=== PATIENT | female | born 1950 | race Hispanic/Latino ===

== ENCOUNTER 2016-08-24 12:35 | Emergency (ER) | payer MEDICARE ==
--- NOTE | 2016-08-24 12:57 | Emergency Department Report ---
Chief Complaint: Extremity Injury, Lower Stated Complaint: NOT ABLE TO WALK FOR A WEEK Time Seen by Provider: 08/24/16 12:52 - HPI History of Present Illness: PT c/o R knee pain x 1 week. PT denies recent injury. PT states she fell 1.5 years ago and injured her knee. PT states that she was not seen at that time and her knee was swollen and bruised. PT states after the fall she has not been able to put pressure on her R knee. - ROS Review of Systems: + gait changes due to R knee pain - Exam Physical Exam: PT looks well, non toxic gait not observed in triage. MSE screening note: Focused history and physical exam performed. Due to findings the following was ordered: xr ED Disposition for MSE Condition: Stable
[2016-08-24 12:59] VITALS: BP 95/51
--- NOTE | 2016-08-24 13:38 | XRay Report ---
RIGHT KNEE RADIOGRAPHS INDICATION: Pain. COMPARISON: None similar. FINDINGS: AP, oblique and lateral right knee radiographs demonstrate intact articulation. Slight degenerative tibial spine prominence and medial compartment narrowing. No suprapatellar effusion. Atherosclerotic vascular calcifications. CONCLUSION: No acute right knee radiographic abnormality with few degenerative changes, as described. Thank you for the opportunity to participate in this patient's care.
[2016-08-24] MEDS ORDERED: MOTRIN PO ONE (18:52)
[2016-08-24] MEDS ORDERED: TYLENOL PO ONE (18:54)
--- NOTE | 2016-08-24 22:03 | Emergency Department Report ---
Entered by MARELY GONZALEZ, acting as scribe for JONATHON REA NP. ED Lower Extremity HPI - General Chief Complaint: Extremity Injury, Lower Stated Complaint: NOT ABLE TO WALK FOR A WEEK Time Seen by Provider: 08/24/16 12:52 Source: patient Mode of arrival: Ambulatory Limitations: No Limitations - History of Present Illness Initial Comments: This is a 66 year old female nontoxic, well nourished in appearance, no acute signs of distress presents right knee pain for 3 weeks. Patient reports about 1 1/2 years ago she injured her knee by tripping over carpet which landed on her right knee but recently, symptoms reoccurred (about 3 weeks ago) when she hit her knee on a car door. Patient states aggravation while bearing weight and bending the knee and alleviated when extending. She describes the pain as throbbing with level 10/10. Patient denies any trauma, chest pain, SOB, numbness or tingling to extremity. Patient also denies any calf pain, joint swelling, joint redness, recent surgeries, recent travels, long car rides. Patient denies any hospital stays. Denies any allergies. PMHx CHF, COPD, DM, and HTN but denies DVT. MD Complaint: knee injury Onset/Timin -: week(s) Injury: Knee: Right Type of Injury: unknown Place: home Severity: moderate Severity scale (0 -10): 4 Improves With: nothing Worsens With: weight bearing, movement Context: walking Associated Symptoms: able to partially bear weight, ambulatory. denies: snap/ pop sensation, swelling, numbness, tingling, unable to bear weight - Related Data Home Medications Medication Instructions Recorded Confirmed Last Taken Venlafaxine Xr [Effexor XR] 225 mg PO QDAY 12/12/12 05/31/16 05/30/16 225 traZODone [Desyrel] 200 mg PO QHS 12/12/12 05/31/16 05/30/16 100 Previous Rx's Medication Instructions Recorded Last Taken Type ALBUTEROL Inhaler [ProAir HFA 2 puff IH QID PRN #1 inhalation 06/04/16 Unknown Rx Inhaler] Levofloxacin [Levaquin TAB] 250 mg PO Q24H #5 tablet 06/04/16 Unknown Rx Metoprolol Xl [Metoprolol 25 mg PO QDAY #30 tablet 06/04/16 Unknown Rx SUCCINATE ER TAB] Nicotine [Habitrol] 14 mg TD DAILY #14 patch 06/04/16 Unknown Rx clonazePAM 0.5 mg PO DAILY PRN #14 tablet 06/04/16 Unknown Rx metFORMIN [Glucophage] 500 mg PO BID #60 tablet 06/04/16 Unknown Rx Acetaminophen [Acetaminophen TAB] 650 mg PO Q6HR PRN #20 tablet 08/24/16 Unknown Rx Allergies Allergy/AdvReac Type Severity Reaction Status Date / Time No Known Allergies Allergy Verified 08/24/16 12:52 ED Review of Systems Comment: All other systems reviewed and negative Constitutional: denies: chills, fever Eyes: denies: eye pain, eye discharge, vision change ENT: denies: ear pain, throat pain Respiratory: denies: cough, shortness of breath, wheezing Cardiovascular: denies: chest pain, palpitations Endocrine: no symptoms reported Gastrointestinal: denies: abdominal pain, nausea, diarrhea Genitourinary: denies: urgency, dysuria, discharge Musculoskeletal: denies: back pain, joint swelling, arthralgia Skin: denies: rash, lesions Neurological: denies: headache, weakness, paresthesias Psychiatric: denies: anxiety, depression Hematological/Lymphatic: denies: easy bleeding, easy bruising ED Past Medical Hx - Past Medical History Hx Hypertension: Yes Hx Heart Attack/AMI: No Hx Congestive Heart Failure: Yes Hx Diabetes: Yes Hx Deep Vein Thrombosis: (?) Hx Pulmonary Embolism: No Hx GERD: No Hx Liver Disease: No Hx Psychiatric Treatment: Yes (depression) Hx Asthma: Yes Hx COPD: Yes Hx Tuberculosis: No Hx HIV: No Additional medical history: Apparently the patient had a previous cardiac cath per Dr. Cadena. See his note. Recent admission for sepsis. - Surgical History Hx Coronary Stent: No Hx Pacemaker: (For pacemaker today.) Hx Internal Defibrillator: (?) Additional Surgical History: hysterectomy - Social History Smoking Status: Former Smoker Substance Use Type: None - Medications Home Medications: Home Medications Medication Instructions Recorded Confirmed Last Taken Type Venlafaxine Xr [Effexor XR] 225 mg PO QDAY 12/12/12 05/31/16 05/30/16 History 225 traZODone [Desyrel] 200 mg PO QHS 12/12/12 05/31/16 05/30/16 History 100 ALBUTEROL Inhaler [ProAir HFA 2 puff IH QID PRN #1 inhalation 06/04/16 Unknown Rx Inhaler] Levofloxacin [Levaquin TAB] 250 mg PO Q24H #5 tablet 06/04/16 Unknown Rx Metoprolol Xl [Metoprolol 25 mg PO QDAY #30 tablet 06/04/16 Unknown Rx SUCCINATE ER TAB] Nicotine [Habitrol] 14 mg TD DAILY #14 patch 06/04/16 Unknown Rx clonazePAM 0.5 mg PO DAILY PRN #14 tablet 06/04/16 Unknown Rx metFORMIN [Glucophage] 500 mg PO BID #60 tablet 06/04/16 Unknown Rx Acetaminophen [Acetaminophen TAB] 650 mg PO Q6HR PRN #20 tablet 08/24/16 Unknown Rx ED Physical Exam - General Limitations: No Limitations General appearance: alert, in no apparent distress - Head Head exam: Present: atraumatic, normocephalic, normal inspection - Eye Eye exam: Present: normal appearance, PERRL, EOMI. Absent: scleral icterus, conjunctival injection, nystagmus, periorbital swelling, periorbital tenderness Pupils: Present: normal accommodation. Absent: irregular - ENT ENT exam: Present: normal exam, normal orophraynx, mucous membranes moist, TM's normal bilaterally, normal external ear exam - Neck Neck exam: Present: normal inspection, full ROM. Absent: tenderness, meningismus, lymphadenopathy - Respiratory Respiratory exam: Present: normal lung sounds bilaterally. Absent: respiratory distress, wheezes, rales, rhonchi, stridor, chest wall tenderness, accessory muscle use, decreased breath sounds, prolonged expiratory - Cardiovascular Cardiovascular Exam: Present: regular rate, normal rhythm, normal heart sounds. Absent: bradycardia, tachycardia, irregular rhythm, systolic murmur, diastolic murmur, rubs, gallop - GI/Abdominal GI/Abdominal exam: Present: soft, normal bowel sounds. Absent: distended, tenderness, guarding, rebound, rigid - Rectal Rectal exam: Present: deferred - Extremities Exam Extremities exam: Present: normal inspection, full ROM, normal capillary refill. Absent: tenderness, pedal edema, joint swelling, calf tenderness - Expanded Lower Extremity Exam Right Hip exam: Present: normal inspection, full ROM, pelvic stability. Absent: tenderness, swelling, abrasion, laceration, ecchymosis, deformity, crepidus, dislocation, erythema, external rotation, internal rotation, shortening Upper Leg exam: Present: normal inspection, full ROM. Absent: tenderness, swelling, abrasion, laceration, ecchymosis, deformity, crepidus, dislocation, erythema Knee exam: Present: normal inspection, full ROM (2+ pulses), full knee extension. Absent: tenderness, swelling, abrasion, laceration, ecchymosis, deformity, crepidus, erythema, pain w/ pronation/supination, posterior draw sign , pain/laxity with valgus, pain/laxity with varus Lower Leg exam: Present: normal inspection, full ROM. Absent: tenderness, swelling, abrasion, laceration, ecchymosis, deformity, crepidus, dislocation, erythema, palpable cord, Bret's sign Ankle exam: Present: normal inspection, full ROM. Absent: tenderness, swelling , abrasion, laceration, ecchymosis, deformity, crepidus, dislocation, erythema, anterior draw sign Foot/Toe exam: Present: normal inspection, full ROM. Absent: tenderness, swelling, abrasion, laceration, ecchymosis, deformity, crepidus, dislocation, erythema, amputation, puncture wound, foreign body, calcaneal tenderness, tenderness at base of 5th metatarsal, nail avulsion, subungual hematoma Neuro vascular tendon exam: Present: no vascular compromise. Absent: pulse deficit, abnormal cap refill, motor deficit, sensory deficit, tendon deficit, extremity cold to touch, pallor, abnormal 2-point discrimination, decreased fine /light touch, foot drop, peroneal nerve deficit, significant pain with passive ROM of distal joint Gait: Positive: observed and normal - Back Exam Back exam: Present: normal inspection, full ROM. Absent: tenderness, CVA tenderness (R), CVA tenderness (L), muscle spasm, paraspinal tenderness, vertebral tenderness, rash noted - Neurological Exam Neurological exam: Present: alert, oriented X3, CN II-XII intact, normal gait, reflexes normal - Psychiatric Psychiatric exam: Present: normal affect, normal mood - Skin Skin exam: Present: warm, dry, intact, normal color. Absent: rash ED Course Vital Signs 08/24/16 12:52 Temperature 98.2 F Pulse Rate 70 Respiratory 18 Rate Blood Pressure 95/51 O2 Sat by Pulse 94 Oximetry - Reevaluation(s) Reevaluation #1: 08/24/16 18:51 patient is able to speak in full sentences with no signs of distress noted. ED Lower Extremity MDM - Medical Decision Making ED course; this is a 66-year-old female that presented to the left knee pain 1- patient was examined by myself. Patient received an x-ray to left knee with negative findings of fracture. Patient was notified of the x-ray findings with him for the first noted by the patient. 2- patient received a knee immobilizer with crutches. Crutches has been educated by RN. 3- patient was instructed to follow-up with Dr. Jordan or another orthopedic doctor in 3-5 days or if symptoms such as numbness, tingling, fever, chills, nausea, vomiting chest pain or shortness of breath return to emergency room as was possible. 4- patient was discharged with acetaminophen 650 mg 5- at time time of discharge, the patient does not seem toxic or ill in appearance. No acute signs of distress noted. Patient agrees to discharge treatment plan of care. No further questions noted by the patient. ED Disposition Clinical Impression: Knee pain Qualifiers: Chronicity: acute Laterality: left Qualified Code(s): M25.562 - Pain in left knee Disposition: DC-01 TO HOME OR SELFCARE Is pt being admited?: No Does the pt Need Aspirin: No Condition: Stable Instructions: Knee Pain (ED), Acetaminophen (By mouth), Knee Immobilizer (ED), Crutch Instructions (ED) Additional Instructions: follow-up with Dr. Jordan or another orthopedic doctor in 3-5 days or if symptoms such as numbness, tingling, fever, chills, nausea, vomiting chest pain or shortness of breath return to emergency room as was possible. Prescriptions: Acetaminophen [Acetaminophen TAB] 650 mg PO Q6HR PRN #20 tablet PRN Reason: Pain Referrals: JESSICA DONOHUE MD [Primary Care Provider] - 3-5 Days SOY JORDAN MD [Staff Physician] - 3-[address] [facility] [Outside] - 3-5 Days [facility] [Outside] - 3-5 Days Forms: Work/School Release Form(ED) This documentation as recorded by the LISA posey PEARL,accurately reflects the service I personally performed and the decisions made by me,JONATHON REA NP.
== END 2016-08-24 19:15 | disposition home or self-care (01) ==
LOC: ED 12:35
DX: M25.561 Pain in right knee (principal); I10 Essential (primary) hypertension; I50.9 Heart failure, unspecified; J45.909 Unspecified asthma, uncomplicated; J44.9 Chronic obstructive pulmonary disease, unspecified; Z87.891 Personal history of nicotine dependence
CPT/HCPCS: 99283

== ENCOUNTER 2016-09-29 21:07 | Emergency (ER) | payer MEDICARE ==
[2016-09-29 21:25] VITALS: BP 130/86
[2016-09-29 21:51] LABS: Basophils % (Auto) 0.8 % (0.0-1.8); Eosinophils % (Auto) 1.6 % (0.0-4.3); Hematocrit 42.2 % (30.3-42.9); Hemoglobin 13.6 gm/dl (10.1-14.3); Mean Corpuscular HGB Conc 32 % (30-34); Mean Corpuscular Hemoglobin 31 pg (28-32); Mean Corpuscular Volume 97 fl (79-97); Platelet Count 169 K/mm3 (140-440); Red Blood Count 4.36 M/mm3 (3.65-5.03); Red Cell Distribution Width 14.4 % (13.2-15.2); White Blood Count 8.3 K/mm3 (4.5-11.0)
[2016-09-29 22:14] LABS: Anion Gap 20 mmol/L; BUN/Creatinine Ratio 26.25; Blood Urea Nitrogen 21 mg/dL (7-17); Calcium 9.5 mg/dL (8.4-10.2); Carbon Dioxide 29 mmol/L (22-30); Chloride 93.2 mmol/L (98-107); Glucose 182 mg/dL (65-100); Potassium 4.6 mmol/L (3.6-5.0); Sodium 138 mmol/L (137-145)
--- NOTE | 2016-09-30 08:24 | XRay Report ---
CHEST 2 VIEWS INDICATION: Shortness of breath, chest pain. COMPARISON: 06/03/2016 FINDINGS: Frontal and lateral chest radiographs demonstrate stable cardiomediastinal silhouette/slight cardiomegaly, aortic knob calcifications and left-sided dual-chamber pacemaker. Stable to minimally improved bibasilar haziness, in part related to overlying soft tissues. Mild horizontal right infrahilar atelectasis now slightly more prominent. Right hemidiaphragm slightly elevated. No large pleural effusions or CHF. Demineralized bones with thoracic spondylosis. CONCLUSION: Right basilar atelectasis and few other findings, as above. Thank you for the opportunity to participate in this patient's care.
--- NOTE | 2016-10-08 01:30 | ED Elopement Review ---
ED Pt Elopement review - Results review Lab results: Laboratory Tests 09/29/16 09/29/16 09/29/16 21:30 21:30 21:30 WBC 8.3 RBC 4.36 Hgb 13.6 Hct 42.2 MCV 97 MCH 31 MCHC 32 RDW 14.4 Plt Count 169 Lymph % (Auto) 29.2 [place] % (Auto) 7.2 Eos % (Auto) 1.6 Baso % (Auto) 0.8 Lymph # 2.4 [place] # 0.6 Eos # 0.1 Baso # 0.1 Seg Neutrophils % 61.2 Seg Neutrophils # 5.1 Sodium 138 Potassium 4.6 Chloride 93.2 L Carbon Dioxide 29 Anion Gap 20 BUN 21 H Creatinine 0.8 Estimated GFR > 60 BUN/Creatinine Ratio 26.25 Glucose 182 H Calcium 9.5 Troponin T 0.014 NT-Pro-B Natriuret Pep 4605 H - Call Back decision Pt Call Back Decision: Call pt to return to ED ALEXANDER (CHF exacerbation)
== END 2016-09-29 22:52 | disposition left against medical advice (07) ==
LOC: ED 21:07
DX: R07.9 Chest pain, unspecified (principal); R06.02 Shortness of breath; Z53.21 Procedure and treatment not carried out due to patient leaving prior to being seen by health care provider
CPT/HCPCS: 36415; 71020; 80048; 83880; 84484; 85025; 93005; 93010

== ENCOUNTER 2016-12-29 16:22 | Inpatient (IN) | payer MEDICARE ==
[2016-12-29 17:29] LABS: Basophils % (Auto) 0.3 % (0.0-1.8); Eosinophils % (Auto) 1.2 % (0.0-4.3); Hematocrit 41.5 % (30.3-42.9); Hemoglobin 13.7 gm/dl (10.1-14.3); Mean Corpuscular HGB Conc 33 % (30-34); Mean Corpuscular Hemoglobin 32 pg (28-32); Mean Corpuscular Volume 97 fl (79-97); Platelet Count 157 K/mm3 (140-440); Red Blood Count 4.27 M/mm3 (3.65-5.03); Red Cell Distribution Width 14.6 % (13.2-15.2); White Blood Count 9.1 K/mm3 (4.5-11.0)
[2016-12-29 17:40] LABS: Anion Gap 17 mmol/L; BUN/Creatinine Ratio 27; Blood Urea Nitrogen 24 mg/dL (7-17); Calcium 9.4 mg/dL (8.4-10.2); Carbon Dioxide 31 mmol/L (22-30); Creatine Kinase 41 units/L (30-135); Glucose 194 mg/dL (65-100); Sodium 140 mmol/L (137-145)
--- NOTE | 2016-12-29 17:42 | Emergency Department Report ---
HPI - General Chief Complaint: Dyspnea/Respdistress Time Seen by Provider: 12/29/16 17:25 - HPI HPI: Room 20 The patient is a 66-year-old female presenting with a chief complaint of tachycardia. Patient states this morning she awakened with decreased energy in her chronic shortness of breath. Patient states she went to her primary physician for routine appointment was instructed that her heart rate was elevated. Her primary physician contacted the patient's complaint adjuster (Dr. Bruno) and eventually transferred the patient to the complaint adjuster's office. The complaint adjuster's office the patient was evaluated and instructed to come to the ED for further management. Patient does admit to chest tightness for 1 day. Patient does admit to diaphoresis. Patient denies nausea/vomiting. Location: Chest, see above Duration: 1 Day Quality: Tightness Severity: Moderate Modifying factors: [see above] Context: [see above] Mode of transportation: Unknown ED Past Medical Hx - Past Medical History Previous Medical History?: Yes Hx Hypertension: Yes Hx Congestive Heart Failure: Yes Hx Diabetes: Yes Hx Deep Vein Thrombosis: (?) Hx Psychiatric Treatment: Yes (depression) Hx Asthma: Yes Hx COPD: Yes Additional medical history: Apparently the patient had a previous cardiac cath per Dr. Cadena. See his note. Recent admission for sepsis. - Surgical History Past Surgical History?: Yes Hx Pacemaker: (For pacemaker today.) Hx Internal Defibrillator: (?) Additional Surgical History: hysterectomy///pacermaker 05/31/2016 - Family History Family history: no significant - Social History Smoking Status: Former Smoker (none since May 2016) Substance Use Type: None (denies illicit drug use), Alcohol (occasional), Prescribed - Medications Home Medications: Home Medications Medication Instructions Recorded Confirmed Last Taken Type Venlafaxine Xr [Effexor XR] 225 mg PO QDAY 12/12/12 05/31/16 05/30/16 History 225 traZODone [Desyrel] 200 mg PO QHS 12/12/12 05/31/16 05/30/16 History 100 ALBUTEROL Inhaler [ProAir HFA 2 puff IH QID PRN #1 inhalation 06/04/16 Unknown Rx Inhaler] Levofloxacin [Levaquin TAB] 250 mg PO Q24H #5 tablet 06/04/16 Unknown Rx Metoprolol Xl [Metoprolol 25 mg PO QDAY #30 tablet 06/04/16 Unknown Rx SUCCINATE ER TAB] Nicotine [Habitrol] 14 mg TD DAILY #14 patch 06/04/16 Unknown Rx clonazePAM 0.5 mg PO DAILY PRN #14 tablet 06/04/16 Unknown Rx metFORMIN [Glucophage] 500 mg PO BID #60 tablet 06/04/16 Unknown Rx Acetaminophen [Acetaminophen TAB] 650 mg PO Q6HR PRN #20 tablet 08/24/16 Unknown Rx ED Review of Systems ROS: Stated complaint: SOB Other details as noted in HPI Constitutional: diaphoresis, malaise Respiratory: shortness of breath Cardiovascular: chest pain Endocrine: no symptoms reported Gastrointestinal: denies: nausea, vomiting Physical Exam - Physical Exam Vital Signs: Vital Signs 12/29/16 12/29/16 12/29/16 16:33 16:51 17:06 Temperature 98.4 F Pulse Rate 138 H Respiratory 22 Rate Blood Pressure 131/71 131/71 O2 Sat by Pulse 94 92 Oximetry 12/29/16 12/29/16 17:16 17:25 Temperature Pulse Rate 137 H Respiratory 17 20 Rate Blood Pressure 156/100 O2 Sat by Pulse 99 95 Oximetry Physical Exam: GENERAL: The patient is well-developed well-nourished female lying on stretcher not appearing to be in distress. [] HEENT: Normocephalic. Atraumatic. Extraocular motions are intact. Patient has moist mucous membranes. NECK: Supple. Trachea midline CHEST/LUNGS: There is no respiratory distress noted. HEART/CARDIOVASCULAR: Regular. There is tachycardia. ABDOMEN: Abdomen is soft, nontender. Patient has normal bowel sounds. There is no abdominal distention. SKIN: There is no rash. There is no edema. There is no diaphoresis. NEURO: The patient is awake, alert, and oriented. The patient is cooperative. The patient has normal speech MUSCULOSKELETAL: There is no evidence of acute injury. ED Course Vital Signs 12/29/16 12/29/16 12/29/16 16:33 16:51 17:06 Temperature 98.4 F Pulse Rate 138 H Respiratory 22 Rate Blood Pressure 131/71 131/71 O2 Sat by Pulse 94 92 Oximetry 12/29/16 12/29/16 17:16 17:25 Temperature Pulse Rate 137 H Respiratory 17 20 Rate Blood Pressure 156/100 O2 Sat by Pulse 99 95 Oximetry - Consultations Consultation #1: 12/29/16 17:36 Cardiology paged 12/29/16 18:[address] Scott Lay- recommends trying diltiazem 20 mg IV ED Medical Decision Making - Lab Data Result diagrams: 12/29/16 17:07 12/29/16 17:07 Laboratory Tests 12/29/16 12/29/16 12/29/16 17:07 17:07 17:07 WBC 9.1 RBC 4.27 Hgb 13.7 Hct 41.5 MCV 97 MCH 32 MCHC 33 RDW 14.6 Plt Count 157 Lymph % (Auto) 28.3 [place] % (Auto) 7.6 H Eos % (Auto) 1.2 Baso % (Auto) 0.3 Lymph # 2.6 [place] # 0.7 Eos # 0.1 Baso # 0.0 Seg Neutrophils % 62.6 Seg Neutrophils # 5.7 Sodium 140 Potassium 5.0 Chloride 97.0 L Carbon Dioxide 31 H Anion Gap 17 BUN 24 H Creatinine 0.9 Estimated GFR > 60 BUN/Creatinine Ratio 27 Glucose 194 H Calcium 9.4 Total Creatine Kinase 41 Troponin T 0.021 NT-Pro-B Natriuret Pep 4695 H - EKG Data -: EKG Interpreted by Me EKG shows normal: sinus rhythm Rate: tachycardia - EKG Data When compared to previous EKG there are: changes noted Interpretation: nonspecific ST-T wave qamar (T-wave inversion in lead V4, V5) - Radiology Data Radiology results: image reviewed (chest x-ray) interpreted by me: Chest [id number]. No focal infiltrates - Differential Diagnosis ACS, GERD, pericarditis, PSVT Critical care attestation.: If time is entered above; I have spent that time in minutes in the direct care of this critically ill patient, excluding procedure time. ED Disposition Clinical Impression: Chest pain, Tachycardia Disposition: OP ADMIT IP TO THIS HOSP Is pt being admited?: Yes Does the pt Need Aspirin: Yes Condition: Fair Instructions: Chest Pain (ED) Referrals: PRIMARY CARE,MD [Primary Care Provider] - 3-5 Days Time of Disposition: 18:20 (Hospitalist notified)
[2016-12-29] MEDS ORDERED: CARDIZEM IV ONE (18:01)
[2016-12-29] MEDS ORDERED: ASPIRIN PO ONE (18:29)
--- NOTE | 2016-12-29 18:53 | History and Physical Report ---
History of Present Illness Date of examination: 12/29/16 Date of admission: 12/29/16 Chief complaint: Chest pain, SOB History of present illness: Patient is 66-year-old with COPD, hypertension, diabetes, cardiomyopathy. She , went to see primary care physician complaining of chest pain and shortness of breath. She was found to have rapid heart rate, and was therefore referred to Dr. Bruno, cardiology's office. Over there, EKG showed tachycardia with heart rate in the 140s and was interpreted as likely SVT by Dr. Bruno. He therefore sent patient to Emergency Department. Case was discussed with monotype setter nanofabrication specialist and he recommended Cardizem. Patient was given Cardizem and Aspirin and will be admitted for further management. Past History Past Medical History: COPD, diabetes, heart failure, hypertension, other ( pulmonary hypertension, pacemaker, cardiomyopathy) Past Surgical History: hysterectomy, Other (left arm fracture s/p surgery, pacemaker) Social history: alcohol abuse (occasionally), full code. denies: smoking Family history: CAD, hypertension Medications and Allergies Allergies Allergy/AdvReac Type Severity Reaction Status Date / Time No Known Allergies Allergy Verified 08/24/16 12:52 Home Medications Medication Instructions Recorded Confirmed Last Taken Type Venlafaxine Xr [Effexor XR] 225 mg PO QDAY 12/12/12 12/29/16 05/30/16 History 225 traZODone [Desyrel] 100 mg PO QHS 12/12/12 12/29/16 05/30/16 History 100 Carvedilol [Coreg] 6.25 mg PO BID 12/29/16 12/29/16 Unknown History Furosemide [Lasix] 20 mg PO QAM 12/29/16 12/29/16 Unknown History Insulin Regular, Human [Humulin R] 100 unit SQ AC 12/29/16 12/29/16 Unknown History clonazePAM 1 mg PO BID PRN 12/29/16 12/29/16 Unknown History Review of Systems All systems: negative (No fever, No abdominal pain, no diarrhea. All other systems reviewed and are negative) Exam - Physical Exam Narrative exam: GEN APPEARANCE : Not in acute distress, obese HEENT: Normocephalic Atraumatic NECK : supple, no JVD LUNGS: clear to auscultation bilaterally, no rales, no wheeze HEART: S1 and S2 regular, tachycardia, no murmurs, rubs or gallop ABD: Soft, no tenderness, no distension, normal bowel sounds EXT: No edema, no clubbing, no cyanosis NEURO:Awake,alert,oriented x 3, no facial asymmetry, muscle power 5/5 both upper and lower ext PSYCH: Normal mood - Constitutional Vitals: Temp Pulse Resp BP Pulse Ox 98.4 F 102 H 22 107/85 96 12/29/16 16:51 12/29/16 18:30 12/29/16 18:30 12/29/16 18:30 12/29/16 18:30 Results - Labs CBC & Chem 7: 12/29/16 17:07 12/29/16 17:07 Labs: Abnormal lab results 12/29/16 12/29/16 12/29/16 Range/Units 17:07 17:07 17:07 [place] % (Auto) 7.6 H (0.0-7.3) % Chloride 97.0 L (98-107) mmol/L Carbon Dioxide 31 H (22-30) mmol/L BUN 24 H (7-17) mg/dL Glucose 194 H (65-100) mg/dL NT-Pro-B Natriuret Pep 4695 H (0-900) pg/mL Assessment and Plan Tachycardia, likely supraventricular tachycardia. Admit to Telemetry. Cardizem iv recommended by monotype setter. Given in ED, heart rate improved, HR is now 105 Chest pain. To rule out acute coronry syndrome. May be due to tachy. Aspirin 325 mg daily., serial Troponins Acute on chronic systolic CHF. Lasix iv. supplental Oxygen. Strict I/O, dily weight. Not given Beta evan because giving Cardizem. Acute respiratory failure due to CHF exacerbation. Supplemental Oxygen Diabetes mellitus type2. Fingerstick QAC and HS. COPD. No acute exacerbation. Hypertension. BP borderline. Will monitor. DVT prophylaxis with Heparin. Full code status. Patient remains tachy, heart rate increased to 140s again. Will start Cardizem drip , admit to ICU.
[2016-12-29] MEDS ORDERED: ZOFRAN IV PRN (18:54)
[2016-12-29] MEDS ORDERED: CARDIZEM PO SCH (19:00)
[2016-12-29] MEDS ORDERED: LASIX IV SCH (20:00)
[2016-12-29] MEDS ORDERED: COREG PO SCH (20:00)
[2016-12-29] MEDS ORDERED: CARDIZEM/D5W 100MG/100ML 100 MG/100 ML BAG IV ONE (20:10)
[2016-12-29] MEDS ORDERED: CARDIZEM/D5W 100MG/100ML 100 MG/100 ML BAG IV SCH (21:00)
[2016-12-29] MEDS ORDERED: NORMODYNE 200 MG in D5W 160 ML IV SCH (22:00)
[2016-12-29] MEDS: HEPARIN SUB-Q SCH (22:30)
[2016-12-30 02:17] LABS: Creatine Kinase MB 2.6 ng/mL (0.0-4.0)
[2016-12-30 03:16] LABS: Basophils % (Auto) 0.5 % (0.0-1.8); Eosinophils % (Auto) 1.6 % (0.0-4.3); Hematocrit 37.9 % (30.3-42.9); Hemoglobin 12.8 gm/dl (10.1-14.3); Mean Corpuscular HGB Conc 34 % (30-34); Mean Corpuscular Hemoglobin 32 pg (28-32); Mean Corpuscular Volume 95 fl (79-97); Platelet Count 151 K/mm3 (140-440); Red Blood Count 3.98 M/mm3 (3.65-5.03); Red Cell Distribution Width 14.6 % (13.2-15.2); White Blood Count 7.1 K/mm3 (4.5-11.0)
[2016-12-30 03:32] LABS: Anion Gap 17 mmol/L; BUN/Creatinine Ratio 31; Blood Urea Nitrogen 25 mg/dL (7-17); Carbon Dioxide 28 mmol/L (22-30); Glucose 204 mg/dL (65-100); Potassium 4.2 mmol/L (3.6-5.0); Sodium 136 mmol/L (137-145)
[2016-12-30] MEDS ORDERED: NACL 0.9% 250ML 250 ML IV ONE (04:55)
[2016-12-30] MEDS ORDERED: LASIX IV SCH (06:00)
[2016-12-30] MEDS: HEPARIN SUB-Q SCH ×3 (07:26→21:11)
--- NOTE | 2016-12-30 07:35 | XRay Report ---
AP CHEST: HISTORY: Shortness of breath Compared to 09/29/16. Mild cardiomegaly and central pulmonary venous congestion are identified which are unchanged. No evidence for pneumonia, pleural effusion or pneumothorax. Minor scarring in the right middle lobe is unchanged. Pacemaker device remains in the same position. IMPRESSION: No acute process. Mild cardiomegaly and pulmonary venous congestion but no CHF.
--- NOTE | 2016-12-30 07:58 | Progress Note ---
Assessment and Plan Assessment and plan: --Cardiac arrhythmias/possible SVT/new onset A. fib with rapid ventricular rate Status post Cardizem drip, continue beta blockers, cardiology evaluation pending --Acute on chronic systolic congestive heart failure ejection fraction 45-50% ,continue current medications --Status post permanent pacemaker 05/2016 for complete heart block, --H/O COPD ; stable --Hypotension ; gentle IV hydration and monitor --History of alcohol use; closely monitor for any alcohol withdrawal symptoms, consider [facility] protocol --History of tobacco use; smoking cessation counseling done, nicotine patch as needed --Medical noncompliance; counseling done advised to comply with medications diet and follow-up visits --Obesity; BMI of 38.6, patient advised diet modification, exercise as tolerated , weight reduction when medically stable --Type 2 diabetes mellitus; Accu-Chek sliding scale coverage and ADA diet , A1c 8.2 in 05/2016, not on oral hypoglycemics or long-acting insulin, closely monitor the sugars start long-acting insulin as needed --DVT prophylaxis; heparin Closely monitor the patient and adjust management as needed Cardiology following, Plan of care discussed with the patient and her nurse. Critical care time 31 minutes The high probability of a clinically significant, sudden or life threatening deterioration of the [cardiovascular, pulmonary] system(s) required my full and direct attention, intervention and personal management. The aggregate critical care time was [31 ] minutes. This time is in addition to time spent performing reported procedures but includes the following: [x] Data Review and interpretation [x] Patient assessment and monitoring of vital signs [x] Documentation, counseling [x] Medication orders and management History Interval history: Patient seen and examined in ICU this morning Medical records reviewed Admitted with chest pain shortness of breath and cardiac arrhythmia Received Cardizem drip, now off Cardizem drip .Heart rate in the 110s , Patient complaints of vague chest pain Vital signs reviewed Hospitalist Physical - Constitutional Vitals: Temp Pulse Resp BP Pulse Ox 98.4 F 87 15 106/58 94 12/29/16 16:51 12/30/16 06:30 12/30/16 06:30 12/30/16 06:30 12/30/16 06:30 General appearance: Present: no acute distress, well-nourished - EENT Eyes: Present: PERRL, EOM intact - Neck Neck: Present: supple, normal ROM - Respiratory Respiratory effort: normal Respiratory: bilateral: diminished, negative: rales, rhonchi, wheezing - Cardiovascular Rhythm: regular Heart Sounds: Present: S1 & S2 (tachycardia) - Extremities Extremities: no ischemia, No edema Peripheral Pulses: within normal limits - Abdominal General gastrointestinal: soft, non-tender, non-distended, normal bowel sounds - Integumentary Integumentary: Present: clear, warm - Psychiatric Psychiatric: appropriate mood/affect, cooperative - Neurologic Neurologic: CNII-XII intact, moves all extremities Results - Labs CBC & Chem 7: 12/30/16 03:00 12/30/16 03:00 Labs: Laboratory Last Values WBC 7.1 K/mm3 (4.5-11.0) 12/30/16 03:00 RBC 3.98 M/mm3 (3.65-5.03) 12/30/16 03:00 Hgb 12.8 gm/dl (10.1-14.3) 12/30/16 03:00 Hct 37.9 % (30.3-42.9) 12/30/16 03:00 MCV 95 fl (79-97) 12/30/16 03:00 MCH 32 pg (28-32) 12/30/16 03:00 MCHC 34 % (30-34) 12/30/16 03:00 RDW 14.6 % (13.2-15.2) 12/30/16 03:00 Plt Count 151 K/mm3 (140-440) 12/30/16 03:00 Lymph % (Auto) 37.2 % (13.4-35.0) H 12/30/16 03:00 Mineral % (Auto) 7.6 % (0.0-7.3) H 12/30/16 03:00 Eos % (Auto) 1.6 % (0.0-4.3) 12/30/16 03:00 Baso % (Auto) 0.5 % (0.0-1.8) 12/30/16 03:00 Lymph # 2.7 K/mm3 (1.2-5.4) 12/30/16 03:00 Mineral # 0.5 K/mm3 (0.0-0.8) 12/30/16 03:00 Eos # 0.1 K/mm3 (0.0-0.4) 12/30/16 03:00 Baso # 0.0 K/mm3 (0.0-0.1) 12/30/16 03:00 Seg Neutrophils % 53.1 % (40.0-70.0) 12/30/16 03:00 Seg Neutrophils # 3.8 K/mm3 (1.8-7.7) 12/30/16 03:00 Sodium 136 mmol/L (137-145) L 12/30/16 03:00 Potassium 4.2 mmol/L (3.6-5.0) 12/30/16 03:00 Chloride 95.0 mmol/L (98-107) L 12/30/16 03:00 Carbon Dioxide 28 mmol/L (22-30) 12/30/16 03:00 Anion Gap 17 mmol/L 12/30/16 03:00 BUN 25 mg/dL (7-17) H 12/30/16 03:00 Creatinine 0.8 mg/dL (0.7-1.2) 12/30/16 03:00 Estimated GFR > 60 ml/min 12/30/16 03:00 BUN/Creatinine Ratio 31 % 12/30/16 03:00 Glucose 204 mg/dL (65-100) H 12/30/16 03:00 Calcium 9.0 mg/dL (8.4-10.2) 12/30/16 03:00 Total Creatine Kinase 33 units/L (30-135) 12/30/16 01:40 CK-MB (CK-2) 2.6 ng/mL (0.0-4.0) 12/30/16 01:40 CK-MB (CK-2) Rel Index 7.8 (0-4) H 12/30/16 01:40 Troponin T 0.024 ng/mL (0.00-0.029) 12/30/16 01:40 NT-Pro-B Natriuret Pep 4695 pg/mL (0-900) H 12/29/16 17:07
[2016-12-30 08:27] LABS: Creatine Kinase MB 2.7 ng/mL (0.0-4.0)
[2016-12-30] MEDS ORDERED: ECOTRIN PO SCH (10:00)
[2016-12-30] MEDS ORDERED: CORDARONE 150 MG in D5W 100 ML IV ONE (11:00)
--- NOTE | 2016-12-30 11:18 | Consultation ---
History of Present Illness Consult date: 12/30/16 Requesting physician: WENDIE SEO Consult reason: chest pain History of present illness: Pt is a 66 YO female with a past medical history significant for cardiopulmonary arrest, normal coronaries, respiratory failure, COPD, CHB s/p PPM implantation 06/02/2016, renal insufficiency, morbid obesity, HTN, DM, ETOH abuse, tobacco use, noncompliance. She is followed in our office by Dr. Bruno. She presented to her PCP yesterday for scheduled appt and was found to be tachycardic with abnormal EKG and was thus referred to our office for further eval. She was seen by Dr. Bruno yesterday afternoon in our office and was found to have EKG with wide QRS tachycardia suspicious for SVT and was then referred to ED for further eval/management. She admits to some SOB and chest tightness over the past several days. She denies any palpitations, n/v, diaphoresis, dizziness or syncope. Following arrival in ED, EKG demonstrated SVT , most c/w atrial fibrillation/atrial flutter, with RBBB. She was given IV cardizem and initiated on cardizem gtt, which has since been discontinued d/t hypotension. Echo done 05/2016 showed EF 45-50%, impaired relaxation. LHC done 05/2015 showed patent coronaries left main patent LAD patent circumflex patent RCA patent left cor industrial hire sales assistant come from the right cornea cusp and normal LV function. 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 Past History Past Medical History: COPD, diabetes, heart failure, hypertension Past Surgical History: hysterectomy, Other (left arm fracture s/p surgery, pacemaker) Social history: alcohol abuse (occasionally), full code. denies: smoking Family history: CAD, hypertension Medications and Allergies Allergies Allergy/AdvReac Type Severity Reaction Status Date / Time No Known Allergies Allergy Verified 08/24/16 12:52 Home Medications Medication Instructions Recorded Confirmed Last Taken Type Venlafaxine Xr [Effexor XR] 225 mg PO QDAY 12/12/12 12/29/16 05/30/16 History 225 traZODone [Desyrel] 100 mg PO QHS 12/12/12 12/29/16 05/30/16 History 100 Carvedilol [Coreg] 6.25 mg PO BID 12/29/16 12/29/16 Unknown History Furosemide [Lasix] 20 mg PO QAM 12/29/16 12/29/16 Unknown History Insulin Regular, Human [Humulin R] 100 unit SQ AC 12/29/16 12/29/16 Unknown History clonazePAM 1 mg PO BID PRN 12/29/16 12/29/16 Unknown History Active Meds: Active Medications Acetaminophen (Tylenol) 650 mg PO Q4H PRN PRN Reason: Pain MILD(1-3)/Fever >100.5/TORREZ Aspirin (Baby Aspirin) 81 mg PO QDAY HARLAN Clonazepam (Klonopin) 1 mg PO BID PRN PRN Reason: Anxiety Last Admin: 12/29/16 20:45 Dose: 1 mg Heparin Sodium (Porcine) (Heparin) 5,000 unit SUB-Q Q8HR HARLAN Last Admin: 12/30/16 07:26 Dose: 5,000 unit Amiodarone HCl 900 mg/ (Dextrose) 500 mls @ 33.33 mls/hr IV DIRECT HARLAN; 1 MG /MIN PRN Reason: Protocol Ondansetron HCl (Zofran) 4 mg IV Q6H PRN PRN Reason: nausea or vomiting Review of Systems Constitutional: no weight loss, no weight gain, no fever, no chills, no sweats Ears, nose, mouth and throat: no ear pain, no nose pain, no sinus pressure, no sinus pain Cardiovascular: chest pain, shortness of breath, high blood pressure, no orthopnea, no palpitations, no rapid/irregular heart beat, no edema, no syncope , no lightheadedness, no paroxysmal nocturnal dyspnea, no leg edema Respiratory: shortness of breath, no cough, no congestion, no wheezing, no pain on inspiration Gastrointestinal: no abdominal pain, no nausea, no vomiting, no diarrhea, no constipation, no change in bowel habits Genitourinary Female: no dyspareunia, no pelvic pain, no flank pain, no menorrhagia, no dysuria, no urinary frequency, no urgency Musculoskeletal: no neck stiffness, no neck pain, no shooting arm pain, no arm numbness/tingling, no low back pain, no shooting leg pain, no leg numbness/ tingling, no redness of joints Integumentary: no rash, no pruritis, no redness, no sores, no wounds Neurological: no head injury, no paralysis, no weakness, no parathesias, no numbness, no tingling, no seizures, no syncope Psychiatric: no anxiety Endocrine: no cold intolerance, no heat intolerance Hematologic/Lymphatic: no easy bruising, no easy bleeding, no lymphadenopathy Allergic/Immunologic: no urticaria, no wheezing, no persistent infections Physical Examination Vital Signs BP 131/71 12/29/16 16:33 General appearance: no acute distress HEENT: Positive: PERRL, Normocephaly, Mucus Membranes Moist Neck: Positive: neck supple, trachea midline Cardiac: Positive: irregularly irregular, S1/S2, Tachycardia Lungs: Positive: Decreased Breath Sounds Neuro: Positive: Grossly Intact Abdomen: Positive: Soft. Negative: Tender Skin: Positive: Clear. Negative: Rash, Wound Musculoskeletal: No Fluid Collection, No Pain, Normal Range of Motion Extremities: Absent: edema Results 12/30/16 03:00 12/30/16 03:00 Cardiac Enzymes 12/30/16 12/30/16 Range/Units 01:40 07:52 CK-MB (CK-2) 2.6 2.7 (0.0-4.0) ng/mL CBC 12/29/16 12/30/16 Range/Units 17:07 03:00 WBC 9.1 7.1 (4.5-11.0) K/mm3 RBC 4.27 3.98 (3.65-5.03) M/mm3 Hgb 13.7 12.8 (10.1-14.3) gm/dl Hct 41.5 37.9 (30.3-42.9) % Plt Count 157 151 (140-440) K/mm3 Lymph # 2.6 2.7 (1.2-5.4) K/mm3 Reagan # 0.7 0.5 (0.0-0.8) K/mm3 Eos # 0.1 0.1 (0.0-0.4) K/mm3 Baso # 0.0 0.0 (0.0-0.1) K/mm3 Comprehensive Metabolic Panel 12/29/16 12/30/16 Range/Units 17:07 03:00 Sodium 140 136 L (137-145) mmol/L Potassium 5.0 4.2 (3.6-5.0) mmol/L Chloride 97.0 L 95.0 L (98-107) mmol/L Carbon Dioxide 31 H 28 (22-30) mmol/L BUN 24 H 25 H (7-17) mg/dL Creatinine 0.9 0.8 (0.7-1.2) mg/dL Glucose 194 H 204 H (65-100) mg/dL Calcium 9.4 9.0 (8.4-10.2) mg/dL - Imaging and Cardiology Echo: pending, report reviewed ( 05/2016 showed EF 45-50%, impaired relaxation. ) Cardiac cath: report reviewed (05/2015 showed patent coronaries left main patent LAD patent circumflex patent RCA patent left cor industrial hire sales assistant come from the right cornea cusp and normal LV function.) EKG: report reviewed, image reviewed EKG interpretations - Telemetry EKG Rhythm: SVT AV and intraventricular conduction: right bundle branch block Additional Comments: SVT Assessment and Plan Assessment: SVT - most likely atrial fibrillation / atrial flutter with RVR - ? new onset Hypotension CHB, status post PPM implantation 06/02/2016 Elevated pro-BNP - unclear significance; no current clinical evidence of acute heart failure Morbid obesity COPD H/o EtOH abuse / tobacco use H/o Hypertension DM H/o noncompliance Plan: Initiate amio gtt with initial bolus. D/c diuretics. Recommend IV hydration per primary. Consider addition of digoxin if necessary for HR optimization following amiodarone and IVF. F/u echo. Await thyroid panel. Consider initiation of mail examiner sytemic AC in regards to suspected atrial fibrillation/atrial flutter prior to d/c. Cont to monitor on tele. Assessment and plan reviewed with pt at bedside. The patient has been seen in conjunction with Dr. Xavier who agrees with the assessment and plan of care.
--- NOTE | 2016-12-30 11:24 | Consultation ---
History of Present Illness - Reason for Consult Consult date: 12/30/16 Afib with RVR and Hypotension Requesting physician: WENDIE SEO - History of Present Illness 66 y/o female admitted with Afib with RVR and hypotension. Unable to tolerate Cardizem or labetalol drips. Was given lasix as well being that her BNP was elevated. Transitioned to ICU for further monitoring. Awake and alert. Mild hypoxemia and now on Nasal cannula. Past History Past Medical History: COPD, diabetes, heart failure, hypertension, other ( pulmonary hypertension, pacemaker, cardiomyopathy) Past Surgical History: hysterectomy, Other (left arm fracture s/p surgery, pacemaker) Social history: alcohol abuse (occasionally), full code. denies: smoking Family history: CAD, hypertension Medications and Allergies Allergies Allergy/AdvReac Type Severity Reaction Status Date / Time No Known Allergies Allergy Verified 08/24/16 12:52 Home Medications Medication Instructions Recorded Confirmed Last Taken Type Venlafaxine Xr [Effexor XR] 225 mg PO QDAY 12/12/12 12/29/16 05/30/16 History 225 traZODone [Desyrel] 100 mg PO QHS 12/12/12 12/29/16 05/30/16 History 100 Carvedilol [Coreg] 6.25 mg PO BID 12/29/16 12/29/16 Unknown History Furosemide [Lasix] 20 mg PO QAM 12/29/16 12/29/16 Unknown History Insulin Regular, Human [Humulin R] 100 unit SQ AC 12/29/16 12/29/16 Unknown History clonazePAM 1 mg PO BID PRN 12/29/16 12/29/16 Unknown History Active Meds: Active Medications Acetaminophen (Tylenol) 650 mg PO Q4H PRN PRN Reason: Pain MILD(1-3)/Fever >100.5/TORREZ Aspirin (Baby Aspirin) 81 mg PO QDAY HARLAN Clonazepam (Klonopin) 1 mg PO BID PRN PRN Reason: Anxiety Last Admin: 12/29/16 20:45 Dose: 1 mg Heparin Sodium (Porcine) (Heparin) 5,000 unit SUB-Q Q8HR HARLAN Last Admin: 12/30/16 07:26 Dose: 5,000 unit Amiodarone HCl 900 mg/ (Dextrose) 500 mls @ 33.33 mls/hr IV DIRECT HARLAN; 1 MG /MIN PRN Reason: Protocol Ondansetron HCl (Zofran) 4 mg IV Q6H PRN PRN Reason: nausea or vomiting Review of Systems All systems: negative Exam - Constitutional Vitals: Temp Pulse Resp BP Pulse Ox 98.4 F 121 H 18 103/64 94 12/29/16 16:51 12/30/16 10:15 12/30/16 10:15 12/30/16 10:15 12/30/16 10:15 General appearance: Present: no acute distress - EENT Eyes: Present: PERRL, EOM intact ENT: hearing intact - Neck Neck: Present: supple - Respiratory Respiratory: bilateral: diminished - Cardiovascular Rhythm: irregularly irregular - Extremities Extremities: no ischemia - Abdominal General gastrointestinal: Present: soft, non-tender, non-distended Female genitourinary: Present: deferred - Rectal Rectal Exam: deferred Results - Labs CBC & Chem 7: 12/30/16 03:00 12/30/16 03:00 Labs: Abnormal lab results 12/29/16 12/29/16 12/29/16 Range/Units 17:07 17:07 17:07 Lymph % (Auto) (13.4-35.0) % Isabella % (Auto) 7.6 H (0.0-7.3) % Sodium (137-145) mmol/L Chloride 97.0 L (98-107) mmol/L Carbon Dioxide 31 H (22-30) mmol/L BUN 24 H (7-17) mg/dL Glucose 194 H (65-100) mg/dL CK-MB (CK-2) Rel Index (0-4) NT-Pro-B Natriuret Pep 4695 H (0-900) pg/mL 12/30/16 12/30/16 12/30/16 Range/Units 01:40 03:00 03:00 Lymph % (Auto) 37.2 H (13.4-35.0) % Isabella % (Auto) 7.6 H (0.0-7.3) % Sodium 136 L (137-145) mmol/L Chloride 95.0 L (98-107) mmol/L Carbon Dioxide (22-30) mmol/L BUN 25 H (7-17) mg/dL Glucose 204 H (65-100) mg/dL CK-MB (CK-2) Rel Index 7.8 H (0-4) NT-Pro-B Natriuret Pep (0-900) pg/mL 12/30/16 Range/Units 07:52 Lymph % (Auto) (13.4-35.0) % Isabella % (Auto) (0.0-7.3) % Sodium (137-145) mmol/L Chloride (98-107) mmol/L Carbon Dioxide (22-30) mmol/L BUN (7-17) mg/dL Glucose (65-100) mg/dL CK-MB (CK-2) Rel Index 9.0 H (0-4) NT-Pro-B Natriuret Pep (0-900) pg/mL - Imaging and Cardiology Chest x-ray: image reviewed (mild cardiomegaly but otherwise clear) Assessment and Plan 66 y/o female with Afib with RVR and Hypotension. 1. Will give an additional fluid bolus now 2. Cards has ordered Amio drip 3. Monitor BP 4. Will check mag level and Thyroid Studies
[2016-12-30] MEDS: CORDARONE 900 MG in D5W 482 ML IV SCH (12:15)
[2016-12-30] MEDS ORDERED: NACL 0.9% 1000 ML 1,000 ML IV ONE (13:00)
[2016-12-30] MEDS: BABY ASPIRIN PO SCH (13:52)
[2016-12-30] MEDS: XANAX PO SCH ×2 (13:58→21:11)
[2016-12-30] MEDS: TYLENOL PO PRN ×2 (19:02→21:11)
[2016-12-31] MEDS: HEPARIN SUB-Q SCH ×2 (05:49→14:08)
[2016-12-31 06:31] LABS: Alanine Aminotransferase 13 units/L (7-56); Albumin 3.7 g/dL (3.9-5); Albumin/Globulin Ratio 1.1 %; Alkaline Phosphatase 77 units/L (35-129); Anion Gap 18 mmol/L; BUN/Creatinine Ratio 31; Blood Urea Nitrogen 22 mg/dL (7-17); Calcium 9.4 mg/dL (8.4-10.2); Carbon Dioxide 29 mmol/L (22-30); Chloride 97.4 mmol/L (98-107); Glucose 178 mg/dL (65-100); Potassium 4.8 mmol/L (3.6-5.0); Sodium 140 mmol/L (137-145); Total Protein 7.1 g/dL (6.3-8.2)
[2016-12-31] MEDS: CORDARONE 900 MG in D5W 482 ML IV SCH (07:54)
--- NOTE | 2016-12-31 08:11 | Progress Note ---
Assessment and Plan 66 y/o female with Afib with RVR and Hypotension. 1. BP has stablized 2. Cards has ordered Amio drip but rate still not controlled. Defer to them for further management 3. Mag and Thyroid numbers all normal Subjective Date of service: 12/31/16 Interval history: Rate still not controlled. EF now read as 10-15%. Patient awake and comfortable on 2liters. Objective - Constitutional Vitals: Vital Signs - 12hr 12/30/16 12/30/16 12/30/16 20:30 21:00 21:11 Temperature Pulse Rate 131 H 130 H Respiratory 22 10 L 13 Rate Blood Pressure 116/83 106/79 O2 Sat by Pulse 96 96 Oximetry 12/30/16 12/30/16 12/30/16 21:30 22:00 22:30 Temperature Pulse Rate 134 H 134 H 128 H Respiratory 17 16 22 Rate Blood Pressure 108/69 101/79 154/103 O2 Sat by Pulse 93 95 93 Oximetry 12/30/16 12/30/16 12/31/16 23:00 23:30 00:00 Temperature 97.9 F Pulse Rate 132 H 132 H 130 H Respiratory 23 22 17 Rate Blood Pressure 113/76 118/80 106/64 O2 Sat by Pulse 89 87 96 Oximetry 12/31/16 12/31/16 12/31/16 00:30 01:00 01:30 Temperature Pulse Rate 132 H 132 H 130 H Respiratory 15 18 20 Rate Blood Pressure 116/78 105/71 109/43 O2 Sat by Pulse 96 96 96 Oximetry 12/31/16 12/31/16 12/31/16 01:31 02:00 02:30 Temperature Pulse Rate 128 H 127 H 128 H Respiratory 20 17 Rate Blood Pressure 103/46 111/77 O2 Sat by Pulse 95 93 Oximetry 12/31/16 12/31/16 12/31/16 03:00 03:30 04:00 Temperature 97.8 F Pulse Rate 130 H 124 H 129 H Respiratory 22 17 21 Rate Blood Pressure 111/77 126/86 98/74 O2 Sat by Pulse 94 94 95 Oximetry 12/31/16 12/31/16 12/31/16 04:30 05:00 05:30 Temperature Pulse Rate 130 H 130 H 126 H Respiratory 23 19 20 Rate Blood Pressure 106/70 106/70 96/66 O2 Sat by Pulse 92 93 93 Oximetry 12/31/16 06:00 Temperature Pulse Rate 132 H Respiratory 14 Rate Blood Pressure 116/76 O2 Sat by Pulse 94 Oximetry General appearance: Present: no acute distress, well-nourished, obese - EENT Eyes: PERRL, EOM intact ENT: hearing intact - Neck Neck: supple - Respiratory Respiratory effort: normal Respiratory: bilateral: diminished - Cardiovascular Rhythm: irregularly irregular Extremities: no ischemia, No edema - Labs CBC & Chem 7: 12/30/16 03:00 12/31/16 04:32 Labs: Abnormal lab results 12/30/16 12/30/16 12/30/16 Range/Units 07:52 11:40 16:48 Chloride (98-107) mmol/L BUN (7-17) mg/dL Glucose (65-100) mg/dL POC Glucose 252 H 214 H (70-105) CK-MB (CK-2) Rel Index 9.0 H (0-4) Albumin (3.9-5) g/dL 12/30/16 12/31/16 Range/Units 21:29 04:32 Chloride 97.4 L (98-107) mmol/L BUN 22 H (7-17) mg/dL Glucose 178 H (65-100) mg/dL POC Glucose 149 H (70-105) CK-MB (CK-2) Rel Index (0-4) Albumin 3.7 L (3.9-5) g/dL
--- NOTE | 2016-12-31 09:38 | Progress Note ---
Assessment and Plan bp stable wide complex mosty reg tach with rbbb which is baseline non paced conduction pattern ppm interrogated: rhythm is atrial flutter rec continue iv amio. may need digoxin. may need elective jaime guided elec dc caridioversion if rate remains uncontrolled and otherwise pt otherwise stable. would consider full dose anticoag at this point. would rec stopping sq heparin and begining wt based full dose lovenox Subjective Date of service: 12/31/16 Interval history: pt in no distress denies cp or sob Objective Vital Signs Temp Pulse Resp BP Pulse Ox 12/31/16 09:00 120 H 18 122/76 95 12/31/16 08:30 133 H 17 94 12/31/16 08:21 96 12/31/16 08:00 97.5 F L 128 H 17 120/82 12/31/16 07:30 124 H 12 107/76 97 12/31/16 07:15 18 95 12/31/16 07:00 118 H 17 106/67 94 12/31/16 06:30 127 H 18 113/72 94 12/31/16 06:00 132 H 14 116/76 94 12/31/16 05:30 126 H 20 96/66 93 12/31/16 05:00 130 H 19 106/70 93 12/31/16 04:30 130 H 23 106/70 92 12/31/16 04:00 97.8 F 129 H 21 98/74 95 12/31/16 03:30 124 H 17 126/86 94 12/31/16 03:00 130 H 22 111/77 94 12/31/16 02:30 128 H 17 111/77 93 12/31/16 02:00 127 H 20 103/46 95 12/31/16 01:31 128 H 12/31/16 01:30 130 H 20 109/43 96 12/31/16 01:00 132 H 18 105/71 96 12/31/16 00:30 132 H 15 116/78 96 12/31/16 00:00 97.9 F 130 H 17 106/64 96 12/30/16 23:30 132 H 22 118/80 87 12/30/16 23:00 132 H 23 113/76 89 12/30/16 22:30 128 H 22 154/103 93 12/30/16 22:00 134 H 16 101/79 95 12/30/16 21:30 134 H 17 108/69 93 12/30/16 21:11 13 12/30/16 21:00 130 H 10 L 106/79 96 12/30/16 20:30 131 H 22 116/83 96 12/30/16 20:00 98.0 F 129 H 14 111/72 96 12/30/16 19:32 94 12/30/16 19:30 118 H 12 89/73 95 12/30/16 19:00 119 H 22 91/67 95 12/30/16 18:00 127 H 13 79/37 96 12/30/16 17:46 116 H 17 86/68 96 12/30/16 17:30 114 H 16 86/58 94 12/30/16 17:16 117 H 12 86/58 96 12/30/16 17:00 126 H 20 68/28 95 12/30/16 16:46 127 H 16 68/28 12/30/16 16:30 117 H 14 105/64 93 12/30/16 16:16 125 H 14 105/64 95 12/30/16 16:00 110 H 16 117/81 94 12/30/16 15:46 116 H 17 127/82 94 12/30/16 15:30 105 H 16 88/43 95 12/30/16 15:15 114 H 14 88/43 96 12/30/16 15:00 112 H 25 H 101/62 95 12/30/16 14:45 108 H 15 96/52 95 12/30/16 14:30 113 H 16 94/59 96 12/30/16 14:15 18 97/68 95 12/30/16 14:00 108 H 18 98/47 96 12/30/16 13:45 106 H 17 98/47 95 12/30/16 13:30 110 H 12 109/67 95 12/30/16 13:16 129 H 19 88/56 95 12/30/16 13:00 111 H 15 88/56 95 12/30/16 12:46 105 H 16 88/56 12/30/16 12:30 122 H 23 88/56 96 12/30/16 12:16 100 H 14 88/56 96 12/30/16 12:00 110 H 11 L 88/56 98 12/30/16 11:46 107 H 20 88/56 94 12/30/16 11:30 119 H 19 88/56 94 12/30/16 11:16 128 H 16 88/56 93 12/30/16 11:00 126 H 18 107/73 94 12/30/16 10:46 118 H 16 103/51 93 12/30/16 10:30 118 H 17 107/73 90 12/30/16 10:15 121 H 18 103/64 94 12/30/16 10:00 129 H 19 105/68 94 12/30/16 09:45 116 H 19 100/72 93 12/30/16 09:37 94 - Physical Examination HEENT: Positive: PERRL, Normocephaly, Mucus Membranes Moist Neck: Positive: neck supple, trachea midline Cardiac: Positive: Reg Rate and Rhythm, Tachycardia Lungs: Positive: clear to auscultation Neuro: Positive: Grossly Intact Abdomen: Positive: Soft. Negative: Tender Skin: Positive: Clear. Negative: Rash, Wound Musculoskeletal: No Fluid Collection, No Pain, Normal Range of Motion Extremities: Absent: edema - Labs and Meds Cardiac Enzymes 12/31/16 Range/Units 04:32 AST 16 (5-40) units/L Comprehensive Metabolic Panel 12/31/16 Range/Units 04:32 Sodium 140 (137-145) mmol/L Potassium 4.8 (3.6-5.0) mmol/L Chloride 97.4 L (98-107) mmol/L Carbon Dioxide 29 (22-30) mmol/L BUN 22 H (7-17) mg/dL Creatinine 0.7 (0.7-1.2) mg/dL Glucose 178 H (65-100) mg/dL Calcium 9.4 (8.4-10.2) mg/dL AST 16 (5-40) units/L ALT 13 (7-56) units/L Alkaline Phosphatase 77 (35-129) units/L Total Protein 7.1 (6.3-8.2) g/dL Albumin 3.7 L (3.9-5) g/dL - Imaging and Cardiology EKG: report reviewed, image reviewed Echo: pending, report reviewed ( 05/2016 showed EF 45-50%, impaired relaxation. ) Cardiac cath: report reviewed (05/2015 showed patent coronaries left main patent LAD patent circumflex patent RCA patent left cor salon assistant come from the right cornea cusp and normal LV function.) - Telemetry EKG Rhythm: Atrial Flutter AV and intraventricular conduction: right bundle branch block
[2016-12-31] MEDS: XANAX PO SCH ×2 (09:48→21:15)
[2016-12-31] MEDS: BABY ASPIRIN PO SCH (09:48)
--- NOTE | 2016-12-31 14:07 | Progress Note ---
Assessment and Plan Assessment and plan: --Cardiac arrhythmias/possible SVT/? new onset A. fib /wide-complex regular tachycardia with right bundle branch block with rapid ventricular rate Started on amiodarone drip, full anticoagulation with Lovenox, supportive care, consider digoxin if no improvement --Acute on chronic systolic congestive heart failure ejection fraction 45-50% Echo 12/30/16 ejection fraction 10-15%, continue anti-failure medications --Status post permanent pacemaker 05/2016 for complete heart block, interrogated , rhythm A. fib at --H/O COPD ; stable --Hypotension ; gentle IV hydration and monitor --History of alcohol use; closely monitor for any alcohol withdrawal symptoms, consider CIMD protocol --History of tobacco use; smoking cessation counseling done, nicotine patch as needed --Medical noncompliance; counseling done advised to comply with medications diet and follow-up visits --Obesity; BMI of 38.6, patient advised diet modification, exercise as tolerated , weight reduction when medically stable --Type 2 diabetes mellitus; Accu-Chek sliding scale coverage and ADA diet , A1c 8.2 in 05/2016, not on oral hypoglycemics or long-acting insulin, closely monitor the sugars start long-acting insulin as needed --DVT prophylaxis; heparin Cardiology evaluation and recommendations noted Critical care time 31 minutes The high probability of a clinically significant, sudden or life threatening deterioration of the [pulmonary ,CV, ](s) required my full and direct attention , intervention and personal management. The aggregate critical care time was [ 31 ] minutes. This time is in addition to time spent performing reported procedures but includes the following: [x] Data Review and interpretation [x] Patient assessment and monitoring of vital signs [x] Documentation, counseling [x] Medication orders and management History Interval history: Patient seen and examined, medical records reviewed Patient remains tachycardic, on amiodarone drip Denies chest pain or shortness of breath Alert awake oriented 3 not in acute distress Hospitalist Physical - Constitutional Vitals: Temp Pulse Resp BP Pulse Ox 97.5 F L 127 H 22 109/59 93 12/31/16 12:00 12/31/16 12:00 12/31/16 12:00 12/31/16 12:00 12/31/16 12:00 General appearance: Present: no acute distress, well-nourished, obese - EENT Eyes: Present: PERRL, EOM intact - Neck Neck: Present: supple, normal ROM - Respiratory Respiratory effort: normal Respiratory: bilateral: diminished, negative: rales, rhonchi, wheezing - Cardiovascular Rhythm: regular Heart Sounds: Present: S1 & S2 (tachycardia) - Extremities Extremities: no ischemia, No edema Peripheral Pulses: within normal limits - Abdominal General gastrointestinal: soft, non-tender, non-distended, normal bowel sounds - Integumentary Integumentary: Present: clear, warm - Psychiatric Psychiatric: appropriate mood/affect, cooperative - Neurologic Neurologic: CNII-XII intact, moves all extremities Results - Labs CBC & Chem 7: 12/30/16 03:00 12/31/16 04:32 Labs: Laboratory Last Values WBC 7.1 K/mm3 (4.5-11.0) 12/30/16 03:00 RBC 3.98 M/mm3 (3.65-5.03) 12/30/16 03:00 Hgb 12.8 gm/dl (10.1-14.3) 12/30/16 03:00 Hct 37.9 % (30.3-42.9) 12/30/16 03:00 MCV 95 fl (79-97) 12/30/16 03:00 MCH 32 pg (28-32) 12/30/16 03:00 MCHC 34 % (30-34) 12/30/16 03:00 RDW 14.6 % (13.2-15.2) 12/30/16 03:00 Plt Count 151 K/mm3 (140-440) 12/30/16 03:00 Lymph % (Auto) 37.2 % (13.4-35.0) H 12/30/16 03:00 [place] % (Auto) 7.6 % (0.0-7.3) H 12/30/16 03:00 Eos % (Auto) 1.6 % (0.0-4.3) 12/30/16 03:00 Baso % (Auto) 0.5 % (0.0-1.8) 12/30/16 03:00 Lymph # 2.7 K/mm3 (1.2-5.4) 12/30/16 03:00 [place] # 0.5 K/mm3 (0.0-0.8) 12/30/16 03:00 Eos # 0.1 K/mm3 (0.0-0.4) 12/30/16 03:00 Baso # 0.0 K/mm3 (0.0-0.1) 12/30/16 03:00 Seg Neutrophils % 53.1 % (40.0-70.0) 12/30/16 03:00 Seg Neutrophils # 3.8 K/mm3 (1.8-7.7) 12/30/16 03:00 Sodium 140 mmol/L (137-145) 12/31/16 04:32 Potassium 4.8 mmol/L (3.6-5.0) 12/31/16 04:32 Chloride 97.4 mmol/L (98-107) L 12/31/16 04:32 Carbon Dioxide 29 mmol/L (22-30) 12/31/16 04:32 Anion Gap 18 mmol/L 12/31/16 04:32 BUN 22 mg/dL (7-17) H 12/31/16 04:32 Creatinine 0.7 mg/dL (0.7-1.2) 12/31/16 04:32 Estimated GFR > 60 ml/min 12/31/16 04:32 BUN/Creatinine Ratio 31 % 12/31/16 04:32 Glucose 178 mg/dL (65-100) H 12/31/16 04:32 POC Glucose 223 (70-105) H 12/31/16 11:38 Calcium 9.4 mg/dL (8.4-10.2) 12/31/16 04:32 Magnesium 2.00 mg/dL (1.7-2.3) 12/30/16 10:39 Total Bilirubin 0.40 mg/dL (0.1-1.2) 12/31/16 04:32 AST 16 units/L (5-40) 12/31/16 04:32 ALT 13 units/L (7-56) 12/31/16 04:32 Alkaline Phosphatase 77 units/L (35-129) 12/31/16 04:32 Total Creatine Kinase 30 units/L (30-135) 12/30/16 07:52 CK-MB (CK-2) 2.7 ng/mL (0.0-4.0) 12/30/16 07:52 CK-MB (CK-2) Rel Index 9.0 (0-4) H 12/30/16 07:52 Troponin T 0.018 ng/mL (0.00-0.029) 12/30/16 07:52 NT-Pro-B Natriuret Pep 4695 pg/mL (0-900) H 12/29/16 17:07 Total Protein 7.1 g/dL (6.3-8.2) 12/31/16 04:32 Albumin 3.7 g/dL (3.9-5) L 12/31/16 04:32 Albumin/Globulin Ratio 1.1 % 12/31/16 04:32 TSH 3.110 mlU/mL (0.270-4.200) 12/30/16 10:39 Free T4 1.13 ng/dL (0.76-1.46) 12/30/16 10:39
[2016-12-31] MEDS: TYLENOL PO PRN ×2 (15:36→22:23)
[2016-12-31] MEDS: LOVENOX SUB-Q SCH (21:15)
[2017-01-01 05:17] LABS: Basophils % (Auto) 0.3 % (0.0-1.8); Eosinophils % (Auto) 2.5 % (0.0-4.3); Hematocrit 40.3 % (30.3-42.9); Mean Corpuscular HGB Conc 32 % (30-34); Mean Corpuscular Hemoglobin 32 pg (28-32); Mean Corpuscular Volume 98 fl (79-97); Platelet Count 132 K/mm3 (140-440); Red Blood Count 4.13 M/mm3 (3.65-5.03); Red Cell Distribution Width 14.8 % (13.2-15.2)
[2017-01-01 05:27] LABS: Anion Gap 15 mmol/L; BUN/Creatinine Ratio 23; Blood Urea Nitrogen 21 mg/dL (7-17); Calcium 9.2 mg/dL (8.4-10.2); Carbon Dioxide 32 mmol/L (22-30); Chloride 94.5 mmol/L (98-107); Glucose 182 mg/dL (65-100); Sodium 136 mmol/L (137-145)
[2017-01-01] MEDS ORDERED: LANOXIN IV ONE ×2 (07:52→12:00)
--- NOTE | 2017-01-01 08:30 | Progress Note ---
Assessment and Plan bp stable wide complex mosty reg tach with rbbb which is baseline non paced conduction pattern ppm interrogated: rhythm is atrial flutter rec continue iv amio. add iv digoxin may need elective jaime guided elec dc caridioversion if rate remains uncontrolled and otherwise pt otherwise stable. would consider full dose anticoag at this point. would rec stopping sq heparin and begining wt based full dose lovenox Subjective Date of service: 01/01/17 Interval history: denies cp or sob Objective Vital Signs Temp Pulse Resp BP Pulse Ox 01/01/17 08:19 67 101/72 01/01/17 07:58 97.4 F L 01/01/17 07:45 94 01/01/17 06:00 110 H 21 128/77 94 01/01/17 05:01 118 H 18 126/78 97 01/01/17 04:01 129 H 22 116/75 95 01/01/17 04:00 98.7 F 95 01/01/17 03:00 132 H 22 124/82 94 01/01/17 02:01 122 H 15 121/87 93 01/01/17 01:01 126 H 22 113/69 95 01/01/17 00:00 98.5 F 91 H 21 118/92 94 12/31/16 23:49 112 H 12/31/16 23:43 110 H 17 116/83 96 12/31/16 23:01 112 H 19 116/83 98 12/31/16 22:01 120 H 22 116/83 95 12/31/16 21:01 96 H 14 116/83 96 12/31/16 20:00 98.7 F 112 H 24 100/68 94 12/31/16 19:35 95 12/31/16 19:00 110 H 20 100/68 93 12/31/16 18:30 132 H 20 100/68 94 12/31/16 18:00 134 H 22 100/68 95 12/31/16 17:30 135 H 23 100/68 97 12/31/16 17:00 121 H 17 100/68 95 12/31/16 16:30 130 H 14 100/68 96 12/31/16 16:00 129 H 15 101/69 95 12/31/16 15:58 97.4 F L 12/31/16 15:55 18 94 12/31/16 15:30 129 H 20 101/69 93 12/31/16 15:00 127 H 17 101/69 92 12/31/16 14:30 132 H 22 101/69 95 12/31/16 14:00 132 H 21 97/62 92 12/31/16 13:30 132 H 26 H 103/79 93 12/31/16 13:00 133 H 17 102/67 94 12/31/16 12:30 133 H 22 94/64 94 12/31/16 12:00 97.5 F L 127 H 22 109/59 93 12/31/16 11:35 19 94 12/31/16 11:30 127 H 12 128/89 92 12/31/16 11:00 132 H 17 128/89 86 12/31/16 10:30 115 H 17 126/83 97 12/31/16 10:00 114 H 22 90/70 96 12/31/16 09:30 114/71 95 12/31/16 09:00 120 H 18 122/76 95 12/31/16 08:30 133 H 17 94 - Physical Examination HEENT: Positive: PERRL, Normocephaly, Mucus Membranes Moist Neck: Positive: neck supple, trachea midline Cardiac: Positive: Regular Rhythm, Tachycardia Lungs: Positive: clear to auscultation Neuro: Positive: Grossly Intact Abdomen: Positive: Soft. Negative: Tender Skin: Positive: Clear. Negative: Rash, Wound Musculoskeletal: No Fluid Collection, No Pain, Normal Range of Motion Extremities: Absent: edema - Labs and Meds CBC 01/01/17 Range/Units 04:39 WBC 7.0 (4.5-11.0) K/mm3 RBC 4.13 (3.65-5.03) M/mm3 Hgb 13.0 (10.1-14.3) gm/dl Hct 40.3 (30.3-42.9) % Plt Count 132 L (140-440) K/mm3 Lymph # 2.0 (1.2-5.4) K/mm3 [place] # 0.6 (0.0-0.8) K/mm3 Eos # 0.2 (0.0-0.4) K/mm3 Baso # 0.0 (0.0-0.1) K/mm3 Comprehensive Metabolic Panel 01/01/17 Range/Units 04:39 Sodium 136 L (137-145) mmol/L Potassium 5.0 (3.6-5.0) mmol/L Chloride 94.5 L (98-107) mmol/L Carbon Dioxide 32 H (22-30) mmol/L BUN 21 H (7-17) mg/dL Creatinine 0.9 (0.7-1.2) mg/dL Glucose 182 H (65-100) mg/dL Calcium 9.2 (8.4-10.2) mg/dL - Imaging and Cardiology EKG: report reviewed, image reviewed Echo: pending, report reviewed ( 05/2016 showed EF 45-50%, impaired relaxation. 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
--- NOTE | 2017-01-01 08:57 | Progress Note ---
Assessment and Plan 66 y/o female with Afib with RVR and Hypotension. 1. BP has stablized 2. Currently on Amio and Dig, rate still not controlled. Follow up any new Cards recs 3. Continue ICU monitoring given additional kristy blocking agent, watch for bradycardias and changes in BP Subjective Date of service: 01/01/17 Interval history: No acute event. Rate still not controlled. Dig added by Cards. Objective - Constitutional Vitals: Vital Signs - 12hr 12/31/16 12/31/16 12/31/16 21:01 22:01 23:01 Temperature Pulse Rate 96 H 120 H 112 H Respiratory 14 22 19 Rate Blood Pressure 116/83 116/83 116/83 O2 Sat by Pulse 96 95 98 Oximetry 12/31/16 12/31/16 01/01/17 23:43 23:49 00:00 Temperature 98.5 F Pulse Rate 110 H 112 H 91 H Respiratory 17 21 Rate Blood Pressure 116/83 118/92 O2 Sat by Pulse 96 94 Oximetry 01/01/17 01/01/17 01/01/17 01:01 02:01 03:00 Temperature Pulse Rate 126 H 122 H 132 H Respiratory 22 15 22 Rate Blood Pressure 113/69 121/87 124/82 O2 Sat by Pulse 95 93 94 Oximetry 01/01/17 01/01/17 01/01/17 04:00 04:01 05:01 Temperature 98.7 F Pulse Rate 129 H 118 H Respiratory 22 18 Rate Blood Pressure 116/75 126/78 O2 Sat by Pulse 95 95 97 Oximetry 01/01/17 01/01/17 01/01/17 06:00 07:45 07:58 Temperature 97.4 F L Pulse Rate 110 H Respiratory 21 Rate Blood Pressure 128/77 O2 Sat by Pulse 94 94 Oximetry 01/01/17 08:19 Temperature Pulse Rate 67 Respiratory Rate Blood Pressure 101/72 O2 Sat by Pulse Oximetry General appearance: Present: no acute distress - EENT Eyes: PERRL, EOM intact ENT: hearing intact, clear oral mucosa - Neck Neck: supple, normal ROM - Respiratory Respiratory effort: normal Respiratory: bilateral: diminished - Breasts Breasts: deferred - Cardiovascular Rhythm: irregularly irregular Extremities: no ischemia - Gastrointestinal General gastrointestinal: Present: soft, non-tender Rectal Exam: deferred - Genitourinary Female genitourinary: deferred - Musculoskeletal Musculoskeletal: strength equal bilaterally - Neurologic Neurologic: CNII-XII intact, moves all extremities - Psychiatric Psychiatric: appropriate mood/affect - Labs CBC & Chem 7: 01/01/17 04:39 01/01/17 04:39 Labs: Abnormal lab results 12/31/16 12/31/16 12/31/16 Range/Units 07:49 11:38 15:52 MCV (79-97) fl Plt Count (140-440) K/mm3 [place] % (Auto) (0.0-7.3) % Sodium (137-145) mmol/L Chloride (98-107) mmol/L Carbon Dioxide (22-30) mmol/L BUN (7-17) mg/dL Glucose (65-100) mg/dL POC Glucose 197 H 223 H 187 H (70-105) 12/31/16 01/01/17 01/01/17 Range/Units 21:08 04:39 04:39 MCV 98 H (79-97) fl Plt Count 132 L (140-440) K/mm3 [place] % (Auto) 8.6 H (0.0-7.3) % Sodium 136 L (137-145) mmol/L Chloride 94.5 L (98-107) mmol/L Carbon Dioxide 32 H (22-30) mmol/L BUN 21 H (7-17) mg/dL Glucose 182 H (65-100) mg/dL POC Glucose 202 H (70-105) 01/01/17 Range/Units 07:44 MCV (79-97) fl Plt Count (140-440) K/mm3 [place] % (Auto) (0.0-7.3) % Sodium (137-145) mmol/L Chloride (98-107) mmol/L Carbon Dioxide (22-30) mmol/L BUN (7-17) mg/dL Glucose (65-100) mg/dL POC Glucose 198 H (70-105)
[2017-01-01] MEDS: XANAX PO SCH ×2 (09:52→21:52)
[2017-01-01] MEDS: LOVENOX SUB-Q SCH ×2 (09:52→21:51)
[2017-01-01] MEDS: BABY ASPIRIN PO SCH (09:52)
--- NOTE | 2017-01-01 13:14 | Progress Note ---
Assessment and Plan Assessment and plan: Extensive 6-year-old obese female patient with significant history of severe congestive heart failure ejection fraction 10-15% status post permanent pacemaker, noncompliant with medications, admitted with palpitation, now on amiodarone drip, full dose anticoagulation, cardiology following, planning cardioversion if no improvement, received loading digoxin this morning --Cardiac arrhythmias/wide-complex regular tachycardia with right bundle branch block with rapid ventricular rate on amiodarone drip, full anticoagulation with Lovenox, patient received loading dose of digoxin per cardiology Planning cardioversion on Wednesday if no improvement --Acute on chronic systolic congestive heart failure ejection fraction 10-15% [ 45-50% in 05/2016] --Status post permanent pacemaker 05/2016 for complete heart block, interrogated , rhythm A. fib --H/O COPD ; stable --Intermittent Hypotension ; gentle IV hydration and monitor --History of alcohol use; closely monitor for any alcohol withdrawal symptoms, consider CIWA protocol --History of tobacco use; smoking cessation counseling done, nicotine patch as needed --Medical noncompliance; counseling done advised to comply with medications diet and follow-up visits --Obesity; BMI of 38.6, patient advised diet modification, exercise as tolerated , weight reduction when medically stable --Type 2 diabetes mellitus; moderate control, Accu-Chek sliding scale coverage and ADA diet , A1c 8.2 in 05/2016, Increase Novolin 70/30 to 6 units twice a day. Diabetic education, home health nurse at discharge --DVT prophylaxis; full dose Lovenox Cardiology evaluation and recommendations noted Critical care time 31 minutes The high probability of a clinically significant, sudden or life threatening deterioration of the [pulmonary ,CV, ](s) required my full and direct attention , intervention and personal management. The aggregate critical care time was [ 31 ] minutes. This time is in addition to time spent performing reported procedures but includes the following: [x] Data Review and interpretation [x] Patient assessment and monitoring of vital signs [x] Documentation, counseling [x] Medication orders and management History Interval history: Patient seen and examined in ICU this morning medical records reviewed Patient's heart rate is reasonable levels, on amiodarone drip, full dose anticoagulation ,received digoxin Denies chest pain or shortness of breath Hospitalist Physical - Constitutional Vitals: Temp Pulse Resp BP Pulse Ox 97.5 F L 116 H 22 106/76 90 11/24/17 12:00 01/01/17 10:01 01/01/17 10:01 01/01/17 10:01 01/01/17 10:01 General appearance: Present: no acute distress, well-nourished, obese - EENT Eyes: Present: PERRL, EOM intact ENT: hearing intact, clear oral mucosa - Neck Neck: Present: supple, normal ROM - Respiratory Respiratory effort: normal Respiratory: bilateral: diminished, negative: rales, rhonchi, wheezing - Cardiovascular Rhythm: regular Heart Sounds: Present: S1 & S2 (tachycardia) - Extremities Extremities: no ischemia, No edema - Abdominal General gastrointestinal: soft, non-tender, non-distended, normal bowel sounds - Integumentary Integumentary: Present: clear, warm - Psychiatric Psychiatric: appropriate mood/affect, cooperative - Neurologic Neurologic: CNII-XII intact, moves all extremities Results - Labs CBC & Chem 7: 01/01/17 04:39 01/01/17 04:39 Labs: Laboratory Last Values WBC 7.0 K/mm3 (4.5-11.0) 01/01/17 04:39 RBC 4.13 M/mm3 (3.65-5.03) 01/01/17 04:39 Hgb 13.0 gm/dl (10.1-14.3) 01/01/17 04:39 Hct 40.3 % (30.3-42.9) 01/01/17 04:39 MCV 98 fl (79-97) H 01/01/17 04:39 MCH 32 pg (28-32) 01/01/17 04:39 MCHC 32 % (30-34) 01/01/17 04:39 RDW 14.8 % (13.2-15.2) 01/01/17 04:39 Plt Count 132 K/mm3 (140-440) L 01/01/17 04:39 Lymph % (Auto) 28.7 % (13.4-35.0) 01/01/17 04:39 [place] % (Auto) 8.6 % (0.0-7.3) H 01/01/17 04:39 Eos % (Auto) 2.5 % (0.0-4.3) 01/01/17 04:39 Baso % (Auto) 0.3 % (0.0-1.8) 01/01/17 04:39 Lymph # 2.0 K/mm3 (1.2-5.4) 01/01/17 04:39 [place] # 0.6 K/mm3 (0.0-0.8) 01/01/17 04:39 Eos # 0.2 K/mm3 (0.0-0.4) 01/01/17 04:39 Baso # 0.0 K/mm3 (0.0-0.1) 01/01/17 04:39 Seg Neutrophils % 59.9 % (40.0-70.0) 01/01/17 04:39 Seg Neutrophils # 4.2 K/mm3 (1.8-7.7) 01/01/17 04:39 Sodium 136 mmol/L (137-145) L 01/01/17 04:39 Potassium 5.0 mmol/L (3.6-5.0) 01/01/17 04:39 Chloride 94.5 mmol/L (98-107) L 01/01/17 04:39 Carbon Dioxide 32 mmol/L (22-30) H 01/01/17 04:39 Anion Gap 15 mmol/L 01/01/17 04:39 BUN 21 mg/dL (7-17) H 01/01/17 04:39 Creatinine 0.9 mg/dL (0.7-1.2) 01/01/17 04:39 Estimated GFR > 60 ml/min 01/01/17 04:39 BUN/Creatinine Ratio 23 % 01/01/17 04:39 Glucose 182 mg/dL (65-100) H 01/01/17 04:39 POC Glucose 216 (70-105) H 01/01/17 12:01 Calcium 9.2 mg/dL (8.4-10.2) 01/01/17 04:39 Magnesium 2.00 mg/dL (1.7-2.3) 12/30/16 10:39 Total Bilirubin 0.40 mg/dL (0.1-1.2) 12/31/16 04:32 AST 16 units/L (5-40) 12/31/16 04:32 ALT 13 units/L (7-56) 12/31/16 04:32 Alkaline Phosphatase 77 units/L (35-129) 12/31/16 04:32 Total Creatine Kinase 30 units/L (30-135) 12/30/16 07:52 CK-MB (CK-2) 2.7 ng/mL (0.0-4.0) 12/30/16 07:52 CK-MB (CK-2) Rel Index 9.0 (0-4) H 12/30/16 07:52 Troponin T 0.018 ng/mL (0.00-0.029) 12/30/16 07:52 NT-Pro-B Natriuret Pep 4695 pg/mL (0-900) H 12/29/16 17:07 Total Protein 7.1 g/dL (6.3-8.2) 12/31/16 04:32 Albumin 3.7 g/dL (3.9-5) L 12/31/16 04:32 Albumin/Globulin Ratio 1.1 % 12/31/16 04:32 TSH 3.110 mlU/mL (0.270-4.200) 12/30/16 10:39 Free T4 1.13 ng/dL (0.76-1.46) 12/30/16 10:39
[2017-01-01] MEDS: CORDARONE 900 MG in D5W 482 ML IV SCH (15:16)
[2017-01-01] MEDS: EFFEXOR XR PO SCH (21:52)
[2017-01-01] MEDS: DESYREL PO SCH (21:52)
[2017-01-02 04:02] LABS: Basophils % (Auto) 0.5 % (0.0-1.8); Eosinophils % (Auto) 2.5 % (0.0-4.3); Hematocrit 39.3 % (30.3-42.9); Hemoglobin 13.2 gm/dl (10.1-14.3); Mean Corpuscular HGB Conc 34 % (30-34); Mean Corpuscular Hemoglobin 33 pg (28-32); Mean Corpuscular Volume 98 fl (79-97); Platelet Count 127 K/mm3 (140-440); Red Blood Count 4.01 M/mm3 (3.65-5.03); Red Cell Distribution Width 14.6 % (13.2-15.2); White Blood Count 6.8 K/mm3 (4.5-11.0)
[2017-01-02 04:16] LABS: Magnesium 1.9 mg/dL (1.7-2.3)
--- NOTE | 2017-01-02 08:22 | Progress Note ---
Assessment and Plan 66-year-old female patient with severe congestive heart failure ejection fraction 10-15% as of 12/2016 status post permanent pacemaker,alcohol use disorder noncompliant with medications, admitted with palpitation, now on Amiodarone drip, full dose anticoagulation, cardiology following, planning Cardioversion if no improvement, --Cardiac arrhythmias/wide-complex regular tachycardia with right bundle branch block with rapid ventricular rate on amiodarone drip, full anticoagulation with Lovenox. Will obtian digoxin level. If normal will give another dose of digoxin 2.5 per Cardiology, Dr. Xavier who also Advised Metoprolo 2.5 mg Planning cardioversion on Wednesday if no improvement. --Acute on chronic systolic congestive heart failure ejection fraction 10-15% [ 45-50% in 05/2016] --Status post permanent pacemaker 05/2016 for complete heart block, interrogated , rhythm A. fib --H/O COPD ; stable --Intermittent Hypotension ; gentle IV hydration and monitor --History of alcohol use; closely monitor for any alcohol withdrawal symptoms, CIWA protocol --History of tobacco use; smoking cessation counseling done, nicotine patch as needed --Medical noncompliance; counseling done advised to comply with medications diet and follow-up visits --Obesity; BMI of 38.6, patient advised diet modification, exercise as tolerated , weight reduction when medically stable --Type 2 diabetes mellitus; moderate control, Accu-Chek sliding scale coverage and ADA diet , A1c 8.2 in 05/2016, Increase Novolin 70/30 to 6 units twice a day. Diabetic education, home health nurse at discharge --DVT prophylaxis; full dose Lovenox Cardiology evaluation and recommendations noted Critical care time 31 minutes The high probability of a clinically significant, sudden or life threatening deterioration of the [pulmonary ,CV, ](s) required my full and direct attention , intervention and personal management. The aggregate critical care time was [ 31 ] minutes. This time is in addition to time spent performing reported procedures but includes the following: [ Subjective Date of service: 01/02/17 Principal diagnosis: Afib with RVR, Acute on chronic systolic hear failure Interval history: Denies any chest pain shortness of breath or PND. discused with pt's nurse. No overnight event reported Objective - Constitutional Vitals: Vital Signs - 12hr 01/01/17 01/01/17 01/01/17 21:01 22:01 23:00 Temperature 99.1 F Pulse Rate 105 H 105 H Respiratory 26 H 15 Rate Blood Pressure 105/66 105/66 O2 Sat by Pulse 97 98 Oximetry 01/01/17 01/01/17 01/02/17 23:01 23:05 00:00 Temperature Pulse Rate 107 H 121 H Respiratory 19 26 H Rate Blood Pressure 101/77 90/34 O2 Sat by Pulse 97 98 98 Oximetry 01/02/17 01/02/17 01/02/17 00:01 01:01 02:00 Temperature Pulse Rate 122 H 109 H 127 H Respiratory 24 15 Rate Blood Pressure 90/34 90/34 O2 Sat by Pulse 98 97 Oximetry 01/02/17 01/02/17 01/02/17 02:01 03:01 03:25 Temperature 98.5 F Pulse Rate 114 H 111 H Respiratory 15 21 Rate Blood Pressure 89/30 77/34 O2 Sat by Pulse 98 99 Oximetry 01/02/17 01/02/17 01/02/17 04:00 04:01 05:01 Temperature Pulse Rate 118 H 119 H 127 H Respiratory 22 17 Rate Blood Pressure 119/55 89/33 O2 Sat by Pulse 98 96 Oximetry 01/02/17 01/02/17 01/02/17 06:00 06:01 07:55 Temperature Pulse Rate 121 H Respiratory 31 H Rate Blood Pressure 100/58 O2 Sat by Pulse 98 97 Oximetry General appearance: Present: no acute distress, well-nourished - EENT Eyes: PERRL, EOM intact - Neck Neck: supple, normal ROM - Respiratory Respiratory effort: normal Respiratory: bilateral: CTA - Cardiovascular Rhythm: regular Heart Sounds: Present: S1 & S2. Absent: gallop, rub Extremities: pulses intact, No edema, normal color, Full ROM - Gastrointestinal General gastrointestinal: Present: soft, non-tender, non-distended, normal bowel sounds - Integumentary Integumentary: clear, warm, dry - Musculoskeletal Musculoskeletal: 1, strength equal bilaterally - Neurologic Neurologic: moves all extremities - Psychiatric Psychiatric: memory intact, appropriate mood/affect, intact judgment & insight - Labs CBC & Chem 7: 01/02/17 03:44 01/01/17 04:39 Labs: Abnormal lab results 01/01/17 01/01/17 01/01/17 Range/Units 12:01 15:54 21:27 MCV (79-97) fl MCH (28-32) pg Plt Count (140-440) K/mm3 [place] % (Auto) (0.0-7.3) % POC Glucose 216 H 176 H 229 H (70-105) 01/02/17 01/02/17 Range/Units 03:44 07:19 MCV 98 H (79-97) fl MCH 33 H (28-32) pg Plt Count 127 L (140-440) K/mm3 [place] % (Auto) 10.7 H (0.0-7.3) % POC Glucose 188 H (70-105)
--- NOTE | 2017-01-02 09:32 | Progress Note ---
Assessment and Plan bp stable wide complex mosty reg tach with rbbb which is baseline non paced conduction pattern ppm interrogated: rhythm is atrial flutter rec continue iv amio. add iv digoxin may need elective jaime guided elec dc caridioversion if rate remains uncontrolled and otherwise pt otherwise stable. would consider full dose anticoag at this point. would rec stopping sq heparin and begining wt based full dose lovenox Check digoxin level. Additional digoxin may be helpful. Consider low-dose beta evan. Amiodarone does not seem to be effective. May need JAIME guided cardioversion. Patient may benefit from atrial flutter ablation. Will obtain EP consult. Discussed with primary physician Dr. Graham Subjective Principal diagnosis: Afib with RVR, Acute on chronic systolic hear failure Interval history: denies cp or sob Sitting up at bedside eating breakfast. In no distress. Objective Vital Signs Temp Pulse Resp BP Pulse Ox 01/02/17 08:28 97.9 F 01/02/17 08:09 122 H 21 96 01/02/17 07:55 97 01/02/17 07:00 127 H 14 116/67 98 01/02/17 06:01 31 H 100/58 98 01/02/17 06:00 121 H 01/02/17 05:01 127 H 17 89/33 96 01/02/17 04:01 119 H 22 119/55 98 01/02/17 04:00 118 H 01/02/17 03:25 98.5 F 01/02/17 03:01 111 H 21 77/34 99 01/02/17 02:01 114 H 15 89/30 98 01/02/17 02:00 127 H 01/02/17 01:01 109 H 15 90/34 97 01/02/17 00:01 122 H 24 90/34 98 01/02/17 00:00 121 H 26 H 90/34 98 01/01/17 23:05 98 01/01/17 23:01 107 H 19 101/77 97 01/01/17 23:00 99.1 F 01/01/17 22:01 105 H 15 105/66 98 01/01/17 21:01 105 H 26 H 105/66 97 01/01/17 20:01 121 H 28 H 98/71 97 01/01/17 20:00 22 01/01/17 19:58 97.6 F 01/01/17 19:40 95 01/01/17 19:01 115 H 26 H 98/71 96 01/01/17 18:01 130 H 20 127/84 98 01/01/17 17:01 123 H 30 H 93/69 93 01/01/17 16:20 23 95 01/01/17 16:01 110 H 19 111/42 89 01/01/17 16:00 97.7 F 01/01/17 15:01 127 H 23 111/42 98 01/01/17 14:01 101 H 26 H 94/49 99 01/01/17 13:01 17 103/40 94 01/01/17 12:45 14 95 01/01/17 12:01 129 H 14 103/40 90 01/01/17 12:00 97.5 F L 01/01/17 11:01 103 H 16 106/76 92 01/01/17 10:01 116 H 22 106/76 90 01/01/17 10:00 117 H - Physical Examination HEENT: Positive: PERRL, Normocephaly, Mucus Membranes Moist Neck: Positive: neck supple, trachea midline Cardiac: Positive: Reg Rate and Rhythm, Tachycardia. Negative: S3 Lungs: Positive: clear to auscultation Neuro: Positive: Grossly Intact Abdomen: Positive: Soft. Negative: Tender Skin: Positive: Clear. Negative: Rash, Wound Musculoskeletal: No Fluid Collection, No Pain, Normal Range of Motion Extremities: Absent: edema - Labs and Meds CBC 01/02/17 Range/Units 03:44 WBC 6.8 (4.5-11.0) K/mm3 RBC 4.01 (3.65-5.03) M/mm3 Hgb 13.2 (10.1-14.3) gm/dl Hct 39.3 (30.3-42.9) % Plt Count 127 L (140-440) K/mm3 Lymph # 1.8 (1.2-5.4) K/mm3 [place] # 0.7 (0.0-0.8) K/mm3 Eos # 0.2 (0.0-0.4) K/mm3 Baso # 0.0 (0.0-0.1) K/mm3 - Imaging and Cardiology EKG: report reviewed, image reviewed Echo: pending, report reviewed ( 05/2016 showed EF 45-50%, impaired relaxation. ) Cardiac cath: report reviewed (05/2015 showed patent coronaries left main patent LAD patent circumflex patent RCA patent left cor diver assistant come from the right cornea cusp and normal LV function.) AV and intraventricular conduction: right bundle branch block
--- NOTE | 2017-01-02 09:39 | Event Note ---
Date: 01/02/17 Spoke with nurse. I read attending physicians note. The note states that depending on digoxin level and additional dosage of digoxin 2.5 mg will be given per cardiology. I did not make this recommendation. The dose is incorrect. If the patient is to receive any additional dig ox and after the digoxin level is reported the dose would be 0.125 mg or possibly 0.25 mg. I asked the nurse to relay this information and clarify with the attending.
--- NOTE | 2017-01-02 11:00 | Progress Note ---
Assessment and Plan 66 y/o female with Afib with RVR and Hypotension. 1. BP has stablized 2. Currently on Amio and Dig, rate still not controlled. Follow up any new Cards recs 3. Continue ICU monitoring given additional kristy blocking agent, watch for bradycardias and changes in BP Subjective Date of service: 01/02/17 Principal diagnosis: Afib with RVR, Acute on chronic systolic hear failure Interval history: Rate still not controlled. Reviewed Cardiology notes. Oxygen requirement did increase but only by 1 liter. Breathing appears stable. Negative fluid balance if I/0 are accurate Objective - Constitutional Vitals: Vital Signs - 12hr 01/01/17 01/01/17 01/01/17 23:00 23:01 23:05 Temperature 99.1 F Pulse Rate 107 H Respiratory 19 Rate Blood Pressure 101/77 O2 Sat by Pulse 97 98 Oximetry 01/02/17 01/02/17 01/02/17 00:00 00:01 01:01 Temperature Pulse Rate 121 H 122 H 109 H Respiratory 26 H 24 15 Rate Blood Pressure 90/34 90/34 90/34 O2 Sat by Pulse 98 98 97 Oximetry 01/02/17 01/02/17 01/02/17 02:00 02:01 03:01 Temperature Pulse Rate 127 H 114 H 111 H Respiratory 15 21 Rate Blood Pressure 89/30 77/34 O2 Sat by Pulse 98 99 Oximetry 01/02/17 01/02/17 01/02/17 03:25 04:00 04:01 Temperature 98.5 F Pulse Rate 118 H 119 H Respiratory 22 Rate Blood Pressure 119/55 O2 Sat by Pulse 98 Oximetry 01/02/17 01/02/17 01/02/17 05:01 06:00 06:01 Temperature Pulse Rate 127 H 121 H Respiratory 17 31 H Rate Blood Pressure 89/33 100/58 O2 Sat by Pulse 96 98 Oximetry 01/02/17 01/02/17 01/02/17 07:00 07:55 08:09 Temperature Pulse Rate 127 H 122 H Respiratory 14 21 Rate Blood Pressure 116/67 O2 Sat by Pulse 98 97 96 Oximetry 01/02/17 08:28 Temperature 97.9 F Pulse Rate Respiratory Rate Blood Pressure O2 Sat by Pulse Oximetry - Labs CBC & Chem 7: 01/02/17 03:44 01/01/17 04:39 Labs: Abnormal lab results 01/01/17 01/01/17 01/01/17 Range/Units 12:01 15:54 21:27 MCV (79-97) fl MCH (28-32) pg Plt Count (140-440) K/mm3 [place] % (Auto) (0.0-7.3) % POC Glucose 216 H 176 H 229 H (70-105) 01/02/17 01/02/17 Range/Units 03:44 07:19 MCV 98 H (79-97) fl MCH 33 H (28-32) pg Plt Count 127 L (140-440) K/mm3 [place] % (Auto) 10.7 H (0.0-7.3) % POC Glucose 188 H (70-105)
[2017-01-02] MEDS: LOVENOX SUB-Q SCH ×2 (11:23→21:30)
[2017-01-02] MEDS: PEPCID PO SCH (11:24)
[2017-01-02] MEDS: XANAX PO SCH ×2 (11:24→21:29)
[2017-01-02] MEDS: BABY ASPIRIN PO SCH (11:24)
[2017-01-02] MEDS: LOPRESSOR PO SCH ×2 (11:24→21:28)
[2017-01-02] MEDS: CORDARONE 900 MG in D5W 482 ML IV SCH (20:50)
[2017-01-02] MEDS: EFFEXOR XR PO SCH (21:29)
[2017-01-02] MEDS: DESYREL PO SCH (21:30)
[2017-01-03 04:26] LABS: Alanine Aminotransferase 10 units/L (7-56); Albumin 3.4 g/dL (3.9-5); Albumin/Globulin Ratio 0.9 %; Alkaline Phosphatase 83 units/L (35-129); BUN/Creatinine Ratio 21; Blood Urea Nitrogen 17 mg/dL (7-17); Calcium 9.1 mg/dL (8.4-10.2); Carbon Dioxide 35 mmol/L (22-30); Glucose 146 mg/dL (65-100)
[2017-01-03 04:27] LABS: Anion Gap 13 mmol/L; Basophils % (Auto) 0.4 % (0.0-1.8); Chloride 95.4 mmol/L (98-107); Eosinophils % (Auto) 2.8 % (0.0-4.3); Hematocrit 41.6 % (30.3-42.9); Hemoglobin 13.7 gm/dl (10.1-14.3); Mean Corpuscular HGB Conc 33 % (30-34); Mean Corpuscular Hemoglobin 32 pg (28-32); Mean Corpuscular Volume 96 fl (79-97); Platelet Count 148 K/mm3 (140-440); Potassium 4.5 mmol/L (3.6-5.0); Red Blood Count 4.32 M/mm3 (3.65-5.03); Sodium 139 mmol/L (137-145); White Blood Count 7.1 K/mm3 (4.5-11.0)
[2017-01-03] MEDS ORDERED: NACL 0.9% 500 ML 500 ML IV ONE (06:43)
[2017-01-03] MEDS ORDERED: LANOXIN IV ONE (08:52)
--- NOTE | 2017-01-03 08:52 | Progress Note ---
Assessment and Plan bp stable wide complex mosty reg tach with rbbb which is baseline non paced conduction pattern ppm interrogated: rhythm is atrial flutter rec continue iv amio. add iv digoxin may need elective jaime guided elec dc caridioversion if rate remains uncontrolled and otherwise pt otherwise stable. would consider full dose anticoag at this point. would rec stopping sq heparin and begining wt based full dose lovenox Patient's ventricular rate has improved to the 90-100 range. Rhythm is somewhat irregular I suspect underlying atrial flutter fibrillation. Blood pressure had become low 70s systolic. IV fluids administered and amiodarone stopped. Pressure jimmy to 84 systolic. Digoxin level 0.6 Continue to monitor blood pressure. Would administer additional dose of IV digoxin 0.125 mg today. Check digoxin level in a.m. Given low left ventricular ejection fraction on recent echo if blood pressure fails to improve IV dobutamine may be helpful. Subjective Date of service: 01/03/17 Principal diagnosis: Afib with RVR, Acute on chronic systolic hear failure Interval history: denies cp or sob Patient in no acute distress. Objective Vital Signs Temp Pulse Pulse Pulse Pulse Pulse Resp 01/03/17 07:59 01/03/17 07:30 97.2 F L 01/03/17 07:00 103 H 14 01/03/17 06:00 102 H 19 01/03/17 05:01 104 H 23 01/03/17 04:00 104 H 24 01/03/17 03:28 97.8 F 01/03/17 03:01 107 H 13 01/03/17 02:01 106 H 22 01/03/17 02:00 90 01/03/17 01:01 104 H 22 01/03/17 00:01 121 H 20 01/03/17 00:00 95 H 01/02/17 23:43 98.5 F 01/02/17 23:03 91 H 16 01/02/17 23:00 88 21 01/02/17 22:01 95 H 29 H 01/02/17 22:00 88 01/02/17 21:49 01/02/17 21:28 90 01/02/17 21:01 90 26 H 01/02/17 20:01 88 22 01/02/17 20:00 85 84 84 84 84 24 01/02/17 19:58 98.4 F 01/02/17 19:00 89 17 01/02/17 18:01 88 17 01/02/17 17:01 84 19 01/02/17 16:55 97.3 F L 01/02/17 16:01 88 30 H 01/02/17 16:00 93 H 01/02/17 15:01 92 H 25 H 01/02/17 14:00 87 21 01/02/17 13:01 85 26 H 01/02/17 12:00 135 H 21 01/02/17 11:00 123 H 20 01/02/17 10:01 116 H 18 01/02/17 09:00 129 H 24 BP Pulse Ox 01/03/17 07:59 97 01/03/17 07:30 01/03/17 07:00 84/63 98 01/03/17 06:00 70/31 99 01/03/17 05:01 84/52 94 01/03/17 04:00 85/44 98 01/03/17 03:28 01/03/17 03:01 76/52 01/03/17 02:01 107/68 01/03/17 02:00 01/03/17 01:01 107/68 01/03/17 00:01 107/68 01/03/17 00:00 01/02/17 23:43 01/02/17 23:03 113/54 01/02/17 23:00 113/54 01/02/17 22:01 113/65 01/02/17 22:00 01/02/17 21:49 95 01/02/17 21:28 114/74 01/02/17 21:01 110/64 01/02/17 20:01 131/63 01/02/17 20:00 99 01/02/17 19:58 01/02/17 19:00 118/61 01/02/17 18:01 114/37 01/02/17 17:01 122/79 01/02/17 16:55 01/02/17 16:01 122/79 01/02/17 16:00 01/02/17 15:01 142/75 01/02/17 14:00 98/62 01/02/17 13:01 98/49 01/02/17 12:00 137/74 01/02/17 11:00 99/58 01/02/17 10:01 84/54 01/02/17 09:00 87/55 - Physical Examination HEENT: Positive: PERRL, Normocephaly, Mucus Membranes Moist Neck: Positive: neck supple, trachea midline. Negative: JVD/HJR Cardiac: Positive: irregularly irregular. Negative: S3 Lungs: Positive: clear to auscultation Neuro: Positive: Grossly Intact Abdomen: Positive: Soft. Negative: Tender Skin: Positive: Clear. Negative: Rash, Wound Musculoskeletal: No Fluid Collection, No Pain, Normal Range of Motion Extremities: Absent: edema - Labs and Meds Cardiac Enzymes 01/03/17 Range/Units 03:32 AST 13 (5-40) units/L CBC 01/03/17 Range/Units 03:32 WBC 7.1 (4.5-11.0) K/mm3 RBC 4.32 (3.65-5.03) M/mm3 Hgb 13.7 (10.1-14.3) gm/dl Hct 41.6 (30.3-42.9) % Plt Count 148 (140-440) K/mm3 Lymph # 2.2 (1.2-5.4) K/mm3 [place] # 0.6 (0.0-0.8) K/mm3 Eos # 0.2 (0.0-0.4) K/mm3 Baso # 0.0 (0.0-0.1) K/mm3 Comprehensive Metabolic Panel 01/03/17 Range/Units 03:32 Sodium 139 (137-145) mmol/L Potassium 4.5 (3.6-5.0) mmol/L Chloride 95.4 L (98-107) mmol/L Carbon Dioxide 35 H (22-30) mmol/L BUN 17 (7-17) mg/dL Creatinine 0.8 (0.7-1.2) mg/dL Glucose 146 H (65-100) mg/dL Calcium 9.1 (8.4-10.2) mg/dL AST 13 (5-40) units/L ALT 10 (7-56) units/L Alkaline Phosphatase 83 (35-129) units/L Total Protein 7.0 (6.3-8.2) g/dL Albumin 3.4 L (3.9-5) g/dL - Imaging and Cardiology EKG: report reviewed, image reviewed Echo: pending, report reviewed ( 05/2016 showed EF 45-50%, impaired relaxation. ) Cardiac cath: report reviewed (05/2015 showed patent coronaries left main patent LAD patent circumflex patent RCA patent left cor junior assistant manager come from the right cornea cusp and normal LV function.) AV and intraventricular conduction: right bundle branch block
[2017-01-03] MEDS: BABY ASPIRIN PO SCH (09:07)
[2017-01-03] MEDS: XANAX PO SCH ×2 (09:07→21:41)
[2017-01-03] MEDS: PEPCID PO SCH (09:07)
[2017-01-03] MEDS: LOVENOX SUB-Q SCH ×2 (09:09→21:41)
[2017-01-03] MEDS: LOPRESSOR PO SCH ×2 (12:31→21:42)
--- NOTE | 2017-01-03 12:31 | Progress Note ---
Assessment and Plan 66 y/o female with Afib with RVR and Hypotension. 1. BP has stablized, with volume, must be careful as EF is low 2. Cards considering Inotropic support if BP does not hold. 3. Continue ICU monitoring given additional kristy blocking agent, watch for bradycardias and changes in BP Subjective Date of service: 01/03/17 Principal diagnosis: Afib with RVR, Acute on chronic systolic hear failure Interval history: Amio stopped secondary to relative hypotension and fluids administered. Maps in the high 70's. Breathing remains stable. Objective - Constitutional Vitals: Vital Signs - 12hr 01/03/17 01/03/17 01/03/17 01:01 02:00 02:01 Temperature Pulse Rate 104 H 90 106 H Respiratory 22 22 Rate Blood Pressure 107/68 107/68 O2 Sat by Pulse Oximetry 01/03/17 01/03/17 01/03/17 03:01 03:28 04:00 Temperature 97.8 F Pulse Rate 107 H 104 H Respiratory 13 24 Rate Blood Pressure 76/52 85/44 O2 Sat by Pulse 98 Oximetry 01/03/17 01/03/17 01/03/17 05:01 06:00 07:00 Temperature Pulse Rate 104 H 102 H 103 H Respiratory 23 19 14 Rate Blood Pressure 84/52 70/31 84/63 O2 Sat by Pulse 94 99 98 Oximetry 01/03/17 01/03/17 01/03/17 07:30 07:59 08:00 Temperature 97.2 F L Pulse Rate 112 H Respiratory 22 Rate Blood Pressure 68/42 O2 Sat by Pulse 97 95 Oximetry 01/03/17 01/03/17 01/03/17 09:00 09:26 10:01 Temperature Pulse Rate 92 H 106 H 99 H Respiratory 20 26 H Rate Blood Pressure 98/67 89/66 81/54 O2 Sat by Pulse 95 95 Oximetry 01/03/17 01/03/17 01/03/17 11:01 12:01 12:24 Temperature 98.3 F Pulse Rate 96 H 97 H Respiratory 21 26 H Rate Blood Pressure 81/59 98/65 O2 Sat by Pulse 97 94 Oximetry General appearance: Present: no acute distress - EENT Eyes: PERRL ENT: hearing intact, clear oral mucosa, dentition normal - Neck Neck: supple, normal ROM - Respiratory Respiratory effort: normal Respiratory: bilateral: diminished - Cardiovascular Rhythm: irregularly irregular - Labs CBC & Chem 7: 01/03/17 03:32 01/03/17 03:32 Labs: Abnormal lab results 01/02/17 01/02/17 01/02/17 Range/Units 08:45 16:57 22:19 [place] % (Auto) (0.0-7.3) % Chloride (98-107) mmol/L Carbon Dioxide (22-30) mmol/L Glucose (65-100) mg/dL POC Glucose 244 H 185 H (70-105) Albumin (3.9-5) g/dL Digoxin 0.6 L (0.9-2.0) ng/mL 01/03/17 01/03/17 01/03/17 Range/Units 03:32 03:32 07:35 [place] % (Auto) 9.1 H (0.0-7.3) % Chloride 95.4 L (98-107) mmol/L Carbon Dioxide 35 H (22-30) mmol/L Glucose 146 H (65-100) mg/dL POC Glucose 160 H (70-105) Albumin 3.4 L (3.9-5) g/dL Digoxin (0.9-2.0) ng/mL 01/03/17 Range/Units 11:28 [place] % (Auto) (0.0-7.3) % Chloride (98-107) mmol/L Carbon Dioxide (22-30) mmol/L Glucose (65-100) mg/dL POC Glucose 181 H (70-105) Albumin (3.9-5) g/dL Digoxin (0.9-2.0) ng/mL
--- NOTE | 2017-01-03 13:51 | Progress Note ---
Assessment and Plan Assessment and plan: --wide-complex regular tachycardia with RBBB with RVR off amiodarone drip, beta blockers , full anticoagulation with Lovenox, possible cardioversion tomorrow --Acute on chronic systolic CHF,EF10-15% [45-50% in 05/2016] --Status post permanent pacemaker 05/2016 for complete heart block, interrogated , rhythm A. fib --H/O COPD ; stable --Intermittent Hypotension ; gentle IV hydration and monitor --History of alcohol use; closely monitor for any alcohol withdrawal symptoms, consider CIWA protocol --History of tobacco use; smoking cessation counseling done, advised nicotine patch --Medical noncompliance; counseling done --Obesity; BMI of 38.6, counseling done --Type 2 diabetes mellitus; moderate control, Accu-Chek sliding scale coverage and ADA diet , Novolin 70/30, A1c 8.2 in 05/2016, --DVT prophylaxis; full dose Lovenox Cardiology evaluation and recommendations noted Critical care time 31 minutes The high probability of a clinically significant, sudden or life threatening deterioration of the [pulmonary ,CV, ](s) required my full and direct attention , intervention and personal management. The aggregate critical care time was [ 31 ] minutes. This time is in addition to time spent performing reported procedures but includes the following: [x] Data Review and interpretation [x] Patient assessment and monitoring of vital signs [x] Documentation, counseling [x] Medication orders and management History Interval history: Patient seen and examined medical records reviewed Heart rate between 90 and 100s Denies chest pain or shortness of breath Hospitalist Physical - Constitutional Vitals: Temp Pulse Resp BP Pulse Ox 98.3 F 105 H 13 108/72 96 01/03/17 12:24 01/03/17 13:01 01/03/17 13:01 01/03/17 13:01 01/03/17 13:01 General appearance: Present: no acute distress, well-nourished, obese - EENT Eyes: Present: PERRL, EOM intact - Neck Neck: Present: supple, normal ROM - Respiratory Respiratory effort: normal Respiratory: negative: rales, rhonchi, wheezing - Cardiovascular Rhythm: regular Heart Sounds: Present: S1 & S2 - Extremities Extremities: no ischemia, No edema - Abdominal General gastrointestinal: soft, non-tender, non-distended, normal bowel sounds - Integumentary Integumentary: Present: clear, warm - Psychiatric Psychiatric: appropriate mood/affect, cooperative - Neurologic Neurologic: CNII-XII intact, moves all extremities Results - Labs CBC & Chem 7: 01/03/17 03:32 01/03/17 03:32 Labs: Laboratory Last Values WBC 7.1 K/mm3 (4.5-11.0) 01/03/17 03:32 RBC 4.32 M/mm3 (3.65-5.03) 01/03/17 03:32 Hgb 13.7 gm/dl (10.1-14.3) 01/03/17 03:32 Hct 41.6 % (30.3-42.9) 01/03/17 03:32 MCV 96 fl (79-97) 01/03/17 03:32 MCH 32 pg (28-32) 01/03/17 03:32 MCHC 33 % (30-34) 01/03/17 03:32 RDW 15.0 % (13.2-15.2) 01/03/17 03:32 Plt Count 148 K/mm3 (140-440) 01/03/17 03:32 Lymph % (Auto) 31.2 % (13.4-35.0) 01/03/17 03:32 [place] % (Auto) 9.1 % (0.0-7.3) H 01/03/17 03:32 Eos % (Auto) 2.8 % (0.0-4.3) 01/03/17 03:32 Baso % (Auto) 0.4 % (0.0-1.8) 01/03/17 03:32 Lymph # 2.2 K/mm3 (1.2-5.4) 01/03/17 03:32 [place] # 0.6 K/mm3 (0.0-0.8) 01/03/17 03:32 Eos # 0.2 K/mm3 (0.0-0.4) 01/03/17 03:32 Baso # 0.0 K/mm3 (0.0-0.1) 01/03/17 03:32 Seg Neutrophils % 56.5 % (40.0-70.0) 01/03/17 03:32 Seg Neutrophils # 4.0 K/mm3 (1.8-7.7) 01/03/17 03:32 Sodium 139 mmol/L (137-145) 01/03/17 03:32 Potassium 4.5 mmol/L (3.6-5.0) 01/03/17 03:32 Chloride 95.4 mmol/L (98-107) L 01/03/17 03:32 Carbon Dioxide 35 mmol/L (22-30) H 01/03/17 03:32 Anion Gap 13 mmol/L 01/03/17 03:32 BUN 17 mg/dL (7-17) 01/03/17 03:32 Creatinine 0.8 mg/dL (0.7-1.2) 01/03/17 03:32 Estimated GFR > 60 ml/min 01/03/17 03:32 BUN/Creatinine Ratio 21 % 01/03/17 03:32 Glucose 146 mg/dL (65-100) H 01/03/17 03:32 POC Glucose 181 (70-105) H 01/03/17 11:28 Calcium 9.1 mg/dL (8.4-10.2) 01/03/17 03:32 Phosphorus 4.40 mg/dL (2.5-4.5) 01/03/17 03:32 Magnesium 2.00 mg/dL (1.7-2.3) 01/03/17 03:32 Total Bilirubin 0.50 mg/dL (0.1-1.2) 01/03/17 03:32 AST 13 units/L (5-40) 01/03/17 03:32 ALT 10 units/L (7-56) 01/03/17 03:32 Alkaline Phosphatase 83 units/L (35-129) 01/03/17 03:32 Total Creatine Kinase 30 units/L (30-135) 12/30/16 07:52 CK-MB (CK-2) 2.7 ng/mL (0.0-4.0) 12/30/16 07:52 CK-MB (CK-2) Rel Index 9.0 (0-4) H 12/30/16 07:52 Troponin T 0.018 ng/mL (0.00-0.029) 12/30/16 07:52 NT-Pro-B Natriuret Pep 4695 pg/mL (0-900) H 12/29/16 17:07 Total Protein 7.0 g/dL (6.3-8.2) 01/03/17 03:32 Albumin 3.4 g/dL (3.9-5) L 01/03/17 03:32 Albumin/Globulin Ratio 0.9 % 01/03/17 03:32 TSH 3.110 mlU/mL (0.270-4.200) 12/30/16 10:39 Free T4 1.13 ng/dL (0.76-1.46) 12/30/16 10:39 Digoxin 0.6 ng/mL (0.9-2.0) L 01/02/17 08:45
[2017-01-03] MEDS: EFFEXOR XR PO SCH (21:41)
[2017-01-03] MEDS: DESYREL PO SCH (21:41)
[2017-01-04 04:22] LABS: Basophils % (Auto) 0.7 % (0.0-1.8); Eosinophils % (Auto) 3.3 % (0.0-4.3); Hemoglobin 14.8 gm/dl (10.1-14.3); Mean Corpuscular HGB Conc 34 % (30-34); Mean Corpuscular Hemoglobin 32 pg (28-32); Mean Corpuscular Volume 94 fl (79-97); Platelet Count 165 K/mm3 (140-440); Red Blood Count 4.67 M/mm3 (3.65-5.03); White Blood Count 7.3 K/mm3 (4.5-11.0)
[2017-01-04 05:00] LABS: Albumin 3.3 g/dL (3.9-5); Albumin/Globulin Ratio 0.9 %; Alkaline Phosphatase 80 units/L (35-129); BUN/Creatinine Ratio 26; Blood Urea Nitrogen 18 mg/dL (7-17); Calcium 9.2 mg/dL (8.4-10.2); Carbon Dioxide 30 mmol/L (22-30); Chloride 96.6 mmol/L (98-107); Glucose 148 mg/dL (65-100); Sodium 138 mmol/L (137-145); Total Protein 7.1 g/dL (6.3-8.2)
[2017-01-04 05:02] LABS: Anion Gap 17 mmol/L
[2017-01-04 05:03] LABS: Alanine Aminotransferase 13 units/L (7-56); Potassium 5.7 mmol/L (3.6-5.0)
[2017-01-04] MEDS ORDERED: KIONEX PO ONE (07:54)
--- NOTE | 2017-01-04 10:00 | Progress Note ---
Assessment and Plan Assessment: Aatrial fibrillation / atrial flutter with RBBB with RVR - began ~24 hours prior to admission per PPM interrogation Cardiomyopathy - newly reduced EF of 10-15%; EF 45-50% 05/2016; LHC 05/2016 showed patent coronaries. Hypotension CHB, status post PPM implantation 06/02/2016 - PPM interrogation 12/30/2016 revealed normal device function. Elevated pro-BNP - unclear significance; no current clinical evidence of acute heart failure Morbid obesity COPD H/o EtOH abuse / tobacco use - cessation encouraged H/o Hypertension DM H/o noncompliance Plan: Initiate PO amio, 400mg BID. Cont low dose lopressor as tolerated. No ACEI at this time in setting of hypotension. Repeat serum K+ and consider another dose of IV digoxin pending serum K+ results. Dig level 0.6 this AM. Continue full dose lovenox BID for systemic anticoagulation in regards to atrial fibrillation/atrial flutter. Plan for conversion to usp OAC prior to discharge. Plan for coronary angiography to r/o ischemic CMP, although strongly suspect CMP is secondary to ETOH use and/or tachycardia. Will plan for LHC on Wednesday pending pt is medically stabilized by that point. Indications, potential risks and benefits of LHC reviewed with pt and she is agreeable to proceed with LHC. Assessment and plan reviewed with pt at bedside. The patient has been seen in conjunction with Dr. Eli Lay who agrees with the assessment and plan of care. Subjective Date of service: 01/04/17 Principal diagnosis: Afib with RVR, Acute on chronic systolic hear failure Interval history: Pt sitting comfortably at bedside, no current complaints. Remains in AFlutter with HR 100s - 110s, BPs remain borderline hypotensive. Objective Last Vital Signs Temp 97.4 F L 01/04/17 08:00 Pulse 106 H 01/04/17 08:01 Resp 18 01/04/17 08:01 BP 185/125 01/04/17 08:01 Pulse Ox 97 01/04/17 08:02 - Physical Examination General: Appears Well HEENT: Positive: PERRL, Normocephaly, Mucus Membranes Moist Neck: Positive: neck supple, trachea midline. Negative: JVD/HJR Cardiac: Positive: irregularly irregular, S1/S2, Tachycardia Lungs: Positive: Decreased Breath Sounds Neuro: Positive: Grossly Intact Abdomen: Positive: Soft. Negative: Tender Skin: Positive: Clear. Negative: Rash, Wound Musculoskeletal: No Fluid Collection, No Pain, Normal Range of Motion Extremities: Absent: edema - Labs and Meds Cardiac Enzymes 01/04/17 Range/Units 03:40 AST 30 (5-40) units/L CBC 01/04/17 Range/Units 03:40 WBC 7.3 (4.5-11.0) K/mm3 RBC 4.67 (3.65-5.03) M/mm3 Hgb 14.8 H (10.1-14.3) gm/dl Hct 44.0 H (30.3-42.9) % Plt Count 165 (140-440) K/mm3 Lymph # 2.1 (1.2-5.4) K/mm3 [place] # 0.6 (0.0-0.8) K/mm3 Eos # 0.2 (0.0-0.4) K/mm3 Baso # 0.1 (0.0-0.1) K/mm3 Comprehensive Metabolic Panel 01/04/17 Range/Units 03:40 Sodium 138 (137-145) mmol/L Potassium 5.7 H D (3.6-5.0) mmol/L Chloride 96.6 L (98-107) mmol/L Carbon Dioxide 30 (22-30) mmol/L BUN 18 H (7-17) mg/dL Creatinine 0.7 (0.7-1.2) mg/dL Glucose 148 H (65-100) mg/dL Calcium 9.2 (8.4-10.2) mg/dL AST 30 (5-40) units/L ALT 13 (7-56) units/L Alkaline Phosphatase 80 (35-129) units/L Total Protein 7.1 (6.3-8.2) g/dL Albumin 3.3 L (3.9-5) g/dL - Imaging and Cardiology EKG: report reviewed, image reviewed Echo: report reviewed ( 12/30/2016: EF 10-15%, RV systolic function severely reduced. 05/2016 showed EF 45-50%, impaired relaxation. ) Cardiac cath: report reviewed (05/2015 showed patent coronaries left main patent LAD patent circumflex patent RCA patent left cor butcher assistant come from the right cornea cusp and normal LV function.) - Telemetry EKG Rhythm: Atrial Flutter AV and intraventricular conduction: right bundle branch block
[2017-01-04] MEDS: PEPCID PO SCH (10:24)
[2017-01-04] MEDS: XANAX PO SCH ×2 (10:24→21:16)
[2017-01-04] MEDS: BABY ASPIRIN PO SCH (10:25)
[2017-01-04] MEDS: LOVENOX SUB-Q SCH ×2 (10:25→21:15)
--- NOTE | 2017-01-04 12:09 | Progress Note ---
Assessment and Plan Assessment and plan: --Hyperkalemia: Kayexalate,monitor K levels --wide-complex regular tachycardia with RBBB with RVR Amiodarone 400 mg by mouth twice a day ,beta blockers , full anticoagulation with Lovenox, Left heart catheterization and possible cardioversion per cardiology --Acute on chronic systolic CHF,EF10-15% [45-50% in 05/2016] --Status post permanent pacemaker 05/2016 for complete heart block, interrogated , rhythm A. fib --H/O COPD ; stable --Intermittent Hypotension ; gentle IV hydration as needed --History of alcohol use; closely monitor for any alcohol withdrawal symptoms, consider CIWA protocol --History of tobacco use; smoking cessation counseling done, advised nicotine patch --Medical noncompliance; counseling done --Obesity; BMI of 38.6, counseling done --Type 2 diabetes mellitus; moderate control, Accu-Chek sliding scale coverage and ADA diet , Novolin 70/30, A1c 8.2 in 05/2016, --DVT prophylaxis; full dose Lovenox Cardiology evaluation and recommendations noted Critical care time 31 minutes History Interval history: Patient seen and examined medical record reviewed No new complaints,HR in 100-110s Vital Signs reviewed Hospitalist Physical - Constitutional Vitals: Temp Pulse Resp BP Pulse Ox 97.4 F L 106 H 18 185/125 97 01/04/17 08:00 01/04/17 08:01 01/04/17 08:01 01/04/17 08:01 01/04/17 08:02 General appearance: Present: no acute distress, well-nourished, obese - EENT Eyes: Present: PERRL, EOM intact - Neck Neck: Present: supple, normal ROM - Respiratory Respiratory effort: normal Respiratory: bilateral: diminished, negative: rales, rhonchi, wheezing - Cardiovascular Rhythm: regular Heart Sounds: Present: S1 & S2 - Extremities Extremities: no ischemia, No edema - Abdominal General gastrointestinal: soft, non-tender, non-distended, normal bowel sounds - Integumentary Integumentary: Present: clear, warm - Psychiatric Psychiatric: appropriate mood/affect, cooperative - Neurologic Neurologic: CNII-XII intact, moves all extremities Results - Labs CBC & Chem 7: 01/04/17 03:40 01/04/17 10:09 Labs: Laboratory Last Values WBC 7.3 K/mm3 (4.5-11.0) 01/04/17 03:40 RBC 4.67 M/mm3 (3.65-5.03) 01/04/17 03:40 Hgb 14.8 gm/dl (10.1-14.3) H 01/04/17 03:40 Hct 44.0 % (30.3-42.9) H 01/04/17 03:40 MCV 94 fl (79-97) 01/04/17 03:40 MCH 32 pg (28-32) 01/04/17 03:40 MCHC 34 % (30-34) 01/04/17 03:40 RDW 15.0 % (13.2-15.2) 01/04/17 03:40 Plt Count 165 K/mm3 (140-440) 01/04/17 03:40 Lymph % (Auto) 28.3 % (13.4-35.0) 01/04/17 03:40 [place] % (Auto) 8.6 % (0.0-7.3) H 01/04/17 03:40 Eos % (Auto) 3.3 % (0.0-4.3) 01/04/17 03:40 Baso % (Auto) 0.7 % (0.0-1.8) 01/04/17 03:40 Lymph # 2.1 K/mm3 (1.2-5.4) 01/04/17 03:40 [place] # 0.6 K/mm3 (0.0-0.8) 01/04/17 03:40 Eos # 0.2 K/mm3 (0.0-0.4) 01/04/17 03:40 Baso # 0.1 K/mm3 (0.0-0.1) 01/04/17 03:40 Seg Neutrophils % 59.1 % (40.0-70.0) 01/04/17 03:40 Seg Neutrophils # 4.3 K/mm3 (1.8-7.7) 01/04/17 03:40 Sodium 138 mmol/L (137-145) 01/04/17 03:40 Potassium 5.0 mmol/L (3.6-5.0) 01/04/17 10:09 Chloride 96.6 mmol/L (98-107) L 01/04/17 03:40 Carbon Dioxide 30 mmol/L (22-30) 01/04/17 03:40 Anion Gap 17 mmol/L 01/04/17 03:40 BUN 18 mg/dL (7-17) H 01/04/17 03:40 Creatinine 0.7 mg/dL (0.7-1.2) 01/04/17 03:40 Estimated GFR > 60 ml/min 01/04/17 03:40 BUN/Creatinine Ratio 26 % 01/04/17 03:40 Glucose 148 mg/dL (65-100) H 01/04/17 03:40 POC Glucose 189 (70-105) H 01/04/17 07:57 Calcium 9.2 mg/dL (8.4-10.2) 01/04/17 03:40 Phosphorus 4.40 mg/dL (2.5-4.5) 01/03/17 03:32 Magnesium 2.00 mg/dL (1.7-2.3) 01/03/17 03:32 Total Bilirubin 0.30 mg/dL (0.1-1.2) 01/04/17 03:40 AST 30 units/L (5-40) 01/04/17 03:40 ALT 13 units/L (7-56) 01/04/17 03:40 Alkaline Phosphatase 80 units/L (35-129) 01/04/17 03:40 Total Creatine Kinase 30 units/L (30-135) 12/30/16 07:52 CK-MB (CK-2) 2.7 ng/mL (0.0-4.0) 12/30/16 07:52 CK-MB (CK-2) Rel Index 9.0 (0-4) H 12/30/16 07:52 Troponin T 0.018 ng/mL (0.00-0.029) 12/30/16 07:52 NT-Pro-B Natriuret Pep 4695 pg/mL (0-900) H 12/29/16 17:07 Total Protein 7.1 g/dL (6.3-8.2) 01/04/17 03:40 Albumin 3.3 g/dL (3.9-5) L 01/04/17 03:40 Albumin/Globulin Ratio 0.9 % 01/04/17 03:40 TSH 3.110 mlU/mL (0.270-4.200) 12/30/16 10:39 Free T4 1.13 ng/dL (0.76-1.46) 12/30/16 10:39 Digoxin 0.6 ng/mL (0.9-2.0) L 01/04/17 07:52
[2017-01-04] MEDS ORDERED: LANOXIN IV ONE (12:32)
[2017-01-04] MEDS: CORDARONE PO SCH ×2 (13:00→21:16)
[2017-01-04] MEDS: LOPRESSOR PO SCH (13:32)
--- NOTE | 2017-01-04 14:34 | Progress Note ---
Assessment and Plan Imp: 1. Dilated CMP 2. A/C systolic CHF 3. Aflutter with rapid RVR 4. Obesity, non-morbid 5. Probable TERRELL per history; may have OHS also 6. Hypotension, intermittent 7. Chronic nicotine dependence, cigarettes; r/o COPD Rec: 1. Plan as per cardiology; monitoring in ICU 2. Stop smoking, counseled 3. Needs outpatient PSG, see #5 4. Check ABG to r/o OHS 5. Outpatient PFTs as well 6. Complex patient/decision-making w/ guarded prognosis Plan of care reviewed w/ patient, she understands/agrees Subjective Date of service: 01/04/17 Principal diagnosis: Afib with RVR, Acute on chronic systolic hear failure Interval history: Overall doing better. BP stable currently. Denies chest pain or SOB at the moment. No cough, wheezing, sputum. Active Medications Acetaminophen (Tylenol) 650 mg PO Q4H PRN PRN Reason: Pain MILD(1-3)/Fever >100.5/TORREZ Last Admin: 12/31/16 22:23 Dose: 650 mg Alprazolam (Xanax) 1 mg PO BID [facility] Last Admin: 01/04/17 10:24 Dose: 1 mg Amiodarone HCl (Cordarone) 400 mg PO BID [facility] Last Admin: 01/04/17 13:00 Dose: 400 mg Aspirin (Baby Aspirin) 81 mg PO QDAY [facility] Last Admin: 01/04/17 10:25 Dose: 81 mg Enoxaparin Sodium (Lovenox) 110 mg 1 mg/kg (110 mg) SUB-Q Q12HR [facility] Last Admin: 01/04/17 10:25 Dose: 110 mg Famotidine (Pepcid) 20 mg PO QDAY [facility] Last Admin: 01/04/17 10:24 Dose: 20 mg Insulin Human Isoph/Insulin Regular (Novolin 70/30) 6 unit SUB-Q BIDDIAB [facility] Last Admin: 01/04/17 10:26 Dose: 6 unit Insulin Human Regular (Novolin R) 0 units SUB-Q ACHS [facility] PRN Reason: Protocol Last Admin: 01/04/17 13:23 Dose: Not Given Metoprolol Tartrate (Lopressor) 12.5 mg PO BID [facility] Last Admin: 01/04/17 13:32 Dose: 12.5 mg Ondansetron HCl (Zofran) 4 mg IV Q6H PRN PRN Reason: nausea or vomiting Trazodone HCl (Desyrel) 100 mg PO QHS [facility] Last Admin: 01/03/17 21:41 Dose: 100 mg Venlafaxine HCl (Effexor Xr) 225 mg PO QHS [facility] Last Admin: 01/03/17 21:41 Dose: 225 mg Objective Vital Signs - 12hr 01/04/17 01/04/17 01/04/17 03:00 03:35 04:00 Temperature 97.7 F Pulse Rate 126 H Pulse Rate [ 130 H From Monitor] Pulse Rate [ 130 H Left Dorsalis Pedis] Pulse Rate [ 130 H Left Radial] Pulse Rate [ 130 H Right Dorsalis Pedis] Pulse Rate [ 130 H Right Radial] Respiratory 18 24 Rate Blood Pressure 128/91 O2 Sat by Pulse 96 99 Oximetry 01/04/17 01/04/17 01/04/17 04:01 05:01 06:00 Temperature Pulse Rate 133 H 109 H 100 H Pulse Rate [ From Monitor] Pulse Rate [ Left Dorsalis Pedis] Pulse Rate [ Left Radial] Pulse Rate [ Right Dorsalis Pedis] Pulse Rate [ Right Radial] Respiratory 24 19 Rate Blood Pressure 128/91 91/46 O2 Sat by Pulse 92 Oximetry 01/04/17 01/04/17 01/04/17 06:01 07:01 08:00 Temperature 97.4 F L Pulse Rate 116 H 109 H Pulse Rate [ From Monitor] Pulse Rate [ Left Dorsalis Pedis] Pulse Rate [ Left Radial] Pulse Rate [ Right Dorsalis Pedis] Pulse Rate [ Right Radial] Respiratory 19 19 Rate Blood Pressure 89/30 77/47 O2 Sat by Pulse 97 93 Oximetry 01/04/17 01/04/17 01/04/17 08:01 08:02 12:00 Temperature 97.6 F Pulse Rate 106 H Pulse Rate [ From Monitor] Pulse Rate [ Left Dorsalis Pedis] Pulse Rate [ Left Radial] Pulse Rate [ Right Dorsalis Pedis] Pulse Rate [ Right Radial] Respiratory 18 Rate Blood Pressure 185/125 O2 Sat by Pulse 97 Oximetry Constitutional: no acute distress, alert Eyes: non-icteric ENT: oropharynx moist Neck: supple Effort: normal Ascultation: Bilateral: wheezes (very faint expiratory), rales (few in bases) Cardiovascular: irregular rhythm (no mrg) Gastrointestinal: normoactive bowel sounds, soft, non-tender, non-distended Integumentary: normal Extremities: no cyanosis, pink and warm, edema (1+ bilateral LE edema) Neurologic: normal mental status, non-focal exam, pupils equal and round, CN II- XII normal Psychiatric: mood appropriate, affect normal CBC and BMP: 01/04/17 03:40 01/04/17 10:09 Abnormal lab findings: Abnormal Labs 12/29/16 12/29/16 12/29/16 17:07 17:07 17:07 Hgb Hct MCV MCH Plt Count Lymph % (Auto) Saline % (Auto) 7.6 H Sodium Potassium Chloride 97.0 L Carbon Dioxide 31 H BUN 24 H Glucose 194 H POC Glucose CK-MB (CK-2) Rel Index NT-Pro-B Natriuret Pep 4695 H Albumin Digoxin 12/30/16 12/30/16 12/30/16 01:40 03:00 03:00 Hgb Hct MCV MCH Plt Count Lymph % (Auto) 37.2 H Saline % (Auto) 7.6 H Sodium 136 L Potassium Chloride 95.0 L Carbon Dioxide BUN 25 H Glucose 204 H POC Glucose CK-MB (CK-2) Rel Index 7.8 H NT-Pro-B Natriuret Pep Albumin Digoxin 12/30/16 12/30/16 12/30/16 07:52 11:40 16:48 Hgb Hct MCV MCH Plt Count Lymph % (Auto) Saline % (Auto) Sodium Potassium Chloride Carbon Dioxide BUN Glucose POC Glucose 252 H 214 H CK-MB (CK-2) Rel Index 9.0 H NT-Pro-B Natriuret Pep Albumin Digoxin 12/30/16 12/31/16 12/31/16 21:29 04:32 07:49 Hgb Hct MCV MCH Plt Count Lymph % (Auto) Saline % (Auto) Sodium Potassium Chloride 97.4 L Carbon Dioxide BUN 22 H Glucose 178 H POC Glucose 149 H 197 H CK-MB (CK-2) Rel Index NT-Pro-B Natriuret Pep Albumin 3.7 L Digoxin 12/31/16 12/31/16 12/31/16 11:38 15:52 21:08 Hgb Hct MCV MCH Plt Count Lymph % (Auto) Saline % (Auto) Sodium Potassium Chloride Carbon Dioxide BUN Glucose POC Glucose 223 H 187 H 202 H CK-MB (CK-2) Rel Index NT-Pro-B Natriuret Pep Albumin Digoxin 01/01/17 01/01/17 01/01/17 04:39 04:39 07:44 Hgb Hct MCV 98 H MCH Plt Count 132 L Lymph % (Auto) Saline % (Auto) 8.6 H Sodium 136 L Potassium Chloride 94.5 L Carbon Dioxide 32 H BUN 21 H Glucose 182 H POC Glucose 198 H CK-MB (CK-2) Rel Index NT-Pro-B Natriuret Pep Albumin Digoxin 01/01/17 01/01/17 01/01/17 12:01 15:54 21:27 Hgb Hct MCV MCH Plt Count Lymph % (Auto) Saline % (Auto) Sodium Potassium Chloride Carbon Dioxide BUN Glucose POC Glucose 216 H 176 H 229 H CK-MB (CK-2) Rel Index NT-Pro-B Natriuret Pep Albumin Digoxin 01/02/17 01/02/17 01/02/17 03:44 07:19 08:45 Hgb Hct MCV 98 H MCH 33 H Plt Count 127 L Lymph % (Auto) Saline % (Auto) 10.7 H Sodium Potassium Chloride Carbon Dioxide BUN Glucose POC Glucose 188 H CK-MB (CK-2) Rel Index NT-Pro-B Natriuret Pep Albumin Digoxin 0.6 L 01/02/17 01/02/17 01/02/17 11:29 16:57 22:19 Hgb Hct MCV MCH Plt Count Lymph % (Auto) Saline % (Auto) Sodium Potassium Chloride Carbon Dioxide BUN Glucose POC Glucose 272 H 244 H 185 H CK-MB (CK-2) Rel Index NT-Pro-B Natriuret Pep Albumin Digoxin 01/03/17 01/03/17 01/03/17 03:32 03:32 07:35 Hgb Hct MCV MCH Plt Count Lymph % (Auto) Saline % (Auto) 9.1 H Sodium Potassium Chloride 95.4 L Carbon Dioxide 35 H BUN Glucose 146 H POC Glucose 160 H CK-MB (CK-2) Rel Index NT-Pro-B Natriuret Pep Albumin 3.4 L Digoxin 01/03/17 01/03/17 01/03/17 11:28 16:29 21:48 Hgb Hct MCV MCH Plt Count Lymph % (Auto) Saline % (Auto) Sodium Potassium Chloride Carbon Dioxide BUN Glucose POC Glucose 181 H 127 H 193 H CK-MB (CK-2) Rel Index NT-Pro-B Natriuret Pep Albumin Digoxin 01/04/17 01/04/17 01/04/17 03:40 03:40 07:52 Hgb 14.8 H Hct 44.0 H MCV MCH Plt Count Lymph % (Auto) Saline % (Auto) 8.6 H Sodium Potassium 5.7 H D Chloride 96.6 L Carbon Dioxide BUN 18 H Glucose 148 H POC Glucose CK-MB (CK-2) Rel Index NT-Pro-B Natriuret Pep Albumin 3.3 L Digoxin 0.6 L 01/04/17 01/04/17 07:57 11:54 Hgb Hct MCV MCH Plt Count Lymph % (Auto) Saline % (Auto) Sodium Potassium Chloride Carbon Dioxide BUN Glucose POC Glucose 189 H 248 H CK-MB (CK-2) Rel Index NT-Pro-B Natriuret Pep Albumin Digoxin Chest x-ray: report reviewed, image reviewed
[2017-01-04 20:02] LABS: ISTAT Base Excess 9; ISTAT HCO3 33.5; ISTAT PCO2 52.9 (35-45); ISTAT PH 7.409 (7.35-7.45); ISTAT PO2 84 (80-105); ISTAT SO2 96; ISTAT TCO2 35
[2017-01-04] MEDS: EFFEXOR XR PO SCH (21:15)
[2017-01-04] MEDS: DESYREL PO SCH (21:16)
[2017-01-05] MEDS: LOPRESSOR PO SCH ×3 (03:00→22:40)
[2017-01-05 05:49] LABS: Anion Gap 16 mmol/L; BUN/Creatinine Ratio 30; Blood Urea Nitrogen 21 mg/dL (7-17); Calcium 9.2 mg/dL (8.4-10.2); Carbon Dioxide 30 mmol/L (22-30); Chloride 93.9 mmol/L (98-107); Glucose 168 mg/dL (65-100); Potassium 4.3 mmol/L (3.6-5.0); Sodium 136 mmol/L (137-145)
--- NOTE | 2017-01-05 08:35 | Progress Note ---
Assessment and Plan Assessment and plan: --Hyperkalemia: corrected --wide-complex regular tachycardia with RBBB with RVR Amiodarone 400 mg by mouth twice a day ,beta blockers , full anticoagulation with Lovenox, Left heart catheterization and possible cardioversion per cardiology --Acute on chronic systolic CHF,EF10-15% [45-50% in 05/2016] --Status post permanent pacemaker 05/2016 for complete heart block, interrogated , rhythm A. fib --H/O COPD ; stable --Intermittent Hypotension ; gentle IV hydration as needed --History of alcohol use; closely monitor for any alcohol withdrawal symptoms, consider CIWA protocol --History of tobacco use; smoking cessation counseling done, advised nicotine patch --Medical noncompliance; counseling done --Obesity; BMI of 38.6, counseling done --Type 2 diabetes mellitus; moderate control, Accu-Chek sliding scale coverage and ADA diet , Novolin 70/30, A1c 8.2 in 05/2016, --DVT prophylaxis; full dose Lovenox Cardiology evaluation and recommendations noted Critical care time 31 minutes History Interval history: Patient seen and examined medical records reviewed No new events reported Schedule for ablation tomorrow, heart rate in 90-100s Denies chest pain or shortness of breath Hospitalist Physical - Constitutional Vitals: Temp Pulse Resp BP Pulse Ox 97.7 F 101 H 21 99/62 95 01/05/17 08:00 01/05/17 06:00 01/05/17 06:00 01/05/17 06:00 01/05/17 06:00 General appearance: Present: no acute distress, well-nourished, obese - EENT Eyes: Present: PERRL, EOM intact - Neck Neck: Present: supple, normal ROM - Respiratory Respiratory effort: normal Respiratory: bilateral: diminished, negative: rales, rhonchi, wheezing - Cardiovascular Rhythm: regular Heart Sounds: Present: S1 & S2 - Extremities Extremities: no ischemia, No edema - Abdominal General gastrointestinal: soft, non-tender, non-distended, normal bowel sounds - Integumentary Integumentary: Present: clear, warm - Psychiatric Psychiatric: appropriate mood/affect, cooperative - Neurologic Neurologic: CNII-XII intact, moves all extremities Results - Labs CBC & Chem 7: 01/04/17 03:40 01/05/17 04:48 Labs: Laboratory Last Values WBC 7.3 K/mm3 (4.5-11.0) 01/04/17 03:40 RBC 4.67 M/mm3 (3.65-5.03) 01/04/17 03:40 Hgb 14.8 gm/dl (10.1-14.3) H 01/04/17 03:40 Hct 44.0 % (30.3-42.9) H 01/04/17 03:40 MCV 94 fl (79-97) 01/04/17 03:40 MCH 32 pg (28-32) 01/04/17 03:40 MCHC 34 % (30-34) 01/04/17 03:40 RDW 15.0 % (13.2-15.2) 01/04/17 03:40 Plt Count 165 K/mm3 (140-440) 01/04/17 03:40 Lymph % (Auto) 28.3 % (13.4-35.0) 01/04/17 03:40 [place] % (Auto) 8.6 % (0.0-7.3) H 01/04/17 03:40 Eos % (Auto) 3.3 % (0.0-4.3) 01/04/17 03:40 Baso % (Auto) 0.7 % (0.0-1.8) 01/04/17 03:40 Lymph # 2.1 K/mm3 (1.2-5.4) 01/04/17 03:40 [place] # 0.6 K/mm3 (0.0-0.8) 01/04/17 03:40 Eos # 0.2 K/mm3 (0.0-0.4) 01/04/17 03:40 Baso # 0.1 K/mm3 (0.0-0.1) 01/04/17 03:40 Seg Neutrophils % 59.1 % (40.0-70.0) 01/04/17 03:40 Seg Neutrophils # 4.3 K/mm3 (1.8-7.7) 01/04/17 03:40 POC ABG pH 7.409 (7.35-7.45) 01/04/17 19:11 POC ABG pCO2 52.9 (35-45) H 01/04/17 19:11 POC ABG pO2 84 (80-105) 01/04/17 19:11 POC ABG HCO3 33.5 01/04/17 19:11 POC ABG Total CO2 35 01/04/17 19:11 POC ABG O2 Sat 96 01/04/17 19:11 POC ABG Base Excess 9 01/04/17 19:11 FiO2 30 % 01/04/17 19:11 Sodium 136 mmol/L (137-145) L 01/05/17 04:48 Potassium 4.3 mmol/L (3.6-5.0) 01/05/17 04:48 Chloride 93.9 mmol/L (98-107) L 01/05/17 04:48 Carbon Dioxide 30 mmol/L (22-30) 01/05/17 04:48 Anion Gap 16 mmol/L 01/05/17 04:48 BUN 21 mg/dL (7-17) H 01/05/17 04:48 Creatinine 0.7 mg/dL (0.7-1.2) 01/05/17 04:48 Estimated GFR > 60 ml/min 01/05/17 04:48 BUN/Creatinine Ratio 30 % 01/05/17 04:48 Glucose 168 mg/dL (65-100) H 01/05/17 04:48 POC Glucose 196 (70-105) H 01/05/17 02:24 Calcium 9.2 mg/dL (8.4-10.2) 01/05/17 04:48 Phosphorus 4.40 mg/dL (2.5-4.5) 01/03/17 03:32 Magnesium 2.00 mg/dL (1.7-2.3) 01/03/17 03:32 Total Bilirubin 0.30 mg/dL (0.1-1.2) 01/04/17 03:40 AST 30 units/L (5-40) 01/04/17 03:40 ALT 13 units/L (7-56) 01/04/17 03:40 Alkaline Phosphatase 80 units/L (35-129) 01/04/17 03:40 Total Creatine Kinase 30 units/L (30-135) 12/30/16 07:52 CK-MB (CK-2) 2.7 ng/mL (0.0-4.0) 12/30/16 07:52 CK-MB (CK-2) Rel Index 9.0 (0-4) H 12/30/16 07:52 Troponin T 0.018 ng/mL (0.00-0.029) 12/30/16 07:52 NT-Pro-B Natriuret Pep 4695 pg/mL (0-900) H 12/29/16 17:07 Total Protein 7.1 g/dL (6.3-8.2) 01/04/17 03:40 Albumin 3.3 g/dL (3.9-5) L 01/04/17 03:40 Albumin/Globulin Ratio 0.9 % 01/04/17 03:40 TSH 3.110 mlU/mL (0.270-4.200) 12/30/16 10:39 Free T4 1.13 ng/dL (0.76-1.46) 12/30/16 10:39 Digoxin 0.5 ng/mL (0.9-2.0) L 01/05/17 04:48
[2017-01-05] MEDS: PEPCID PO SCH (09:17)
[2017-01-05] MEDS: XANAX PO SCH ×2 (09:17→22:38)
[2017-01-05] MEDS: BABY ASPIRIN PO SCH (09:17)
[2017-01-05] MEDS: CORDARONE PO SCH ×2 (09:17→22:38)
--- NOTE | 2017-01-05 10:02 | Progress Note ---
Assessment and Plan Assessment: Aatrial fibrillation / atrial flutter with RBBB with RVR - began ~24 hours prior to admission per PPM interrogation Cardiomyopathy - newly reduced EF of 10-15%; EF 45-50% 05/2016; LHC 05/2016 showed patent coronaries. Hypotension CHB, status post PPM implantation 06/02/2016 - PPM interrogation 12/30/2016 revealed normal device function. Elevated pro-BNP - unclear significance; no current clinical evidence of acute heart failure Morbid obesity COPD H/o EtOH abuse / tobacco use - cessation encouraged H/o Hypertension DM H/o noncompliance Plan: Give another dose of IV digoxin now and initiate scheduled daily PO digoxin. Cont PO amio, 400mg BID. Cont low dose lopressor as tolerated. No ACEI at this time in setting of hypotension. Continue full dose lovenox BID for systemic anticoagulation in regards to atrial fibrillation/atrial flutter. Plan for conversion to intermediate designer OAC prior to discharge. Plan for coronary angiography tin AM to r/o ischemic CMP, although strongly suspect CMP is secondary to ETOH use and/or tachycardia. Indications, potential risks and benefits of LHC reviewed with pt and she is agreeable to proceed with C. Pt to tx from ICU to telemetry per primary. Assessment and plan reviewed with pt at bedside. The patient has been seen in conjunction with Dr. Eli Lay who agrees with the assessment and plan of care. Subjective Date of service: 01/05/17 Principal diagnosis: Afib with RVR, Acute on chronic systolic hear failure Interval history: Pt sitting comfortably at bedside, no current complaints. Tele reviewed - AFlutter with CVR overnight, currently with HR 110s - 120s as pt recently got up to go to the bathroom and is eating breakfast. BPs remain borderline hypotensive. Objective Last Vital Signs Temp 97.7 F 01/05/17 08:00 Pulse 107 H 01/05/17 08:00 Resp 20 01/05/17 08:00 BP 88/57 01/05/17 08:00 Pulse Ox 96 01/05/17 08:40 - Physical Examination General: Appears Well HEENT: Positive: PERRL, Normocephaly, Mucus Membranes Moist Neck: Positive: neck supple, trachea midline. Negative: JVD/HJR Cardiac: Positive: irregularly irregular, S1/S2, Tachycardia Lungs: Positive: clear to auscultation Neuro: Positive: Grossly Intact Abdomen: Positive: Soft. Negative: Tender Skin: Positive: Clear. Negative: Rash, Wound Musculoskeletal: No Fluid Collection, No Pain, Normal Range of Motion Extremities: Absent: edema - Labs and Meds Comprehensive Metabolic Panel 01/04/17 01/05/17 Range/Units 10:09 04:48 Sodium 136 L (137-145) mmol/L Potassium 5.0 4.3 (3.6-5.0) mmol/L Chloride 93.9 L (98-107) mmol/L Carbon Dioxide 30 (22-30) mmol/L BUN 21 H (7-17) mg/dL Creatinine 0.7 (0.7-1.2) mg/dL Glucose 168 H (65-100) mg/dL Calcium 9.2 (8.4-10.2) mg/dL - Imaging and Cardiology EKG: report reviewed, image reviewed Echo: report reviewed ( 12/30/2016: EF 10-15%, RV systolic function severely reduced. 05/2016 showed EF 45-50%, impaired relaxation. 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
[2017-01-05] MEDS ORDERED: LANOXIN IV ONE (11:00)
[2017-01-05] MEDS ORDERED: NACL 0.9% 500 ML 500 ML IV SCH (11:00)
[2017-01-05] MEDS: LOVENOX SUB-Q SCH (11:08)
--- NOTE | 2017-01-05 13:15 | Progress Note ---
Assessment and Plan Imp: 1. Dilated CMP 2. A/C systolic CHF 3. Aflutter with rapid RVR 4. Obesity, non-morbid 5. Probable TERRELL per history; ABG suggests OHS 6. Hypotension, intermittent 7. Chronic nicotine dependence, cigarettes; r/o COPD Rec: 1. Plan as per cardiology 2. Stop smoking, counseled 3. Needs outpatient PSG, see #5 4. ABG suggestive of OHS; may need home O2 and needs sleep study per above 5. Outpatient PFTs as well 6. Pulm-mustafa appears stable for [facility] Plan of care reviewed w/ patient, she understands/agrees Subjective Date of service: 01/05/17 Principal diagnosis: Afib with RVR, Acute on chronic systolic hear failure Interval history: Overall doing better. BP and HR stable. Denies chest pain or SOB at the moment. No cough, wheezing, sputum. Currently on RA. Active Medications Acetaminophen (Tylenol) 650 mg PO Q4H PRN PRN Reason: Pain MILD(1-3)/Fever >100.5/TORREZ Last Admin: 12/31/16 22:23 Dose: 650 mg Alprazolam (Xanax) 1 mg PO BID [facility] Last Admin: 01/05/17 09:17 Dose: 1 mg Amiodarone HCl (Cordarone) 400 mg PO BID [facility] Last Admin: 01/05/17 09:17 Dose: 400 mg Aspirin (Baby Aspirin) 81 mg PO QDAY [facility] Last Admin: 01/05/17 09:17 Dose: 81 mg Digoxin (Lanoxin) 0.125 mg PO DAILY@1700 HARLAN Famotidine (Pepcid) 20 mg PO QDAY [facility] Last Admin: 01/05/17 09:17 Dose: 20 mg Sodium Chloride (Nacl 0.9% 500 Ml) 500 mls @ 50 mls/hr IV DIRECT [facility] Stop: 01/05/17 20:59 Last Admin: 01/05/17 12:04 Dose: 50 mls/hr Insulin Human Isoph/Insulin Regular (Novolin 70/30) 6 unit SUB-Q BIDDIAB [facility] Last Admin: 01/05/17 09:18 Dose: 6 unit Insulin Human Regular (Novolin R) 0 units SUB-Q ACHS [facility] PRN Reason: Protocol Last Admin: 01/05/17 12:40 Dose: 3 units Metoprolol Tartrate (Lopressor) 12.5 mg PO BID [facility] Last Admin: 01/05/17 09:17 Dose: 12.5 mg Ondansetron HCl (Zofran) 4 mg IV Q6H PRN PRN Reason: nausea or vomiting Trazodone HCl (Desyrel) 100 mg PO QHS [facility] Last Admin: 01/04/17 21:16 Dose: 100 mg Venlafaxine HCl (Effexor Xr) 225 mg PO QHS [facility] Last Admin: 01/04/17 21:15 Dose: 225 mg Objective Vital Signs - 12hr 01/05/17 01/05/17 01/05/17 02:00 02:01 03:01 Temperature Pulse Rate 72 89 99 H Pulse Rate [ From Monitor] Pulse Rate [ Left Radial] Respiratory 13 22 Rate Blood Pressure 78/39 110/59 O2 Sat by Pulse 94 86 Oximetry 01/05/17 01/05/17 01/05/17 03:53 04:00 05:01 Temperature 98.1 F Pulse Rate 109 H 103 H Pulse Rate [ 106 H From Monitor] Pulse Rate [ Left Radial] Respiratory 18 16 Rate Blood Pressure 108/57 99/62 O2 Sat by Pulse 93 91 Oximetry 01/05/17 01/05/17 01/05/17 06:00 07:01 08:00 Temperature 97.7 F Pulse Rate 95 H 97 H 107 H Pulse Rate [ From Monitor] Pulse Rate [ Left Radial] Respiratory 21 15 20 Rate Blood Pressure 99/62 98/54 88/57 O2 Sat by Pulse 95 94 94 Oximetry 01/05/17 01/05/17 01/05/17 08:40 08:51 09:01 Temperature Pulse Rate 126 H 125 H Pulse Rate [ From Monitor] Pulse Rate [ Left Radial] Respiratory 16 21 Rate Blood Pressure 88/57 118/61 O2 Sat by Pulse 96 91 95 Oximetry 01/05/17 01/05/17 01/05/17 09:11 09:21 09:31 Temperature Pulse Rate 112 H 130 H Pulse Rate [ From Monitor] Pulse Rate [ Left Radial] Respiratory 20 22 Rate Blood Pressure 118/61 118/61 118/61 O2 Sat by Pulse 97 96 94 Oximetry 01/05/17 01/05/17 11:57 12:45 Temperature 98.6 F Pulse Rate 93 H Pulse Rate [ From Monitor] Pulse Rate [ 56 L Left Radial] Respiratory 18 Rate Blood Pressure 106/67 106/67 O2 Sat by Pulse 93 Oximetry Constitutional: no acute distress, alert Eyes: non-icteric ENT: oropharynx moist Neck: supple Effort: normal Ascultation: Bilateral: clear (anteriorly) Cardiovascular: irregular rhythm (no mrg) Gastrointestinal: normoactive bowel sounds, soft, non-tender, non-distended Integumentary: normal Extremities: no cyanosis, pink and warm, edema (1+ bilateral LE edema) Neurologic: normal mental status, non-focal exam, pupils equal and round, CN II- XII normal Psychiatric: mood appropriate, affect normal CBC and BMP: 01/04/17 03:40 01/05/17 04:48 ABG, PT/INR, D-dimer: ABG POC ABG pH 7.409 (7.35-7.45) 01/04/17 19:11 POC ABG pCO2 52.9 (35-45) H 01/04/17 19:11 POC ABG pO2 84 (80-105) 01/04/17 19:11 POC ABG HCO3 33.5 01/04/17 19:11 POC ABG Total CO2 35 01/04/17 19:11 POC ABG O2 Sat 96 01/04/17 19:11 Abnormal lab findings: Abnormal Labs 12/29/16 12/29/16 12/29/16 17:07 17:07 17:07 Hgb Hct MCV MCH Plt Count Lymph % (Auto) [place] % (Auto) 7.6 H POC ABG pCO2 Sodium Potassium Chloride 97.0 L Carbon Dioxide 31 H BUN 24 H Glucose 194 H POC Glucose CK-MB (CK-2) Rel Index NT-Pro-B Natriuret Pep 4695 H Albumin Digoxin 12/30/16 12/30/16 12/30/16 01:40 03:00 03:00 Hgb Hct MCV MCH Plt Count Lymph % (Auto) 37.2 H [place] % (Auto) 7.6 H POC ABG pCO2 Sodium 136 L Potassium Chloride 95.0 L Carbon Dioxide BUN 25 H Glucose 204 H POC Glucose CK-MB (CK-2) Rel Index 7.8 H NT-Pro-B Natriuret Pep Albumin Digoxin 12/30/16 12/30/16 12/30/16 07:52 11:40 16:48 Hgb Hct MCV MCH Plt Count Lymph % (Auto) [place] % (Auto) POC ABG pCO2 Sodium Potassium Chloride Carbon Dioxide BUN Glucose POC Glucose 252 H 214 H CK-MB (CK-2) Rel Index 9.0 H NT-Pro-B Natriuret Pep Albumin Digoxin 12/30/16 12/31/16 12/31/16 21:29 04:32 07:49 Hgb Hct MCV MCH Plt Count Lymph % (Auto) [place] % (Auto) POC ABG pCO2 Sodium Potassium Chloride 97.4 L Carbon Dioxide BUN 22 H Glucose 178 H POC Glucose 149 H 197 H CK-MB (CK-2) Rel Index NT-Pro-B Natriuret Pep Albumin 3.7 L Digoxin 12/31/16 12/31/16 12/31/16 11:38 15:52 21:08 Hgb Hct MCV MCH Plt Count Lymph % (Auto) [place] % (Auto) POC ABG pCO2 Sodium Potassium Chloride Carbon Dioxide BUN Glucose POC Glucose 223 H 187 H 202 H CK-MB (CK-2) Rel Index NT-Pro-B Natriuret Pep Albumin Digoxin 01/01/17 01/01/17 01/01/17 04:39 04:39 07:44 Hgb Hct MCV 98 H MCH Plt Count 132 L Lymph % (Auto) [place] % (Auto) 8.6 H POC ABG pCO2 Sodium 136 L Potassium Chloride 94.5 L Carbon Dioxide 32 H BUN 21 H Glucose 182 H POC Glucose 198 H CK-MB (CK-2) Rel Index NT-Pro-B Natriuret Pep Albumin Digoxin 01/01/17 01/01/17 01/01/17 12:01 15:54 21:27 Hgb Hct MCV MCH Plt Count Lymph % (Auto) [place] % (Auto) POC ABG pCO2 Sodium Potassium Chloride Carbon Dioxide BUN Glucose POC Glucose 216 H 176 H 229 H CK-MB (CK-2) Rel Index NT-Pro-B Natriuret Pep Albumin Digoxin 01/02/17 01/02/17 01/02/17 03:44 07:19 08:45 Hgb Hct MCV 98 H MCH 33 H Plt Count 127 L Lymph % (Auto) [place] % (Auto) 10.7 H POC ABG pCO2 Sodium Potassium Chloride Carbon Dioxide BUN Glucose POC Glucose 188 H CK-MB (CK-2) Rel Index NT-Pro-B Natriuret Pep Albumin Digoxin 0.6 L 01/02/17 01/02/17 01/02/17 11:29 16:57 22:19 Hgb Hct MCV MCH Plt Count Lymph % (Auto) [place] % (Auto) POC ABG pCO2 Sodium Potassium Chloride Carbon Dioxide BUN Glucose POC Glucose 272 H 244 H 185 H CK-MB (CK-2) Rel Index NT-Pro-B Natriuret Pep Albumin Digoxin 01/03/17 01/03/17 01/03/17 03:32 03:32 07:35 Hgb Hct MCV MCH Plt Count Lymph % (Auto) [place] % (Auto) 9.1 H POC ABG pCO2 Sodium Potassium Chloride 95.4 L Carbon Dioxide 35 H BUN Glucose 146 H POC Glucose 160 H CK-MB (CK-2) Rel Index NT-Pro-B Natriuret Pep Albumin 3.4 L Digoxin 01/03/17 01/03/17 01/03/17 11:28 16:29 21:48 Hgb Hct MCV MCH Plt Count Lymph % (Auto) [place] % (Auto) POC ABG pCO2 Sodium Potassium Chloride Carbon Dioxide BUN Glucose POC Glucose 181 H 127 H 193 H CK-MB (CK-2) Rel Index NT-Pro-B Natriuret Pep Albumin Digoxin 01/04/17 01/04/17 01/04/17 03:40 03:40 07:52 Hgb 14.8 H Hct 44.0 H MCV MCH Plt Count Lymph % (Auto) [place] % (Auto) 8.6 H POC ABG pCO2 Sodium Potassium 5.7 H D Chloride 96.6 L Carbon Dioxide BUN 18 H Glucose 148 H POC Glucose CK-MB (CK-2) Rel Index NT-Pro-B Natriuret Pep Albumin 3.3 L Digoxin 0.6 L 01/04/17 01/04/17 01/04/17 07:57 11:54 16:06 Hgb Hct MCV MCH Plt Count Lymph % (Auto) [place] % (Auto) POC ABG pCO2 Sodium Potassium Chloride Carbon Dioxide BUN Glucose POC Glucose 189 H 248 H 173 H CK-MB (CK-2) Rel Index NT-Pro-B Natriuret Pep Albumin Digoxin 01/04/17 01/04/17 01/05/17 19:11 21:36 02:24 Hgb Hct MCV MCH Plt Count Lymph % (Auto) [place] % (Auto) POC ABG pCO2 52.9 H Sodium Potassium Chloride Carbon Dioxide BUN Glucose POC Glucose 179 H 196 H CK-MB (CK-2) Rel Index NT-Pro-B Natriuret Pep Albumin Digoxin 01/05/17 01/05/17 01/05/17 04:48 04:48 07:41 Hgb Hct MCV MCH Plt Count Lymph % (Auto) [place] % (Auto) POC ABG pCO2 Sodium 136 L Potassium Chloride 93.9 L Carbon Dioxide BUN 21 H Glucose 168 H POC Glucose 155 H CK-MB (CK-2) Rel Index NT-Pro-B Natriuret Pep Albumin Digoxin 0.5 L 01/05/17 12:34 Hgb Hct MCV MCH Plt Count Lymph % (Auto) [place] % (Auto) POC ABG pCO2 Sodium Potassium Chloride Carbon Dioxide BUN Glucose POC Glucose 225 H CK-MB (CK-2) Rel Index NT-Pro-B Natriuret Pep Albumin Digoxin Chest x-ray: report reviewed, image reviewed
[2017-01-05] MEDS: LANOXIN PO SCH (16:29)
[2017-01-05] MEDS: EFFEXOR XR PO SCH (22:37)
[2017-01-05] MEDS: DESYREL PO SCH (22:38)
[2017-01-06 06:14] LABS: Basophils % (Auto) 0.4 % (0.0-1.8); Eosinophils % (Auto) 3.9 % (0.0-4.3); Hemoglobin 13.1 gm/dl (10.1-14.3); Mean Corpuscular HGB Conc 34 % (30-34); Mean Corpuscular Hemoglobin 33 pg (28-32); Mean Corpuscular Volume 97 fl (79-97); Platelet Count 159 K/mm3 (140-440); Red Blood Count 4.04 M/mm3 (3.65-5.03); Red Cell Distribution Width 14.5 % (13.2-15.2); White Blood Count 5.9 K/mm3 (4.5-11.0)
[2017-01-06 06:24] LABS: INR 0.96 (0.87-1.13)
[2017-01-06 06:32] LABS: Anion Gap 16 mmol/L; BUN/Creatinine Ratio 29; Blood Urea Nitrogen 20 mg/dL (7-17); Carbon Dioxide 31 mmol/L (22-30); Chloride 95.7 mmol/L (98-107); Glucose 163 mg/dL (65-100); Potassium 4.3 mmol/L (3.6-5.0); Sodium 138 mmol/L (137-145)
[2017-01-06] MEDS ORDERED: BABY ASPIRIN ONE ×2 (08:12→08:22)
[2017-01-06] MEDS ORDERED: HEPARIN/NS 5000 UNIT/500ML(CATH LAB) 1,000 ML IR ONE (08:36)
[2017-01-06] MEDS ORDERED: NACL 0.9% 500 ML 500 ML ONE ×2 (08:37→09:39)
[2017-01-06] MEDS: SUBLIMAZE ONE ×2 (08:53→09:00)
[2017-01-06] MEDS: XYLOCAINE 2% INFILTRATI ONE ×2 (08:54→09:06)
[2017-01-06] MEDS: VERSED ONE ×2 (08:54→09:00)
[2017-01-06] MEDS: HEPARIN 10,000 UNITS/10 ML ONE ×2 (08:55→09:08)
[2017-01-06] MEDS: NITROGLYCERIN SYRINGE 3 ML ONE ×2 (08:56→09:06)
[2017-01-06] MEDS: CALAN ONE ×2 (08:56→09:08)
[2017-01-06] MEDS ORDERED: NACL 0.9% 0 ML ONE (09:29)
[2017-01-06] MEDS ORDERED: ANGIOMAX IV ONE (09:29)
--- NOTE | 2017-01-06 10:22 | Cardiac Catherization Report ---
CARDIAC CATHETERIZATION REFERRING PHYSICIAN: Dr. Emery. INDICATION FOR PROCEDURE: The patient is a pleasant 66-year-old female, who has a significant declination of her ejection fraction, AFib with RVR, referred for left heart catheterization. Risks, benefits and alternatives explained at length prior to obtaining informed consent. PROCEDURE IN DETAIL: The patient was brought to the cath brought in a postabsorptive state. Prepped and draped in sterile fashion. Mumtaz's test in right hand was normal. A 2 mL of 2% lidocaine used to anesthetize the right wrist. A standard 6-Marshallese used to cannulate the right radial artery via modified Seldinger technique. All exchanges performed to exchange a J-tip guidewire. We had lot of difficulty engaging the left main, left coronary cusp without an artery arising from it. After multiple catheters the left main and left system arises superiorly from the right coronary cusp. Angiography performed with an JR4 catheter. JR4 catheter also used to engage the right coronary, which also arises more inferiorly from the right coronary cusp. Angiography performed in all projections. JR4 catheter used to cross the aortic valve under fluoroscopic guidance. Left ventriculography performed in 30 REVELES and 30 [place] projections via hand injections, catheter flushed. Manual pullback performed with continuous pressure monitoring. Catheter removed from the body of wire, sheath removed. Manual pressure used to achieve hemostasis. There were no complications. DATA: Aortic pressure is 110/50, LV pressure is 110, LVP of 18 mmHg. INTERPRETATION: The patient remained in atrial fibrillation with variable ventricular response throughout the procedure. Heart rate in the 70s mostly. The patient already has a dual chamber pacemaker in place. Left ventriculography reveals severe global left ventricular hypokinesis with estimated ejection fraction of 15% to 20%. Right coronary is a moderate sized vessel, courses AV groove, distally bifurcates posterior descending and posterolateral branch, 25% mid right coronary stenosis, but no obstructive disease identified. Again, the left system arises from the right coronary cusp, left main without significant disease, bifurcates in left anterior descending and left circumflex. LAD with mild stenosis in the mid segment approximately 25%. No obstructive disease in LAD or diagonal system. Left circumflex, which is a small diminutive system. No significant disease. CONCLUSIONS: 1. Mild to moderate nonobstructive coronary disease with a maximal narrowing of approximately 25% to 30% in the mid LAD as well as 25% in the mid right coronary. This is a right dominant system. 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 3. Severe global left ventricular hypokinesis, estimated ejection fraction of 15% to 20%. 4. No evidence of aortic stenosis. 5. Normal LVP. RECOMMENDATIONS: Recommend medical management, reinitiate systemic anticoagulation. The patient will need a cardiac CT to delineate the course of the left coronary off the right coronary cusp. New onset cardiomyopathy may be due to uncontrolled atrial fibrillation, although alcohol may also play a role here. Aggressive primary and secondary prevention measures discussed, alcohol cessation discussed. Results of procedure explained to the patient and family. All questions and concerns were addressed. [facility]# [id number] ROSEANNE/MIRI
--- NOTE | 2017-01-06 11:36 | Progress Note ---
Assessment and Plan Assessment: Persistent atrial fibrillation / atrial flutter with RBBB with RVR --> CVR began ~24 hours prior to admission per PPM interrogation NICMP - newly reduced EF of 10-15%; EF 45-50% 05/2016 Nonobstructive CAD Hypotension CHB, status post PPM implantation 06/02/2016 - PPM interrogation 12/30/2016 revealed normal device function. Morbid obesity COPD H/o EtOH abuse / tobacco use - cessation encouraged H/o Hypertension DM H/o noncompliance Plan: S/p LHC which revealed nonobstructive CAD, anomalous left system. Cont ASA 81 and initiate lipitor. OP CCTA for further evaluation recommended. Decrease amio to 200mg BID. Cont digoxin and low dose lopressor as tolerated. No ACEI at this time in setting of hypotension. Initiate Eliquis 5mg PO BID. Cont observation with likely d/c home in AM. Assessment and plan reviewed with pt at bedside. The patient has been seen in conjunction with Dr. Eli Lay who agrees with the assessment and plan of care. Subjective Date of service: 01/06/17 Principal diagnosis: Afib with RVR, Acute on chronic systolic hear failure Interval history: Pt for [facility] today. No current complaints. Objective Last Vital Signs Temp 98.1 F 01/06/17 05:29 Pulse 64 01/06/17 10:50 Resp 20 01/06/17 05:29 BP 97/63 01/06/17 10:50 Pulse Ox 91 01/06/17 05:29 - Physical Examination General: Appears Well HEENT: Positive: PERRL, Normocephaly, Mucus Membranes Moist Neck: Positive: neck supple, trachea midline. Negative: JVD/HJR Cardiac: Positive: irregularly irregular, S1/S2 Lungs: Positive: clear to auscultation Neuro: Positive: Grossly Intact Abdomen: Positive: Soft. Negative: Tender Skin: Positive: Clear. Negative: Rash, Wound Musculoskeletal: No Fluid Collection, No Pain, Normal Range of Motion Extremities: Absent: edema - Labs and Meds Coagulation 01/06/17 Range/Units 05:21 PT 13.3 (12.2-14.9) Sec. INR 0.96 (0.87-1.13) CBC 01/06/17 Range/Units 05:21 WBC 5.9 (4.5-11.0) K/mm3 RBC 4.04 (3.65-5.03) M/mm3 Hgb 13.1 (10.1-14.3) gm/dl Hct 39.0 (30.3-42.9) % Plt Count 159 (140-440) K/mm3 Lymph # 1.7 (1.2-5.4) K/mm3 [place] # 0.5 (0.0-0.8) K/mm3 Eos # 0.2 (0.0-0.4) K/mm3 Baso # 0.0 (0.0-0.1) K/mm3 Comprehensive Metabolic Panel 01/06/17 Range/Units 05:21 Sodium 138 (137-145) mmol/L Potassium 4.3 (3.6-5.0) mmol/L Chloride 95.7 L (98-107) mmol/L Carbon Dioxide 31 H (22-30) mmol/L BUN 20 H (7-17) mg/dL Creatinine 0.7 (0.7-1.2) mg/dL Glucose 163 H (65-100) mg/dL Calcium 9.0 (8.4-10.2) mg/dL - Imaging and Cardiology EKG: report reviewed, image reviewed Echo: report reviewed ( 12/30/2016: EF 10-15%, RV systolic function severely reduced. 05/2016 showed EF 45-50%, impaired relaxation. ) Cardiac cath: report reviewed (05/2015 showed patent coronaries left main patent LAD patent circumflex patent RCA patent left cor orthopedic assistant come from the right cornea cusp and normal LV function.) - Telemetry EKG Rhythm: Atrial Flutter AV and intraventricular conduction: right bundle branch block
[2017-01-06] MEDS: XANAX PO SCH ×2 (12:16→22:02)
[2017-01-06] MEDS: LOPRESSOR PO SCH ×2 (12:16→22:03)
[2017-01-06] MEDS: CORDARONE PO SCH ×3 (12:16→22:01)
[2017-01-06] MEDS: PEPCID PO SCH (12:17)
--- NOTE | 2017-01-06 12:17 | Progress Note ---
Assessment and Plan Assessment and plan: --s/p cardiac catheterization; normal coronaries, cardiology following --Acute on chronic systolic CHF,EF10-15% [45-50% in 05/2016] Continue anti-failure medications, low sodium diet, fluid restriction --wide-complex regular tachycardia with RBBB with RVR , rate controlled Amiodarone 400 mg by mouth twice a day ,beta blockers , full anticoagulation with Lovenox, --Status post permanent pacemaker 05/2016 for complete heart block, interrogated , rhythm A. fib --Upper extremity swelling and redness, check venous Doppler to rule out DVT --H/O COPD ; stable --Intermittent Hypotension ; gentle IV hydration as needed --History of alcohol use; closely monitor for any alcohol withdrawal symptoms, consider CIWA protocol --History of tobacco use; smoking cessation counseling done, advised nicotine patch --Medical noncompliance; counseling done --Obesity; BMI of 38.6, counseling done --Type 2 diabetes mellitus; moderate control, Accu-Chek sliding scale coverage and ADA diet , Novolin 70/30, A1c 8.2 in 05/2016, --DVT prophylaxis; full dose Lovenox Possible discharge in 1-2 days if stable History Interval history: Recent seen and examined medical records reviewed Underwent heart cath today No new complaints Hospitalist Physical - Constitutional Vitals: Temp Pulse Resp BP Pulse Ox 97.5 F L 66 20 106/46 95 01/06/17 11:20 01/06/17 11:20 01/06/17 11:20 01/06/17 11:20 01/06/17 11:20 General appearance: Present: no acute distress, well-nourished, obese - EENT Eyes: Present: PERRL, EOM intact - Neck Neck: Present: supple, normal ROM - Respiratory Respiratory effort: normal Respiratory: bilateral: diminished, negative: rales, rhonchi, wheezing - Cardiovascular Rhythm: regular Heart Sounds: Present: S1 & S2 - Extremities Extremities: no ischemia, abnormal (left upper extremity swelling, redness) - Abdominal General gastrointestinal: soft, non-tender, non-distended, normal bowel sounds - Integumentary Integumentary: Present: clear, warm - Psychiatric Psychiatric: appropriate mood/affect, cooperative - Neurologic Neurologic: CNII-XII intact, moves all extremities Results - Labs CBC & Chem 7: 01/06/17 05:21 01/06/17 05:21 Labs: Laboratory Last Values WBC 5.9 K/mm3 (4.5-11.0) 01/06/17 05:21 RBC 4.04 M/mm3 (3.65-5.03) 01/06/17 05:21 Hgb 13.1 gm/dl (10.1-14.3) 01/06/17 05:21 Hct 39.0 % (30.3-42.9) 01/06/17 05:21 MCV 97 fl (79-97) 01/06/17 05:21 MCH 33 pg (28-32) H 01/06/17 05:21 MCHC 34 % (30-34) 01/06/17 05:21 RDW 14.5 % (13.2-15.2) 01/06/17 05:21 Plt Count 159 K/mm3 (140-440) 01/06/17 05:21 Lymph % (Auto) 28.8 % (13.4-35.0) 01/06/17 05:21 [place] % (Auto) 7.9 % (0.0-7.3) H 01/06/17 05:21 Eos % (Auto) 3.9 % (0.0-4.3) 01/06/17 05:21 Baso % (Auto) 0.4 % (0.0-1.8) 01/06/17 05:21 Lymph # 1.7 K/mm3 (1.2-5.4) 01/06/17 05:21 [place] # 0.5 K/mm3 (0.0-0.8) 01/06/17 05:21 Eos # 0.2 K/mm3 (0.0-0.4) 01/06/17 05:21 Baso # 0.0 K/mm3 (0.0-0.1) 01/06/17 05:21 Seg Neutrophils % 59.0 % (40.0-70.0) 01/06/17 05:21 Seg Neutrophils # 3.5 K/mm3 (1.8-7.7) 01/06/17 05:21 PT 13.3 Sec. (12.2-14.9) 01/06/17 05:21 INR 0.96 (0.87-1.13) 01/06/17 05:21 POC ABG pH 7.409 (7.35-7.45) 01/04/17 19:11 POC ABG pCO2 52.9 (35-45) H 01/04/17 19:11 POC ABG pO2 84 (80-105) 01/04/17 19:11 POC ABG HCO3 33.5 01/04/17 19:11 POC ABG Total CO2 35 01/04/17 19:11 POC ABG O2 Sat 96 01/04/17 19:11 POC ABG Base Excess 9 01/04/17 19:11 FiO2 30 % 01/04/17 19:11 Sodium 138 mmol/L (137-145) 01/06/17 05:21 Potassium 4.3 mmol/L (3.6-5.0) 01/06/17 05:21 Chloride 95.7 mmol/L (98-107) L 01/06/17 05:21 Carbon Dioxide 31 mmol/L (22-30) H 01/06/17 05:21 Anion Gap 16 mmol/L 01/06/17 05:21 BUN 20 mg/dL (7-17) H 01/06/17 05:21 Creatinine 0.7 mg/dL (0.7-1.2) 01/06/17 05:21 Estimated GFR > 60 ml/min 01/06/17 05:21 BUN/Creatinine Ratio 29 % 01/06/17 05:21 Glucose 163 mg/dL (65-100) H 01/06/17 05:21 POC Glucose 143 (70-105) H 01/06/17 11:22 Calcium 9.0 mg/dL (8.4-10.2) 01/06/17 05:21 Phosphorus 4.40 mg/dL (2.5-4.5) 01/03/17 03:32 Magnesium 2.00 mg/dL (1.7-2.3) 01/03/17 03:32 Total Bilirubin 0.30 mg/dL (0.1-1.2) 01/04/17 03:40 AST 30 units/L (5-40) 01/04/17 03:40 ALT 13 units/L (7-56) 01/04/17 03:40 Alkaline Phosphatase 80 units/L (35-129) 01/04/17 03:40 Total Creatine Kinase 30 units/L (30-135) 12/30/16 07:52 CK-MB (CK-2) 2.7 ng/mL (0.0-4.0) 12/30/16 07:52 CK-MB (CK-2) Rel Index 9.0 (0-4) H 12/30/16 07:52 Troponin T 0.018 ng/mL (0.00-0.029) 12/30/16 07:52 NT-Pro-B Natriuret Pep 4695 pg/mL (0-900) H 12/29/16 17:07 Total Protein 7.1 g/dL (6.3-8.2) 01/04/17 03:40 Albumin 3.3 g/dL (3.9-5) L 01/04/17 03:40 Albumin/Globulin Ratio 0.9 % 01/04/17 03:40 TSH 3.110 mlU/mL (0.270-4.200) 12/30/16 10:39 Free T4 1.13 ng/dL (0.76-1.46) 12/30/16 10:39 Digoxin 0.8 ng/mL (0.9-2.0) L 01/06/17 05:21
[2017-01-06] MEDS: BABY ASPIRIN PO SCH (12:18)
--- NOTE | 2017-01-06 14:20 | Progress Note ---
Assessment and Plan Imp: 1. Dilated CMP 2. A/C systolic CHF 3. Aflutter with rapid RVR 4. Obesity, non-morbid 5. Probable TERRELL per history; ABG suggests OHS 6. Hypotension, intermittent 7. Chronic nicotine dependence, cigarettes; r/o COPD Rec: 1. Plan as per cardiology; [facility] neg for significant CAD 2. Stop smoking + stop all EtOH, counseled 3. Needs outpatient PSG, see #5 above 4. ABG suggestive of OHS; would check need for home O2 prior to d/c, and needs sleep study per above 5. Outpatient PFTs as well 6. Pulm-mustafa appears stable for discharge; f/u with me 1-2 weeks Plan of care reviewed w/ patient, she understands/agrees Subjective Date of service: 01/06/17 Principal diagnosis: Afib with RVR, Acute on chronic systolic hear failure Interval history: Overall doing better. BP and HR stable. Denies chest pain or SOB at the moment. No cough, wheezing, sputum. Currently on RA. Active Medications Acetaminophen (Tylenol) 650 mg PO Q4H PRN PRN Reason: Pain MILD(1-3)/Fever >100.5/TORREZ Last Admin: 12/31/16 22:23 Dose: 650 mg Alprazolam (Xanax) 1 mg PO BID [facility] Last Admin: 01/06/17 12:16 Dose: 1 mg Amiodarone HCl (Cordarone) 200 mg PO BID [facility] Last Admin: 01/06/17 12:16 Dose: 200 mg Apixaban (Eliquis) 5 mg PO Q12HR [facility] PRN Reason: Protocol Aspirin (Baby Aspirin) 81 mg PO QDAY [facility] Last Admin: 01/06/17 12:18 Dose: Not Given Atorvastatin Calcium (Lipitor) 40 mg PO QHS [facility] Digoxin (Lanoxin) 0.125 mg PO DAILY@1700 [facility] Last Admin: 01/05/17 16:29 Dose: 0.125 mg Famotidine (Pepcid) 20 mg PO QDAY [facility] Last Admin: 01/06/17 12:17 Dose: 20 mg Insulin Human Isoph/Insulin Regular (Novolin 70/30) 6 unit SUB-Q BIDDIAB [facility] Last Admin: 01/06/17 12:14 Dose: Not Given Insulin Human Regular (Novolin R) 0 units SUB-Q ACHS [facility] PRN Reason: Protocol Last Admin: 01/06/17 12:19 Dose: Not Given Metoprolol Tartrate (Lopressor) 12.5 mg PO BID [facility] Last Admin: 01/06/17 12:16 Dose: 12.5 mg Ondansetron HCl (Zofran) 4 mg IV Q6H PRN PRN Reason: nausea or vomiting Trazodone HCl (Desyrel) 100 mg PO QHS [facility] Last Admin: 01/05/17 22:38 Dose: 100 mg Venlafaxine HCl (Effexor Xr) 225 mg PO QHS [facility] Last Admin: 01/05/17 22:37 Dose: 225 mg Objective Vital Signs - 12hr 01/06/17 01/06/17 01/06/17 05:00 05:29 10:21 Temperature 98.1 F 97.3 F L Pulse Rate 88 97 H 74 Pulse Rate [ Right Femoral] Respiratory 20 20 Rate Blood Pressure 123/78 84/45 O2 Sat by Pulse 91 87 Oximetry 01/06/17 01/06/17 01/06/17 10:22 10:50 11:20 Temperature 97.5 F L Pulse Rate 81 66 Pulse Rate [ 64 Right Femoral] Respiratory 20 Rate Blood Pressure 97/63 106/46 O2 Sat by Pulse 87 95 Oximetry 01/06/17 01/06/17 12:27 12:29 Temperature 97.5 F L Pulse Rate 61 61 Pulse Rate [ Right Femoral] Respiratory 20 20 Rate Blood Pressure O2 Sat by Pulse 94 94 Oximetry Constitutional: no acute distress, alert Eyes: non-icteric ENT: oropharynx moist Neck: supple Effort: normal Ascultation: Bilateral: clear (anteriorly) Cardiovascular: irregular rhythm (no mrg) Gastrointestinal: normoactive bowel sounds, soft, non-tender, non-distended Integumentary: normal Extremities: no cyanosis, pink and warm, edema (1+ bilateral LE edema) Neurologic: normal mental status, non-focal exam, pupils equal and round, CN II- XII normal Psychiatric: mood appropriate, affect normal CBC and BMP: 01/06/17 05:21 01/06/17 05:21 ABG, PT/INR, D-dimer: ABG POC ABG pH 7.409 (7.35-7.45) 01/04/17 19:11 POC ABG pCO2 52.9 (35-45) H 01/04/17 19:11 POC ABG pO2 84 (80-105) 01/04/17 19:11 POC ABG HCO3 33.5 01/04/17 19:11 POC ABG Total CO2 35 01/04/17 19:11 POC ABG O2 Sat 96 01/04/17 19:11 PT/INR, D-dimer PT 13.3 Sec. (12.2-14.9) 01/06/17 05:21 INR 0.96 (0.87-1.13) 01/06/17 05:21 Abnormal lab findings: Abnormal Labs 12/29/16 12/29/16 12/29/16 17:07 17:07 17:07 Hgb Hct MCV MCH Plt Count Lymph % (Auto) Wheeler % (Auto) 7.6 H POC ABG pCO2 Sodium Potassium Chloride 97.0 L Carbon Dioxide 31 H BUN 24 H Glucose 194 H POC Glucose CK-MB (CK-2) Rel Index NT-Pro-B Natriuret Pep 4695 H Albumin Digoxin 12/30/16 12/30/16 12/30/16 01:40 03:00 03:00 Hgb Hct MCV MCH Plt Count Lymph % (Auto) 37.2 H Wheeler % (Auto) 7.6 H POC ABG pCO2 Sodium 136 L Potassium Chloride 95.0 L Carbon Dioxide BUN 25 H Glucose 204 H POC Glucose CK-MB (CK-2) Rel Index 7.8 H NT-Pro-B Natriuret Pep Albumin Digoxin 12/30/16 12/30/16 12/30/16 07:52 11:40 16:48 Hgb Hct MCV MCH Plt Count Lymph % (Auto) Wheeler % (Auto) POC ABG pCO2 Sodium Potassium Chloride Carbon Dioxide BUN Glucose POC Glucose 252 H 214 H CK-MB (CK-2) Rel Index 9.0 H NT-Pro-B Natriuret Pep Albumin Digoxin 12/30/16 12/31/16 12/31/16 21:29 04:32 07:49 Hgb Hct MCV MCH Plt Count Lymph % (Auto) Wheeler % (Auto) POC ABG pCO2 Sodium Potassium Chloride 97.4 L Carbon Dioxide BUN 22 H Glucose 178 H POC Glucose 149 H 197 H CK-MB (CK-2) Rel Index NT-Pro-B Natriuret Pep Albumin 3.7 L Digoxin 12/31/16 12/31/16 12/31/16 11:38 15:52 21:08 Hgb Hct MCV MCH Plt Count Lymph % (Auto) Wheeler % (Auto) POC ABG pCO2 Sodium Potassium Chloride Carbon Dioxide BUN Glucose POC Glucose 223 H 187 H 202 H CK-MB (CK-2) Rel Index NT-Pro-B Natriuret Pep Albumin Digoxin 01/01/17 01/01/17 01/01/17 04:39 04:39 07:44 Hgb Hct MCV 98 H MCH Plt Count 132 L Lymph % (Auto) Wheeler % (Auto) 8.6 H POC ABG pCO2 Sodium 136 L Potassium Chloride 94.5 L Carbon Dioxide 32 H BUN 21 H Glucose 182 H POC Glucose 198 H CK-MB (CK-2) Rel Index NT-Pro-B Natriuret Pep Albumin Digoxin 01/01/17 01/01/17 01/01/17 12:01 15:54 21:27 Hgb Hct MCV MCH Plt Count Lymph % (Auto) Wheeler % (Auto) POC ABG pCO2 Sodium Potassium Chloride Carbon Dioxide BUN Glucose POC Glucose 216 H 176 H 229 H CK-MB (CK-2) Rel Index NT-Pro-B Natriuret Pep Albumin Digoxin 01/02/17 01/02/17 01/02/17 03:44 07:19 08:45 Hgb Hct MCV 98 H MCH 33 H Plt Count 127 L Lymph % (Auto) Wheeler % (Auto) 10.7 H POC ABG pCO2 Sodium Potassium Chloride Carbon Dioxide BUN Glucose POC Glucose 188 H CK-MB (CK-2) Rel Index NT-Pro-B Natriuret Pep Albumin Digoxin 0.6 L 01/02/17 01/02/17 01/02/17 11:29 16:57 22:19 Hgb Hct MCV MCH Plt Count Lymph % (Auto) Wheeler % (Auto) POC ABG pCO2 Sodium Potassium Chloride Carbon Dioxide BUN Glucose POC Glucose 272 H 244 H 185 H CK-MB (CK-2) Rel Index NT-Pro-B Natriuret Pep Albumin Digoxin 01/03/17 01/03/17 01/03/17 03:32 03:32 07:35 Hgb Hct MCV MCH Plt Count Lymph % (Auto) Wheeler % (Auto) 9.1 H POC ABG pCO2 Sodium Potassium Chloride 95.4 L Carbon Dioxide 35 H BUN Glucose 146 H POC Glucose 160 H CK-MB (CK-2) Rel Index NT-Pro-B Natriuret Pep Albumin 3.4 L Digoxin 01/03/17 01/03/17 01/03/17 11:28 16:29 21:48 Hgb Hct MCV MCH Plt Count Lymph % (Auto) Wheeler % (Auto) POC ABG pCO2 Sodium Potassium Chloride Carbon Dioxide BUN Glucose POC Glucose 181 H 127 H 193 H CK-MB (CK-2) Rel Index NT-Pro-B Natriuret Pep Albumin Digoxin 01/04/17 01/04/17 01/04/17 03:40 03:40 07:52 Hgb 14.8 H Hct 44.0 H MCV MCH Plt Count Lymph % (Auto) Wheeler % (Auto) 8.6 H POC ABG pCO2 Sodium Potassium 5.7 H D Chloride 96.6 L Carbon Dioxide BUN 18 H Glucose 148 H POC Glucose CK-MB (CK-2) Rel Index NT-Pro-B Natriuret Pep Albumin 3.3 L Digoxin 0.6 L 01/04/17 01/04/17 01/04/17 07:57 11:54 16:06 Hgb Hct MCV MCH Plt Count Lymph % (Auto) Wheeler % (Auto) POC ABG pCO2 Sodium Potassium Chloride Carbon Dioxide BUN Glucose POC Glucose 189 H 248 H 173 H CK-MB (CK-2) Rel Index NT-Pro-B Natriuret Pep Albumin Digoxin 01/04/17 01/04/17 01/05/17 19:11 21:36 02:24 Hgb Hct MCV MCH Plt Count Lymph % (Auto) Wheeler % (Auto) POC ABG pCO2 52.9 H Sodium Potassium Chloride Carbon Dioxide BUN Glucose POC Glucose 179 H 196 H CK-MB (CK-2) Rel Index NT-Pro-B Natriuret Pep Albumin Digoxin 01/05/17 01/05/17 01/05/17 04:48 04:48 07:41 Hgb Hct MCV MCH Plt Count Lymph % (Auto) Wheeler % (Auto) POC ABG pCO2 Sodium 136 L Potassium Chloride 93.9 L Carbon Dioxide BUN 21 H Glucose 168 H POC Glucose 155 H CK-MB (CK-2) Rel Index NT-Pro-B Natriuret Pep Albumin Digoxin 0.5 L 01/05/17 01/05/17 01/05/17 12:34 16:22 22:07 Hgb Hct MCV MCH Plt Count Lymph % (Auto) Wheeler % (Auto) POC ABG pCO2 Sodium Potassium Chloride Carbon Dioxide BUN Glucose POC Glucose 225 H 153 H 237 H CK-MB (CK-2) Rel Index NT-Pro-B Natriuret Pep Albumin Digoxin 01/06/17 01/06/17 01/06/17 05:21 05:21 05:21 Hgb Hct MCV MCH 33 H Plt Count Lymph % (Auto) Wheeler % (Auto) 7.9 H POC ABG pCO2 Sodium Potassium Chloride 95.7 L Carbon Dioxide 31 H BUN 20 H Glucose 163 H POC Glucose CK-MB (CK-2) Rel Index NT-Pro-B Natriuret Pep Albumin Digoxin 0.8 L 01/06/17 11:22 Hgb Hct MCV MCH Plt Count Lymph % (Auto) Wheeler % (Auto) POC ABG pCO2 Sodium Potassium Chloride Carbon Dioxide BUN Glucose POC Glucose 143 H CK-MB (CK-2) Rel Index NT-Pro-B Natriuret Pep Albumin Digoxin Chest x-ray: report reviewed, image reviewed
[2017-01-06] MEDS: LANOXIN PO SCH (18:02)
[2017-01-06] MEDS: EFFEXOR XR PO SCH (22:01)
[2017-01-06] MEDS: ELIQUIS PO SCH (22:02)
[2017-01-06] MEDS: DESYREL PO SCH (22:13)
[2017-01-07 06:03] LABS: Anion Gap 18 mmol/L; BUN/Creatinine Ratio 24; Blood Urea Nitrogen 19 mg/dL (7-17); Carbon Dioxide 30 mmol/L (22-30); Chloride 98.1 mmol/L (98-107); Glucose 182 mg/dL (65-100); Potassium 4.6 mmol/L (3.6-5.0); Sodium 141 mmol/L (137-145)
[2017-01-07] MEDS: ELIQUIS PO SCH ×2 (09:57→22:54)
[2017-01-07] MEDS: LOPRESSOR PO SCH ×2 (09:57→22:54)
[2017-01-07] MEDS: PEPCID PO SCH (09:57)
[2017-01-07] MEDS: BABY ASPIRIN PO SCH (09:58)
[2017-01-07] MEDS: CORDARONE PO SCH ×2 (09:58→22:53)
[2017-01-07] MEDS: XANAX PO SCH ×2 (09:58→22:53)
--- NOTE | 2017-01-07 11:35 | Progress Note ---
Assessment and Plan Assessment: Persistent atrial fibrillation / atrial flutter with RBBB with RVR --> CVR; on Eliquis NICMP - newly reduced EF of 10-15%; EF 45-50% 05/2016 Nonobstructive CAD Hypotension - stable CHB, status post PPM implantation 06/02/2016 - PPM interrogation 12/30/2016 revealed normal device function. Morbid obesity COPD H/o EtOH abuse / tobacco use - cessation encouraged H/o Hypertension DM H/o noncompliance Plan: Currently stable cardiac status. Cont current cardiac regimen. No ACEI at this time in setting of hypotension. Pt may discharge home from cardiology standpoint. Follow up in our [place] office with Dr. Bruno on 01/13/2017 @ 2:15PM. Assessment and plan reviewed with pt at bedside. The patient has been seen in conjunction with Dr. Eli Lay who agrees with the assessment and plan of care. Subjective Date of service: 01/07/17 Principal diagnosis: Afib with RVR, Acute on chronic systolic hear failure Interval history: No current complaints. States she is ready for discharge home today. Objective Last Vital Signs Temp 97.5 F L 01/07/17 06:00 Pulse 61 01/07/17 09:57 Resp 20 01/07/17 06:00 BP 103/63 01/07/17 09:57 Pulse Ox 90 01/07/17 08:46 - Physical Examination General: Appears Well HEENT: Positive: PERRL, Normocephaly, Mucus Membranes Moist Neck: Positive: neck supple, trachea midline. Negative: JVD/HJR Cardiac: Positive: irregularly irregular, S1/S2 Lungs: Positive: clear to auscultation Neuro: Positive: Grossly Intact Abdomen: Positive: Soft. Negative: Tender Skin: Positive: Clear. Negative: Rash, Wound Musculoskeletal: No Fluid Collection, No Pain, Normal Range of Motion Extremities: Absent: edema - Labs and Meds Comprehensive Metabolic Panel 01/07/17 Range/Units 05:12 Sodium 141 (137-145) mmol/L Potassium 4.6 (3.6-5.0) mmol/L Chloride 98.1 (98-107) mmol/L Carbon Dioxide 30 (22-30) mmol/L BUN 19 H (7-17) mg/dL Creatinine 0.8 (0.7-1.2) mg/dL Glucose 182 H (65-100) mg/dL Calcium 9.0 (8.4-10.2) mg/dL - Imaging and Cardiology EKG: report reviewed, image reviewed Echo: report reviewed ( 12/30/2016: EF 10-15%, RV systolic function severely reduced. 05/2016 showed EF 45-50%, impaired relaxation. ) Cardiac cath: report reviewed (05/2015 showed patent coronaries left main patent LAD patent circumflex patent RCA patent left cor engineer assistant come from the right cornea cusp and normal LV function.) AV and intraventricular conduction: right bundle branch block
[2017-01-07] MEDS ORDERED: CLEOCIN 600 MG/50 mL 600 MG/50 ML BAG IV ONE (12:10)
--- NOTE | 2017-01-07 12:13 | Discharge Summary ---
Providers - Providers Date of Admission: 12/29/16 18:54 Date of discharge: 01/07/17 Attending physician: LIMA YAÑEZ 12/29/16 18:54 Consult to Physician [CONS] Routine Consulting Provider: FRANCHESKA GREY Reason For Exam: chest pain, SOB Place consult to:: Dr. Grey..Dr. Scott Lay Notified:: Answering Service Phone number called:: [phone] 12/29/16 20:31 Consult to Physician [CONS] Routine Consulting Provider: VERENICE MORRIS Reason For Exam: Upgrade to ICU Place consult to:: Dr. Morris Notified:: Answering Service Phone number called:: [phone] Was contact made?: No 01/05/17 12:17 Consult to Dietitian/Nutrition [CONS] Routine Physician Instructions: Reason For Exam: diabetic teaching Reason for Consult: Diet education 01/06/17 11:40 Consult to Cardiac Rehabilitation [CONS] Routine Reason For Exam: Cardiac Rehab Evaluation Primary care physician: JESSICA DONOHUE Hospitalization Reason for admission: chest pain and resting shortness of breath Condition: Fair Pertinent studies: Chest x-ray Echocardiogram Cardiac catheterization Upper extremity venous Doppler Upper extremity CT; cellulitis no fluid collection or abscess Hospital course: 66-year-old female patient with multiple medical problems was admitted to the emergency room with chest pain and shortness of breath initially noted to have SVT requiring Cardizem drip, cardiology recommended antiarrhythmics and patient' s heart rate was well-controlled, also placed on anticoagulation Patient was admitted to ICU , evaluated by cardiology and pulmonary critical medications were optimized, symptoms significantly improved Patient also had swelling of the upper extremity ultrasound consistent with superficial phlebitis and stated CT upper extremity no evidence of fluid collection or abscess, receive antibiotics for cellulitis, swelling and symptoms significantly improved Patient is here physical therapy On the day of discharge patient is comfortable in no new complaints Vital signs stable Face to face evaluation and physical examination done by me prior to discharge is unremarkable, patient is hemodynamically and clinically stable at discharge, Discharged diagnosis and management; --Superficial thrombophlebitis/ cellulitis left Upper extremity --s/p cardiac catheterization; normal coronaries, --Acute on chronic systolic CHF,EF10-15% [45-50% in 05/2016] --wide-complex regular tachycardia with RBBB with RVR , rate controlled --Status post permanent pacemaker 05/2016 for complete heart block, interrogated , rhythm A. fib --H/O COPD ; stable --Intermittent Hypotension ; resolved --History of alcohol use; counseling done --History of tobacco use; smoking cessation counseling done, --Medical noncompliance; counseling done --Obesity; BMI of 38.6, counseling done --Type 2 diabetes mellitus; moderate control, Disposition: [id number] HOME UNDER [facility] Time spent for discharge: 32 min Core Measure Documentation - Palliative Care Palliative Care/ Comfort Measures: Not Applicable - Core Measures Any of the following diagnoses?: heart failure - Heart Failure Discharge Requirements NELLY/ARB for LVSD if EF <40%: Yes Beta evan at discharge: Yes Exam - Constitutional Vitals: Temp Pulse Resp BP Pulse Ox 97.5 F L 96 H 20 103/63 90 01/07/17 06:00 01/07/17 11:54 01/07/17 06:00 01/07/17 09:57 01/07/17 08:46 General appearance: Present: no acute distress, well-nourished - EENT Eyes: Present: PERRL, EOM intact - Neck Neck: Present: supple, normal ROM - Respiratory Respiratory effort: normal Respiratory: bilateral: diminished, negative: rales, rhonchi, wheezing - Cardiovascular Rhythm: regular Heart Sounds: Present: S1 & S2 - Extremities Extremities: no ischemia, No edema - Abdominal General gastrointestinal: Present: soft, non-tender, non-distended, normal bowel sounds - Integumentary Integumentary: Present: clear, warm - Musculoskeletal Musculoskeletal: strength equal bilaterally - Psychiatric Psychiatric: appropriate mood/affect, cooperative - Neurologic Neurologic: CNII-XII intact, moves all extremities Plan Activity: no restrictions Diet: low salt, other (cardiac diet ) Additional Instructions: Elevate the limb. Warm compressors as needed. If you notice any bleeding, stop Eliquis and contact MD, or go to emergency room. If you have Chest pain, shortness of breath, palpitations, contact M.D. or go to ER Follow up with: [facility] [Provider Group] - 7 Days GARLAND TOWNSEND MD [Staff Physician] - 7 Days PRIMARY CARE, [Referring] - 3-5 Days Prescriptions: Amiodarone [Cordarone 200 MG TAB] 200 mg PO BID #60 tablet Apixaban [Eliquis] 5 mg PO Q12HR #60 tablet Atorvastatin [Lipitor] 40 mg PO QHS #30 tab Clindamycin [Clindamycin CAP] 300 mg PO Q6H #40 capsule Digoxin [Lanoxin] 0.125 mg PO DAILY@1700 #30 tablet Insulin NPH/Regular [NovoLIN 70/30] 6 unit SUB-Q BIDDIAB 30 Days units Lisinopril [Prinivil] 5 mg PO DAILY #30 tablet Metoprolol [Lopressor TAB] 12.5 mg PO BID #60 tablet
--- NOTE | 2017-01-07 15:03 | Progress Note ---
Assessment and Plan Imp: 1. Dilated CMP 2. A/C systolic CHF 3. Aflutter with rapid RVR 4. Obesity, non-morbid 5. Probable TERRELL per history; ABG suggests OHS 6. Hypotension, intermittent 7. Chronic nicotine dependence, cigarettes; r/o COPD 8. ? LUE cellulitis versus thrombophlebitis Rec: 1. [facility] neg for significant CAD 2. Stop smoking + stop all EtOH, counseled 3. Needs outpatient PSG, see #5 above 4. ABG suggestive of OHS; would check need for home O2 prior to d/c, and needs sleep study per above 5. Outpatient PFTs as well 6. F/u LUE doppler; ABX per primary 7. Pulm-mustafa appears stable for discharge; f/u with me 1-2 weeks Plan of care reviewed w/ patient, she understands/agrees Subjective Date of service: 01/07/17 Principal diagnosis: Afib with RVR, Acute on chronic systolic hear failure Interval history: Overall doing better. BP and HR stable. Denies chest pain or SOB at the moment. No cough, wheezing, sputum. Currently on RA. Has LUE pain, swelling, and erythema. Active Medications Acetaminophen (Tylenol) 650 mg PO Q4H PRN PRN Reason: Pain MILD(1-3)/Fever >100.5/TORREZ Last Admin: 12/31/16 22:23 Dose: 650 mg Alprazolam (Xanax) [address] [facility] Last Admin: 01/07/17 09:58 Dose: 1 mg Amiodarone HCl (Cordarone) [address] [facility] Last Admin: 01/07/17 09:58 Dose: 200 mg Apixaban (Eliquis) [address] [facility] PRN Reason: Protocol Last Admin: 01/07/17 09:57 Dose: 5 mg Aspirin (Baby Aspirin) [address] [facility] Last Admin: 01/07/17 09:58 Dose: 81 mg Atorvastatin Calcium (Lipitor) [address] [facility] Last Admin: 01/06/17 22:02 Dose: 40 mg Digoxin (Lanoxin) 0.125 mg PO DAILY@1700 [facility] Last Admin: 01/06/17 18:02 Dose: 0.125 mg Famotidine (Pepcid) [address] [facility] Last Admin: 11/30/17 09:57 Dose: 20 mg Clindamycin HCl (Cleocin 600 Mg/50 Ml) 600 mg in 50 mls @ 100 mls/hr IV Q8HR [facility] PRN Reason: Protocol Insulin Human Isoph/Insulin Regular (Novolin 70/30) 6 unit SUB-Q BIDDIAB [facility] Last Admin: 01/07/17 08:46 Dose: 6 unit Insulin Human Regular (Novolin R) 0 units SUB-Q ACHS [facility] PRN Reason: Protocol Last Admin: 01/07/17 12:41 Dose: 3 units Metoprolol Tartrate (Lopressor) 12.[address] [facility] Last Admin: 01/07/17 09:57 Dose: 12.5 mg Ondansetron HCl (Zofran) 4 mg IV Q6H PRN PRN Reason: nausea or vomiting Trazodone HCl (Desyrel) [address] [facility] Last Admin: 01/06/17 22:13 Dose: 100 mg Venlafaxine HCl (Effexor Xr) [address] [facility] Last Admin: 01/06/17 22:01 Dose: 225 mg Objective Vital Signs - 12hr 01/07/17 01/07/17 01/07/17 06:00 07:47 08:46 Temperature 97.5 F L Pulse Rate 79 61 Respiratory 20 Rate Blood Pressure 103/63 Blood Pressure 112/68 [Right] O2 Sat by Pulse 88 90 90 Oximetry 01/07/17 01/07/17 01/07/17 09:57 11:54 12:37 Temperature 98.4 F Pulse Rate 61 96 H 63 Respiratory 18 Rate Blood Pressure 103/63 126/75 Blood Pressure [Right] O2 Sat by Pulse 94 Oximetry Constitutional: no acute distress, alert Eyes: non-icteric ENT: oropharynx moist Neck: supple Effort: normal Ascultation: Bilateral: clear Cardiovascular: irregular rhythm (no mrg) Gastrointestinal: normoactive bowel sounds, soft, non-tender, non-distended Integumentary: normal Extremities: no cyanosis, pink and warm, edema (1+ bilateral LE edema, + edema LUE w/ erythema as well) Neurologic: normal mental status, non-focal exam, pupils equal and round, CN II- XII normal Psychiatric: mood appropriate, affect normal CBC and BMP: 01/06/17 05:21 01/07/17 05:12 ABG, PT/INR, D-dimer: ABG POC ABG pH 7.409 (7.35-7.45) 01/04/17 19:11 POC ABG pCO2 52.9 (35-45) H 01/04/17 19:11 POC ABG pO2 84 (80-105) 01/04/17 19:11 POC ABG HCO3 33.5 01/04/17 19:11 POC ABG Total CO2 35 01/04/17 19:11 POC ABG O2 Sat 96 01/04/17 19:11 PT/INR, D-dimer PT 13.3 Sec. (12.2-14.9) 01/06/17 05:21 INR 0.96 (0.87-1.13) 01/06/17 05:21 Abnormal lab findings: Abnormal Labs 12/29/16 12/29/16 12/29/16 17:07 17:07 17:07 Hgb Hct MCV MCH Plt Count Lymph % (Auto) Tift % (Auto) 7.6 H POC ABG pCO2 Sodium Potassium Chloride 97.0 L Carbon Dioxide 31 H BUN 24 H Glucose 194 H POC Glucose CK-MB (CK-2) Rel Index NT-Pro-B Natriuret Pep 4695 H Albumin Digoxin 12/30/16 12/30/16 12/30/16 01:40 03:00 03:00 Hgb Hct MCV MCH Plt Count Lymph % (Auto) 37.2 H Tift % (Auto) 7.6 H POC ABG pCO2 Sodium 136 L Potassium Chloride 95.0 L Carbon Dioxide BUN 25 H Glucose 204 H POC Glucose CK-MB (CK-2) Rel Index 7.8 H NT-Pro-B Natriuret Pep Albumin Digoxin 12/30/16 12/30/16 12/30/16 07:52 11:40 16:48 Hgb Hct MCV MCH Plt Count Lymph % (Auto) Tift % (Auto) POC ABG pCO2 Sodium Potassium Chloride Carbon Dioxide BUN Glucose POC Glucose 252 H 214 H CK-MB (CK-2) Rel Index 9.0 H NT-Pro-B Natriuret Pep Albumin Digoxin 12/30/16 12/31/16 12/31/16 21:29 04:32 07:49 Hgb Hct MCV MCH Plt Count Lymph % (Auto) Tift % (Auto) POC ABG pCO2 Sodium Potassium Chloride 97.4 L Carbon Dioxide BUN 22 H Glucose 178 H POC Glucose 149 H 197 H CK-MB (CK-2) Rel Index NT-Pro-B Natriuret Pep Albumin 3.7 L Digoxin 12/31/16 12/31/16 12/31/16 11:38 15:52 21:08 Hgb Hct MCV MCH Plt Count Lymph % (Auto) Tift % (Auto) POC ABG pCO2 Sodium Potassium Chloride Carbon Dioxide BUN Glucose POC Glucose 223 H 187 H 202 H CK-MB (CK-2) Rel Index NT-Pro-B Natriuret Pep Albumin Digoxin 01/01/17 01/01/17 01/01/17 04:39 04:39 07:44 Hgb Hct MCV 98 H MCH Plt Count 132 L Lymph % (Auto) Tift % (Auto) 8.6 H POC ABG pCO2 Sodium 136 L Potassium Chloride 94.5 L Carbon Dioxide 32 H BUN 21 H Glucose 182 H POC Glucose 198 H CK-MB (CK-2) Rel Index NT-Pro-B Natriuret Pep Albumin Digoxin 01/01/17 01/01/17 01/01/17 12:01 15:54 21:27 Hgb Hct MCV MCH Plt Count Lymph % (Auto) Tift % (Auto) POC ABG pCO2 Sodium Potassium Chloride Carbon Dioxide BUN Glucose POC Glucose 216 H 176 H 229 H CK-MB (CK-2) Rel Index NT-Pro-B Natriuret Pep Albumin Digoxin 01/02/17 01/02/17 01/02/17 03:44 07:19 08:45 Hgb Hct MCV 98 H MCH 33 H Plt Count 127 L Lymph % (Auto) Tift % (Auto) 10.7 H POC ABG pCO2 Sodium Potassium Chloride Carbon Dioxide BUN Glucose POC Glucose 188 H CK-MB (CK-2) Rel Index NT-Pro-B Natriuret Pep Albumin Digoxin 0.6 L 01/02/17 01/02/17 01/02/17 11:29 16:57 22:19 Hgb Hct MCV MCH Plt Count Lymph % (Auto) Tift % (Auto) POC ABG pCO2 Sodium Potassium Chloride Carbon Dioxide BUN Glucose POC Glucose 272 H 244 H 185 H CK-MB (CK-2) Rel Index NT-Pro-B Natriuret Pep Albumin Digoxin 01/03/17 01/03/17 01/03/17 03:32 03:32 07:35 Hgb Hct MCV MCH Plt Count Lymph % (Auto) Tift % (Auto) 9.1 H POC ABG pCO2 Sodium Potassium Chloride 95.4 L Carbon Dioxide 35 H BUN Glucose 146 H POC Glucose 160 H CK-MB (CK-2) Rel Index NT-Pro-B Natriuret Pep Albumin 3.4 L Digoxin 01/03/17 01/03/17 01/03/17 11:28 16:29 21:48 Hgb Hct MCV MCH Plt Count Lymph % (Auto) Tift % (Auto) POC ABG pCO2 Sodium Potassium Chloride Carbon Dioxide BUN Glucose POC Glucose 181 H 127 H 193 H CK-MB (CK-2) Rel Index NT-Pro-B Natriuret Pep Albumin Digoxin 01/04/17 01/04/17 01/04/17 03:40 03:40 07:52 Hgb 14.8 H Hct 44.0 H MCV MCH Plt Count Lymph % (Auto) Tift % (Auto) 8.6 H POC ABG pCO2 Sodium Potassium 5.7 H D Chloride 96.6 L Carbon Dioxide BUN 18 H Glucose 148 H POC Glucose CK-MB (CK-2) Rel Index NT-Pro-B Natriuret Pep Albumin 3.3 L Digoxin 0.6 L 01/04/17 01/04/17 01/04/17 07:57 11:54 16:06 Hgb Hct MCV MCH Plt Count Lymph % (Auto) Tift % (Auto) POC ABG pCO2 Sodium Potassium Chloride Carbon Dioxide BUN Glucose POC Glucose 189 H 248 H 173 H CK-MB (CK-2) Rel Index NT-Pro-B Natriuret Pep Albumin Digoxin 01/04/17 01/04/17 01/05/17 19:11 21:36 02:24 Hgb Hct MCV MCH Plt Count Lymph % (Auto) Tift % (Auto) POC ABG pCO2 52.9 H Sodium Potassium Chloride Carbon Dioxide BUN Glucose POC Glucose 179 H 196 H CK-MB (CK-2) Rel Index NT-Pro-B Natriuret Pep Albumin Digoxin 01/05/17 01/05/17 01/05/17 04:48 04:48 07:41 Hgb Hct MCV MCH Plt Count Lymph % (Auto) Tift % (Auto) POC ABG pCO2 Sodium 136 L Potassium Chloride 93.9 L Carbon Dioxide BUN 21 H Glucose 168 H POC Glucose 155 H CK-MB (CK-2) Rel Index NT-Pro-B Natriuret Pep Albumin Digoxin 0.5 L 01/05/17 01/05/17 01/05/17 12:34 16:22 22:07 Hgb Hct MCV MCH Plt Count Lymph % (Auto) Tift % (Auto) POC ABG pCO2 Sodium Potassium Chloride Carbon Dioxide BUN Glucose POC Glucose 225 H 153 H 237 H CK-MB (CK-2) Rel Index NT-Pro-B Natriuret Pep Albumin Digoxin 01/06/17 01/06/17 01/06/17 05:21 05:21 05:21 Hgb Hct MCV MCH 33 H Plt Count Lymph % (Auto) Tift % (Auto) 7.9 H POC ABG pCO2 Sodium Potassium Chloride 95.7 L Carbon Dioxide 31 H BUN 20 H Glucose 163 H POC Glucose CK-MB (CK-2) Rel Index NT-Pro-B Natriuret Pep Albumin Digoxin 0.8 L 01/06/17 01/06/17 01/06/17 11:22 15:56 21:44 Hgb Hct MCV MCH Plt Count Lymph % (Auto) Tift % (Auto) POC ABG pCO2 Sodium Potassium Chloride Carbon Dioxide BUN Glucose POC Glucose 143 H 237 H 181 H CK-MB (CK-2) Rel Index NT-Pro-B Natriuret Pep Albumin Digoxin 01/07/17 01/07/17 05:12 07:56 Hgb Hct MCV MCH Plt Count Lymph % (Auto) Tift % (Auto) POC ABG pCO2 Sodium Potassium Chloride Carbon Dioxide BUN 19 H Glucose 182 H POC Glucose 158 H CK-MB (CK-2) Rel Index NT-Pro-B Natriuret Pep Albumin Digoxin Chest x-ray: report reviewed, image reviewed
--- NOTE | 2017-01-07 17:35 | Progress Note ---
Assessment and Plan Assessment and plan: --Superficial thrombophlebitis versus cellulitis left Upper extremity Elevated limb , empiric antibiotics , check CT left upper extremity to rule out abscess /fluid collection --s/p cardiac catheterization; normal coronaries, cardiology following --Acute on chronic systolic CHF,EF10-15% [45-50% in 05/2016] Continue anti-failure medications, low sodium diet, fluid restriction --wide-complex regular tachycardia with RBBB with RVR , rate controlled Amiodarone 400 mg by mouth twice a day ,beta blockers , full anticoagulation with Lovenox, --Status post permanent pacemaker 05/2016 for complete heart block, interrogated , rhythm A. fib --H/O COPD ; stable --Intermittent Hypotension ; gentle IV hydration as needed --History of alcohol use; closely monitor for any alcohol withdrawal symptoms, consider [facility] protocol --History of tobacco use; smoking cessation counseling done, advised nicotine patch --Medical noncompliance; counseling done --Obesity; BMI of 38.6, counseling done --Type 2 diabetes mellitus; moderate control, Accu-Chek sliding scale coverage and ADA diet , Novolin 70/30, A1c 8.2 in 05/2016, --DVT prophylaxis; full dose Lovenox Follow CT upper extremity, if negative and patient is stable, can be discharged tomorrow History Interval history: Patient seen and examined medical records reviewed Has Left upper extremity swelling, superficial thrombophlebitis on Doppler Complains of some pain, denies chest pain or shortness of breath Vital signs stable Hospitalist Physical - Constitutional Vitals: Temp Pulse Resp BP Pulse Ox 98.4 F 63 18 126/75 94 01/07/17 12:37 01/07/17 12:37 01/07/17 12:37 01/07/17 12:37 01/07/17 12:37 General appearance: Present: no acute distress, well-nourished, obese - EENT Eyes: Present: PERRL, EOM intact - Neck Neck: Present: supple, normal ROM - Respiratory Respiratory effort: normal Respiratory: bilateral: diminished, negative: rales, rhonchi, wheezing - Cardiovascular Rhythm: regular Heart Sounds: Present: S1 & S2 - Extremities Extremities: no ischemia, pulses intact, pulses symmetrical - Abdominal General gastrointestinal: soft, non-tender, non-distended, normal bowel sounds - Integumentary Integumentary: Present: clear, warm - Psychiatric Psychiatric: appropriate mood/affect, cooperative - Neurologic Neurologic: CNII-XII intact, moves all extremities Results - Labs CBC & Chem 7: 01/06/17 05:21 01/07/17 05:12 Labs: Laboratory Last Values WBC 5.9 K/mm3 (4.5-11.0) 01/06/17 05:21 RBC 4.04 M/mm3 (3.65-5.03) 01/06/17 05:21 Hgb 13.1 gm/dl (10.1-14.3) 01/06/17 05:21 Hct 39.0 % (30.3-42.9) 01/06/17 05:21 MCV 97 fl (79-97) 01/06/17 05:21 MCH 33 pg (28-32) H 01/06/17 05:21 MCHC 34 % (30-34) 01/06/17 05:21 RDW 14.5 % (13.2-15.2) 01/06/17 05:21 Plt Count 159 K/mm3 (140-440) 01/06/17 05:21 Lymph % (Auto) 28.8 % (13.4-35.0) 01/06/17 05:21 Glenn % (Auto) 7.9 % (0.0-7.3) H 01/06/17 05:21 Eos % (Auto) 3.9 % (0.0-4.3) 01/06/17 05:21 Baso % (Auto) 0.4 % (0.0-1.8) 01/06/17 05:21 Lymph # 1.7 K/mm3 (1.2-5.4) 01/06/17 05:21 Glenn # 0.5 K/mm3 (0.0-0.8) 01/06/17 05:21 Eos # 0.2 K/mm3 (0.0-0.4) 01/06/17 05:21 Baso # 0.0 K/mm3 (0.0-0.1) 01/06/17 05:21 Seg Neutrophils % 59.0 % (40.0-70.0) 01/06/17 05:21 Seg Neutrophils # 3.5 K/mm3 (1.8-7.7) 01/06/17 05:21 PT 13.3 Sec. (12.2-14.9) 01/06/17 05:21 INR 0.96 (0.87-1.13) 01/06/17 05:21 POC ABG pH 7.409 (7.35-7.45) 01/04/17 19:11 POC ABG pCO2 52.9 (35-45) H 01/04/17 19:11 POC ABG pO2 84 (80-105) 01/04/17 19:11 POC ABG HCO3 33.5 01/04/17 19:11 POC ABG Total CO2 35 01/04/17 19:11 POC ABG O2 Sat 96 01/04/17 19:11 POC ABG Base Excess 9 01/04/17 19:11 FiO2 30 % 01/04/17 19:11 Sodium 141 mmol/L (137-145) 01/07/17 05:12 Potassium 4.6 mmol/L (3.6-5.0) 01/07/17 05:12 Chloride 98.1 mmol/L (98-107) 01/07/17 05:12 Carbon Dioxide 30 mmol/L (22-30) 01/07/17 05:12 Anion Gap 18 mmol/L 01/07/17 05:12 BUN 19 mg/dL (7-17) H 01/07/17 05:12 Creatinine 0.8 mg/dL (0.7-1.2) 01/07/17 05:12 Estimated GFR > 60 ml/min 01/07/17 05:12 BUN/Creatinine Ratio 24 % 01/07/17 05:12 Glucose 182 mg/dL (65-100) H 01/07/17 05:12 POC Glucose 158 (70-105) H 01/07/17 07:56 Calcium 9.0 mg/dL (8.4-10.2) 01/07/17 05:12 Phosphorus 4.40 mg/dL (2.5-4.5) 01/03/17 03:32 Magnesium 2.00 mg/dL (1.7-2.3) 01/03/17 03:32 Total Bilirubin 0.30 mg/dL (0.1-1.2) 01/04/17 03:40 AST 30 units/L (5-40) 01/04/17 03:40 ALT 13 units/L (7-56) 01/04/17 03:40 Alkaline Phosphatase 80 units/L (35-129) 01/04/17 03:40 Total Creatine Kinase 30 units/L (30-135) 12/30/16 07:52 CK-MB (CK-2) 2.7 ng/mL (0.0-4.0) 12/30/16 07:52 CK-MB (CK-2) Rel Index 9.0 (0-4) H 12/30/16 07:52 Troponin T 0.018 ng/mL (0.00-0.029) 12/30/16 07:52 NT-Pro-B Natriuret Pep 4695 pg/mL (0-900) H 12/29/16 17:07 Total Protein 7.1 g/dL (6.3-8.2) 01/04/17 03:40 Albumin 3.3 g/dL (3.9-5) L 01/04/17 03:40 Albumin/Globulin Ratio 0.9 % 01/04/17 03:40 TSH 3.110 mlU/mL (0.270-4.200) 12/30/16 10:39 Free T4 1.13 ng/dL (0.76-1.46) 12/30/16 10:39 Digoxin 0.8 ng/mL (0.9-2.0) L 01/06/17 05:21
--- NOTE | 2017-01-07 18:17 | Cat Scan Report ---
FINAL REPORT PROCEDURE: CT UPPER EXTREM LT W CON TECHNIQUE: Computerized axial tomography of the LEFT elbow was performed after the IV injection of iodinated nonionic contrast. HISTORY: swelling/r/o abscess/fluid collection COMPARISON: No prior studies are available for comparison. FINDINGS: Bone density appears normal. There is no fracture or dislocation identified. No erosions or focal bone loss are identified. There is no abnormal periosteal reaction. No radiopaque foreign bodies are identified. There is diffuse skin thickening and extensive subcutaneous edema visualized throughout the form extending to the elbow suggesting cellulitis. I do not see a loculated fluid collection that would suggest an abscess. Edematous changes are greatest along the posterior aspect of the forearm and also along the musculature of the anterior aspect of the forearm seen on axial images. I cannot exclude some of the fluid along the anterior musculature of the forearm representing more consolidated fluid however this does not appear to be loculated at the present time. Fat-density nodule partially visualized in the biceps muscle suggesting a lipoma. This is visualized on axial image 363 series 3. IMPRESSION: Extensive cellulitis suspected. No loculated fluid collections are seen at the present time that would suggest an abscess. Please see above comments. If symptoms persist or worsen consider follow-up exam to evaluate for loculated fluid collections which would be more suggestive of an abscess. No radiopaque foreign bodies, fractures or abnormal bone loss is visualized.
[2017-01-07] MEDS: LANOXIN PO SCH (18:52)
[2017-01-07] MEDS: TYLENOL PO PRN (18:56)
[2017-01-07] MEDS: CLEOCIN 600 MG/50 mL 600 MG/50 ML BAG IV SCH ×2 (19:00→23:03)
[2017-01-07] MEDS: EFFEXOR XR PO SCH (22:53)
[2017-01-07] MEDS: DESYREL PO SCH (22:54)
[2017-01-08] MEDS: CLEOCIN 600 MG/50 mL 600 MG/50 ML BAG IV SCH ×2 (06:03→14:20)
[2017-01-08 06:40] LABS: Hematocrit 38.1 % (30.3-42.9); Hemoglobin 12.8 gm/dl (10.1-14.3); Mean Corpuscular HGB Conc 34 % (30-34); Mean Corpuscular Hemoglobin 33 pg (28-32); Mean Corpuscular Volume 98 fl (79-97); Platelet Count 162 K/mm3 (140-440); Red Blood Count 3.91 M/mm3 (3.65-5.03); Red Cell Distribution Width 14.5 % (13.2-15.2); White Blood Count 7.1 K/mm3 (4.5-11.0)
[2017-01-08 06:52] LABS: Anion Gap 16 mmol/L; BUN/Creatinine Ratio 24; Blood Urea Nitrogen 22 mg/dL (7-17); Calcium 9.2 mg/dL (8.4-10.2); Carbon Dioxide 29 mmol/L (22-30); Chloride 98.6 mmol/L (98-107); Glucose 153 mg/dL (65-100); Potassium 4.7 mmol/L (3.6-5.0); Sodium 139 mmol/L (137-145)
--- NOTE | 2017-01-08 07:53 | Vascular Lab Report ---
LEFT UPPER EXTREMITY VENOUS DUPLEX: REASON FOR EXAM: Pain and swelling of the left upper extremity COMMENTS ON THE LEFT: All arm veins visualized are freely compressible without evidence of internal echogenicity. The subclavian and internal jugular veins are free of thrombus. Flow is spontaneous and phasic throughout. Superficial thrombosis noted in the forearm basilic vein COMMENTS ON THE RIGHT: The subclavian and internal jugular veins are free of thrombus. IMPRESSION: No evidence of acute or chronic deep venous thrombosis in the left upper extremity. Superficial thrombophlebitis in the left upper extremity
[2017-01-08 08:09] LABS: Basophils % (Manual) 0 % (0.0-1.8); Blastocytes % (Manual) 0 %
[2017-01-08 08:10] LABS: Diff Status Complete; Platelet Estimate Consistent w Auto; RBC Morphology Normal
[2017-01-08 11:07] VITALS: BP 117/70
[2017-01-08] MEDS: BABY ASPIRIN PO SCH (11:08)
[2017-01-08] MEDS: PEPCID PO SCH (11:08)
[2017-01-08] MEDS: ELIQUIS PO SCH (11:08)
[2017-01-08] MEDS: XANAX PO SCH (11:09)
[2017-01-08] MEDS: CORDARONE PO SCH (11:09)
[2017-01-08] MEDS: LOPRESSOR PO SCH (11:09)
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
== END 2017-01-08 14:57 | disposition home health service (06) | DRG 286 ==
LOC: ED 16:22 → 4A 18:54 → CC1 20:08 → 4A 01-05 10:39
PROVIDERS: ADMIT Internal Medicine; ATTEND Internal Medicine
PROC: 4B02XSZ Measurement of Cardiac Pacemaker, External Approach (ICD-10-PCS; 2016-12-30)
PROC: 4A033R1 Measurement of Arterial Saturation, Peripheral, Percutaneous Approach (ICD-10-PCS; 2017-01-04)
PROC: 4A023N7 Measurement of Cardiac Sampling and Pressure, Left Heart, Percutaneous Approach (ICD-10-PCS; principal; 2017-01-06)
PROC: B2111ZZ Fluoroscopy of Multiple Coronary Arteries using Low Osmolar Contrast (ICD-10-PCS; 2017-01-06)
PROC: B2151ZZ Fluoroscopy of Left Heart using Low Osmolar Contrast (ICD-10-PCS; 2017-01-06)
DX: I11.0 Hypertensive heart disease with heart failure (principal); J96.00 Acute respiratory failure, unspecified whether with hypoxia or hypercapnia; I47.1 Supraventricular tachycardia; I48.92 Unspecified atrial flutter; I24.9 Acute ischemic heart disease, unspecified; I48.1 Persistent atrial fibrillation; L03.116 Cellulitis of left lower limb; I50.23 Acute on chronic systolic (congestive) heart failure; I42.0 Dilated cardiomyopathy; E11.9 Type 2 diabetes mellitus without complications; E66.01 Morbid (severe) obesity due to excess calories; Z68.38 Body mass index [BMI] 38.0-38.9, adult; I95.9 Hypotension, unspecified; E87.5 Hyperkalemia; F32.9 Major depressive disorder, single episode, unspecified; I27.20 Pulmonary hypertension, unspecified; J44.9 Chronic obstructive pulmonary disease, unspecified; I45.10 Unspecified right bundle-branch block; I25.10 Atherosclerotic heart disease of native coronary artery without angina pectoris; I80.9 Phlebitis and thrombophlebitis of unspecified site; F10.10 Alcohol abuse, uncomplicated; Z95.0 Presence of cardiac pacemaker; Z90.710 Acquired absence of both cervix and uterus; Z87.891 Personal history of nicotine dependence; Z71.6 Tobacco abuse counseling; Z91.19 Patient's noncompliance with other medical treatment and regimen; Z79.4 Long term (current) use of insulin; Z82.49 Family history of ischemic heart disease and other diseases of the circulatory system
CPT/HCPCS: 36415; 71010; 80048; 80053; 80162; 82550; 82553; 82803; 82962; 83735; 83880; 84100; 84132; 84439; 84443; 84484; 85007; 85025; 85610; 93005; 93010; 93306; 93458; 94760; 96365; 96366; 96372; 96375; 96376; A9270-GY; C1887; C1894; J0282; J0583; J1160; J1644; J1650; J1815; J1940; J2250; J3010; J7030; J7040; J7050; J7060; Q9967

== ENCOUNTER 2017-06-11 13:43 | Emergency (ER) | payer MEDICARE, OTHER ==
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
[2017-06-11 16:44] LABS: Basophils % (Auto) 0.4 % (0.0-1.8); Eosinophils # (Auto) 0.1 K/mm3 (0.0-0.4); Eosinophils % (Auto) 1.5 % (0.0-4.3); Hematocrit 38.8 % (30.3-42.9); Hemoglobin 12.4 gm/dl (10.1-14.3); Lymphocytes # (Auto) 1.7 K/mm3 (1.2-5.4); Lymphocytes % (Auto) 23.7 % (13.4-35.0); Mean Corpuscular HGB Conc 32 % (30-34); Mean Corpuscular Hemoglobin 29 pg (28-32); Mean Corpuscular Volume 91 fl (79-97); Monocytes # (Auto) 0.6 K/mm3 (0.0-0.8); Monocytes % (Auto) 8.9 % (0.0-7.3); Platelet Count 149 K/mm3 (140-440); Red Blood Count 4.29 M/mm3 (3.65-5.03)
[2017-06-11 16:53] LABS: INR 1.01 (0.87-1.13)
[2017-06-11 16:54] LABS: Partial Thromboplastin Time 28.3 Sec. (24.2-36.6)
[2017-06-11 16:59] LABS: Calcium 9.6 mg/dL (8.4-10.2)
[2017-06-11] MEDS ORDERED: TYLENOL PO ONE (17:31)
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
[2017-06-11 18:29] VITALS: BP 128/64
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
[2017-06-11] MEDS ORDERED: LOVENOX SUB-Q ONE (18:47)
== END 2017-06-11 18:59 | disposition home or self-care (01) ==
LOC: ED 13:43
DX: M54.2 Cervicalgia (principal); E11.9 Type 2 diabetes mellitus without complications; J44.9 Chronic obstructive pulmonary disease, unspecified; I11.0 Hypertensive heart disease with heart failure; F32.9 Major depressive disorder, single episode, unspecified; Z95.0 Presence of cardiac pacemaker; Z79.82 Long term (current) use of aspirin; Z79.4 Long term (current) use of insulin; V49.49XA Driver injured in collision with other motor vehicles in traffic accident, initial encounter; Y93.89 Activity, other specified; Y92.89 Other specified places as the place of occurrence of the external cause; Y99.8 Other external cause status
CPT/HCPCS: 36415; 70450; 71046; 80048; 84484; 85025; 85610; 85730; 93005; 93010; 96372; 99284; J1650

== ENCOUNTER 2018-06-17 13:21 | Inpatient (IN) | payer MEDICARE ==
--- NOTE | 2018-06-17 13:32 | Emergency Department Report ---
Blank Doc - Documentation Documentation: 68 y/o female with a hx/o copd,chf,htn comes in for sob and cp for 2 days.
[2018-06-17 13:53] LABS: Basophils % (Auto) 0.4 % (0.0-1.8); Eosinophils # (Auto) 0.1 K/mm3 (0.0-0.4); Eosinophils % (Auto) 0.9 % (0.0-4.3); Hematocrit 34.8 % (30.3-42.9); Hemoglobin 11.1 gm/dl (10.1-14.3); Lymphocytes # (Auto) 1.1 K/mm3 (1.2-5.4); Lymphocytes % (Auto) 18.7 % (13.4-35.0); Mean Corpuscular HGB Conc 32 % (30-34); Mean Corpuscular Volume 89 fl (79-97); Monocytes # (Auto) 0.5 K/mm3 (0.0-0.8); Monocytes % (Auto) 8.7 % (0.0-7.3); Platelet Count 216 K/mm3 (140-440); Red Blood Count 3.94 M/mm3 (3.65-5.03)
[2018-06-17 14:18] LABS: Alanine Aminotransferase 15 units/L (7-56); Albumin 3.7 g/dL (3.9-5); BUN/Creatinine Ratio 21; Blood Urea Nitrogen 19 mg/dL (7-17); Calcium 9.6 mg/dL (8.4-10.2); Hemolysis Index 15
--- NOTE | 2018-06-17 14:27 | XRay Report ---
Chest 2 views: History: Shortness of breath. Findings: Cardiomegaly. Trachea is midline. Tip of pacemaker. Large consolidated area right upper lobe extending from right hilum. Not seen in the previous study dated 12/21/17. Impression: Large area of consolidation right upper lobe suggestive of pneumonitis. Underlying neoplasm cannot be excluded.
[2018-06-17] MEDS ORDERED: ATROVENT IH ONE (15:39)
[2018-06-17] MEDS ORDERED: XOPENEX IH ONE (15:39)
--- NOTE | 2018-06-17 15:55 | Emergency Department Report ---
HPI - General Chief Complaint: Dyspnea/Respdistress Time Seen by Provider: 06/17/18 14:49 - HPI HPI: Room 5--> 1 The patient is a 68-year-old female presenting with a chief complaint of shortness of breath. The patient states she's had gradually worsening shortness of breath since December 2017. The patient states over the past week shortness of breath and dyspneic exertion this worsened dramatically. The patient states she can only walk a few feet before she gets out of breath. Patient states the past 2-3 weeks she developed substernal chest pain whenever she gets short of breath from exertion patient admits to night sweats for one week. Patient denies any unexplained weight loss. Patient states she's had an occasional cough that has been nonproductive. Patient denies history of fever Location: Lungs, chest Duration: [See above] Quality: Shortness of breath Severity: Moderate Modifying factors: [see above] Context: [see above] Mode of transportation: [not driving] ED Past Medical Hx - Past Medical History Hx Hypertension: Yes Hx Congestive Heart Failure: Yes Hx Diabetes: Yes Hx Deep Vein Thrombosis: (?) Hx Psychiatric Treatment: Yes (depression) Hx Asthma: Yes Hx COPD: Yes Additional medical history: Apparently the patient had a previous cardiac cath p er Dr. Cadena. See his note. Recent admission for sepsis. - Surgical History Hx Pacemaker: Yes Hx Internal Defibrillator: (?) Additional Surgical History: hysterectomy///pacermaker 05/31/2016 - Family History Family history: no significant - Social History Smoking Status: Former Smoker (none 2 years) Substance Use Type: None (denies illicit drug use) - Medications Home Medications: Home Medications Medication Instructions Recorded Confirmed Last Taken Type traZODone [Desyrel] 100 mg PO QHS 12/12/12 12/21/17 12/20/17 22:00 History Atorvastatin [Lipitor] 40 mg PO QHS #30 tab 01/07/17 12/21/17 12/20/17 Rx ALPRAZolam [Xanax TAB] 1 mg PO BID 06/17/18 06/17/18 Unknown History Albuterol Sulfate 1 neb IH BID 06/17/18 06/17/18 Unknown History Ergocalciferol (Vitamin D2) 50,000 unit PO QWEEK 06/17/18 06/17/18 Unknown History [Drisdol] Furosemide [Lasix] 20 mg PO QDAY 06/17/18 06/17/18 Unknown History Metoprolol [Lopressor TAB] 25 mg PO DAILY 06/17/18 06/17/18 Unknown History Rivaroxaban [Xarelto] 20 mg PO QDAY 06/17/18 06/17/18 Unknown History Spironolactone [Aldactone] 25 mg PO QDAY 06/17/18 06/17/18 Unknown History Venlafaxine [Effexor] 75 mg PO TID 06/17/18 06/17/18 Unknown History ED Review of Systems ROS: Stated complaint: SOB Other details as noted in HPI Constitutional: diaphoresis, other (night sweats) Eyes: denies: eye pain ENT: denies: throat pain Respiratory: cough, shortness of breath, SOB with exertion Cardiovascular: chest pain Endocrine: denies: unexplained weight loss Gastrointestinal: denies: abdominal pain Genitourinary: denies: dysuria Musculoskeletal: denies: back pain Neurological: denies: headache Physical Exam - Physical Exam Vital Signs: Vital Signs 06/17/18 13:30 Temperature 98 F Pulse Rate 121 H Respiratory 24 Rate Blood Pressure 119/69 O2 Sat by Pulse 94 Oximetry Physical Exam: GENERAL: The patient is well-developed well-nourished female lying on stretcher not appearing to be in acute distress. [] HEENT: Normocephalic. Atraumatic. Extraocular motions are intact. Patient has moist mucous membranes. NECK: Supple. Trachea midline CHEST/LUNGS: Faint expiratory wheezes bilaterally. There is no respiratory distress noted. HEART/CARDIOVASCULAR: Regular. There is no tachycardia. There is no gallop rub or murmur. ABDOMEN: Abdomen is soft, nontender. Patient has normal bowel sounds. There is no abdominal distention. SKIN: There is no rash. There is no edema. There is no diaphoresis. NEURO: The patient is awake, alert, and oriented. The patient is cooperative. The patient has normal speech MUSCULOSKELETAL: There is no evidence of acute injury. ED Course Vital Signs 06/17/18 13:30 Temperature 98 F Pulse Rate 121 H Respiratory 24 Rate Blood Pressure 119/69 O2 Sat by Pulse 94 Oximetry ED Medical Decision Making - Lab Data Result diagrams: 06/17/18 13:41 06/17/18 13:41 Laboratory Tests 06/17/18 06/17/18 06/17/18 13:41 13:41 14:33 WBC 6.0 RBC 3.94 Hgb 11.1 Hct 34.8 MCV 89 MCH 28 MCHC 32 RDW 16.0 H Plt Count 216 Lymph % (Auto) 18.7 Clare % (Auto) 8.7 H Eos % (Auto) 0.9 Baso % (Auto) 0.4 Lymph # 1.1 L Clare # 0.5 Eos # 0.1 Baso # 0.0 Seg Neutrophils % 71.3 H Seg Neutrophils # 4.3 Sodium 132 L Potassium 4.3 Chloride 90.6 L Carbon Dioxide 27 Anion Gap 19 BUN 19 H Creatinine 0.9 Estimated GFR > 60 BUN/Creatinine Ratio 21 Glucose 217 H Calcium 9.6 Total Bilirubin 0.50 AST 24 ALT 15 Alkaline Phosphatase 98 Troponin T < 0.010 NT-Pro-B Natriuret Pep 2038 H Total Protein 7.6 Albumin 3.7 L Albumin/Globulin Ratio 0.9 - EKG Data -: EKG Interpreted by Me EKG shows normal: sinus rhythm Rate: tachycardia (114 beats per minute) - EKG Data When compared to previous EKG there are: previous EKG unavailable Interpretation: other (left bundle branch block) - Radiology Data Radiology results: report reviewed (chest x-ray, CT chest), image reviewed (chest x-ray, CT chest) interpreted by me: Chest x-ray-right upper lobe consolidation [facility] [address] [place] [address] XRay Report Signed Patient: HAROLDO ALMONTE MR#: [id number] 570 : 1950 Acct:[id number] Age/Sex: 68 / F ADM Date: 06/17/18 Loc: ED Attending Dr: Ordering Physician: MANAV ONEILL Date of Service: 06/17/18 Procedure(s): XR chest routine 2V Accession Number(s): [id number] cc: MANAV ONEILL Fluoro Time In Minutes: Chest 2 views: History: Shortness of breath. Findings: Cardiomegaly. Trachea is midline. Tip of pacemaker. Large consolidated area right upper lobe extending from right hilum. Not seen in the previous study dated 12/21/17. Impression: Large area of consolidation right upper lobe suggestive of pneumonitis. Underlying neoplasm cannot be excluded. Transcribed By: PTP Dictated By: CHRIS GALLEGOS MD Electronically Authenticated By: CHRIS GALLEGOS MD Signed Date/Time: 06/17/181419 DD/ 17 TD/TT: 06/17/18 1420 [facility] [address] [place] [address] Cat Scan Report Signed Patient: HAROLDO ALMONTE MR#: [id number] 570 : 1950 Acct:[id number] Age/Sex: 68 / F ADM Date: 06/17/18 Loc: ED Attending Dr: Ordering Physician: PRANAV LONDONO MD Date of Service: 06/17/18 Procedure(s): CT angio chest Accession Number(s): [id number] cc: PRANAV LONDONO MD PROCEDURE: CT ANGIO CHEST TECHNIQUE: Computerized tomographic angiography of the chest was performed after the IV injection of iodinated nonionic contrast including image processing. The image data was postprocessed using 2-dimensional multiplanar reformatted (MPR) and 3-dimensional (MIP and/or volume rendered) techniques. Automated exposure control, adjustment of mA and/or kV according to patient size, or iterative reconstruction dose optimization techniques were utilized. Coronal and sagittal reconstructed imaging provided. HISTORY: dyspnea on exertion, right upper lobe consolidation COMPARISONS: CT chest December 21, 2017. FINDINGS: Large lobulated right upper lobe lesion with irregular margins and areas of adjacent subsegmental atelectasis and groundglass opacities. Lesion extends into the mediastinum and right hilar region. No distinct air bronchograms identified. Lesion encases and narrows the right main distal pulmonary artery and its upper lobe branches and constricts the right upper lobe bronchi. Lesion measures 10 x 8 x 7.5 cm. Extension from the pleura to the right hilar region noted. Adjacent areas of interseptal thickening groundglass opacities concerning for lymphangitic spread. There is a soft tissue component in the mediastinum which may represent a conglomeration of lymph nodes or tumor extension which measures 4 x 6 cm in the right peritracheal region. Prominent pericardial lymph nodes identified. One of the larger lymph nodes measures 1.1 x 2.1 cm. Prominent right hilar lymph nodes noted. One of the larger right hilar lymph nodes measures 2.4 x 2.9 cm. Prominent right subcarinal lymph node also identified which measures 2.2 x 2.5 cm. Discoid subsegmental atelectasis in the right middle lobe and right lower lobe. Small to moderate right pleural effusion identified. Interseptal thickening in the right middle and right lower lobe is concerning for lymphocytic spread. While the bronchi is narrowed on the right there is no distinct endobronchial lesion. Left lung appears relatively unremarkable without pneumothorax, consolidation, or effusion. Main pulmonary artery is unremarkable. Narrowing of the distal right main pulmonary artery and the right upper lobe arterial branches is probably related to the tumor. No pulmonary embolus identified. No aneurysm. No dissection. Major branch arteries are within normal limits. Mild atherosclerotic disease. Moderate cardiomegaly. No pericardial effusion. Coronary artery disease. Axillary regions are unremarkable. Images of the esophagus are grossly unremarkable. Heterogeneous area of low density in the upper left renal cortex is partially imaged and measures approximately 1.7 cm. Adrenal glands are unremarkable. Bones: No suspicious osseous lesions on this limited examination of the skeleton. Metastatic disease better evaluated with bone scan. Degenerative changes are present in the spine. IMPRESSION: * Comparison with prior will be made as an addendum once requested prior images and report are provided. * Right upper lobe mass extending from the pleural surface to the right hilum and mediastinal. Mass surrounds and narrows the distal right main pulmonary artery and the upper lobe branches. Mass also constricts the right upper lobe bronchi. Tumor extends into the mediastinum and is confluent with the mediastinal and right hilar adenopathy. * Surrounding reticular markings and groundglass opacities are concerning for lymphangitic spread of tumor. * Small to moderate right pleural effusion. * No pulmonary embolus. No aortic aneurysm. No dissection. * Cardiomegaly. * Heterogeneous area of low attenuation in the left upper renal cortex is nonspecific. This document is electronically signed by Tj Hughes MD., Jun 17 2018 05:27:03 PM ET Transcribed By: TYM Dictated By: TJ HUGHES MD Electronically Authenticated By: TJ HUGHES MD Signed Date/Time: 06/17/18 1729 DD/ 1640 TD/TT: 06/17/18 1640 - Differential Diagnosis pneumonia, TB, lung mass, CHF, COPD exacerbation Critical care attestation.: If time is entered above; I have spent that time in minutes in the direct care of this critically ill patient, excluding procedure time. ED Disposition Clinical Impression: Shortness of breath, Mass of upper lobe of right lung Disposition: OP ADMIT IP TO THIS HOSP Is pt being admited?: Yes Does the pt Need Aspirin: No Condition: Fair Referrals: JESSICA DONOHUE MD [Primary Care Provider] - 3-5 Days Time of Disposition: 17:39 (hospitalist notified (Dr Swain))
--- NOTE | 2018-06-17 17:29 | Cat Scan Report ---
PROCEDURE: CT ANGIO CHEST TECHNIQUE: Computerized tomographic angiography of the chest was performed after the IV injection of iodinated nonionic contrast including image processing. The image data was postprocessed using 2-dim ensional multiplanar reformatted (MPR) and 3-dimensional (MIP and/or volume rendered) techniques. Aut omated exposure control, adjustment of mA and/or kV according to patient size, or iterative reconstru ction dose optimization techniques were utilized. Coronal and sagittal reconstructed imaging provided . HISTORY: dyspnea on exertion, right upper lobe consolidation COMPARISONS: CT chest December 21, 2017. FINDINGS: Large lobulated right upper lobe lesion with irregular margins and areas of adjacent subsegmental ate lectasis and groundglass opacities. Lesion extends into the mediastinum and right hilar region. No di stinct air bronchograms identified. Lesion encases and narrows the right main distal pulmonary artery and its upper lobe branches and constricts the right upper lobe bronchi. Lesion measures 10 x 8 x 7. 5 cm. Extension from the pleura to the right hilar region noted. Adjacent areas of interseptal thicke estella groundglass opacities concerning for lymphangitic spread. There is a soft tissue component in th e mediastinum which may represent a conglomeration of lymph nodes or tumor extension which measures 4 x 6 cm in the right peritracheal region. Prominent pericardial lymph nodes identified. One of the la rger lymph nodes measures 1.1 x 2.1 cm. Prominent right hilar lymph nodes noted. One of the larger ri ght hilar lymph nodes measures 2.4 x 2.9 cm. Prominent right subcarinal lymph node also identified wh ich measures 2.2 x 2.5 cm. Discoid subsegmental atelectasis in the right middle lobe and right lower lobe. Small to moderate right pleural effusion identified. Interseptal thickening in the right middle and right lower lobe is concerning for lymphocytic spread. While the bronchi is narrowed on the righ t there is no distinct endobronchial lesion. Left lung appears relatively unremarkable without pneumo thorax, consolidation, or effusion. Main pulmonary artery is unremarkable. Narrowing of the distal right main pulmonary artery and the ri ght upper lobe arterial branches is probably related to the tumor. No pulmonary embolus identified. No aneurysm. No dissection. Major branch arteries are within normal limits. Mild atherosclerotic dise ase. Moderate cardiomegaly. No pericardial effusion. Coronary artery disease. Axillary regions are unremarkable. Images of the esophagus are grossly unremarkable. Heterogeneous area of low density in the upper left renal cortex is partially imaged and measures carl roximately 1.7 cm. Adrenal glands are unremarkable. Bones: No suspicious osseous lesions on this limited examination of the skeleton. Metastatic disease better evaluated with bone scan. Degenerative changes are present in the spine. IMPRESSION: * Comparison with prior will be made as an addendum once requested prior images and report are provi ded. * Right upper lobe mass extending from the pleural surface to the right hilum and mediastinal. Mass surrounds and narrows the distal right main pulmonary artery and the upper lobe branches. Mass also c onstricts the right upper lobe bronchi. Tumor extends into the mediastinum and is confluent with the mediastinal and right hilar adenopathy. * Surrounding reticular markings and groundglass opacities are concerning for lymphangitic spread of tumor. * Small to moderate right pleural effusion. * No pulmonary embolus. No aortic aneurysm. No dissection. * Cardiomegaly. * Heterogeneous area of low attenuation in the left upper renal cortex is nonspecific. This document is electronically signed by Tj Cabrera MD., Jun 17 2018 05:27:03 PM ET
[2018-06-17] MEDS ORDERED: FIORICET PO PRN (20:23)
[2018-06-17] MEDS ORDERED: ATIVAN IV PRN (20:23)
[2018-06-17] MEDS ORDERED: FIORICET ONE (20:34)
--- NOTE | 2018-06-17 21:26 | Event Note ---
Date: 06/17/18 See H/p in reports Acute Resp failure Rt Lung mass COPD exacerbation Hypertension Anticoagulation Vitamin D deficiency Hyperlipidemia Depression
[2018-06-17] MEDS ORDERED: SODIUM CHLORIDE FLUSH SYRINGE 10 ML IV PRN (21:30)
[2018-06-17] MEDS ORDERED: MORPHINE IV PRN (21:30)
[2018-06-17] MEDS ORDERED: ZOFRAN IV PRN (21:30)
[2018-06-17] MEDS ORDERED: TYLENOL PO PRN (21:30)
[2018-06-17] MEDS ORDERED: PROVENTIL IH PRN (21:31)
--- NOTE | 2018-06-17 22:28 | History and Physical Report ---
CHIEF COMPLAINT: Increasing respiratory distress for 1 week. HISTORY OF PRESENT ILLNESS: A 68-year-old female comes in for worsening shortness of breath for the last 1 week. Cough is productive of mucoid sputum. Shortness of breath has been increasing in intensity, can only walk a few feet. The patient had substernal chest pain 3 weeks ago and also night sweats for the past one week. No unexplained weight loss. The patient notes that she had a lung mass, about 1-1/2 years ago, but there was no followup. No fever or chills. No exacerbating or precipitating factors. PAST MEDICAL HISTORY: Past medical history is significant for hypertension, congestive heart failure, diabetes, deep vein thrombosis, depression, asthma, chronic obstructive pulmonary disease, cardiac catheterization in the past. PAST SURGICAL HISTORY: Hysterectomy, pacemaker on 05/31/2016. FAMILY HISTORY: Hypertension. SOCIAL HISTORY: Smoker until 3 years ago. Stopped smoking 3 years ago after 50 years of smoking. CURRENT MEDICATIONS: On the chart including Xarelto and Lasix and metoprolol. REVIEW OF SYSTEMS: Review of systems is significant for shortness of breath, wheezing and shortness of breath on minimal exertion. Cough is productive of mucoid sputum. No weight loss. No chest pain in the past. PHYSICAL EXAMINATION: GENERAL: Elderly female, in slight respiratory distress. VITAL SIGNS: Temperature is 98.6, pulse is 60, sats are 97%, respiratory rate is 20, blood pressure 123/54. HEENT: Unremarkable. Pupils are equal and reactive. NECK: Supple, no lymphadenopathy, no thyromegaly. LUNGS: Bilateral rhonchi present. Diminished air entry. Scattered rales. CARDIOVASCULAR: S1, S2 heard. No gallop, no murmur, no rub. Apical impulse in left fifth intercostal space and midclavicular line. ABDOMEN: Soft and benign. No hepatosplenomegaly. No guarding, no rigidity. Hernial orifices are normal. EXTREMITIES: Good pedal pulses. Some pedal edema present. CENTRAL NERVOUS SYSTEM: Alert and oriented x 4, nonfocal examination. SKIN: Normal. LABORATORY DATA: Labs are significant for white count of 6000, H and H of 11.1 and 34.8, platelet count is 216,000. Sodium is 132, slightly low; potassium is 4.3, chloride is 90.6, bicarbonate is 27. BUN and creatinine is 19 and 0.9. BNP is 2038. Albumin is 3.7. AST, ALT, alkaline phosphatase are normal. Glucose is 217. IMAGING STUDIES: Chest CTA shows right upper lobe mass extending from the pleural surface of the right hilum and mediastinal region, mass around the narrows the distal right pulmonary artery and upper lobe branches. Mass also consists the right upper lobe bronchi. Tumor extends into the mediastinum and is confluent with the mediastinum and right hilar adenopathy. Surrounding reticular markings and ground-glass opacities are concerning for lymphangitic spread of tumor, [id number] right pleural effusion. No pulmonary embolism. No aortic aneurysm. No dissection. Cardiomegaly is present. Heterogeneous areas of low attenuation in the left upper renal cortex are nonspecific. Chest x-ray shows large area of consolidation in the right upper lobe suggestive of pneumonitis. Underlying neoplasm cannot be excluded. ASSESSMENT AND PLAN: 1. Acute respiratory failure. The patient's blood gas is pending. The patient in respiratory distress, tachypneic and severe wheezing is present. The patient needs to be on high oxygen. The patient was treated with DuoNeb, albuterol and IV Solu-Medrol and IV Levaquin. 2. Chronic obstructive pulmonary disease exacerbation. IV Solu-Medrol, IV Levaquin and DuoNeb. BiPAP if necessary. Intubation if necessary. 3. Right lung mass, probably lung carcinoma. Perihilar adenopathy and mediastinal adenopathy is present. CT-guided biopsy requested. Also, Oncology consult requested. Pulmonary consult requested. 4. Hypertension. Continue metoprolol and antihypertensives. 5. Deep venous thrombosis history. Continue Xarelto. 6. Congestive heart failure. Continue Lasix. We will get echocardiogram. 7. Hyperlipidemia. Continue atorvastatin 40 mg daily. 8. Vitamin D deficiency. Continue 50,000 units q. weekly. 9. Depression. Continue Effexor and trazodone. 10. Deep venous thrombosis prophylaxis. Lovenox 40 mg subcutaneous daily. In summary, the patient has acute respiratory failure, chronic obstructive pulmonary disease exacerbation, right lung mass, probably stage 4 lung cancer in addition to hypertension, congestive heart failure and depression and vitamin D deficiency. JOB# [id number] VSM/NTS
[2018-06-18] MEDS: XARELTO PO SCH ×2 (00:05→17:23)
[2018-06-18] MEDS: XANAX PO SCH ×4 (00:56→22:23)
[2018-06-18] MEDS: DESYREL PO SCH ×2 (00:57→22:23)
[2018-06-18] MEDS: PEPCID PO SCH ×4 (00:57→22:23)
[2018-06-18] MEDS: LASIX PO SCH ×3 (00:58→10:00)
[2018-06-18] MEDS: LEVAQUIN 750MG/150ML 750 MG/150 ML BAG IV SCH ×2 (01:08→22:22)
[2018-06-18] MEDS: SOLU-Medrol IV SCH ×4 (01:11→17:24)
[2018-06-18] MEDS: LOPRESSOR PO SCH ×3 (06:25→10:00)
[2018-06-18] MEDS: SODIUM CHLORIDE FLUSH SYRINGE 10 ML IV SCH ×4 (06:26→22:24)
[2018-06-18 06:38] LABS: Basophils % (Auto) 0.3 % (0.0-1.8); Eosinophils % (Auto) 0.3 % (0.0-4.3); Hematocrit 35.8 % (30.3-42.9); Hemoglobin 11.4 gm/dl (10.1-14.3); Lymphocytes # (Auto) 0.7 K/mm3 (1.2-5.4); Lymphocytes % (Auto) 12.4 % (13.4-35.0); Mean Corpuscular HGB Conc 32 % (30-34); Mean Corpuscular Volume 88 fl (79-97); Monocytes # (Auto) 0.2 K/mm3 (0.0-0.8); Monocytes % (Auto) 3.1 % (0.0-7.3); Platelet Count 186 K/mm3 (140-440); Red Blood Count 4.06 M/mm3 (3.65-5.03); Red Cell Distribution Width 16.6 % (13.2-15.2)
[2018-06-18] MEDS: PERCOCET 5/325 PO PRN (06:43)
[2018-06-18 07:10] LABS: Alanine Aminotransferase 16 units/L (7-56); BUN/Creatinine Ratio 23; Blood Urea Nitrogen 21 mg/dL (7-17); Calcium 9.5 mg/dL (8.4-10.2); Hemolysis Index 19
[2018-06-18] MEDS: HumaLOG SUB-Q SCH ×4 (08:29→22:23)
[2018-06-18] MEDS: ALDACTONE PO SCH ×2 (08:30→10:00)
[2018-06-18] MEDS: EFFEXOR PO SCH ×3 (08:30→20:58)
--- NOTE | 2018-06-18 09:04 | Progress Note ---
Assessment and Plan Assessment and plan: --Acute on chronic hypoxic respiratory failure; Secondary to COPD exacerbation Discharge meds tapering dose of IV steroids and antibiotics Inhalation steroids, pulmonary evaluation if needed --Acute exacerbation of COPD; oxygen titrated O2 sats to more than 90% Nebulizers, steroids, antibiotics, BiPAP as needed --Right upper lobe mass; pulmonary and oncology consulted Follow their evaluation and recommendations --Hypertension; moderate control, continue current antihypertensives When necessary hydralazine --Acute on chronic systolic congestive heart failure; Ejection fraction 35-40% in December/2017 Continue anti-failure medications, fluid restriction, low sodium diet Cardiology evaluation if needed --Type 2 diabetes mellitus; uncontrolled Probably secondary to noncompliance, hemoglobin A1c 11.2 Accu-Chek sliding scale coverage and ADA diet long-acting insulin Novolin 70/30, 15 units twice a day, increase as needed Diabetic education and nutrition consult --History of DVT; continue Xeralto --Dyslipidemia; on statin --History of depression; denies suicidal thoughts or ideation Continue antidepression medications --Morbid obesity; BMI 38.7; advised weight reduction and medically stable --DVT prophylaxis; patient is already on Xeralto Monitor closely and adjust the management as needed Plan of care is reviewed with the patient and her nurse History Interval history: Patient Seen and Examined Medical Records Reviewed No new events reported by the nursing Patient feels slightly better no new complaints Vital signs noted Hospitalist Physical - Constitutional Vitals: Temp Pulse Resp BP Pulse Ox 98.0 F 121 H 20 121/74 94 06/18/18 07:38 06/18/18 08:30 06/18/18 07:38 06/18/18 08:30 06/18/18 07:38 General appearance: Present: no acute distress, well-nourished, obese - EENT Eyes: Present: PERRL, EOM intact - Neck Neck: Present: supple, normal ROM - Respiratory Respiratory effort: normal Respiratory: bilateral: diminished, rhonchi, negative: rales, wheezing - Cardiovascular Rhythm: regular Heart Sounds: Present: S1 & S2 - Extremities Extremities: no ischemia, No edema - Abdominal General gastrointestinal: soft, non-tender, non-distended, normal bowel sounds - Integumentary Integumentary: Present: clear, warm - Psychiatric Psychiatric: appropriate mood/affect, cooperative - Neurologic Neurologic: CNII-XII intact, moves all extremities Results - Labs CBC & Chem 7: 06/18/18 06:06 06/18/18 06:06 Labs: Laboratory Last Values WBC 5.5 K/mm3 (4.5-11.0) 06/18/18 06:06 RBC 4.06 M/mm3 (3.65-5.03) 06/18/18 06:06 Hgb 11.4 gm/dl (10.1-14.3) 06/18/18 06:06 Hct 35.8 % (30.3-42.9) 06/18/18 06:06 MCV 88 fl (79-97) 06/18/18 06:06 MCH 28 pg (28-32) 06/18/18 06:06 MCHC 32 % (30-34) 06/18/18 06:06 RDW 16.6 % (13.2-15.2) H 06/18/18 06:06 Plt Count 186 K/mm3 (140-440) 06/18/18 06:06 Lymph % (Auto) 12.4 % (13.4-35.0) L 06/18/18 06:06 [place] % (Auto) 3.1 % (0.0-7.3) 06/18/18 06:06 Eos % (Auto) 0.3 % (0.0-4.3) 06/18/18 06:06 Baso % (Auto) 0.3 % (0.0-1.8) 06/18/18 06:06 Lymph # 0.7 K/mm3 (1.2-5.4) L 06/18/18 06:06 [place] # 0.2 K/mm3 (0.0-0.8) 06/18/18 06:06 Eos # 0.0 K/mm3 (0.0-0.4) 06/18/18 06:06 Baso # 0.0 K/mm3 (0.0-0.1) 06/18/18 06:06 Seg Neutrophils % 83.9 % (40.0-70.0) H 06/18/18 06:06 Seg Neutrophils # 4.6 K/mm3 (1.8-7.7) 06/18/18 06:06 Sodium 135 mmol/L (137-145) L 06/18/18 06:06 Potassium 4.8 mmol/L (3.6-5.0) 06/18/18 06:06 Chloride 94.1 mmol/L (98-107) L 06/18/18 06:06 Carbon Dioxide 27 mmol/L (22-30) 06/18/18 06:06 19 mmol/L 06/18/18 06:06 BUN 21 mg/dL (7-17) H 06/18/18 06:06 0.9 mg/dL (0.7-1.2) 06/18/18 06:06 Estimated GFR > 60 ml/min 06/18/18 06:06 23 % 06/18/18 06:06 Glucose 332 mg/dL (65-100) H 06/18/18 06:06 POC Glucose 282 (70-105) H 06/18/18 07:24 11.2 % (4-6) H 06/17/18 13:51 Calcium 9.5 mg/dL (8.4-10.2) 06/18/18 06:06 0.40 mg/dL (0.1-1.2) 06/18/18 06:06 AST 27 units/L (5-40) 06/18/18 06:06 ALT 16 units/L (7-56) 06/18/18 06:06 111 units/L (35-129) 06/18/18 06:06 < 0.010 ng/mL (0.00-0.029) 06/17/18 14:33 NT-Pro-B Natriuret Pep 2038 pg/mL (0-900) H 06/17/18 13:41 7.4 g/dL (6.3-8.2) 06/18/18 06:06 4.0 g/dL (3.9-5) 06/18/18 06:06 1.2 % 06/18/18 06:06 Active Medications - Current Medications Current Medications: Generic Name Dose Route Start Last Admin Trade Name Freq PRN Reason Stop Dose Admin Acetaminophen 650 mg 06/17/18 21:30 Tylenol PO Q4H PRN Pain MILD(1-3)/Fever >100.5/TORREZ Acetaminophen/Butalbital/Caffeine 1 tab 06/17/18 20:23 06/17/18 20:52 Fioricet PO 1 tab Q4H PRN Administration Headache Albuterol 2.5 mg 06/17/18 21:31 Proventil IH Q4HRT PRN Shortness Of Breath Albuterol/Ipratropium 1 ampul 06/18/18 08:00 Duoneb *Not For Prn Use* IH QIDRT [facility]LAN Alprazolam 1 mg 06/17/18 22:00 06/18/18 08:30 Xanax PO 1 mg BID HARLAN Administration Atorvastatin Calcium 40 mg 06/17/18 22:00 06/18/18 00:56 Lipitor PO 40 mg QHS [facility]AN Administration Ergocalciferol 50,000 unit 06/23/18 10:00 Vitamin D2 PO Th [facility] Famotidine 20 mg 06/17/18 22:00 06/18/18 08:31 Pepcid PO 20 mg BID HARLAN Administration Furosemide 20 mg 06/17/18 22:00 06/18/18 08:30 Lasix PO 20 mg QDAY [facility] Administration Levofloxacin/Dextrose 750 mg in 150 mls @ 100 mls/hr 06/17/18 22:00 06/18/18 01:08 Levaquin 750mg/150ml IV 100 mls/hr Q24HR@2200 [facility] Administration Protocol Insulin Human Lispro 0 unit 06/17/18 22:00 06/18/18 08:29 Humalog SUB-Q 4 unit ACHS [facility] Administration Protocol Lorazepam 0.5 mg 06/17/18 20:23 Ativan IV Q4H PRN Agitation Methylprednisolone Sodium Succinate 60 mg 06/17/18 22:00 06/18/18 06:31 Solu-Medrol IV 60 mg Q8HR [facility] Administration Metoprolol Tartrate 25 mg 06/17/18 22:00 06/18/18 08:31 Lopressor PO 25 mg DAILY [facility] Administration Morphine Sulfate 2 mg 06/17/18 21:30 Morphine IV Q4H PRN Pain, Moderate (4-6) Ondansetron HCl 4 mg 06/17/18 21:30 Zofran IV Q8H PRN Nausea And Vomiting Oxycodone/Acetaminophen 1 tab 06/17/18 21:30 06/18/18 06:43 Percocet 5/325 PO 1 tab Q6H PRN Administration Pain, Moderate (4-6) Rivaroxaban 20 mg 06/17/18 22:00 06/18/18 00:05 Xarelto PO 20 mg QDAY@1700 [facility] Administration Protocol Sodium Chloride 10 ml 06/17/18 22:00 06/18/18 08:32 Sodium Chloride Flush Syringe 10 Ml IV 10 ml BID [facility] Administration Sodium Chloride 10 ml 06/17/18 21:30 Sodium Chloride Flush Syringe 10 Ml IV PRN PRN LINE FLUSH Spironolactone 25 mg 06/18/18 10:00 06/18/18 08:30 Aldactone PO 25 mg QDAY [facility] Administration Trazodone HCl 200 mg 06/17/18 22:00 06/18/18 00:57 Desyrel PO 200 mg QHS [facility] Administration Venlafaxine HCl 75 mg 06/18/18 08:00 06/18/18 08:30 Effexor PO 75 mg TID [facility] Administration
[2018-06-18] MEDS: DUONEB *Not for PRN Use IH SCH ×4 (09:14→19:43)
--- NOTE | 2018-06-18 09:28 | Consultation ---
History of Present Illness Consult date: 06/18/18 Requesting physician: ENID MARTINEZ Reason for consult: pneumonia, lung mass History of present illness: PCCM CONSULT NOTE (Full dictation # [id number]) Please see dictated notes for full details Medications and Allergies Allergies Allergy/AdvReac Type Severity Reaction Status Date / Time No Known Allergies Allergy Verified 06/17/18 13:24 Home Medications Medication Instructions Recorded Confirmed Last Taken Type traZODone [Desyrel] 200 mg PO QHS 12/12/12 06/17/18 12/20/17 22:00 History Atorvastatin [Lipitor] 40 mg PO QHS #30 tab 01/07/17 06/17/18 12/20/17 Rx ALPRAZolam [Xanax TAB] 1 mg PO BID 06/17/18 06/17/18 Unknown History Albuterol Sulfate 1 neb IH BID 06/17/18 06/17/18 Unknown History Ergocalciferol (Vitamin D2) 50,000 unit PO QWEEK 06/17/18 06/17/18 Unknown History [Drisdol] Furosemide [Lasix] 20 mg PO QDAY 06/17/18 06/17/18 Unknown History Metoprolol [Lopressor TAB] 25 mg PO DAILY 06/17/18 06/17/18 Unknown History Rivaroxaban [Xarelto] 20 mg PO QDAY 06/17/18 06/17/18 Unknown History Spironolactone [Aldactone] 25 mg PO QDAY 06/17/18 06/17/18 Unknown History Venlafaxine [Effexor] 75 mg PO TID 06/17/18 06/17/18 Unknown History Active Meds: Active Medications Acetaminophen (Tylenol) 650 mg PO Q4H PRN PRN Reason: Pain MILD(1-3)/Fever >100.5/TORREZ Acetaminophen/Butalbital/Caffeine (Fioricet) 1 tab PO Q4H PRN PRN Reason: Headache Last Admin: 06/17/18 20:52 Dose: 1 tab Documented by: Albuterol (Proventil) 2.5 mg IH Q4HRT PRN PRN Reason: Shortness Of Breath Albuterol/Ipratropium (Duoneb *Not For Prn Use*) 1 ampul IH QIDRT [facility] Last Admin: 05/11/19 09:14 Dose: 1 ampul Documented by: Alprazolam (Xanax) 1 mg PO BID [facility] Last Admin: 06/18/18 08:30 Dose: 1 mg Documented by: Atorvastatin Calcium (Lipitor) 40 mg PO QHS [facility] Last Admin: 06/18/18 00:56 Dose: 40 mg Documented by: Ergocalciferol (Vitamin D2) 50,000 unit PO Th [facility] Famotidine (Pepcid) 20 mg PO BID [facility] Last Admin: 06/18/18 08:31 Dose: 20 mg Documented by: Furosemide (Lasix) 20 mg PO QDAY [facility] Last Admin: 06/18/18 08:30 Dose: 20 mg Documented by: Levofloxacin/Dextrose (Levaquin 750mg/150ml) 750 mg in 150 mls @ 100 mls/hr IV Q24HR@2200 [facility]; Protocol Last Admin: 06/18/18 01:08 Dose: 100 mls/hr Documented by: Insulin Human Isoph/Insulin Regular (Humulin 70/30) 15 unit SUB-Q BIDDIAB [facility] Insulin Human Lispro (Humalog) 0 unit SUB-Q ACHS [facility]; Protocol Last Admin: 06/18/18 08:29 Dose: 4 unit Documented by: Lorazepam (Ativan) 0.5 mg IV Q4H PRN PRN Reason: Agitation Methylprednisolone Sodium Succinate (Solu-Medrol) 60 mg IV Q8HR [facility] Last Admin: 06/18/18 06:31 Dose: 60 mg Documented by: Metoprolol Tartrate (Lopressor) 25 mg PO DAILY [facility] Last Admin: 06/18/18 08:31 Dose: 25 mg Documented by: Morphine Sulfate (Morphine) 2 mg IV Q4H PRN PRN Reason: Pain, Moderate (4-6) Ondansetron HCl (Zofran) 4 mg IV Q8H PRN PRN Reason: Nausea And Vomiting Oxycodone/Acetaminophen (Percocet 5/325) 1 tab PO Q6H PRN PRN Reason: Pain, Moderate (4-6) Last Admin: 06/18/18 06:43 Dose: 1 tab Documented by: Rivaroxaban (Xarelto) 20 mg PO QDAY@1700 [facility]; Protocol Last Admin: 06/18/18 00:05 Dose: 20 mg Documented by: Sodium Chloride (Sodium Chloride Flush Syringe 10 Ml) 10 ml IV BID [facility] Last Admin: 06/18/18 08:32 Dose: 10 ml Documented by: Sodium Chloride (Sodium Chloride Flush Syringe 10 Ml) 10 ml IV PRN PRN PRN Reason: LINE FLUSH Spironolactone (Aldactone) 25 mg PO QDAY [facility] Last Admin: 06/18/18 08:30 Dose: 25 mg Documented by: Trazodone HCl (Desyrel) 200 mg PO QHS [facility] Last Admin: 06/18/18 00:57 Dose: 200 mg Documented by: Venlafaxine HCl (Effexor) 75 mg PO TID [facility] Last Admin: 06/18/18 08:30 Dose: 75 mg Documented by: Physical Examination Vital signs: Vital Signs Temp Pulse Resp BP Pulse Ox 98 F 121 H 24 119/69 94 06/17/18 13:30 06/17/18 13:30 06/17/18 13:30 06/17/18 13:30 06/17/18 13:30 Results - Laboratory Findings CBC and BMP: 06/18/18 06:06 06/18/18 06:06 Abnormal lab findings: Abnormal Labs 06/17/18 06/17/18 06/17/18 13:41 13:41 13:51 RDW 16.0 H Lymph % (Auto) [place] % (Auto) 8.7 H Lymph # 1.1 L Seg Neutrophils % 71.3 H Sodium 132 L Chloride 90.6 L BUN 19 H Glucose 217 H POC Glucose Hemoglobin A1c 11.2 H NT-Pro-B Natriuret Pep 2038 H Albumin 3.7 L 06/17/18 06/18/18 06/18/18 22:03 06:06 06:06 RDW 16.6 H Lymph % (Auto) 12.4 L [place] % (Auto) Lymph # 0.7 L Seg Neutrophils % 83.9 H Sodium 135 L Chloride 94.1 L BUN 21 H Glucose 332 H POC Glucose 225 H Hemoglobin A1c NT-Pro-B Natriuret Pep Albumin 06/18/18 07:24 RDW Lymph % (Auto) [place] % (Auto) Lymph # Seg Neutrophils % Sodium Chloride BUN Glucose POC Glucose 282 H Hemoglobin A1c NT-Pro-B Natriuret Pep Albumin
--- NOTE | 2018-06-18 15:31 | Event Note ---
Date: 06/18/18 [id number]
[2018-06-18 16:57] LABS: INR 1.17 (0.87-1.13)
--- NOTE | 2018-06-18 20:04 | Vascular Lab Report ---
PROCEDURE: VL VENOUS DUPLEX LE BILAT TECHNIQUE: Duplex Doppler sonography of the BILATERAL lower extremities. Chatman scale imaging with and without compression, spectral waveform analysis with and without augmentation, and color flow Dopple r were employed. HISTORY: swelling and SOB` COMPARISONS: None FINDINGS: RIGHT UPPER EXTREMITY: Deep Venous Thrombus: None Soft tissue abnormality: None LEFT UPPER EXTREMITY: Deep Venous Thrombus: None Soft tissue abnormality: None IMPRESSION: No evidence of deep venous thrombosis This document is electronically signed by Josr Gee MD., Jun 18 2018 08:02:19 PM ET
--- NOTE | 2018-06-18 21:50 | Consultation ---
PULMONARY CONSTULT NOTE CONSULTING PHYSICIAN: Natalie Swain MD REASON FOR CONSULTATION: Acute respiratory failure. CHIEF COMPLAINT AND HISTORY OF PRESENT ILLNESS: The patient is a 68-year-old female presenting with, according to her, about a week of shortness of breath and dyspnea on exertion in particular. She also complained of orthopnea. She admitted to fevers and night sweats in the past week also. She was admitted to the hospital on or about December of last year. She admits that at discharge she was informed that there was a lung mass that needed to be followed up with her primary care physician. She tells me that she did follow up with her primary care physician, it is unclear if they discussed the lung mass. When her symptoms began in the past 3 weeks, she presented to the hospital. She also noted that she developed some substernal pain along with her dyspnea on exertion. She denied any significant weight loss or gain. She just describes a loss of appetite. She denied any nausea, vomiting, or overt aspirations. She has certainly a 10+ pack year tobacco smoking history, but states that she quit smoking a few months back. She denies gross or streak hemoptysis. She denies new onset pain or swelling in her lower extremities either unilaterally or bilaterally or any suggestion of venous thromboembolic phenomenon. This really is as much of the history of presentation as I have. When asked if she had noticed any new lumps, bumps, or swellings on her body, she admits to feeling something like a lump in the left axillary region. PAST MEDICAL HISTORY: Again, significant for history of congestive heart failure, history of diabetes, history of hypertension. She is obese. She has a history of depression. She has a history of COPD for which she is on nebulizer treatments at home. PAST SURGICAL HISTORY: There is a report of a history of a pacemaker placed in 2017. MEDICATIONS: She was on at the time I stopped by to see her were reviewed, pertinent medications included the following: She was on Tylenol 650 mg p.o. q. 4 hours p.r.n. mild pain or fevers, Fioricet one tablet p.o. q. 4 hours p.r.n. headache, albuterol nebulizer treatment 2.5 mg nebulized q. 4 hours p.r.n. shortness of breath, DuoNeb nebulizer treatments scheduled q.i.d., Xanax 1 mg p.o. b.i.d., Lipitor 40 mg p.o. at bedtime, vitamin D2 50,000 units p.o. scheduled, Pepcid 20 mg p.o. b.i.d., Lasix 20 mg p.o. daily, 70/30 insulin 15 units subcutaneous b.i.d., insulin via sliding scale, Levaquin 750 mg IV q. 24 hours, lorazepam 0.5 mg IV q. 4 hours p.r.n. agitation, Solu-Medrol 60 mg IV q. 8 hours, Lopressor 25 mg p.o. daily, morphine sulfate 2 mg IV q. 4 hours p.r.n. moderate pain, Zofran 4 mg IV q. 8 hours p.r.n. nausea and vomiting, Percocet 5/325 one tablet p.o. q. 6 hours p.r.n. moderate pain, Xarelto 20 mg p.o. daily, Aldactone 25 mg p.o. daily, trazodone 200 mg p.o. at bedtime. ALLERGIES: No known drug allergies. DIET: Obese lady. Denies acute weight loss or gain preceding few weeks to months. FAMILY AND SOCIAL HISTORY: Lives in the community. She has a 10+ pack year tobacco smoking history, quit smoking about a couple of years ago according to her. She denies illicit drug use or abuse. Denies alcohol use or abuse. FAMILY HISTORY: Otherwise nonsignificant. She did say that her mother I believe had breast cancer. REVIEW OF SYSTEMS: No loss of consciousness. No new onset seizures. No new onset focal weakness. Denies gross hematochezia or melena. Denies gross hematuria or dysuria. No hematemesis. No hemoptysis, no palpitations. She denies heat or cold intolerance. She has had night sweats. She denies polydipsia, polyuria. Complete 13-system review of systems obtained. Pertinent positives and/or negatives as in body of history above, otherwise noncontributory. PHYSICAL EXAMINATION: VITAL SIGNS: At presentation, she was afebrile, temperature 98.0 degrees Fahrenheit, pulse of 121, respiratory rate of 24, blood pressure 119/69, O2 sats were 94%. Inspired oxygen concentration at that time was not recorded. When I stopped by to see her, she was on I believe 2 liters nasal cannula with 96% O2 sats. GENERAL: She is elderly-looking obese female, normocephalic, atraumatic, sitting up in bed with mildly increased respiratory effort at rest. HEAD, EYES, EARS, NOSE, AND THROAT: She is anicteric. No conjunctival erythema. Oropharynx is moist with a Mallampati #3 oropharynx. NECK: No gross jugular venous distention, no thyromegaly. She does have a large neck circumference. LYMPHATICS: Grossly, there were no palpable lymph nodes in the supraclavicular, submandibular, or axillary lymph node chains that I could feel. LUNGS: Auscultation of both lung rodarte, some scattered rhonchi and rales in the right mid lung zones and bases, prolonged expiratory phase with faint expiratory wheezes in particular on the right. No accessory muscle use. HEART: Heart sounds 1 and 2 are heard, intermittently irregular at the time of my evaluation. No rubs or murmurs. EXTREMITIES: Without overt digital clubbing, no cyanosis, no pedal edema. Pedal pulses are palpable and strong bilaterally. NEUROLOGIC: She is awake. She is alert. She is oriented x 3. She moves all 4 extremities spontaneously. Pupils are equal, round, about 3-4 mm and reactive to light. Extraocular muscle movements are intact. She may have a cataract in the left eye. No fasciculations. No focal weakness. SKIN: Normal turgor without overt cellulitis or rash. LABORATORY DATA: From my review is as follows: Admission white cell count 6000, hemoglobin 11.1, hematocrit 34.8, platelet count 216. No band forms reported. Serum sodium was 132, potassium 4.3, chloride 91, bicarbonate 27, BUN 19, creatinine 0.9, and a glucose of 217. Liver function tests within normal limits. BNP was up at 2038. No microbiology studies. I did review personally the chest x-ray as well as the CT angio of her chest. The chest x-ray clearly shows a right mid lung lesion with most likely some post-obstructive collapse/atelectasis. There appears to be some blunting of the right costophrenic angle. She has a pacemaker in the left upper anterior chest wall. She has an implanted cardiac device. She has gross cardiomegaly. I believe she has small bilateral pleural effusions on the lateral exam. No gross pneumothorax, no gross bony fractures. A CT angio of the chest was also done. I have reviewed the images as well as the radiologist's interpretation. She does have a right upper lobe mass appears to involve the pleural surface all the way to the right hilum. I cannot rule out some postobstructive collapsed lung as part of this. There is some involvement of the right main pulmonary artery and also constriction of the right upper lobe bronchus, small right pleural effusion, no PE. She also has some subcarinal as well as I believe right hilar lymphadenopathy. ASSESSMENT: 1. Acute hypoxemic respiratory failure. 2. Lung mass that appears to have been present in December of last year. 3. Postobstructive pneumonia component. 4. History of congestive heart failure. 5. Diabetes type 2. 6. Hypertension. 7. History of depression. 8. Acute chronic obstructive pulmonary disease exacerbation. 9. History of tobacco abuse. 10. Possible obstructive sleep apnea. PLAN: I have gone over the overall picture with her and a real possibility is that we are dealing with advanced malignancy. If this is a primary lung cancer, this could well be a small cell lung cancer. I do note the mild hyponatremia that she does have. I have explained that considering her overall respiratory status, the orthopnea, possibility of obstructive sleep apnea, and the size of the mass, I would rather go for a CT needle biopsy of the mass and send for pathology and to plan further from there. If they are unable to reach this, then a bronchoscopy will be done, but I do feel it is more invasive procedure with more risk to the patient. For now, I will complete this venous thromboembolic disorder workup with bilateral lower extremity Dopplers. I will also get a D-dimer level. I do feel it is going to be elevated. We will continue bronchodilators as ordered. Oxygen will be weaned to keep sats greater than or equal to above 90%. Aspiration precautions will be maintained. I will deploy empiric BiPAP therapy to use at bedtime to avoid overt decompensation overnight and treat possible undiagnosed sleep apnea. I agree with empiric antibiotic therapy, Levaquin monotherapy should be appropriate. Hematology/Oncology consultation has been placed. She is appropriately on GI prophylaxis, especially with her being on full anticoagulation with Xarelto. I will begin a systemic steroid taper drop it to 40 mg IV q. 12 on Solu-Medrol. Flu and pneumonia vaccination will be addressed per protocol. Thank you very much for the consult Dr. Swain. We will follow along and make further recommendations as picture progresses/becomes clearer. I have encouraged continued tobacco abstinence. I have answered all her questions including family members in her room after she gave me permission to discuss her health care in their presence. JOB# [id number] JUAN LUIS/MIRI TEE
--- NOTE | 2018-06-19 01:09 | Consultation ---
REFERRING PHYSICIAN: Natalie Sawin MD REASON FOR CONSULTATION: Right lung mass, 10 cm. HISTORY OF PRESENT ILLNESS: I saw the patient, a 68-year-old female in the medical floor. The patient came because of shortness of breath for a few days. She thought it was secondary to COPD and CHF, but as it did not improve, she came to the hospital. She also had chest pain with night sweats. No history of weight loss. The patient says that few years ago, about 1-1/2 years ago, she was told that she had a lung mass, it was small. The patient right now is on oxygen. Radiology tests during this admission showed a 10-cm right lung mass. I have been asked to evaluate the patient. PAST MEDICAL HISTORY: Hypertension, CHF, diabetes, DVT, depression, asthma, COPD, cardiac catheterization. PAST SURGICAL HISTORY: Hysterectomy, pacemaker placement. FAMILY HISTORY: Hypertension. SOCIAL HISTORY: Quit smoking a few years ago. Smoked for more than 30 years before that. HOME MEDICATIONS: In the chart included Xarelto, Lasix, and metoprolol. REVIEW OF SYSTEMS: Cough present. No weight loss. Chest pain present. Shortness of breath present. No abdominal pain, no vomiting, no diarrhea, no dysuria. ALLERGIES: None. MEDICATIONS: Included nebulizers, alprazolam, vitamin D, Pepcid, Lasix, Levaquin. PHYSICAL EXAMINATION: VITAL SIGNS: Temperature 97, pulse 94, respirations 20, BP 109/62. HEENT: No pallor, no icterus. NECK: No neck lymph nodes. HEART: S1, S2. LUNGS: Decreased air entry. ABDOMEN: Soft. EXTREMITIES: No calf tenderness. NEUROLOGIC: Alert, awake, oriented. LABORATORY DATA: White cells 5.5, hemoglobin 11.4, MCV 88, platelets 186. Creatinine 0.9, calcium 9.5, bilirubin 0.4. RADIOLOGY DATA: CT chest shows 10-cm mass in the right upper lobe, soft tissue component in the mediastinum which is 4 x 6 cm. Radiologist's findings suggestive of lymphocytic spread. ASSESSMENT: 1. Large lung mass with lymphadenopathy and pleural effusion. 2. History of shortness of breath. 3. History of chest pain. 4. History of hypertension. 5. History of congestive heart failure. 6. In the past, the patient had deep venous thrombosis and was on Xarelto. 7. History of diabetes. 8. History of hyperlipidemia. 9. History of vitamin D deficiency. I discussed with the patient regarding high suspicion for neoplasm. I discussed about small cell versus non-small cell. The patient's mother had small cell cancer. The patient quit smoking a few years ago. IR consultation done and pulmonary team had seen the patient. We will wait for tissue diagnosis. We will look into CT abdomen and pelvis. JOB# [id number] NM/NTS
[2018-06-19] MEDS: SOLU-Medrol IV SCH ×2 (05:03→17:27)
[2018-06-19 06:20] LABS: Basophils % (Auto) 0.4 % (0.0-1.8); Eosinophils # (Auto) 0.2 K/mm3 (0.0-0.4); Eosinophils % (Auto) 1.7 % (0.0-4.3); Hematocrit 33.7 % (30.3-42.9); Hemoglobin 10.7 gm/dl (10.1-14.3); Lymphocytes # (Auto) 0.5 K/mm3 (1.2-5.4); Lymphocytes % (Auto) 4.8 % (13.4-35.0); Mean Corpuscular HGB Conc 32 % (30-34); Mean Corpuscular Volume 89 fl (79-97); Monocytes # (Auto) 0.5 K/mm3 (0.0-0.8); Monocytes % (Auto) 5.4 % (0.0-7.3); Platelet Count 217 K/mm3 (140-440); Red Blood Count 3.79 M/mm3 (3.65-5.03); Red Cell Distribution Width 16.1 % (13.2-15.2)
[2018-06-19 06:43] LABS: BUN/Creatinine Ratio 28; Blood Urea Nitrogen 25 mg/dL (7-17); Calcium 9.6 mg/dL (8.4-10.2); Hemolysis Index 1
--- NOTE | 2018-06-19 07:38 | Progress Note ---
Assessment and Plan Assessment and plan: --Acute on chronic hypoxic respiratory failure; --Acute exacerbation of COPD, oxygen titrated O2 sats to more than 90% Nebulizers ,tapering dose of IV steroids and antibiotics pulmonary following --Right upper lobe mass; pulmonary and oncology,ir following Possible US/CT-guided lung biopsy tomorrow CT head ; no findings suggestive of metastasis CT abdomen and pelvis; nodular surface of liver possible cirrhosis Small right pleural effusion associated with atelectasis --Elevated D Dimers: Negative PE Negative DVT --Hypertension; well controlled,on antihypertensives --Acute on chronic systolic congestive heart failure; Ejection fraction 35-40% in December/2017 , anti-failure medications --History of atrial flutter; continue beta blockers,Xeralto --Type 2 diabetes mellitus; uncontrolled/noncompliance A1c 11.2,Accu-Chek SSC and ADA diet , diabetic education Increase Novolin 70/30 to 22units twice a day, Home health nurse for monitoring at discharge --History of DVT; [venous Doppler this admission negative for DVT] on Xeralto, hematology following --Dyslipidemia; on statin --History of depression; stable,Cont antidepression medications --Morbid obesity; BMI 38.7; advised weight reduction and medically stable --DVT prophylaxis; patient is already on Xeralto Monitor closely and adjust the management as needed Disposition; CT-guided lung biopsy tomorrow Plan of care is reviewed with the patient and her nurse History Interval history: Patient seen and examined medical records reviewed Patient feels better no new complaints Alert awake oriented 3 Vital signs reviewed Hospitalist Physical - Constitutional Vitals: Temp Pulse Resp BP Pulse Ox 97.6 F 114 H 16 108/47 91 06/19/18 02:22 06/19/18 02:14 06/19/18 02:22 06/19/18 02:14 06/19/18 02:14 General appearance: Present: no acute distress, well-nourished, obese - EENT Eyes: Present: PERRL, EOM intact - Neck Neck: Present: supple, normal ROM - Respiratory Respiratory effort: normal Respiratory: bilateral: diminished, rhonchi, negative: rales, wheezing - Cardiovascular Rhythm: regular Heart Sounds: Present: S1 & S2 - Extremities Extremities: no ischemia, No edema - Abdominal General gastrointestinal: soft, non-tender, non-distended, normal bowel sounds - Integumentary Integumentary: Present: clear, warm - Psychiatric Psychiatric: appropriate mood/affect, cooperative - Neurologic Neurologic: CNII-XII intact, moves all extremities Results - Labs CBC & Chem 7: 06/19/18 05:46 06/19/18 05:46 Labs: Laboratory Last Values WBC 10.1 K/mm3 (4.5-11.0) 06/19/18 05:46 RBC 3.79 M/mm3 (3.65-5.03) 06/19/18 05:46 Hgb 10.7 gm/dl (10.1-14.3) 06/19/18 05:46 Hct 33.7 % (30.3-42.9) 06/19/18 05:46 MCV 89 fl (79-97) 06/19/18 05:46 MCH 28 pg (28-32) 06/19/18 05:46 MCHC 32 % (30-34) 06/19/18 05:46 RDW 16.1 % (13.2-15.2) H 06/19/18 05:46 Plt Count 217 K/mm3 (140-440) 06/19/18 05:46 Lymph % (Auto) 4.8 % (13.4-35.0) L 06/19/18 05:46 Vermilion % (Auto) 5.4 % (0.0-7.3) 06/19/18 05:46 Eos % (Auto) 1.7 % (0.0-4.3) 06/19/18 05:46 Baso % (Auto) 0.4 % (0.0-1.8) 06/19/18 05:46 Lymph # 0.5 K/mm3 (1.2-5.4) L 06/19/18 05:46 Vermilion # 0.5 K/mm3 (0.0-0.8) 06/19/18 05:46 Eos # 0.2 K/mm3 (0.0-0.4) 06/19/18 05:46 Baso # 0.0 K/mm3 (0.0-0.1) 06/19/18 05:46 Seg Neutrophils % 87.7 % (40.0-70.0) H 06/19/18 05:46 Seg Neutrophils # 8.8 K/mm3 (1.8-7.7) H 06/19/18 05:46 PT 15.6 Sec. (12.2-14.9) H 06/18/18 16:32 INR 1.17 (0.87-1.13) H 06/18/18 16:32 508.49 ng/mlDDU (0-234) H 06/18/18 16:32 Sodium 135 mmol/L (137-145) L 06/19/18 05:46 Potassium 5.0 mmol/L (3.6-5.0) 06/19/18 05:46 Chloride 94.4 mmol/L (98-107) L 06/19/18 05:46 Carbon Dioxide 29 mmol/L (22-30) 06/19/18 05:46 17 mmol/L 06/19/18 05:46 BUN 25 mg/dL (7-17) H 06/19/18 05:46 0.9 mg/dL (0.7-1.2) 06/19/18 05:46 Estimated GFR > 60 ml/min 06/19/18 05:46 28 % 06/19/18 05:46 Glucose 375 mg/dL (65-100) H 06/19/18 05:46 POC Glucose 308 (70-105) H 06/18/18 22:08 11.2 % (4-6) H 06/17/18 13:51 Calcium 9.6 mg/dL (8.4-10.2) 06/19/18 05:46 Magnesium 2.00 mg/dL (1.7-2.3) 06/19/18 05:46 0.40 mg/dL (0.1-1.2) 06/18/18 06:06 AST 27 units/L (5-40) 06/18/18 06:06 ALT 16 units/L (7-56) 06/18/18 06:06 111 units/L (35-129) 06/18/18 06:06 < 0.010 ng/mL (0.00-0.029) 06/17/18 14:33 NT-Pro-B Natriuret Pep 2038 pg/mL (0-900) H 06/17/18 13:41 7.4 g/dL (6.3-8.2) 06/18/18 06:06 4.0 g/dL (3.9-5) 06/18/18 06:06 1.2 % 06/18/18 06:06 Active Medications - Current Medications Current Medications: Generic Name Dose Route Start Last Admin Trade Name Freq PRN Reason Stop Dose Admin Acetaminophen 650 mg 06/17/18 21:30 Tylenol PO Q4H PRN Pain MILD(1-3)/Fever >100.5/TORREZ Acetaminophen/Butalbital/Caffeine 1 tab 06/17/18 20:23 06/17/18 20:52 Fioricet PO 1 tab Q4H PRN Administration Headache Albuterol 2.5 mg 06/17/18 21:31 Proventil IH Q4HRT PRN Shortness Of Breath Albuterol/Ipratropium 1 ampul 06/18/18 08:00 06/18/18 19:43 Duoneb *Not For Prn Use* IH 1 ampul QIDRT [facility]LAN Administration Alprazolam 1 mg 06/17/18 22:00 06/18/18 22:23 Xanax PO 1 mg BID HARLAN Administration Atorvastatin Calcium 40 mg 06/17/18 22:00 06/18/18 22:23 Lipitor PO 40 mg QHS HARLAN Administration Ergocalciferol 50,000 unit 06/23/18 10:00 Vitamin D2 PO Th [facility] Famotidine 20 mg 06/17/18 22:00 06/18/18 22:23 Pepcid PO 20 mg BID HARLAN Administration Furosemide 20 mg 06/17/18 22:00 06/18/18 10:00 Lasix PO Not Given QDAY HARLAN Levofloxacin/Dextrose 750 mg in 150 mls @ 100 mls/hr 06/17/18 22:00 06/18/18 22:22 Levaquin 750mg/150ml IV 100 mls/hr Q24HR@2200 HARLAN Administration Protocol Insulin Human Isoph/Insulin Regular 15 unit 06/18/18 17:00 06/18/18 17:24 Humulin 70/30 SUB-Q 15 unit BIDDIAB HARLAN Administration Insulin Human Lispro 0 unit 06/17/18 22:00 06/18/18 22:23 Humalog SUB-Q 6 unit ACHS HARLAN Administration Protocol Lorazepam 0.5 mg 06/17/18 20:23 06/18/18 17:32 Ativan IV 0.5 mg Q4H PRN Administration Agitation Methylprednisolone Sodium Succinate 40 mg 06/18/18 17:00 06/19/18 05:03 Solu-Medrol IV 40 mg Q12H HARLAN Administration Metoprolol Tartrate 25 mg 06/17/18 22:00 06/18/18 10:00 Lopressor PO Not Given DAILY HARLAN Morphine Sulfate 2 mg 06/17/18 21:30 Morphine IV Q4H PRN Pain, Moderate (4-6) Ondansetron HCl 4 mg 06/17/18 21:30 Zofran IV Q8H PRN Nausea And Vomiting Oxycodone/Acetaminophen 1 tab 06/17/18 21:30 06/18/18 06:43 Percocet 5/325 PO 1 tab Q6H PRN Administration Pain, Moderate (4-6) Rivaroxaban 20 mg 06/17/18 22:00 06/18/18 17:23 Xarelto PO 20 mg QDAY@1700 HARLAN Administration Protocol Sodium Chloride 10 ml 06/17/18 22:00 06/18/18 22:24 Sodium Chloride Flush Syringe 10 Ml IV 10 ml BID HARLAN Administration Sodium Chloride 10 ml 06/17/18 21:30 Sodium Chloride Flush Syringe 10 Ml IV PRN PRN LINE FLUSH Spironolactone 25 mg 06/18/18 10:00 06/18/18 10:00 Aldactone PO Not Given QDAY HARLAN Trazodone HCl 200 mg 06/17/18 22:00 06/18/18 22:23 Desyrel PO 200 mg QHS HARLAN Administration Venlafaxine HCl 75 mg 06/18/18 08:00 06/18/18 20:58 Effexor PO 75 mg TID HARLAN Administration
[2018-06-19] MEDS: DUONEB *Not for PRN Use IH SCH ×4 (08:05→19:35)
[2018-06-19] MEDS: LOPRESSOR PO SCH (09:56)
[2018-06-19] MEDS: HumaLOG SUB-Q SCH ×4 (09:56→22:42)
[2018-06-19] MEDS: PEPCID PO SCH ×2 (09:57→22:41)
[2018-06-19] MEDS: PERCOCET 5/325 PO PRN (09:57)
[2018-06-19] MEDS: XANAX PO SCH ×2 (09:57→22:40)
[2018-06-19] MEDS: ALDACTONE PO SCH (09:57)
[2018-06-19] MEDS: LASIX PO SCH (09:57)
[2018-06-19] MEDS: SODIUM CHLORIDE FLUSH SYRINGE 10 ML IV SCH ×2 (10:03→22:43)
[2018-06-19] MEDS: EFFEXOR PO SCH ×3 (10:03→22:41)
--- NOTE | 2018-06-19 10:08 | Cat Scan Report ---
PROCEDURE: CT HEAD/BRAIN WO/W CON TECHNIQUE: Multiple continuous axial images were obtained from the skull base to the vertex before a nd after administration of IV contrast. HISTORY: lung mass COMPARISONS: None. FINDINGS: There is no parenchymal hemorrhage or extra-axial fluid collection. There is no mass or mass effect. There is no acute territorial infarct. The ventricles are midline. The subarachnoid spaces and basila r cisterns are clear. There is no skull fracture. The paranasal sinuses and mastoid air cells are elba ar. There is no abnormal enhancement on postcontrast imaging. The cerebral vasculature is intact. IMPRESSION: No acute intracranial abnormality. No abnormal enhancement to suggest mass or metastatic disease. This document is electronically signed by Megan Winter MD., Jun 19 2018 10:06:23 AM ET
--- NOTE | 2018-06-19 10:20 | Consultation ---
History of Present Illness - Reason for Consult Consult date: 06/19/18 lung biopsy, lung mass - History of Present Illness Patient with a history of a right upper lobe lung mass. A previously and a CTA in December 2017, the patient was noted to have a small centimeter sized mass in her right upper lobe. There is been interval change with enlargement and extension into the mediastinum. The patient currently does not have a diagnosis. Resting comfortably at time of examination. No shortness of breath noted. Past History Past Medical History: COPD Medications and Allergies Allergies Allergy/AdvReac Type Severity Reaction Status Date / Time No Known Allergies Allergy Verified 06/17/18 13:24 Home Medications Medication Instructions Recorded Confirmed Last Taken Type traZODone [Desyrel] 200 mg PO QHS 12/12/12 06/17/18 12/20/17 22:00 History Atorvastatin [Lipitor] 40 mg PO QHS #30 tab 01/07/17 06/17/18 12/20/17 Rx ALPRAZolam [Xanax TAB] 1 mg PO BID 06/17/18 06/17/18 Unknown History Albuterol Sulfate 1 neb IH BID 06/17/18 06/17/18 Unknown History Ergocalciferol (Vitamin D2) 50,000 unit PO QWEEK 06/17/18 06/17/18 Unknown History [Drisdol] Furosemide [Lasix] 20 mg PO QDAY 06/17/18 06/17/18 Unknown History Metoprolol [Lopressor TAB] 25 mg PO DAILY 06/17/18 06/17/18 Unknown History Rivaroxaban [Xarelto] 20 mg PO QDAY 06/17/18 06/17/18 Unknown History Spironolactone [Aldactone] 25 mg PO QDAY 06/17/18 06/17/18 Unknown History Venlafaxine [Effexor] 75 mg PO TID 06/17/18 06/17/18 Unknown History Active Meds: Active Medications Acetaminophen (Tylenol) 650 mg PO Q4H PRN PRN Reason: Pain MILD(1-3)/Fever >100.5/TORREZ Acetaminophen/Butalbital/Caffeine (Fioricet) 1 tab PO Q4H PRN PRN Reason: Headache Last Admin: 06/17/18 20:52 Dose: 1 tab Documented by: Albuterol (Proventil) 2.5 mg IH Q4HRT PRN PRN Reason: Shortness Of Breath Albuterol/Ipratropium (Duoneb *Not For Prn Use*) 1 ampul IH QIDRT [facility] Last Admin: 06/19/18 08:05 Dose: 1 ampul Documented by: Alprazolam (Xanax) 1 mg PO BID [facility] Last Admin: 06/19/18 09:57 Dose: 1 mg Documented by: Atorvastatin Calcium (Lipitor) 40 mg PO QHS [facility] Last Admin: 06/18/18 22:23 Dose: 40 mg Documented by: Ergocalciferol (Vitamin D2) 50,000 unit PO Th [facility] Famotidine (Pepcid) 20 mg PO BID [facility] Last Admin: 06/19/18 09:57 Dose: 20 mg Documented by: Furosemide (Lasix) 20 mg PO QDAY [facility] Last Admin: 06/19/18 09:57 Dose: 20 mg Documented by: Levofloxacin/Dextrose (Levaquin 750mg/150ml) 750 mg in 150 mls @ 100 mls/hr IV Q24HR@2200 [facility]; Protocol Last Admin: 06/18/18 22:22 Dose: 100 mls/hr Documented by: Insulin Human Isoph/Insulin Regular (Humulin 70/30) 22 unit SUB-Q BIDDIAB [facility] Last Admin: 06/19/18 09:56 Dose: 22 unit Documented by: Insulin Human Lispro (Humalog) 0 unit SUB-Q ACHS [facility]; Protocol Last Admin: 06/19/18 09:56 Dose: 6 unit Documented by: Lorazepam (Ativan) 0.5 mg IV Q4H PRN PRN Reason: Agitation Last Admin: 06/18/18 17:32 Dose: 0.5 mg Documented by: Methylprednisolone Sodium Succinate (Solu-Medrol) 40 mg IV Q12H [facility] Last Admin: 06/19/18 05:03 Dose: 40 mg Documented by: Metoprolol Tartrate (Lopressor) 25 mg PO DAILY [facility] Last Admin: 06/19/18 09:56 Dose: 25 mg Documented by: Morphine Sulfate (Morphine) 2 mg IV Q4H PRN PRN Reason: Pain, Moderate (4-6) Ondansetron HCl (Zofran) 4 mg IV Q8H PRN PRN Reason: Nausea And Vomiting Oxycodone/Acetaminophen (Percocet 5/325) 1 tab PO Q6H PRN PRN Reason: Pain, Moderate (4-6) Last Admin: 06/19/18 09:57 Dose: 1 tab Documented by: Rivaroxaban (Xarelto) 20 mg PO QDAY@1700 [facility]; Protocol Last Admin: 06/18/18 17:23 Dose: 20 mg Documented by: Sodium Chloride (Sodium Chloride Flush Syringe 10 Ml) 10 ml IV BID [facility] Last Admin: 06/19/18 10:03 Dose: 10 ml Documented by: Sodium Chloride (Sodium Chloride Flush Syringe 10 Ml) 10 ml IV PRN PRN PRN Reason: LINE FLUSH Spironolactone (Aldactone) 25 mg PO QDAY [facility] Last Admin: 06/19/18 09:57 Dose: 25 mg Documented by: Trazodone HCl (Desyrel) 200 mg PO QHS [facility] Last Admin: 06/18/18 22:23 Dose: 200 mg Documented by: Venlafaxine HCl (Effexor) 75 mg PO TID [facility] Last Admin: 06/19/18 10:03 Dose: 75 mg Documented by: Review of Systems All systems: negative Exam - Constitutional Vitals: Temp Pulse Resp BP Pulse Ox 96.7 F L 119 H 18 120/80 92 06/19/18 08:18 06/19/18 09:56 06/19/18 09:57 06/19/18 09:56 06/19/18 08:06 General appearance: Present: no acute distress - EENT Eyes: Present: EOM intact ENT: hearing intact - Neck Neck: Present: supple, normal ROM - Respiratory Respiratory effort: normal - Abdominal General gastrointestinal: Present: deferred Female genitourinary: Present: deferred - Rectal Rectal Exam: deferred - Psychiatric Psychiatric: appropriate mood/affect, cooperative Results - Labs CBC & Chem 7: 06/19/18 05:46 06/19/18 05:46 Labs: Abnormal lab results 06/18/18 06/18/18 06/18/18 Range/Units 12:06 16:32 16:46 RDW (13.2-15.2) % Lymph % (Auto) (13.4-35.0) % Lymph # (1.2-5.4) K/mm3 Seg Neutrophils % (40.0-70.0) % Seg Neutrophils # (1.8-7.7) K/mm3 PT 15.6 H (12.2-14.9) Sec. INR 1.17 H (0.87-1.13) D-Dimer 508.49 H (0-234) ng/mlDDU Sodium (137-145) mmol/L Chloride (98-107) mmol/L BUN (7-17) mg/dL Glucose (65-100) mg/dL POC Glucose 350 H 268 H (70-105) 06/18/18 06/19/18 06/19/18 Range/Units 22:08 05:46 05:46 RDW 16.1 H (13.2-15.2) % Lymph % (Auto) 4.8 L (13.4-35.0) % Lymph # 0.5 L (1.2-5.4) K/mm3 Seg Neutrophils % 87.7 H (40.0-70.0) % Seg Neutrophils # 8.8 H (1.8-7.7) K/mm3 PT (12.2-14.9) Sec. INR (0.87-1.13) D-Dimer (0-234) ng/mlDDU Sodium 135 L (137-145) mmol/L Chloride 94.4 L (98-107) mmol/L BUN 25 H (7-17) mg/dL Glucose 375 H (65-100) mg/dL POC Glucose 308 H (70-105) 06/19/18 Range/Units 07:55 RDW (13.2-15.2) % Lymph % (Auto) (13.4-35.0) % Lymph # (1.2-5.4) K/mm3 Seg Neutrophils % (40.0-70.0) % Seg Neutrophils # (1.8-7.7) K/mm3 PT (12.2-14.9) Sec. INR (0.87-1.13) D-Dimer (0-234) ng/mlDDU Sodium (137-145) mmol/L Chloride (98-107) mmol/L BUN (7-17) mg/dL Glucose (65-100) mg/dL POC Glucose 335 H (70-105) - Imaging and Cardiology CT scan - chest: report reviewed, image reviewed Assessment and Plan Patient with interval enlargement of her right upper lobe pulmonary mass. She will need to be scheduled for biopsy tomorrow. This can be done with either us or diagnostic radiology scheduling permitting.
--- NOTE | 2018-06-19 10:21 | Cat Scan Report ---
PROCEDURE: CT ABDOMEN PELVIS W CON TECHNIQUE: Computerized axial tomography of the abdomen and pelvis was performed after the IV inject ion of iodinated nonionic contrast. CT DOSE LENGTH PRODUCT: 3365.6 mGycm HISTORY: lung mass COMPARISONS: None . FINDINGS: Visualized lower thorax: Small to moderate right pleural effusion with associated atelectasis at the right lung base. Liver: Mildly nodular surface of the liver. No obvious focal intrarenal lesion. Spleen: Normal size and attenuation. Gallbladder and biliary system: Normal. Pancreas: Normal. Adrenals: 1.3 cm nodule of the medial limb of the left adrenal gland. Kidneys: 2 cm low-density lesion of the upper pole of the left kidney, that may represent a cyst. No hydronephrosis. GI tract: No focal wall thickening. No evidence of obstruction. Normal appendix without surrounding inflammatory change. Diverticulosis of the sigmoid colon without evidence of diverticulitis . Lymph nodes and mesentery: Normal. Vasculature: Normal caliber of the abdominal aorta. Scattered atherosclerotic calcifications. Normal appearance of the portal venous system in the inferior vena cava. Bladder: Normal. Reproductive organs: The uterus has been surgically removed.. Peritoneum: No free fluid. Musculoskeletal structures: No acute fracture or dislocation. No suspicious osseous lesions. Degenera tive changes of the lumbar spine. Soft tissues are normal. Other: None . IMPRESSION: Mildly nodular surface of the liver, which may represent cirrhosis. Small right pleural effusion with associated atelectasis. 1.3 cm nodule in the medial limb of the left adrenal gland. Statistically this most likely represents an adrenal adenoma, however metastatic disease is not excluded. 2 cm low-density lesion in the upper pole of the left kidney, that may represent a cyst. Consider fur ther evaluation with renal ultrasound . This document is electronically signed by Megan Winter MD., Jun 19 2018 10:19:15 AM ET
--- NOTE | 2018-06-19 11:31 | Progress Note ---
Assessment and Plan Acute hypoxemic respiratory failure. Lung mass that appears to have been present in December of last year. Postobstructive pneumonia component. History of congestive heart failure. Diabetes type 2. Hypertension. History of depression. Acute chronic obstructive pulmonary disease exacerbation. History of tobacco abuse. Possible obstructive sleep apnea. - continue supplemental oxygen and wean for sat's > 90% - continue bronchodilators with pulmonary hygiene per RT - continue systemic steroids with quick taper as tolerated - continue xarelto for A-fib (hold for procedure) - continue BIPAP scheduled qhs with prn daytime use - continue GI & VTE prophylaxis - dopplers negative for VTE - continue accuchecks with glycemic control per SSI for target BG < 180 mg/dl - continue other care per attending / other consultants ... re-evaluate in am & prn Subjective Date of service: 06/19/18 Principal diagnosis: Ac hypoxemic resp failure; Lung mass; pneumonia; CHF; DM II; HTN Interval history: Patient is seen today for: Acute hypoxemic respiratory failure; Lung mass; Postobstructive pneumonia; History of congestive heart failure; Diabetes type 2; Hypertension. Seen and examined at bedside; 24-hour events reviewed; nursing and respiratory care staff consulted; no adverse overnight events reported to me; resting peacefully in bed; seen by IR; tentatively for needle biopsy in am; no N/V/F/C Objective Vital Signs - 12hr 06/19/18 06/19/18 06/19/18 02:14 02:22 07:54 Temperature 97.6 F Pulse Rate 114 H 119 H Pulse Rate [ Anterior Bilateral Throughout] Respiratory 16 22 Rate Respiratory Rate [Anterior Bilateral Throughout] Blood Pressure 108/47 120/80 O2 Sat by Pulse 91 93 Oximetry 06/19/18 06/19/18 06/19/18 08:06 08:18 08:22 Temperature 96.7 F L Pulse Rate Pulse Rate [ 118 H 118 H Anterior Bilateral Throughout] Respiratory Rate Respiratory 20 Rate [Anterior Bilateral Throughout] Blood Pressure O2 Sat by Pulse 92 Oximetry 06/19/18 06/19/18 06/19/18 09:56 09:57 10:00 Temperature Pulse Rate 119 H 115 H Pulse Rate [ Anterior Bilateral Throughout] Respiratory 18 Rate Respiratory Rate [Anterior Bilateral Throughout] Blood Pressure 120/80 O2 Sat by Pulse 94 Oximetry Constitutional: no acute distress, alert, other (elderly looking obese CF, normocephalic and atraumatic with increased respiratory effort at rest) Eyes: non-icteric ENT: oropharynx moist, other (mallampati 3) Neck: supple, no lymphadenopathy, no JVD, other (large neck circumference) Effort: mildly labored Ascultation: Right: diminished breath sounds, Bilateral: rhonchi Percussion: Bilateral: not dull Cardiovascular: regular rate and rhythm Gastrointestinal: normoactive bowel sounds, soft, non-tender, non-distended Integumentary: normal Extremities: no cyanosis, no edema, pink and warm, pulses normal, no ischemia or petechiae Neurologic: normal mental status, non-focal exam, pupils equal and round, motor strength normal and Psychiatric: anxious CBC and BMP: 06/22/18 05:36 06/23/18 04:41 ABG, PT/INR, D-dimer: PT/INR, D-dimer PT 15.6 Sec. (12.2-14.9) H 06/18/18 16:32 INR 1.17 (0.87-1.13) H 06/18/18 16:32 508.49 ng/mlDDU (0-234) H 06/18/18 16:32 Abnormal lab findings: Abnormal Labs 06/17/18 06/17/18 06/17/18 13:41 13:41 13:51 RDW 16.0 H Lymph % (Auto) Cloud % (Auto) 8.7 H Lymph # 1.1 L Seg Neutrophils % 71.3 H Seg Neutrophils # PT INR D-Dimer Sodium 132 L Chloride 90.6 L BUN 19 H Glucose 217 H POC Glucose Hemoglobin A1c 11.2 H NT-Pro-B Natriuret Pep 2038 H Albumin 3.7 L 06/17/18 06/18/18 06/18/18 22:03 06:06 06:06 RDW 16.6 H Lymph % (Auto) 12.4 L Cloud % (Auto) Lymph # 0.7 L Seg Neutrophils % 83.9 H Seg Neutrophils # PT INR D-Dimer Sodium 135 L Chloride 94.1 L BUN 21 H Glucose 332 H POC Glucose 225 H Hemoglobin A1c NT-Pro-B Natriuret Pep Albumin 06/18/18 06/18/18 06/18/18 07:24 12:06 16:32 RDW Lymph % (Auto) Cloud % (Auto) Lymph # Seg Neutrophils % Seg Neutrophils # PT 15.6 H INR 1.17 H D-Dimer 508.49 H Sodium Chloride BUN Glucose POC Glucose 282 H 350 H Hemoglobin A1c NT-Pro-B Natriuret Pep Albumin 06/18/18 06/18/18 06/19/18 16:46 22:08 05:46 RDW 16.1 H Lymph % (Auto) 4.8 L Cloud % (Auto) Lymph # 0.5 L Seg Neutrophils % 87.7 H Seg Neutrophils # 8.8 H PT INR D-Dimer Sodium Chloride BUN Glucose POC Glucose 268 H 308 H Hemoglobin A1c NT-Pro-B Natriuret Pep Albumin 06/19/18 06/19/18 05:46 07:55 RDW Lymph % (Auto) Cloud % (Auto) Lymph # Seg Neutrophils % Seg Neutrophils # PT INR D-Dimer Sodium 135 L Chloride 94.4 L BUN 25 H Glucose 375 H POC Glucose 335 H Hemoglobin A1c NT-Pro-B Natriuret Pep Albumin Chest x-ray: image reviewed Allied health notes reviewed: nursing
[2018-06-19] MEDS: XARELTO PO SCH (17:28)
[2018-06-19] MEDS: DESYREL PO SCH (22:40)
[2018-06-19] MEDS: LEVAQUIN 750MG/150ML 750 MG/150 ML BAG IV SCH (22:40)
[2018-06-20] MEDS: SOLU-Medrol IV SCH ×2 (05:41→18:38)
--- NOTE | 2018-06-20 07:09 | Hem/Onc Progress Note ---
Assessment and Plan 1. Large lung mass with lymphadenopathy and pleural effusion. 2. History of shortness of breath. 3. History of chest pain. 4. History of hypertension. 5. History of congestive heart failure. 6. In the past, the patient had deep venous thrombosis and was on Xarelto. 7. History of diabetes. 8. History of hyperlipidemia. 9. History of vitamin D deficiency. I discussed with the patient regarding high suspicion for neoplasm. I discussed about small cell versus non-small cell. The patient's mother had small cell cancer. The patient quit smoking a few years ago. IR consultation done and pulmonary team had seen the patient. 06/20 CT head - neg CT A/p - nodular liver - adrenal lesion will await bx and path Subjective Date of service: 06/20/18 Objective - Constitutional Vitals: Last Vital Signs Temp 97.4 F L 06/20/18 02:54 Pulse 98 H 06/19/18 22:00 Resp 20 06/20/18 02:54 BP 111/79 06/20/18 02:54 Pulse Ox 98 06/19/18 22:00 Pain Intensity (0-10): denies any pain General appearance: no acute distress Performance status: 3-limited selfcare - EENT Eyes: EOM intact ENT: hearing intact Lymph node exam: negative cervical - Neck Neck: normal ROM - Respiratory Respiratory effort: Positive: other (on o2) Respiratory: bilateral: diminished - Cardiovascular Heart Sounds: Present: S1 & S2 Extremities: normal temperature - Gastrointestinal General gastrointestinal: Present: soft, non-tender Rectal Exam: deferred - Genitourinary Female genitourinary: Present: deferred - Integumentary Integumentary: warm - Musculoskeletal Musculoskeletal: strength equal bilaterally - Neurologic Neurologic: moves all extremities - Labs Lab Results: Laboratory Results - last 24 hr 06/19/18 06/19/18 06/19/18 07:55 11:32 16:48 POC Glucose 335 H 403 H 233 H 06/19/18 22:37 POC Glucose 247 H Medications & Allergies - Medications Allergies/Adverse Reactions: Allergies No Known Allergies Allergy (Verified 06/17/18 13:24) Home Medications: Home Medications Medication Instructions Recorded Confirmed Last Taken Type RX: traZODone [Desyrel] 200 mg PO QHS 12/12/12 06/17/18 12/20/17 22:00 History RX: Atorvastatin [Lipitor] 40 mg PO QHS #30 tab 01/07/17 06/17/18 12/20/17 Rx ALPRAZolam [Xanax TAB] 1 mg PO BID 06/17/18 06/17/18 Unknown History Ergocalciferol (Vitamin D2) 50,000 unit PO QWEEK 06/17/18 06/17/18 Unknown History [Drisdol] Furosemide [Lasix] 20 mg PO QDAY 06/17/18 06/17/18 Unknown History RX: Albuterol Sulfate 1 neb IH BID 06/17/18 06/17/18 Unknown History RX: Metoprolol [Lopressor TAB] 25 mg PO DAILY 06/17/18 06/17/18 Unknown History Rivaroxaban [Xarelto] 20 mg PO QDAY 06/17/18 06/17/18 Unknown History Spironolactone [Aldactone] 25 mg PO QDAY 06/17/18 06/17/18 Unknown History Venlafaxine [Effexor] 75 mg PO TID 06/17/18 06/17/18 Unknown History Active Medications: Generic Name Dose Route Start Last Admin Trade Name Freq PRN Reason Stop Dose Admin Acetaminophen 650 mg 06/17/18 21:30 Tylenol PO Q4H PRN Pain MILD(1-3)/Fever >100.5/TORREZ Acetaminophen/Butalbital/Caffeine 1 tab 06/17/18 20:23 06/17/18 20:52 Fioricet PO 1 tab Q4H PRN Administration Headache Albuterol 2.5 mg 06/17/18 21:31 Proventil IH Q4HRT PRN Shortness Of Breath Albuterol/Ipratropium 1 ampul 06/18/18 08:00 06/19/18 19:35 Duoneb *Not For Prn Use* IH 1 ampul QIDRT HARLAN Administration Alprazolam 1 mg 06/17/18 22:00 06/19/18 22:40 Xanax PO 1 mg BID HARLAN Administration Atorvastatin Calcium 40 mg 06/17/18 22:00 06/19/18 22:40 Lipitor PO 40 mg QHS HARLAN Administration Ergocalciferol 50,000 unit 06/23/18 10:00 Vitamin D2 PO Th HARLAN Famotidine 20 mg 06/17/18 22:00 06/19/18 22:41 Pepcid PO 20 mg BID HARLAN Administration Furosemide 20 mg 06/17/18 22:00 06/19/18 09:57 Lasix PO 20 mg QDAY HARLAN Administration Levofloxacin/Dextrose 750 mg in 150 mls @ 100 mls/hr 06/17/18 22:00 06/19/18 22:40 Levaquin 750mg/150ml IV 100 mls/hr Q24HR@2200 HARLAN Administration Protocol Insulin Human Isoph/Insulin Regular 25 unit 06/19/18 13:55 06/19/18 17:28 Humulin 70/30 SUB-Q 25 unit BIDDIAB HARLAN Administration Insulin Human Lispro 0 unit 06/17/18 22:00 06/19/18 22:42 Humalog SUB-Q 3 unit ACHS [facility] Administration Protocol Lorazepam 0.5 mg 06/17/18 20:23 06/18/18 17:32 Ativan IV 0.5 mg Q4H PRN Administration Agitation Methylprednisolone Sodium Succinate 40 mg 06/18/18 17:00 06/20/18 05:41 Solu-Medrol IV 40 mg Q12H HARLAN Administration Metoprolol Tartrate 25 mg 06/17/18 22:00 06/19/18 09:56 Lopressor PO 25 mg DAILY HARLAN Administration Morphine Sulfate 2 mg 06/17/18 21:30 Morphine IV Q4H PRN Pain, Moderate (4-6) Ondansetron HCl 4 mg 06/17/18 21:30 Zofran IV Q8H PRN Nausea And Vomiting Oxycodone/Acetaminophen 1 tab 06/17/18 21:30 06/19/18 09:57 Percocet 5/325 PO 1 tab Q6H PRN Administration Pain, Moderate (4-6) Rivaroxaban 20 mg 06/17/18 22:00 06/19/18 17:28 Xarelto PO 20 mg QDAY@1700 [facility] Administration Protocol Sodium Chloride 10 ml 06/17/18 22:00 06/19/18 22:43 Sodium Chloride Flush Syringe 10 Ml IV 10 ml BID HARLAN Administration Sodium Chloride 10 ml 06/17/18 21:30 Sodium Chloride Flush Syringe 10 Ml IV PRN PRN LINE FLUSH Spironolactone 25 mg 06/18/18 10:00 06/19/18 09:57 Aldactone PO 25 mg QDAY HARLAN Administration Trazodone HCl 200 mg 06/17/18 22:00 06/19/18 22:40 Desyrel PO 200 mg QHS HARLAN Administration Venlafaxine HCl 75 mg 06/18/18 08:00 06/19/18 22:41 Effexor PO 75 mg TID HARLAN Administration
[2018-06-20] MEDS: HumaLOG SUB-Q SCH ×5 (07:30→22:37)
[2018-06-20] MEDS: EFFEXOR PO SCH ×3 (08:00→22:35)
[2018-06-20] MEDS: DUONEB *Not for PRN Use IH SCH ×4 (08:00→20:39)
[2018-06-20] MEDS ORDERED: VERSED IV NR (09:10)
[2018-06-20] MEDS ORDERED: SUBLIMAZE IV NR (09:10)
[2018-06-20] MEDS ORDERED: SUBLIMAZE ONE (09:21)
[2018-06-20] MEDS ORDERED: NACL 0.9% 500 ML 0 ML ONE (09:23)
[2018-06-20] MEDS: SODIUM CHLORIDE FLUSH SYRINGE 10 ML IV SCH ×2 (10:40→22:37)
[2018-06-20] MEDS: LASIX PO SCH (10:41)
[2018-06-20] MEDS: XANAX PO SCH ×2 (10:42→22:34)
[2018-06-20] MEDS: LOPRESSOR PO SCH (10:43)
[2018-06-20] MEDS: ALDACTONE PO SCH (10:43)
[2018-06-20] MEDS: PEPCID PO SCH ×2 (10:43→22:34)
--- NOTE | 2018-06-20 11:53 | Progress Note ---
Assessment and Plan Assessment and plan: 68 years old female patient admitted through emergency room with worsening shortness of breath, noted to be in acute exacerbation of COPD, workup revealed large lung mass with postobstructive pneumonia, evaluated by pulmonary, hematology oncology, interventional radiologist, scheduled for CT-guided lung biopsy. Patient has history of DVT /atrial flutter on Xeralto. Uncontrolled diabetes secondary to noncompliance and steroids Assessment and plan: --Right upper lobe mass; pulmonary and oncology,IR following Scheduled for US/CT-guided lung biopsy CT head ; no findings suggestive of metastasis CT abdomen and pelvis; nodular surface of liver possible cirrhosis Small right pleural effusion associated with atelectasis --Acute on chronic hypoxic respiratory failure; Acute exacerbation of COPD, oxygen titrated O2 sats to more than 90% Nebulizers ,tapering dose of IV steroids and antibiotics, pulmonary following --Elevated D Dimers: Negative PE Negative DVT --Hypertension; well controlled,on antihypertensives --Acute on chronic systolic congestive heart failure; Ejection fraction 35-40% in December/2017 , anti-failure medications --History of atrial flutter; continue beta blockers,Xeralto --History of DVT; [venous Doppler this admission negative for DVT] on Xeralto, hematology following --Type 2 diabetes mellitus; uncontrolled/noncompliance A1c 11.2,Accu-Chek SSC and ADA diet , diabetic education Increase Novolin 70/30 to 28 units twice a day, Home health nurse for monitoring at discharge --Medical noncompliance: advised to comply with medications and diet and follow-up visits; --Dyslipidemia; on statin --History of depression; stable, on antidepression medications --Morbid obesity; BMI 38.7; advised weight reduction and medically stable --DVT prophylaxis; patient is already on Xeralto Monitor closely and adjust the management as needed Disposition; CT-guided lung biopsy tomorrow Plan of care is reviewed with the patient and her nurse History Interval history: Patient seen and examined medical records reviewed Patient scheduled for CT-guided biopsy today however Xeralto was not held, rescheduled for tomorrow Patient comfortable in no new complaints Uncontrolled blood sugars Hospitalist Physical - Constitutional Vitals: Temp Pulse Resp BP Pulse Ox 97.3 F L 119 H 22 128/71 96 06/20/18 07:36 06/20/18 10:43 06/20/18 10:40 06/20/18 10:43 06/20/18 07:36 General appearance: Present: no acute distress, well-nourished, obese - EENT Eyes: Present: PERRL, EOM intact - Neck Neck: Present: supple, normal ROM - Respiratory Respiratory effort: normal Respiratory: bilateral: diminished, rhonchi, negative: rales, wheezing - Cardiovascular Rhythm: regular Heart Sounds: Present: S1 & S2 - Extremities Extremities: no ischemia, No edema - Abdominal General gastrointestinal: soft, non-tender, non-distended, normal bowel sounds - Integumentary Integumentary: Present: clear, warm - Psychiatric Psychiatric: appropriate mood/affect, cooperative - Neurologic Neurologic: CNII-XII intact, moves all extremities Results - Labs CBC & Chem 7: 06/19/18 05:46 06/19/18 05:46 Labs: Laboratory Last Values WBC 10.1 K/mm3 (4.5-11.0) 06/19/18 05:46 RBC 3.79 M/mm3 (3.65-5.03) 06/19/18 05:46 Hgb 10.7 gm/dl (10.1-14.3) 06/19/18 05:46 Hct 33.7 % (30.3-42.9) 06/19/18 05:46 MCV 89 fl (79-97) 06/19/18 05:46 MCH 28 pg (28-32) 06/19/18 05:46 MCHC 32 % (30-34) 06/19/18 05:46 RDW 16.1 % (13.2-15.2) H 06/19/18 05:46 Plt Count 217 K/mm3 (140-440) 06/19/18 05:46 Lymph % (Auto) 4.8 % (13.4-35.0) L 06/19/18 05:46 [place] % (Auto) 5.4 % (0.0-7.3) 06/19/18 05:46 Eos % (Auto) 1.7 % (0.0-4.3) 06/19/18 05:46 Baso % (Auto) 0.4 % (0.0-1.8) 06/19/18 05:46 Lymph # 0.5 K/mm3 (1.2-5.4) L 06/19/18 05:46 [place] # 0.5 K/mm3 (0.0-0.8) 06/19/18 05:46 Eos # 0.2 K/mm3 (0.0-0.4) 06/19/18 05:46 Baso # 0.0 K/mm3 (0.0-0.1) 06/19/18 05:46 Seg Neutrophils % 87.7 % (40.0-70.0) H 06/19/18 05:46 Seg Neutrophils # 8.8 K/mm3 (1.8-7.7) H 06/19/18 05:46 PT 15.6 Sec. (12.2-14.9) H 06/18/18 16:32 INR 1.17 (0.87-1.13) H 06/18/18 16:32 508.49 ng/mlDDU (0-234) H 06/18/18 16:32 Sodium 135 mmol/L (137-145) L 06/19/18 05:46 Potassium 5.0 mmol/L (3.6-5.0) 06/19/18 05:46 Chloride 94.4 mmol/L (98-107) L 06/19/18 05:46 Carbon Dioxide 29 mmol/L (22-30) 06/19/18 05:46 17 mmol/L 06/19/18 05:46 BUN 25 mg/dL (7-17) H 06/19/18 05:46 0.9 mg/dL (0.7-1.2) 06/19/18 05:46 Estimated GFR > 60 ml/min 06/19/18 05:46 28 % 06/19/18 05:46 Glucose 375 mg/dL (65-100) H 06/19/18 05:46 POC Glucose 288 (70-105) H 06/20/18 11:31 11.2 % (4-6) H 06/17/18 13:51 Calcium 9.6 mg/dL (8.4-10.2) 06/19/18 05:46 Magnesium 2.00 mg/dL (1.7-2.3) 06/19/18 05:46 0.40 mg/dL (0.1-1.2) 06/18/18 06:06 AST 27 units/L (5-40) 06/18/18 06:06 ALT 16 units/L (7-56) 06/18/18 06:06 111 units/L (35-129) 06/18/18 06:06 < 0.010 ng/mL (0.00-0.029) 06/17/18 14:33 NT-Pro-B Natriuret Pep 2038 pg/mL (0-900) H 06/17/18 13:41 7.4 g/dL (6.3-8.2) 06/18/18 06:06 4.0 g/dL (3.9-5) 06/18/18 06:06 1.2 % 06/18/18 06:06 Active Medications - Current Medications Current Medications: Generic Name Dose Route Start Last Admin Trade Name Freq PRN Reason Stop Dose Admin Acetaminophen 650 mg 06/17/18 21:30 Tylenol PO Q4H PRN Pain MILD(1-3)/Fever >100.5/TORREZ Acetaminophen/Butalbital/Caffeine 1 tab 06/17/18 20:23 06/17/18 20:52 Fioricet PO 1 tab Q4H PRN Administration Headache Albuterol 2.5 mg 06/17/18 21:31 Proventil IH Q4HRT PRN Shortness Of Breath Albuterol/Ipratropium 1 ampul 06/18/18 08:00 06/19/18 19:35 Duoneb *Not For Prn Use* IH 1 ampul QIDRT HARLAN Administration Alprazolam 1 mg 06/17/18 22:00 06/20/18 10:42 Xanax PO 1 mg BID HARLAN Administration Atorvastatin Calcium 40 mg 06/17/18 22:00 06/19/18 22:40 Lipitor PO 40 mg QHS HARLAN Administration Ergocalciferol 50,000 unit 06/23/18 10:00 Vitamin D2 PO Th HARLAN Famotidine 20 mg 06/17/18 22:00 06/20/18 10:43 Pepcid PO 20 mg BID HARLAN Administration Fentanyl 100 mcg 06/20/18 09:10 Sublimaze IV 06/20/18 16:00 ONCE NR Furosemide 20 mg 06/17/18 22:00 06/20/18 10:41 Lasix PO 20 mg QDAY HARLAN Administration Levofloxacin/Dextrose 750 mg in 150 mls @ 100 mls/hr 06/17/18 22:00 06/19/18 22:40 Levaquin 750mg/150ml IV 100 mls/hr Q24HR@2200 [facility] Administration Protocol Insulin Human Isoph/Insulin Regular 25 unit 06/19/18 13:55 06/19/18 17:28 Humulin 70/30 SUB-Q 25 unit BIDDIAB HARLAN Administration Insulin Human Lispro 0 unit 06/17/18 22:00 06/19/18 22:42 Humalog SUB-Q 3 unit ACHS [facility] Administration Protocol Lorazepam 0.5 mg 06/17/18 20:23 06/18/18 17:32 Ativan IV 0.5 mg Q4H PRN Administration Agitation Methylprednisolone Sodium Succinate 40 mg 06/18/18 17:00 06/20/18 05:41 Solu-Medrol IV 40 mg Q12H HARLAN Administration Metoprolol Tartrate 25 mg 06/17/18 22:00 06/20/18 10:43 Lopressor PO 25 mg DAILY [facility] Administration Midazolam HCl 5 mg 06/20/18 09:10 Versed IV 06/20/18 16:00 ONCE NR Morphine Sulfate 2 mg 06/17/18 21:30 06/20/18 10:40 Morphine IV 2 mg Q4H PRN Administration Pain, Moderate (4-6) Ondansetron HCl 4 mg 06/17/18 21:30 Zofran IV Q8H PRN Nausea And Vomiting Oxycodone/Acetaminophen 1 tab 06/17/18 21:30 06/19/18 09:57 Percocet 5/325 PO 1 tab Q6H PRN Administration Pain, Moderate (4-6) Rivaroxaban 20 mg 06/17/18 22:00 06/19/18 17:28 Xarelto PO 20 mg QDAY@1700 [facility] Administration Protocol Sodium Chloride 10 ml 06/17/18 22:00 06/19/18 22:43 Sodium Chloride Flush Syringe 10 Ml IV 10 ml BID HARLNA Administration Sodium Chloride 10 ml 06/17/18 21:30 Sodium Chloride Flush Syringe 10 Ml IV PRN PRN LINE FLUSH Spironolactone 25 mg 06/18/18 10:00 06/20/18 10:43 Aldactone PO 25 mg QDAY HARLAN Administration Trazodone HCl 200 mg 06/17/18 22:00 06/19/18 22:40 Desyrel PO 200 mg QHS HARLAN Administration Venlafaxine HCl 75 mg 06/18/18 08:00 06/19/18 22:41 Effexor PO 75 mg TID HARLAN Administration
--- NOTE | 2018-06-20 14:48 | Progress Note ---
Assessment and Plan Patient awake. Resting on 3 litres O2. Weak. No acute respiratory distress.O2 saturation 96%.CT of the chest reported right upper lobe mass.Patient scheduled for per cutaneous needle biopsy of chest lesion. - Patient Problems (1) Mass of upper lobe of right lung Current Visit: Yes Status: Acute Plan to address problem: Patient scheduled for percutaneous needle biopsy of chest lesion. (2) Acute hypoxemic respiratory failure Current Visit: No Status: Acute Plan to address problem: O2 3 litres via nasal Canula. Albuterol/atrovent aerosol treatments q 6 hours. Contine I/V solumedrol. Patient is on Xarelto Held at this time for lung biopsy. Continue famotidine. Continue Levaquin. (3) COPD exacerbation Current Visit: No Status: Acute Plan to address problem: O2 3 litres via nasal Canula. Albuterol/atrovent aerosol treatments q 6 hours. Contine I/V solumedrol. Patient is on Xarelto Held at this time for lung biopsy. Continue famotidine. Continue Levaquin (4) ACS (acute coronary syndrome) Current Visit: No Status: Acute (5) Acute heart failure Current Visit: No Status: Acute Plan to address problem: Management as per cardiology. (6) Tobacco abuse Current Visit: No Status: Chronic Plan to address problem: Counselled to stop smoking. Subjective Date of service: 06/20/18 Principal diagnosis: Ac hypoxemic resp failure; Lung mass; pneumonia; CHF; DM II; HTN Interval history: Patient awake. Resting on 3 litres O2. Weak. No acute respiratory distress.O2 saturation 96%.CT of the chest reported right upper lobe mass.Patient scheduled for per cutaneous needle biopsy of chest lesion. Objective Vital Signs - 12hr 06/20/18 06/20/18 06/20/18 02:54 07:36 10:40 Temperature 97.4 F L 97.3 F L Pulse Rate 119 H Respiratory 20 22 22 Rate Blood Pressure 111/79 128/71 O2 Sat by Pulse 96 Oximetry 06/20/18 10:43 Temperature Pulse Rate 119 H Respiratory Rate Blood Pressure 128/71 O2 Sat by Pulse Oximetry Constitutional: no acute distress, alert, other (elderly looking obese CF, normocephalic and atraumatic with increased respiratory effort at rest) Eyes: non-icteric ENT: oropharynx moist, other (mallampati 3) Neck: supple, no lymphadenopathy, no JVD, other (large neck circumference) Effort: mildly labored Ascultation: Right: diminished breath sounds, Bilateral: rhonchi Percussion: Bilateral: not dull Cardiovascular: regular rate and rhythm Gastrointestinal: normoactive bowel sounds, soft, non-tender, non-distended Integumentary: normal Extremities: no cyanosis, no edema, pink and warm, pulses normal, no ischemia or petechiae Neurologic: normal mental status, non-focal exam, pupils equal and round, motor strength normal and Psychiatric: anxious CBC and BMP: 06/19/18 05:46 06/19/18 05:46 ABG, PT/INR, D-dimer: PT/INR, D-dimer PT 15.6 Sec. (12.2-14.9) H 06/18/18 16:32 INR 1.17 (0.87-1.13) H 06/18/18 16:32 508.49 ng/mlDDU (0-234) H 06/18/18 16:32 Abnormal lab findings: Abnormal Labs 06/17/18 06/17/18 06/17/18 13:41 13:41 13:51 RDW 16.0 H Lymph % (Auto) [place] % (Auto) 8.7 H Lymph # 1.1 L Seg Neutrophils % 71.3 H Seg Neutrophils # PT INR D-Dimer Sodium 132 L Chloride 90.6 L BUN 19 H Glucose 217 H POC Glucose Hemoglobin A1c 11.2 H NT-Pro-B Natriuret Pep 2038 H Albumin 3.7 L 06/17/18 06/18/18 06/18/18 22:03 06:06 06:06 RDW 16.6 H Lymph % (Auto) 12.4 L [place] % (Auto) Lymph # 0.7 L Seg Neutrophils % 83.9 H Seg Neutrophils # PT INR D-Dimer Sodium 135 L Chloride 94.1 L BUN 21 H Glucose 332 H POC Glucose 225 H Hemoglobin A1c NT-Pro-B Natriuret Pep Albumin 06/18/18 06/18/18 06/18/18 07:24 12:06 16:32 RDW Lymph % (Auto) [place] % (Auto) Lymph # Seg Neutrophils % Seg Neutrophils # PT 15.6 H INR 1.17 H D-Dimer 508.49 H Sodium Chloride BUN Glucose POC Glucose 282 H 350 H Hemoglobin A1c NT-Pro-B Natriuret Pep Albumin 06/18/18 06/18/18 06/19/18 16:46 22:08 05:46 RDW 16.1 H Lymph % (Auto) 4.8 L [place] % (Auto) Lymph # 0.5 L Seg Neutrophils % 87.7 H Seg Neutrophils # 8.8 H PT INR D-Dimer Sodium Chloride BUN Glucose POC Glucose 268 H 308 H Hemoglobin A1c NT-Pro-B Natriuret Pep Albumin 06/19/18 06/19/18 06/19/18 05:46 07:55 11:32 RDW Lymph % (Auto) [place] % (Auto) Lymph # Seg Neutrophils % Seg Neutrophils # PT INR D-Dimer Sodium 135 L Chloride 94.4 L BUN 25 H Glucose 375 H POC Glucose 335 H 403 H Hemoglobin A1c NT-Pro-B Natriuret Pep Albumin 06/19/18 06/19/18 06/20/18 16:48 22:37 07:40 RDW Lymph % (Auto) [place] % (Auto) Lymph # Seg Neutrophils % Seg Neutrophils # PT INR D-Dimer Sodium Chloride BUN Glucose POC Glucose 233 H 247 H 224 H Hemoglobin A1c NT-Pro-B Natriuret Pep Albumin 06/20/18 11:31 RDW Lymph % (Auto) [place] % (Auto) Lymph # Seg Neutrophils % Seg Neutrophils # PT INR D-Dimer Sodium Chloride BUN Glucose POC Glucose 288 H Hemoglobin A1c NT-Pro-B Natriuret Pep Albumin Chest x-ray: report reviewed (Large area of consolidation right upper lobe.), image reviewed CT scan - chest: report reviewed, image reviewed Additional Studies: CTA of chest done on 06/17/18 IMPRESSION: * Comparison with prior will be made as an addendum once requested prior images and report are provided. * Right upper lobe mass extending from the pleural surface to the right hilum and mediastinal. Mass surrounds and narrows the distal right main pulmonary artery and the upper lobe branches. Mass also constricts the right upper lobe bronchi. Tumor extends into the mediastinum and is confluent with the mediastinal and right hilar adenopathy. * Surrounding reticular markings and groundglass opacities are concerning for lymphangitic spread of tumor. * Small to moderate right pleural effusion. * No pulmonary embolus. No aortic aneurysm. No dissection. * Cardiomegaly. * Heterogeneous area of low attenuation in the left upper renal cortex is nonspecific. Allied health notes reviewed: nursing
[2018-06-20] MEDS: XARELTO PO SCH (17:03)
[2018-06-20] MEDS: PERCOCET 5/325 PO PRN (18:25)
[2018-06-20] MEDS: DESYREL PO SCH (22:34)
[2018-06-20] MEDS: LEVAQUIN 750MG/150ML 750 MG/150 ML BAG IV SCH (22:36)
[2018-06-21] MEDS: SOLU-Medrol IV SCH ×2 (05:12→18:07)
[2018-06-21 06:01] LABS: Basophils % (Auto) 0.1 % (0.0-1.8); Hematocrit 34.4 % (30.3-42.9); Lymphocytes # (Auto) 0.3 K/mm3 (1.2-5.4); Lymphocytes % (Auto) 3.4 % (13.4-35.0); Mean Corpuscular HGB Conc 32 % (30-34); Mean Corpuscular Volume 88 fl (79-97); Monocytes # (Auto) 0.8 K/mm3 (0.0-0.8); Monocytes % (Auto) 8.2 % (0.0-7.3); Platelet Count 183 K/mm3 (140-440); Red Blood Count 3.89 M/mm3 (3.65-5.03)
[2018-06-21 06:29] LABS: Calcium 9.4 mg/dL (8.4-10.2)
[2018-06-21] MEDS: HumaLOG SUB-Q SCH ×4 (07:10→22:22)
[2018-06-21] MEDS: XANAX PO SCH ×3 (07:10→22:24)
[2018-06-21] MEDS: EFFEXOR PO SCH ×3 (07:10→22:24)
--- NOTE | 2018-06-21 07:41 | Hem/Onc Progress Note ---
Assessment and Plan 1. Large lung mass with lymphadenopathy and pleural effusion. 2. History of shortness of breath. 3. History of chest pain. 4. History of hypertension. 5. History of congestive heart failure. 6. In the past, the patient had deep venous thrombosis and was on Xarelto. 7. History of diabetes. 8. History of hyperlipidemia. 9. History of vitamin D deficiency. I had discussed with the patient regarding high suspicion for neoplasm. I had discussed about small cell versus non-small cell. The patient's mother had sm all cell cancer. The patient quit smoking a few years ago. IR consultation done and pulmonary team had seen the patient. CT head - neg CT A/p - nodular liver - adrenal lesion 06/21 - bx delayed due to xarelto - Patient Problems (1) Mass of upper lobe of right lung Current Visit: Yes Status: Acute Subjective Date of service: 06/21/18 Principal diagnosis: lung mass Interval history: pt says - as was on xarelto - bx not done Objective - Constitutional Vitals: Last Vital Signs Temp 98.2 F 06/21/18 02:15 Pulse 120 H 06/21/18 06:02 Resp 22 06/21/18 02:15 BP 116/47 06/21/18 02:15 Pulse Ox 91 06/21/18 02:17 Pain Intensity (0-10): denies any pain General appearance: obese Performance status: 3-limited selfcare - EENT Eyes: EOM intact ENT: hearing intact Lymph node exam: negative cervical - Neck Neck: supple, normal ROM - Respiratory Respiratory effort: Positive: other (on o2) Respiratory: bilateral: diminished - Cardiovascular Heart Sounds: Present: S1 & S2 Extremities: normal temperature - Gastrointestinal General gastrointestinal: Present: soft, non-tender Rectal Exam: deferred - Genitourinary Female genitourinary: Present: deferred - Integumentary Integumentary: warm - Musculoskeletal Musculoskeletal: strength equal bilaterally, generalized weakness - Neurologic Neurologic: moves all extremities - Labs Lab Results: Laboratory Results - last 24 hr 06/20/18 06/20/18 06/20/18 07:40 11:31 16:40 WBC RBC Hgb Hct MCV MCH MCHC RDW Plt Count Lymph % (Auto) Arthur % (Auto) Eos % (Auto) Baso % (Auto) Lymph # Arthur # Eos # Baso # Seg Neutrophils % Seg Neutrophils # Sodium Potassium Chloride Carbon Dioxide Anion Gap BUN Creatinine Estimated GFR BUN/Creatinine Ratio Glucose POC Glucose 224 H 288 H 328 H Calcium 06/20/18 06/21/18 06/21/18 21:59 05:23 05:23 WBC 9.3 RBC 3.89 Hgb 11.0 Hct 34.4 MCV 88 MCH 28 MCHC 32 RDW 16.0 H Plt Count 183 Lymph % (Auto) 3.4 L Arthur % (Auto) 8.2 H Eos % (Auto) 0.0 Baso % (Auto) 0.1 Lymph # 0.3 L Arthur # 0.8 Eos # 0.0 Baso # 0.0 Seg Neutrophils % 88.3 H Seg Neutrophils # 8.2 H Sodium 137 Potassium 5.4 H Chloride 93.8 L Carbon Dioxide 33 H Anion Gap 16 BUN 33 H Creatinine 1.0 Estimated GFR 55 BUN/Creatinine Ratio 33 Glucose 267 H POC Glucose 321 H Calcium 9.4 06/21/18 07:01 WBC RBC Hgb Hct MCV MCH MCHC RDW Plt Count Lymph % (Auto) Arthur % (Auto) Eos % (Auto) Baso % (Auto) Lymph # Arthur # Eos # Baso # Seg Neutrophils % Seg Neutrophils # Sodium Potassium Chloride Carbon Dioxide Anion Gap BUN Creatinine Estimated GFR BUN/Creatinine Ratio Glucose POC Glucose 229 H Calcium Medications & Allergies - Medications Allergies/Adverse Reactions: Allergies No Known Allergies Allergy (Verified 06/17/18 13:24) Home Medications: Home Medications Medication Instructions Recorded Confirmed Last Taken Type traZODone [Desyrel] 200 mg PO QHS 12/12/12 06/17/18 12/20/17 22:00 History Atorvastatin [Lipitor] 40 mg PO QHS #30 tab 01/07/17 06/17/18 12/20/17 Rx ALPRAZolam [Xanax TAB] 1 mg PO BID 06/17/18 06/17/18 Unknown History Albuterol Sulfate 1 neb IH BID 06/17/18 06/17/18 Unknown History Ergocalciferol (Vitamin D2) 50,000 unit PO QWEEK 06/17/18 06/17/18 Unknown History [Drisdol] Furosemide [Lasix] 20 mg PO QDAY 06/17/18 06/17/18 Unknown History Metoprolol [Lopressor TAB] 25 mg PO DAILY 06/17/18 06/17/18 Unknown History Rivaroxaban [Xarelto] 20 mg PO QDAY 06/17/18 06/17/18 Unknown History Spironolactone [Aldactone] 25 mg PO QDAY 06/17/18 06/17/18 Unknown History Venlafaxine [Effexor] 75 mg PO TID 06/17/18 06/17/18 Unknown History Active Medications: Generic Name Dose Route Start Last Admin Trade Name Freq PRN Reason Stop Dose Admin Acetaminophen 650 mg 06/17/18 21:30 Tylenol PO Q4H PRN Pain MILD(1-3)/Fever >100.5/TORREZ Acetaminophen/Butalbital/Caffeine 1 tab 06/17/18 20:23 06/17/18 20:52 Fioricet PO 1 tab Q4H PRN Administration Headache Albuterol 2.5 mg 06/17/18 21:31 Proventil IH Q4HRT PRN Shortness Of Breath Albuterol/Ipratropium 1 ampul 06/18/18 08:00 06/20/18 20:39 Duoneb *Not For Prn Use* IH 1 ampul QIDRT HARLAN Administration Alprazolam 1 mg 06/20/18 20:00 06/21/18 07:10 Xanax PO 1 mg TID HARLAN Administration Atorvastatin Calcium 40 mg 06/17/18 22:00 06/20/18 22:35 Lipitor PO 40 mg QHS HARLAN Administration Ergocalciferol 50,000 unit 06/23/18 10:00 Vitamin D2 PO Th HARLAN Famotidine 20 mg 06/17/18 22:00 06/20/18 22:34 Pepcid PO 20 mg BID HARLAN Administration Furosemide 20 mg 06/17/18 22:00 06/20/18 10:41 Lasix PO 20 mg QDAY HARLAN Administration Levofloxacin/Dextrose 750 mg in 150 mls @ 100 mls/hr 06/17/18 22:00 06/20/18 22:36 Levaquin 750mg/150ml IV 100 mls/hr Q24HR@2200 HARLAN Administration Protocol Insulin Human Isoph/Insulin Regular 28 unit 06/20/18 17:00 06/21/18 07:11 Humulin 70/30 SUB-Q Not Given BIDDIAB [facility] Insulin Human Lispro 0 unit 06/17/18 22:00 06/21/18 07:10 Humalog SUB-Q 3 unit ACHS HARLAN Administration Protocol Lorazepam 0.5 mg 06/17/18 20:23 06/18/18 17:32 Ativan IV 0.5 mg Q4H PRN Administration Agitation Methylprednisolone Sodium Succinate 40 mg 06/18/18 17:00 06/21/18 05:12 Solu-Medrol IV 40 mg Q12H HARLAN Administration Metoprolol Tartrate 25 mg 06/17/18 22:00 06/20/18 10:43 Lopressor PO 25 mg DAILY HARLAN Administration Morphine Sulfate 2 mg 06/17/18 21:30 06/20/18 10:40 Morphine IV 2 mg Q4H PRN Administration Pain, Moderate (4-6) Ondansetron HCl 4 mg 06/17/18 21:30 Zofran IV Q8H PRN Nausea And Vomiting Oxycodone/Acetaminophen 1 tab 06/17/18 21:30 06/20/18 18:25 Percocet 5/325 PO 1 tab Q6H PRN Administration Pain, Moderate (4-6) Rivaroxaban 20 mg 06/17/18 22:00 06/20/18 17:03 Xarelto PO Not Given QDAY@1700 [facility] Protocol Sodium Chloride 10 ml 06/17/18 22:00 06/20/18 22:37 Sodium Chloride Flush Syringe 10 Ml IV 10 ml BID HARLAN Administration Sodium Chloride 10 ml 06/17/18 21:30 Sodium Chloride Flush Syringe 10 Ml IV PRN PRN LINE FLUSH Spironolactone 25 mg 06/18/18 10:00 06/20/18 10:43 Aldactone PO 25 mg QDAY HARLAN Administration Trazodone HCl 200 mg 06/17/18 22:00 06/20/18 22:34 Desyrel PO 200 mg QHS HARLAN Administration Venlafaxine HCl 75 mg 06/18/18 08:00 06/21/18 07:10 Effexor PO 75 mg TID HARLAN Administration
[2018-06-21] MEDS: DUONEB *Not for PRN Use IH SCH ×4 (07:48→20:23)
[2018-06-21] MEDS ORDERED: KIONEX PO ONE (08:45)
--- NOTE | 2018-06-21 09:22 | Progress Note ---
Assessment and Plan Assessment and plan: 68 years old female patient admitted through emergency room with worsening shortness of breath, noted to be in acute exacerbation of COPD, workup revealed large lung mass with postobstructive pneumonia, evaluated by pulmonary, hematology oncology, interventional radiologist, Patient has history of DVT /atrial flutter on Xeralto. Uncontrolled diabetes secondary to noncompliance and steroid, s/p CT-guided lung biopsy Assessment and plan: --Hyperkalemia; potassium 5.4, Kayexalate 15 g 1 dose --Right upper lobe mass; US/CT-guided lung biopsy today pulmonary and oncology,IR following CT head ; no findings suggestive of metastasis CT abdomen and pelvis; nodular surface of liver possible cirrhosis Small right pleural effusion associated with atelectasis --Acute on chronic hypoxic respiratory failure; Acute exacerbation of COPD, oxygen titrated O2 sats to more than 90% Nebulizers ,tapering dose of IV steroids and antibiotics, pulmonary following --Elevated D Dimers: Negative PE Negative DVT --Hypertension; well controlled,on antihypertensives --Acute on chronic systolic congestive heart failure; Ejection fraction 35-40% in December/2017 , anti-failure medications --History of atrial flutter; continue beta blockers,Xeralto --History of DVT; [venous Doppler this admission negative for DVT] on Xeralto, hematology following --Type 2 diabetes mellitus; uncontrolled/noncompliance A1c 11.2,Accu-Chek SSC and ADA diet , diabetic education Increase Novolin 70/30 to 28 units twice a day, Home health nurse for monitoring at discharge --Medical noncompliance: advised to comply with medications and diet and follow-up visits; --Dyslipidemia; on statin --History of depression; stable, on antidepression medications --Morbid obesity; BMI 38.7; advised weight reduction and medically stable --DVT prophylaxis; patient is already on Xeralto Monitor closely and adjust the management as needed Disposition; f/u lung biopsy report and oncology recommendations Plan of care is reviewed with the patient and her nurse History Interval history: Patient seen and examined this morning medical records reviewed Patient feels slightly better no new complaints Scheduled for biopsy today Alert awake oriented 3 Vital signs noted Hospitalist Physical - Constitutional Vitals: Temp Pulse Resp BP Pulse Ox 97.5 F L 122 H 22 97/52 93 06/21/18 07:50 06/21/18 07:50 06/21/18 07:50 06/21/18 07:50 06/21/18 07:50 General appearance: Present: no acute distress, well-nourished, obese - EENT Eyes: Present: PERRL, EOM intact - Neck Neck: Present: supple, normal ROM - Respiratory Respiratory effort: normal Respiratory: bilateral: diminished, rhonchi, negative: rales, wheezing - Cardiovascular Rhythm: regular Heart Sounds: Present: S1 & S2 - Extremities Extremities: no ischemia, No edema - Abdominal General gastrointestinal: soft, non-tender, non-distended, normal bowel sounds - Integumentary Integumentary: Present: clear, warm - Psychiatric Psychiatric: appropriate mood/affect, cooperative - Neurologic Neurologic: CNII-XII intact, moves all extremities Results - Labs CBC & Chem 7: 06/21/18 05:23 06/21/18 05:23 Labs: Laboratory Last Values WBC 9.3 K/mm3 (4.5-11.0) 06/21/18 05:23 RBC 3.89 M/mm3 (3.65-5.03) 06/21/18 05:23 Hgb 11.0 gm/dl (10.1-14.3) 06/21/18 05:23 Hct 34.4 % (30.3-42.9) 06/21/18 05:23 MCV 88 fl (79-97) 06/21/18 05:23 MCH 28 pg (28-32) 06/21/18 05:23 MCHC 32 % (30-34) 06/21/18 05:23 RDW 16.0 % (13.2-15.2) H 06/21/18 05:23 Plt Count 183 K/mm3 (140-440) 06/21/18 05:23 Lymph % (Auto) 3.4 % (13.4-35.0) L 06/21/18 05:23 Casey % (Auto) 8.2 % (0.0-7.3) H 06/21/18 05:23 Eos % (Auto) 0.0 % (0.0-4.3) 06/21/18 05:23 Baso % (Auto) 0.1 % (0.0-1.8) 06/21/18 05:23 Lymph # 0.3 K/mm3 (1.2-5.4) L 06/21/18 05:23 Casey # 0.8 K/mm3 (0.0-0.8) 06/21/18 05:23 Eos # 0.0 K/mm3 (0.0-0.4) 06/21/18 05:23 Baso # 0.0 K/mm3 (0.0-0.1) 06/21/18 05:23 Seg Neutrophils % 88.3 % (40.0-70.0) H 06/21/18 05:23 Seg Neutrophils # 8.2 K/mm3 (1.8-7.7) H 06/21/18 05:23 PT 15.6 Sec. (12.2-14.9) H 06/18/18 16:32 INR 1.17 (0.87-1.13) H 06/18/18 16:32 508.49 ng/mlDDU (0-234) H 06/18/18 16:32 Sodium 137 mmol/L (137-145) 06/21/18 05:23 Potassium 5.4 mmol/L (3.6-5.0) H 06/21/18 05:23 Chloride 93.8 mmol/L (98-107) L 06/21/18 05:23 Carbon Dioxide 33 mmol/L (22-30) H 06/21/18 05:23 16 mmol/L 06/21/18 05:23 BUN 33 mg/dL (7-17) H 06/21/18 05:23 1.0 mg/dL (0.7-1.2) 06/21/18 05:23 Estimated GFR 55 ml/min 06/21/18 05:23 33 % 06/21/18 05:23 Glucose 267 mg/dL (65-100) H 06/21/18 05:23 POC Glucose 229 (70-105) H 06/21/18 07:01 11.2 % (4-6) H 06/17/18 13:51 Calcium 9.4 mg/dL (8.4-10.2) 06/21/18 05:23 Magnesium 2.00 mg/dL (1.7-2.3) 06/19/18 05:46 0.40 mg/dL (0.1-1.2) 06/18/18 06:06 AST 27 units/L (5-40) 06/18/18 06:06 ALT 16 units/L (7-56) 06/18/18 06:06 111 units/L (35-129) 06/18/18 06:06 < 0.010 ng/mL (0.00-0.029) 06/17/18 14:33 NT-Pro-B Natriuret Pep 2038 pg/mL (0-900) H 06/17/18 13:41 7.4 g/dL (6.3-8.2) 06/18/18 06:06 4.0 g/dL (3.9-5) 06/18/18 06:06 1.2 % 06/18/18 06:06 Active Medications - Current Medications Current Medications: Generic Name Dose Route Start Last Admin Trade Name Freq PRN Reason Stop Dose Admin Acetaminophen 650 mg 06/17/18 21:30 Tylenol PO Q4H PRN Pain MILD(1-3)/Fever >100.5/TORREZ Acetaminophen/Butalbital/Caffeine 1 tab 06/17/18 20:23 06/17/18 20:52 Fioricet PO 1 tab Q4H PRN Administration Headache Albuterol 2.5 mg 06/17/18 21:31 Proventil IH Q4HRT PRN Shortness Of Breath Albuterol/Ipratropium 1 ampul 06/18/18 08:00 06/21/18 07:48 Duoneb *Not For Prn Use* IH 1 ampul QIDRT HARLAN Administration Alprazolam 1 mg 06/20/18 20:00 06/21/18 07:10 Xanax PO 1 mg TID HARLAN Administration Atorvastatin Calcium 40 mg 06/17/18 22:00 06/20/18 22:35 Lipitor PO 40 mg QHS HARLAN Administration Ergocalciferol 50,000 unit 06/23/18 10:00 Vitamin D2 PO Th HARLAN Famotidine 20 mg 06/17/18 22:00 06/20/18 22:34 Pepcid PO 20 mg BID HARLAN Administration Furosemide 20 mg 06/17/18 22:00 06/20/18 10:41 Lasix PO 20 mg QDAY HARLAN Administration Levofloxacin/Dextrose 750 mg in 150 mls @ 100 mls/hr 06/17/18 22:00 06/20/18 22:36 Levaquin 750mg/150ml IV 100 mls/hr Q24HR@2200 [facility] Administration Protocol Insulin Human Isoph/Insulin Regular 28 unit 06/20/18 17:00 06/21/18 07:11 Humulin 70/30 SUB-Q Not Given BIDDIAB [facility] Insulin Human Lispro 0 unit 06/17/18 22:00 06/21/18 07:10 Humalog SUB-Q 3 unit ACHS [facility] Administration Protocol Lorazepam 0.5 mg 06/17/18 20:23 06/18/18 17:32 Ativan IV 0.5 mg Q4H PRN Administration Agitation Methylprednisolone Sodium Succinate 40 mg 06/18/18 17:00 06/21/18 05:12 Solu-Medrol IV 40 mg Q12H [facility] Administration Metoprolol Tartrate 25 mg 06/17/18 22:00 06/20/18 10:43 Lopressor PO 25 mg DAILY [facility] Administration Morphine Sulfate 2 mg 06/17/18 21:30 06/20/18 10:40 Morphine IV 2 mg Q4H PRN Administration Pain, Moderate (4-6) Ondansetron HCl 4 mg 06/17/18 21:30 Zofran IV Q8H PRN Nausea And Vomiting Oxycodone/Acetaminophen 1 tab 06/17/18 21:30 06/20/18 18:25 Percocet 5/325 PO 1 tab Q6H PRN Administration Pain, Moderate (4-6) Rivaroxaban 20 mg 06/17/18 22:00 06/20/18 17:03 Xarelto PO Not Given QDAY@1700 [facility] Protocol Sodium Chloride 10 ml 06/17/18 22:00 06/20/18 22:37 Sodium Chloride Flush Syringe 10 Ml IV 10 ml BID HARLAN Administration Sodium Chloride 10 ml 06/17/18 21:30 Sodium Chloride Flush Syringe 10 Ml IV PRN PRN LINE FLUSH Spironolactone 25 mg 06/18/18 10:00 06/20/18 10:43 Aldactone PO 25 mg QDAY [facility] Administration Trazodone HCl 200 mg 06/17/18 22:00 06/20/18 22:34 Desyrel PO 200 mg QHS [facility] Administration Venlafaxine HCl 75 mg 06/18/18 08:00 06/21/18 07:10 Effexor PO 75 mg TID HARLAN Administration
[2018-06-21] MEDS ORDERED: NACL 0.9% 500 ML 0 ML ONE (09:39)
[2018-06-21] MEDS ORDERED: SUBLIMAZE IV NR (10:30)
[2018-06-21] MEDS ORDERED: VERSED IV NR (10:30)
[2018-06-21] MEDS: PEPCID PO SCH ×2 (10:59→22:24)
[2018-06-21] MEDS: LASIX PO SCH (11:00)
[2018-06-21] MEDS: LOPRESSOR PO SCH (11:00)
[2018-06-21] MEDS: SODIUM CHLORIDE FLUSH SYRINGE 10 ML IV SCH ×2 (11:01→22:25)
[2018-06-21] MEDS ORDERED: PROVENTIL IH PRN (11:41)
--- NOTE | 2018-06-21 13:16 | Progress Note ---
Assessment and Plan Patient awake. Resting on 3 litres O2. Weak. No acute respiratory distress.O2 saturation 94%.CT of the chest reported right upper lobe mass.Patient undergone per cutaneous needle biopsy of chest lesion under CT guidance to day. - Patient Problems (1) Mass of upper lobe of right lung Current Visit: Yes Status: Acute Plan to address problem: Patient undergone percutaneous needle biopsy of chest lesion to day. Results pending. (2) Acute hypoxemic respiratory failure Current Visit: No Status: Acute Plan to address problem: O2 3 litres via nasal Canula. Albuterol/atrovent aerosol treatments q 6 hours. Contine I/V solumedrol. Patient is on Xarelto Held at this time for lung biopsy. Continue famotidine. Continue Levaquin. (3) COPD exacerbation Current Visit: No Status: Acute Plan to address problem: O2 3 litres via nasal Canula. Albuterol/atrovent aerosol treatments q 6 hours. Contine I/V solumedrol. Patient is on Xarelto Held at this time for lung biopsy. Continue famotidine. Continue Levaquin (4) ACS (acute coronary syndrome) Current Visit: No Status: Acute Plan to address problem: Management as per cardiology. (5) Acute heart failure Current Visit: No Status: Acute Plan to address problem: Management as per cardiology. (6) Tobacco abuse Current Visit: No Status: Chronic Plan to address problem: Counselled to stop smoking. Subjective Date of service: 06/21/18 Principal diagnosis: lung mass Interval history: Patient awake. Resting on 3 litres O2. Weak. No acute respiratory distress.O2 saturation 94%.CT of the chest reported right upper lobe mass.Patient undergone per cutaneous needle biopsy of chest lesion under CT guidance to day. Objective Vital Signs - 12hr 06/21/18 06/21/18 06/21/18 02:09 02:15 02:17 Temperature 97.8 F 98.2 F Pulse Rate 121 H 44 L 121 H Pulse Rate [ Anterior Bilateral Throughout] Pulse Rate [ Right Brachial] Respiratory 18 22 Rate Respiratory Rate [Anterior Bilateral Throughout] Blood Pressure 116/47 Blood Pressure 106/70 [Left] O2 Sat by Pulse 93 86 91 Oximetry 06/21/18 06/21/18 06/21/18 03:19 06:02 07:49 Temperature Pulse Rate 120 H 120 H Pulse Rate [ 120 H Anterior Bilateral Throughout] Pulse Rate [ Right Brachial] Respiratory Rate Respiratory 19 Rate [Anterior Bilateral Throughout] Blood Pressure Blood Pressure [Left] O2 Sat by Pulse Oximetry 06/21/18 06/21/18 06/21/18 07:50 10:00 10:02 Temperature 97.5 F L Pulse Rate 122 H Pulse Rate [ Anterior Bilateral Throughout] Pulse Rate [ 116 H Right Brachial] Respiratory 22 18 16 Rate Respiratory Rate [Anterior Bilateral Throughout] Blood Pressure 97/52 Blood Pressure [Left] O2 Sat by Pulse 93 93 Oximetry 06/21/18 06/21/18 06/21/18 11:00 11:34 11:38 Temperature Pulse Rate 121 H Pulse Rate [ 122 H Anterior Bilateral Throughout] Pulse Rate [ Right Brachial] Respiratory Rate Respiratory 20 Rate [Anterior Bilateral Throughout] Blood Pressure 117/71 Blood Pressure [Left] O2 Sat by Pulse 94 Oximetry 06/21/18 11:42 Temperature Pulse Rate Pulse Rate [ 122 H Anterior Bilateral Throughout] Pulse Rate [ Right Brachial] Respiratory Rate Respiratory 20 Rate [Anterior Bilateral Throughout] Blood Pressure Blood Pressure [Left] O2 Sat by Pulse Oximetry Constitutional: no acute distress, alert, other (elderly looking obese CF, normocephalic and atraumatic with increased respiratory effort at rest) Eyes: non-icteric ENT: oropharynx moist, other (mallampati 3) Neck: supple, no lymphadenopathy, no JVD, other (large neck circumference) Effort: mildly labored Ascultation: Right: diminished breath sounds, Bilateral: rhonchi Percussion: Bilateral: not dull Cardiovascular: regular rate and rhythm Gastrointestinal: normoactive bowel sounds, soft, non-tender, non-distended Integumentary: normal Extremities: no cyanosis, no edema, pink and warm, pulses normal, no ischemia or petechiae Neurologic: normal mental status, non-focal exam, pupils equal and round, motor strength normal and Psychiatric: anxious CBC and BMP: 06/21/18 05:23 06/21/18 05:23 ABG, PT/INR, D-dimer: PT/INR, D-dimer PT 15.6 Sec. (12.2-14.9) H 06/18/18 16:32 INR 1.17 (0.87-1.13) H 06/18/18 16:32 508.49 ng/mlDDU (0-234) H 06/18/18 16:32 Abnormal lab findings: Abnormal Labs 06/17/18 06/17/18 06/17/18 13:41 13:41 13:51 RDW 16.0 H Lymph % (Auto) Stephens % (Auto) 8.7 H Lymph # 1.1 L Seg Neutrophils % 71.3 H Seg Neutrophils # PT INR D-Dimer Sodium 132 L Potassium Chloride 90.6 L Carbon Dioxide BUN 19 H Glucose 217 H POC Glucose Hemoglobin A1c 11.2 H NT-Pro-B Natriuret Pep 2038 H Albumin 3.7 L 06/17/18 06/18/18 06/18/18 22:03 06:06 06:06 RDW 16.6 H Lymph % (Auto) 12.4 L Stephens % (Auto) Lymph # 0.7 L Seg Neutrophils % 83.9 H Seg Neutrophils # PT INR D-Dimer Sodium 135 L Potassium Chloride 94.1 L Carbon Dioxide BUN 21 H Glucose 332 H POC Glucose 225 H Hemoglobin A1c NT-Pro-B Natriuret Pep Albumin 06/18/18 06/18/18 06/18/18 07:24 12:06 16:32 RDW Lymph % (Auto) Stephens % (Auto) Lymph # Seg Neutrophils % Seg Neutrophils # PT 15.6 H INR 1.17 H D-Dimer 508.49 H Sodium Potassium Chloride Carbon Dioxide BUN Glucose POC Glucose 282 H 350 H Hemoglobin A1c NT-Pro-B Natriuret Pep Albumin 06/18/18 06/18/18 06/19/18 16:46 22:08 05:46 RDW 16.1 H Lymph % (Auto) 4.8 L Stephens % (Auto) Lymph # 0.5 L Seg Neutrophils % 87.7 H Seg Neutrophils # 8.8 H PT INR D-Dimer Sodium Potassium Chloride Carbon Dioxide BUN Glucose POC Glucose 268 H 308 H Hemoglobin A1c NT-Pro-B Natriuret Pep Albumin 06/19/18 06/19/18 06/19/18 05:46 07:55 11:32 RDW Lymph % (Auto) Stephens % (Auto) Lymph # Seg Neutrophils % Seg Neutrophils # PT INR D-Dimer Sodium 135 L Potassium Chloride 94.4 L Carbon Dioxide BUN 25 H Glucose 375 H POC Glucose 335 H 403 H Hemoglobin A1c NT-Pro-B Natriuret Pep Albumin 06/19/18 06/19/18 06/20/18 16:48 22:37 07:40 RDW Lymph % (Auto) Stephens % (Auto) Lymph # Seg Neutrophils % Seg Neutrophils # PT INR D-Dimer Sodium Potassium Chloride Carbon Dioxide BUN Glucose POC Glucose 233 H 247 H 224 H Hemoglobin A1c NT-Pro-B Natriuret Pep Albumin 06/20/18 06/20/18 06/20/18 11:31 16:40 21:59 RDW Lymph % (Auto) Stephens % (Auto) Lymph # Seg Neutrophils % Seg Neutrophils # PT INR D-Dimer Sodium Potassium Chloride Carbon Dioxide BUN Glucose POC Glucose 288 H 328 H 321 H Hemoglobin A1c NT-Pro-B Natriuret Pep Albumin 06/21/18 06/21/18 06/21/18 05:23 05:23 07:01 RDW 16.0 H Lymph % (Auto) 3.4 L Stephens % (Auto) 8.2 H Lymph # 0.3 L Seg Neutrophils % 88.3 H Seg Neutrophils # 8.2 H PT INR D-Dimer Sodium Potassium 5.4 H Chloride 93.8 L Carbon Dioxide 33 H BUN 33 H Glucose 267 H POC Glucose 229 H Hemoglobin A1c NT-Pro-B Natriuret Pep Albumin 06/21/18 11:48 RDW Lymph % (Auto) Stephens % (Auto) Lymph # Seg Neutrophils % Seg Neutrophils # PT INR D-Dimer Sodium Potassium Chloride Carbon Dioxide BUN Glucose POC Glucose 272 H Hemoglobin A1c NT-Pro-B Natriuret Pep Albumin Chest x-ray: report reviewed (Chest xray post percutaneous biopsy of chest lesion, reported no pneumothorax.), image reviewed Allied health notes reviewed: nursing
--- NOTE | 2018-06-21 13:58 | Cat Scan Report ---
CT BIOPSY LUNG RIGHT HISTORY: Right lung mass. DESCRIPTION OF PROCEDURE: Informed consent was obtained. Sterile technique was utilized. Moderate sedation was accomplished with Versed and fentanyl. The patient was sedated for 15 minutes. Intra-observer time of 30 minutes. Independent cardiorespiratory monitoring was performed by the R.N. Using CT guidance, a 19-gauge introducer needle was advanced to the leading edge of a 7.3 x 8.1 cm right upper lobe mass. 3 separate 2.2 cm core biopsies were obtained. The pathologist was present and deemed the samples adequate. No complications. Impression: Successful CT-guided biopsy of the right upper lobe mass.
--- NOTE | 2018-06-21 14:57 | XRay Report ---
AP CHEST: HISTORY: Right lung mass, recent CT biopsy Recent CT-guided biopsy of a right upper lobe mass was performed. Followup chest x-ray demonstrates no evidence for pneumothorax. Large right upper lobe mass and trace right pleural effusion are stable. The left lung is clear. Mild cardiomegaly and 2-lead pacemaker device are unchanged. IMPRESSION: No evidence for pneumothorax.
[2018-06-21] MEDS: XARELTO PO SCH (16:59)
[2018-06-21] MEDS: PULMICORT IH SCH (20:22)
[2018-06-21] MEDS: BROVANA NEBU IH SCH (20:22)
[2018-06-21] MEDS: DESYREL PO SCH (22:24)
[2018-06-21] MEDS: LEVAQUIN 750MG/150ML 750 MG/150 ML BAG IV SCH (22:24)
[2018-06-22] MEDS: DUONEB *Not for PRN Use IH SCH ×5 (01:56→20:44)
[2018-06-22] MEDS: SOLU-Medrol IV SCH ×2 (05:32→16:37)
[2018-06-22 05:54] LABS: Basophils % (Auto) 0.1 % (0.0-1.8); Hematocrit 34.5 % (30.3-42.9); Hemoglobin 10.9 gm/dl (10.1-14.3); Lymphocytes # (Auto) 0.4 K/mm3 (1.2-5.4); Lymphocytes % (Auto) 5.2 % (13.4-35.0); Mean Corpuscular HGB Conc 32 % (30-34); Mean Corpuscular Volume 89 fl (79-97); Monocytes # (Auto) 0.8 K/mm3 (0.0-0.8); Monocytes % (Auto) 10.3 % (0.0-7.3); Platelet Count 156 K/mm3 (140-440); Red Blood Count 3.88 M/mm3 (3.65-5.03); Red Cell Distribution Width 16.1 % (13.2-15.2)
[2018-06-22 06:10] LABS: BUN/Creatinine Ratio 37; Blood Urea Nitrogen 33 mg/dL (7-17); Calcium 9.4 mg/dL (8.4-10.2); Hemolysis Index 1
[2018-06-22] MEDS: KIONEX PO SCH ×2 (07:01→13:04)
[2018-06-22] MEDS: HumaLOG SUB-Q SCH ×5 (07:23→16:37)
[2018-06-22] MEDS: EFFEXOR PO SCH ×2 (07:24→13:12)
[2018-06-22] MEDS: XANAX PO SCH ×2 (07:24→13:12)
--- NOTE | 2018-06-22 07:37 | Hem/Onc Progress Note ---
Assessment and Plan 1. Large lung mass with lymphadenopathy and pleural effusion. 2. History of shortness of breath. 3. History of chest pain. 4. History of hypertension. 5. History of congestive heart failure. 6. In the past, the patient had deep venous thrombosis and was on Xarelto. 7. History of diabetes. 8. History of hyperlipidemia. 9. History of vitamin D deficiency. I had discussed with the patient regarding high suspicion for neoplasm. I had discussed about small cell versus non-small cell. The patient's mother had sm all cell cancer. The patient quit smoking a few years ago. IR consultation done and pulmonary team had seen the patient. CT head - neg CT A/p - nodular liver - adrenal lesion bx delayed due to xarelto 06/22 - prelim path - small cell or lymphoma OP follow up an option - Patient Problems (1) Mass of upper lobe of right lung Current Visit: Yes Status: Acute Subjective Date of service: 06/22/18 Principal diagnosis: lung mass Interval history: pt had bx rt side Objective - Constitutional Vitals: Last Vital Signs Temp 98.5 F 06/22/18 02:36 Pulse 118 H 06/22/18 02:36 Resp 22 06/22/18 02:36 BP 146/82 06/22/18 02:36 Pulse Ox 99 06/22/18 02:36 Pain Intensity (0-10): denies any pain General appearance: no acute distress Performance status: 3-limited selfcare - EENT Eyes: EOM intact ENT: hearing intact, clear oral mucosa Lymph node exam: negative cervical - Neck Neck: normal ROM - Respiratory Respiratory effort: Positive: normal Respiratory: bilateral: diminished - Cardiovascular Heart Sounds: Present: S1 & S2 Extremities: normal temperature - Gastrointestinal General gastrointestinal: Present: soft, non-tender Rectal Exam: deferred - Genitourinary Female genitourinary: Present: deferred - Integumentary Integumentary: warm - Musculoskeletal Musculoskeletal: strength equal bilaterally - Neurologic Neurologic: moves all extremities - Labs Lab Results: Laboratory Results - last 24 hr 06/21/18 06/21/18 06/21/18 11:48 14:44 16:32 WBC RBC Hgb Hct MCV MCH MCHC RDW Plt Count Lymph % (Auto) [place] % (Auto) Eos % (Auto) Baso % (Auto) Lymph # [place] # Eos # Baso # Seg Neutrophils % Seg Neutrophils # POC ABG pH 7.346 L POC ABG pCO2 56.3 H POC ABG HCO3 30.8 POC ABG Total CO2 33 POC ABG O2 Sat 79 POC ABG Base Excess 5 FiO2 21 Sodium Potassium Chloride Carbon Dioxide Anion Gap BUN Creatinine Estimated GFR BUN/Creatinine Ratio Glucose POC Glucose 272 H 441 H Calcium 06/21/18 06/21/18 06/22/18 22:02 23:51 01:58 WBC RBC Hgb Hct MCV MCH MCHC RDW Plt Count Lymph % (Auto) [place] % (Auto) Eos % (Auto) Baso % (Auto) Lymph # [place] # Eos # Baso # Seg Neutrophils % Seg Neutrophils # POC ABG pH POC ABG pCO2 POC ABG HCO3 POC ABG Total CO2 POC ABG O2 Sat POC ABG Base Excess FiO2 Sodium Potassium Chloride Carbon Dioxide Anion Gap BUN Creatinine Estimated GFR BUN/Creatinine Ratio Glucose POC Glucose 344 H 365 H 334 H Calcium 06/22/18 06/22/18 06/22/18 05:36 05:36 07:07 WBC 7.3 RBC 3.88 Hgb 10.9 Hct 34.5 MCV 89 MCH 28 MCHC 32 RDW 16.1 H Plt Count 156 Lymph % (Auto) 5.2 L [place] % (Auto) 10.3 H Eos % (Auto) 0.0 Baso % (Auto) 0.1 Lymph # 0.4 L [place] # 0.8 Eos # 0.0 Baso # 0.0 Seg Neutrophils % 84.4 H Seg Neutrophils # 6.2 POC ABG pH POC ABG pCO2 POC ABG HCO3 POC ABG Total CO2 POC ABG O2 Sat POC ABG Base Excess FiO2 Sodium 138 Potassium 6.3 H* Chloride 92.8 L Carbon Dioxide 39 H Anion Gap 13 BUN 33 H Creatinine 0.9 Estimated GFR > 60 BUN/Creatinine Ratio 37 Glucose 349 H POC Glucose 281 H Calcium 9.4 Medications & Allergies - Medications Allergies/Adverse Reactions: Allergies No Known Allergies Allergy (Verified 06/17/18 13:24) Home Medications: Home Medications Medication Instructions Recorded Confirmed Last Taken Type traZODone [Desyrel] 200 mg PO QHS 12/12/12 06/17/18 12/20/17 22:00 History Atorvastatin [Lipitor] 40 mg PO QHS #30 tab 11/30/17 05/10/19 11/12/18 Rx ALPRAZolam [Xanax TAB] 1 mg PO BID 06/17/18 06/17/18 Unknown History Albuterol Sulfate 1 neb IH BID 06/17/18 06/17/18 Unknown History Ergocalciferol (Vitamin D2) 50,000 unit PO QWEEK 06/17/18 06/17/18 Unknown History [Drisdol] Furosemide [Lasix] 20 mg PO QDAY 06/17/18 06/17/18 Unknown History Metoprolol [Lopressor TAB] 25 mg PO DAILY 06/17/18 06/17/18 Unknown History Rivaroxaban [Xarelto] 20 mg PO QDAY 06/17/18 06/17/18 Unknown History Spironolactone [Aldactone] 25 mg PO QDAY 06/17/18 06/17/18 Unknown History Venlafaxine [Effexor] 75 mg PO TID 06/17/18 06/17/18 Unknown History Active Medications: Generic Name Dose Route Start Last Admin Trade Name Freq PRN Reason Stop Dose Admin Acetaminophen 650 mg 06/17/18 21:30 06/21/18 17:00 Tylenol PO 650 mg Q4H PRN Administration Pain MILD(1-3)/Fever >100.5/TORREZ Acetaminophen/Butalbital/Caffeine 1 tab 06/17/18 20:23 06/17/18 20:52 Fioricet PO 1 tab Q4H PRN Administration Headache Albuterol 2.5 mg 06/21/18 11:41 Proventil IH Q4HRT PRN Shortness Of Breath Albuterol/Ipratropium 1 ampul 06/21/18 14:00 06/22/18 01:56 Duoneb *Not For Prn Use* IH 1 ampul Q6HRT [facility]AN Administration Alprazolam 1 mg 06/20/18 20:00 06/22/18 07:24 Xanax PO 1 mg TID HARLAN Administration Arformoterol Tartrate 15 mcg 06/21/18 20:00 06/21/18 20:22 Brovana Nebu IH 15 mcg Q12HRT [facility] Administration Atorvastatin Calcium 40 mg 06/17/18 22:00 06/21/18 22:24 Lipitor PO 40 mg QHS [facility]AN Administration Budesonide 0.5 mg 06/21/18 20:00 06/21/18 20:22 Pulmicort IH 0.5 mg Q12HRT [facility] Administration Ergocalciferol 50,000 unit 06/23/18 10:00 Vitamin D2 PO Th [facility] Famotidine 20 mg 06/17/18 22:00 06/21/18 22:24 Pepcid PO 20 mg BID HARLAN Administration Furosemide 20 mg 06/17/18 22:00 06/21/18 11:00 Lasix PO 20 mg QDAY [facility] Administration Levofloxacin/Dextrose 750 mg in 150 mls @ 100 mls/hr 06/17/18 22:00 06/21/18 22:24 Levaquin 750mg/150ml IV 100 mls/hr Q24HR@2200 [facility] Administration Protocol Insulin Human Isoph/Insulin Regular 28 unit 06/20/18 17:00 06/22/18 07:24 Humulin 70/30 SUB-Q 28 unit BIDDIAB [facility] Administration Insulin Human Lispro 0 unit 06/17/18 22:00 06/22/18 07:23 Humalog SUB-Q 4 unit ACHS [facility] Administration Protocol Lorazepam 0.5 mg 06/17/18 20:23 06/18/18 17:32 Ativan IV 0.5 mg Q4H PRN Administration Agitation Methylprednisolone Sodium Succinate 40 mg 06/18/18 17:00 06/22/18 05:32 Solu-Medrol IV 40 mg Q12H [facility] Administration Metoprolol Tartrate 25 mg 06/17/18 22:00 06/21/18 11:00 Lopressor PO 25 mg DAILY [facility] Administration Morphine Sulfate 2 mg 06/17/18 21:30 06/20/18 10:40 Morphine IV 2 mg Q4H PRN Administration Pain, Moderate (4-6) Ondansetron HCl 4 mg 06/17/18 21:30 Zofran IV Q8H PRN Nausea And Vomiting Oxycodone/Acetaminophen 1 tab 06/17/18 21:30 06/20/18 18:25 Percocet 5/325 PO 1 tab Q6H PRN Administration Pain, Moderate (4-6) Rivaroxaban 20 mg 06/17/18 22:00 06/21/18 16:59 Xarelto PO 20 mg QDAY@1700 [facility] Administration Protocol Sodium Chloride 10 ml 06/17/18 22:00 06/21/18 22:25 Sodium Chloride Flush Syringe 10 Ml IV 10 ml BID [facility]RAN Administration Sodium Chloride 10 ml 06/17/18 21:30 Sodium Chloride Flush Syringe 10 Ml IV PRN PRN LINE FLUSH Sodium Polystyrene Sulfonate 30 gm 06/22/18 07:00 06/22/18 07:01 Kionex PO 06/22/18 13:01 30 gm Q6H [facility] Administration Spironolactone 25 mg 06/18/18 10:00 06/20/18 10:43 Aldactone PO 25 mg QDAY [facility] Administration Trazodone HCl 200 mg 06/17/18 22:00 06/21/18 22:24 Desyrel PO 200 mg QHS [facility] Administration Venlafaxine HCl 75 mg 06/18/18 08:00 06/22/18 07:24 Effexor PO 75 mg TID HARLAN Administration
[2018-06-22] MEDS: LASIX PO SCH (09:01)
[2018-06-22] MEDS: PEPCID PO SCH ×2 (09:01→23:47)
[2018-06-22] MEDS: SODIUM CHLORIDE FLUSH SYRINGE 10 ML IV SCH (09:02)
[2018-06-22] MEDS: LOPRESSOR PO SCH (09:02)
[2018-06-22] MEDS: BROVANA NEBU IH SCH ×3 (09:25→20:44)
[2018-06-22] MEDS: PULMICORT IH SCH ×3 (09:25→20:44)
--- NOTE | 2018-06-22 10:16 | Progress Note ---
Assessment and Plan Assessment and plan: 68 years old female patient admitted through emergency room with worsening shortness of breath, noted to be in acute exacerbation of COPD, -workup revealed large lung mass with post-obstructive pneumonia, evaluated by pulmonary, hematology oncology, interventional radiologist, -Patient has history of DVT /atrial flutter on Xarelto. Uncontrolled diabetes secondary to noncompliance and steroid, s/p CT-guided lung biopsy CTH; neg CT A/P- nodular liver, adrenal lesion 06/22; prelim path; small cell vs lymphoma CTA chest neg for PE, positve for RUL mass LE doppler neg for DVT Assessment and plan: --Hyperkalemia; potassium 5.4, sp Kayexalate 45 g , improved --Right upper lobe mass; w LAD and pleural effusion sp Lung biopsy 06/21, prelim lymphoma vs small cell ca --Acute on chronic hypoxic respiratory failure; due to copd and systolic CHF EF 35% cont steroids, nebs, lasix --Hypertension; well controlled,on antihypertensives --Acute on chronic systolic congestive heart failure; Ejection fraction 35-40% in December/2017 , anti-failure medications, cont lasix --History of atrial flutter; continue beta blockers,Xeralto --History of DVT; [venous Doppler this admission negative for DVT] on Xarelto, hematology following --Type 2 diabetes mellitus; uncontrolled/noncompliance A1c 11.2,Accu-Chek SSC and ADA diet , diabetic education optimize insulins --Medical noncompliance: advised to comply with medications and diet and follow-up visits; Tobacco abuse --Dyslipidemia; on statin --History of depression; stable, on antidepression medications --Morbid obesity; BMI 38.7; advised weight reduction and medically stable --DVT prophylaxis; patient is already on Xeralto History Interval history: c/o sob, and orthopnea - no le edema -no cough -no fever, -has been tachycardic -no vomiting Hospitalist Physical - Physical exam Narrative exam: - Constitutional Vitals: General appearance: Present: no acute distress, well-nourished, obese - EENT Eyes: Present: PERRL, EOM intact - Neck Neck: Present: supple, normal ROM - Respiratory Respiratory effort: normal Respiratory: bilateral: diminished, rhonchi, negative: rales, wheezing - Cardiovascular Rhythm: regular Heart Sounds: Present: S1 & S2 - Extremities Extremities: no ischemia, No edema - Abdominal General gastrointestinal: soft, non-tender, non-distended, normal bowel sounds - Integumentary Integumentary: Present: clear, warm - Psychiatric Psychiatric: appropriate mood/affect, cooperative - Neurologic Neurologic: CNII-XII intact, moves all extremities - Constitutional Vitals: Temp Pulse Resp BP Pulse Ox 95.8 F L 120 H 20 135/95 94 06/22/18 08:02 06/22/18 09:57 06/22/18 09:57 06/22/18 09:02 06/22/18 09:57 General appearance: Present: no acute distress, well-nourished, obese Results - Labs CBC & Chem 7: 06/22/18 05:36 06/22/18 10:37 Labs: Laboratory Last Values WBC 7.3 K/mm3 (4.5-11.0) 06/22/18 05:36 RBC 3.88 M/mm3 (3.65-5.03) 06/22/18 05:36 Hgb 10.9 gm/dl (10.1-14.3) 06/22/18 05:36 Hct 34.5 % (30.3-42.9) 06/22/18 05:36 MCV 89 fl (79-97) 06/22/18 05:36 MCH 28 pg (28-32) 06/22/18 05:36 MCHC 32 % (30-34) 06/22/18 05:36 RDW 16.1 % (13.2-15.2) H 06/22/18 05:36 Plt Count 156 K/mm3 (140-440) 06/22/18 05:36 Lymph % (Auto) 5.2 % (13.4-35.0) L 06/22/18 05:36 [place] % (Auto) 10.3 % (0.0-7.3) H 06/22/18 05:36 Eos % (Auto) 0.0 % (0.0-4.3) 06/22/18 05:36 Baso % (Auto) 0.1 % (0.0-1.8) 06/22/18 05:36 Lymph # 0.4 K/mm3 (1.2-5.4) L 06/22/18 05:36 [place] # 0.8 K/mm3 (0.0-0.8) 06/22/18 05:36 Eos # 0.0 K/mm3 (0.0-0.4) 06/22/18 05:36 Baso # 0.0 K/mm3 (0.0-0.1) 06/22/18 05:36 Seg Neutrophils % 84.4 % (40.0-70.0) H 06/22/18 05:36 Seg Neutrophils # 6.2 K/mm3 (1.8-7.7) 06/22/18 05:36 PT 15.6 Sec. (12.2-14.9) H 06/18/18 16:32 INR 1.17 (0.87-1.13) H 06/18/18 16:32 508.49 ng/mlDDU (0-234) H 06/18/18 16:32 POC ABG pH 7.346 (7.35-7.45) L 06/21/18 14:44 POC ABG pCO2 56.3 (35-45) H 06/21/18 14:44 POC ABG HCO3 30.8 (22-26 mml/L) 06/21/18 14:44 POC ABG Total CO2 33 (23-27mmol/L) 06/21/18 14:44 POC ABG O2 Sat 79 06/21/18 14:44 POC ABG Base Excess 5 ((-2) - (+3)mmol/L) 06/21/18 14:44 21 % 06/21/18 14:44 Sodium 138 mmol/L (137-145) 06/22/18 05:36 Potassium 6.3 mmol/L (3.6-5.0) H* 06/22/18 05:36 Chloride 92.8 mmol/L (98-107) L 06/22/18 05:36 Carbon Dioxide 39 mmol/L (22-30) H 06/22/18 05:36 13 mmol/L 06/22/18 05:36 BUN 33 mg/dL (7-17) H 06/22/18 05:36 0.9 mg/dL (0.7-1.2) 06/22/18 05:36 Estimated GFR > 60 ml/min 06/22/18 05:36 37 % 06/22/18 05:36 Glucose 349 mg/dL (65-100) H 06/22/18 05:36 POC Glucose 281 (70-105) H 06/22/18 07:07 11.2 % (4-6) H 06/17/18 13:51 Calcium 9.4 mg/dL (8.4-10.2) 06/22/18 05:36 Magnesium 2.00 mg/dL (1.7-2.3) 06/19/18 05:46 0.40 mg/dL (0.1-1.2) 06/18/18 06:06 AST 27 units/L (5-40) 06/18/18 06:06 ALT 16 units/L (7-56) 06/18/18 06:06 111 units/L (35-129) 06/18/18 06:06 < 0.010 ng/mL (0.00-0.029) 06/17/18 14:33 NT-Pro-B Natriuret Pep 2038 pg/mL (0-900) H 06/17/18 13:41 7.4 g/dL (6.3-8.2) 06/18/18 06:06 4.0 g/dL (3.9-5) 06/18/18 06:06 1.2 % 06/18/18 06:06 Active Medications - Current Medications Current Medications: Generic Name Dose Route Start Last Admin Trade Name Freq PRN Reason Stop Dose Admin Acetaminophen 650 mg 06/17/18 21:30 06/21/18 17:00 Tylenol PO 650 mg Q4H PRN Administration Pain MILD(1-3)/Fever >100.5/TORREZ Acetaminophen/Butalbital/Caffeine 1 tab 06/17/18 20:23 06/17/18 20:52 Fioricet PO 1 tab Q4H PRN Administration Headache Albuterol 2.5 mg 06/21/18 11:41 Proventil IH Q4HRT PRN Shortness Of Breath Albuterol/Ipratropium 1 ampul 06/21/18 14:00 06/22/18 09:44 Duoneb *Not For Prn Use* IH 1 ampul Q6HRT [facility]AN Administration Alprazolam 1 mg 06/20/18 20:00 06/22/18 07:24 Xanax PO 1 mg TID [facility] Administration Arformoterol Tartrate 15 mcg 06/21/18 20:00 06/22/18 09:43 Brovana Nebu IH 15 mcg Q12HRT [facility] Administration Atorvastatin Calcium 40 mg 06/17/18 22:00 06/21/18 22:24 Lipitor PO 40 mg QHS [facility] Administration Budesonide 0.5 mg 06/21/18 20:00 06/22/18 09:44 Pulmicort IH 0.5 mg Q12HRT [facility] Administration Ergocalciferol 50,000 unit 06/23/18 10:00 Vitamin D2 PO Th HARLAN Famotidine 20 mg 06/17/18 22:00 06/22/18 09:01 Pepcid PO 20 mg BID [facility] Administration Furosemide 20 mg 06/17/18 22:00 06/22/18 09:01 Lasix PO 20 mg QDAY [facility] Administration Insulin Human Isoph/Insulin Regular 28 unit 06/20/18 17:00 06/22/18 07:24 Humulin 70/30 SUB-Q 28 unit BIDDIAB [facility] Administration Insulin Human Lispro 0 unit 06/17/18 22:00 06/22/18 07:23 Humalog SUB-Q 4 unit ACHS [facility] Administration Protocol Levofloxacin 750 mg 06/22/18 22:00 Levaquin PO QHS [facility] Lorazepam 0.5 mg 06/17/18 20:23 06/18/18 17:32 Ativan IV 0.5 mg Q4H PRN Administration Agitation Methylprednisolone Sodium Succinate 40 mg 06/18/18 17:00 06/22/18 05:32 Solu-Medrol IV 40 mg Q12H [facility]AN Administration Metoprolol Tartrate 25 mg 06/17/18 22:00 06/22/18 09:02 Lopressor PO 25 mg DAILY [facility] Administration Morphine Sulfate 2 mg 06/17/18 21:30 06/20/18 10:40 Morphine IV 2 mg Q4H PRN Administration Pain, Moderate (4-6) Ondansetron HCl 4 mg 06/17/18 21:30 Zofran IV Q8H PRN Nausea And Vomiting Oxycodone/Acetaminophen 1 tab 06/17/18 21:30 06/20/18 18:25 Percocet 5/325 PO 1 tab Q6H PRN Administration Pain, Moderate (4-6) Rivaroxaban 20 mg 06/17/18 22:00 06/21/18 16:59 Xarelto PO 20 mg QDAY@1700 [facility] Administration Protocol Sodium Chloride 10 ml 06/17/18 22:00 06/22/18 09:02 Sodium Chloride Flush Syringe 10 Ml IV 10 ml BID HARLAN Administration Sodium Chloride 10 ml 06/17/18 21:30 Sodium Chloride Flush Syringe 10 Ml IV PRN PRN LINE FLUSH Sodium Polystyrene Sulfonate 30 gm 06/22/18 07:00 06/22/18 07:01 Kionex PO 06/22/18 13:01 30 gm Q6H [facility] Administration Spironolactone 25 mg 06/18/18 10:00 06/20/18 10:43 Aldactone PO 25 mg QDAY [facility] Administration Trazodone HCl 200 mg 06/17/18 22:00 06/21/18 22:24 Desyrel PO 200 mg QHS [facility] Administration Venlafaxine HCl 75 mg 06/18/18 08:00 06/22/18 07:24 Effexor PO 75 mg TID HARLAN Administration
--- NOTE | 2018-06-22 11:06 | XRay Report ---
Comparison of the current study with the prior examination of 06/21/18 at 1443 hrs. shows no appreciable interval change.
[2018-06-22] MEDS ORDERED: KIONEX PO SCH (12:00)
[2018-06-22] MEDS ORDERED: LANTUS SUB-Q ONE (13:39)
[2018-06-22] MEDS: LASIX IV SCH (14:27)
[2018-06-22] MEDS: XARELTO PO SCH (16:38)
--- NOTE | 2018-06-22 19:39 | Progress Note ---
Assessment and Plan Patient sleepy. Resting on 3 litres O2. Weak. No acute respiratory distress.O2 saturation 95%.CT of the chest reported right upper lobe mass.Patient undergone per cutaneous needle biopsy of chest lesion under CT guidance .Final result pending. Blood gases reported not complete. Recommend to repeat blood gases. - Patient Problems (1) Mass of upper lobe of right lung Current Visit: Yes Status: Acute Plan to address problem: Patient undergone percutaneous needle biopsy of chest lesion . Final Results pending. (2) Acute hypoxemic respiratory failure Current Visit: No Status: Acute Plan to address problem: O2 3 litres via nasal Can[place]. Albuterol/atrovent aerosol treatments q 6 hours. Contine I/V solumedrol. Patient started back on Xarelto Continue famotidine. Continue Levaquin. (3) COPD exacerbation Current Visit: No Status: Acute Plan to address problem: O2 3 litres via nasal Canula. Albuterol/atrovent aerosol treatments q 6 hours. Contine I/V solumedrol. Patient is on Xarelto Continue famotidine. Continue Levaquin (4) ACS (acute coronary syndrome) Current Visit: No Status: Acute Plan to address problem: Management as per cardiology. (5) Acute heart failure Current Visit: No Status: Acute Plan to address problem: Management as per cardiology. (6) Tobacco abuse Current Visit: No Status: Chronic Plan to address problem: Counselled to stop smoking. Subjective Date of service: 06/22/18 Principal diagnosis: lung mass Interval history: Patient sleepy. Resting on 3 litres O2. Weak. No acute respiratory distress.O2 saturation 95%.CT of the chest reported right upper lobe mass.Patient undergone per cutaneous needle biopsy of chest lesion under CT guidance . Final results pending. Blood gases reported not complete. Recommend to repeat blood gases. Objective Vital Signs - 12hr 06/22/18 06/22/18 06/22/18 08:02 09:02 09:44 Temperature 95.8 F L Pulse Rate 122 H 120 H Pulse Rate [ 120 H Anterior Bilateral Throughout] Pulse Rate [ Right Brachial] Respiratory 20 Rate Respiratory 20 Rate [Anterior Bilateral Throughout] Blood Pressure 126/70 135/95 O2 Sat by Pulse 94 Oximetry 06/22/18 06/22/18 06/22/18 09:47 09:57 10:14 Temperature Pulse Rate Pulse Rate [ 104 H Anterior Bilateral Throughout] Pulse Rate [ 120 H Right Brachial] Respiratory 20 Rate Respiratory 22 Rate [Anterior Bilateral Throughout] Blood Pressure O2 Sat by Pulse 94 94 Oximetry 06/22/18 14:26 Temperature 97.3 F L Pulse Rate 121 H Pulse Rate [ Anterior Bilateral Throughout] Pulse Rate [ Right Brachial] Respiratory 20 Rate Respiratory Rate [Anterior Bilateral Throughout] Blood Pressure 136/91 O2 Sat by Pulse 93 Oximetry Constitutional: no acute distress, other (Patient sleepy.) Eyes: non-icteric ENT: oropharynx moist, other (mallampati 3) Neck: supple, no lymphadenopathy, no JVD, other (large neck circumference) Effort: mildly labored Ascultation: Right: diminished breath sounds, Bilateral: rhonchi Percussion: Bilateral: not dull Cardiovascular: regular rate and rhythm Gastrointestinal: normoactive bowel sounds, soft, non-tender, non-distended Integumentary: normal Extremities: no cyanosis, no edema, pink and warm, pulses normal, no ischemia or petechiae Neurologic: normal mental status, non-focal exam, pupils equal and round Psychiatric: other (Patient sleepy.) CBC and BMP: 06/22/18 05:36 06/22/18 10:37 ABG, PT/INR, D-dimer: ABG POC ABG pH 7.346 (7.35-7.45) L 06/21/18 14:44 POC ABG pCO2 56.3 (35-45) H 06/21/18 14:44 POC ABG HCO3 30.8 (22-26 mml/L) 06/21/18 14:44 POC ABG Total CO2 33 (23-27mmol/L) 06/21/18 14:44 POC ABG O2 Sat 79 06/21/18 14:44 PT/INR, D-dimer PT 15.6 Sec. (12.2-14.9) H 06/18/18 16:32 INR 1.17 (0.87-1.13) H 06/18/18 16:32 508.49 ng/mlDDU (0-234) H 06/18/18 16:32 Abnormal lab findings: Abnormal Labs 06/17/18 06/17/18 06/17/18 13:41 13:41 13:51 RDW 16.0 H Lymph % (Auto) [place] % (Auto) 8.7 H Lymph # 1.1 L Seg Neutrophils % 71.3 H Seg Neutrophils # PT INR D-Dimer POC ABG pH POC ABG pCO2 Sodium 132 L Potassium Chloride 90.6 L Carbon Dioxide BUN 19 H Glucose 217 H POC Glucose Hemoglobin A1c 11.2 H NT-Pro-B Natriuret Pep 2038 H Albumin 3.7 L 06/17/18 06/18/18 06/18/18 22:03 06:06 06:06 RDW 16.6 H Lymph % (Auto) 12.4 L [place] % (Auto) Lymph # 0.7 L Seg Neutrophils % 83.9 H Seg Neutrophils # PT INR D-Dimer POC ABG pH POC ABG pCO2 Sodium 135 L Potassium Chloride 94.1 L Carbon Dioxide BUN 21 H Glucose 332 H POC Glucose 225 H Hemoglobin A1c NT-Pro-B Natriuret Pep Albumin 06/18/18 06/18/18 06/18/18 07:24 12:06 16:32 RDW Lymph % (Auto) [place] % (Auto) Lymph # Seg Neutrophils % Seg Neutrophils # PT 15.6 H INR 1.17 H D-Dimer 508.49 H POC ABG pH POC ABG pCO2 Sodium Potassium Chloride Carbon Dioxide BUN Glucose POC Glucose 282 H 350 H Hemoglobin A1c NT-Pro-B Natriuret Pep Albumin 06/18/18 06/18/18 06/19/18 16:46 22:08 05:46 RDW 16.1 H Lymph % (Auto) 4.8 L [place] % (Auto) Lymph # 0.5 L Seg Neutrophils % 87.7 H Seg Neutrophils # 8.8 H PT INR D-Dimer POC ABG pH POC ABG pCO2 Sodium Potassium Chloride Carbon Dioxide BUN Glucose POC Glucose 268 H 308 H Hemoglobin A1c NT-Pro-B Natriuret Pep Albumin 06/19/18 06/19/18 06/19/18 05:46 07:55 11:32 RDW Lymph % (Auto) [place] % (Auto) Lymph # Seg Neutrophils % Seg Neutrophils # PT INR D-Dimer POC ABG pH POC ABG pCO2 Sodium 135 L Potassium Chloride 94.4 L Carbon Dioxide BUN 25 H Glucose 375 H POC Glucose 335 H 403 H Hemoglobin A1c NT-Pro-B Natriuret Pep Albumin 06/19/18 06/19/18 06/20/18 16:48 22:37 07:40 RDW Lymph % (Auto) [place] % (Auto) Lymph # Seg Neutrophils % Seg Neutrophils # PT INR D-Dimer POC ABG pH POC ABG pCO2 Sodium Potassium Chloride Carbon Dioxide BUN Glucose POC Glucose 233 H 247 H 224 H Hemoglobin A1c NT-Pro-B Natriuret Pep Albumin 06/20/18 06/20/18 06/20/18 11:31 16:40 21:59 RDW Lymph % (Auto) [place] % (Auto) Lymph # Seg Neutrophils % Seg Neutrophils # PT INR D-Dimer POC ABG pH POC ABG pCO2 Sodium Potassium Chloride Carbon Dioxide BUN Glucose POC Glucose 288 H 328 H 321 H Hemoglobin A1c NT-Pro-B Natriuret Pep Albumin 06/21/18 06/21/18 06/21/18 05:23 05:23 07:01 RDW 16.0 H Lymph % (Auto) 3.4 L [place] % (Auto) 8.2 H Lymph # 0.3 L Seg Neutrophils % 88.3 H Seg Neutrophils # 8.2 H PT INR D-Dimer POC ABG pH POC ABG pCO2 Sodium Potassium 5.4 H Chloride 93.8 L Carbon Dioxide 33 H BUN 33 H Glucose 267 H POC Glucose 229 H Hemoglobin A1c NT-Pro-B Natriuret Pep Albumin 06/21/18 06/21/18 06/21/18 11:48 14:44 16:32 RDW Lymph % (Auto) [place] % (Auto) Lymph # Seg Neutrophils % Seg Neutrophils # PT INR D-Dimer POC ABG pH 7.346 L POC ABG pCO2 56.3 H Sodium Potassium Chloride Carbon Dioxide BUN Glucose POC Glucose 272 H 441 H Hemoglobin A1c NT-Pro-B Natriuret Pep Albumin 06/21/18 06/21/18 06/22/18 22:02 23:51 01:58 RDW Lymph % (Auto) [place] % (Auto) Lymph # Seg Neutrophils % Seg Neutrophils # PT INR D-Dimer POC ABG pH POC ABG pCO2 Sodium Potassium Chloride Carbon Dioxide BUN Glucose POC Glucose 344 H 365 H 334 H Hemoglobin A1c NT-Pro-B Natriuret Pep Albumin 06/22/18 06/22/18 06/22/18 05:36 05:36 07:07 RDW 16.1 H Lymph % (Auto) 5.2 L [place] % (Auto) 10.3 H Lymph # 0.4 L Seg Neutrophils % 84.4 H Seg Neutrophils # PT INR D-Dimer POC ABG pH POC ABG pCO2 Sodium Potassium 6.3 H* Chloride 92.8 L Carbon Dioxide 39 H BUN 33 H Glucose 349 H POC Glucose 281 H Hemoglobin A1c NT-Pro-B Natriuret Pep Albumin 06/22/18 06/22/18 11:18 16:23 RDW Lymph % (Auto) [place] % (Auto) Lymph # Seg Neutrophils % Seg Neutrophils # PT INR D-Dimer POC ABG pH POC ABG pCO2 Sodium Potassium Chloride Carbon Dioxide BUN Glucose POC Glucose 434 H 354 H Hemoglobin A1c NT-Pro-B Natriuret Pep Albumin Chest x-ray: report reviewed (No xchange in chest xray from yesterday.) Allied health notes reviewed: nursing
[2018-06-22] MEDS: DESYREL PO SCH (23:46)
[2018-06-22] MEDS: LEVAQUIN PO SCH (23:47)
[2018-06-22] MEDS: LANTUS SUB-Q SCH (23:48)
[2018-06-23] MEDS: HumaLOG SUB-Q SCH ×8 (00:02→22:31)
[2018-06-23] MEDS: LASIX IV SCH ×2 (04:06→15:33)
[2018-06-23] MEDS: EFFEXOR PO SCH ×4 (04:10→21:56)
[2018-06-23] MEDS: XANAX PO SCH ×4 (04:10→21:57)
[2018-06-23] MEDS: SODIUM CHLORIDE FLUSH SYRINGE 10 ML IV SCH ×4 (04:11→21:59)
[2018-06-23 05:50] LABS: BUN/Creatinine Ratio 39; Blood Urea Nitrogen 31 mg/dL (7-17); Calcium 9.1 mg/dL (8.4-10.2); Hemolysis Index 0
--- NOTE | 2018-06-23 07:36 | Hem/Onc Progress Note ---
Assessment and Plan 1. Large lung mass with lymphadenopathy and pleural effusion. 2. History of shortness of breath. 3. History of chest pain. 4. History of hypertension. 5. History of congestive heart failure. 6. In the past, the patient had deep venous thrombosis and was on Xarelto. 7. History of diabetes. 8. History of hyperlipidemia. 9. History of vitamin D deficiency. I had discussed with the patient regarding high suspicion for neoplasm. I had discussed about small cell versus non-small cell. The patient's mother had sm all cell cancer. The patient quit smoking a few years ago. IR consultation done and pulmonary team had seen the patient. CT head - neg CT A/p - nodular liver - adrenal lesion bx delayed due to xarelto 06/23 - prelim path - small cell or lymphoma - d/w pt reg same OP follow up an option d/w pt reg port and chemo will await final path - Patient Problems (1) Mass of upper lobe of right lung Current Visit: Yes Status: Acute Subjective Date of service: 06/23/18 Principal diagnosis: lung mass - prelim path small cell vs lymphoma Interval history: on o2 Objective - Constitutional Vitals: Last Vital Signs Temp 97.8 F 06/23/18 02:16 Pulse 120 H 06/23/18 02:16 Resp 20 06/23/18 02:16 BP 112/53 06/23/18 02:16 Pulse Ox 90 06/23/18 02:16 Pain Intensity (0-10): denies any pain General appearance: no acute distress Performance status: 3-limited selfcare - EENT Eyes: PERRL, EOM intact ENT: clear oral mucosa, other (on o2) Lymph node exam: negative cervical - Neck Neck: supple, normal ROM - Respiratory Respiratory effort: Positive: other (on o2) Respiratory: bilateral: diminished - Cardiovascular Heart Sounds: Present: S1 & S2 Extremities: normal temperature - Gastrointestinal General gastrointestinal: Present: soft, non-tender Rectal Exam: deferred - Genitourinary Female genitourinary: Present: deferred - Integumentary Integumentary: warm - Musculoskeletal Musculoskeletal: generalized weakness - Neurologic Neurologic: moves all extremities - Labs Lab Results: Laboratory Results - last 24 hr 06/19/18 06/22/18 06/22/18 05:46 10:37 11:18 Sodium Potassium 5.0 D Chloride Carbon Dioxide Anion Gap BUN Creatinine Estimated GFR BUN/Creatinine Ratio Glucose POC Glucose 434 H Calcium CA 19-9 Antigen 18 06/22/18 06/22/18 06/23/18 16:23 21:58 04:41 Sodium 142 Potassium 4.3 Chloride 93.3 L Carbon Dioxide 39 H Anion Gap 14 BUN 31 H Creatinine 0.8 Estimated GFR > 60 BUN/Creatinine Ratio 39 Glucose 230 H POC Glucose 354 H 282 H Calcium 9.1 CA 19-9 Antigen Medications & Allergies - Medications Allergies/Adverse Reactions: Allergies No Known Allergies Allergy (Verified 06/17/18 13:24) Home Medications: Home Medications Medication Instructions Recorded Confirmed Last Taken Type traZODone [Desyrel] 200 mg PO QHS 12/12/12 06/17/18 12/20/17 22:00 History Atorvastatin [Lipitor] 40 mg PO QHS #30 tab 01/07/17 06/17/18 12/20/17 Rx ALPRAZolam [Xanax TAB] 1 mg PO BID 06/17/18 06/17/18 Unknown History Albuterol Sulfate 1 neb IH BID 06/17/18 06/17/18 Unknown History Ergocalciferol (Vitamin D2) 50,000 unit PO QWEEK 06/17/18 06/17/18 Unknown History [Drisdol] Furosemide [Lasix] 20 mg PO QDAY 06/17/18 06/17/18 Unknown History Metoprolol [Lopressor TAB] 25 mg PO DAILY 06/17/18 06/17/18 Unknown History Rivaroxaban [Xarelto] 20 mg PO QDAY 06/17/18 06/17/18 Unknown History Spironolactone [Aldactone] 25 mg PO QDAY 06/17/18 06/17/18 Unknown History Venlafaxine [Effexor] 75 mg PO TID 06/17/18 06/17/18 Unknown History Active Medications: Generic Name Dose Route Start Last Admin Trade Name Freq PRN Reason Stop Dose Admin Acetaminophen 650 mg 06/17/18 21:30 06/21/18 17:00 Tylenol PO 650 mg Q4H PRN Administration Pain MILD(1-3)/Fever >100.5/TORREZ Acetaminophen/Butalbital/Caffeine 1 tab 06/17/18 20:23 06/17/18 20:52 Fioricet PO 1 tab Q4H PRN Administration Headache Albuterol 2.5 mg 06/21/18 11:41 Proventil IH Q4HRT PRN Shortness Of Breath Albuterol/Ipratropium 1 ampul 06/21/18 14:00 06/22/18 20:44 Duoneb *Not For Prn Use* IH 1 ampul Q6HRT [facility]AN Administration Alprazolam 1 mg 06/20/18 20:00 06/23/18 04:10 Xanax PO Not Given TID [facility] Arformoterol Tartrate 15 mcg 06/21/18 20:00 06/22/18 20:44 Brovana Nebu IH 15 mcg Q12HRT [facility] Administration Atorvastatin Calcium 40 mg 06/17/18 22:00 06/22/18 23:47 Lipitor PO 40 mg QHS [facility]AN Administration Budesonide 0.5 mg 06/21/18 20:00 06/22/18 20:44 Pulmicort IH 0.5 mg Q12HRT [facility] Administration Ergocalciferol 50,000 unit 06/23/18 10:00 Vitamin D2 PO Th [facility] Famotidine 20 mg 06/17/18 22:00 06/22/18 23:47 Pepcid PO 20 mg BID [facility] Administration Furosemide 20 mg 06/17/18 22:00 06/22/18 09:01 Lasix PO 20 mg QDAY [facility] Administration Furosemide 40 mg 06/22/18 14:00 06/23/18 04:06 Lasix IV 40 mg Q12H [facility] Administration Guaifenesin 10 ml 06/22/18 20:33 Guaifenesin Dm Syrup PO Q6HR PRN Cough Insulin Glargine 30 units 06/22/18 22:00 06/22/18 23:48 Lantus SUB-Q 30 units BID [facility] Administration Insulin Human Lispro 0 unit 06/17/18 22:00 06/23/18 00:02 Humalog SUB-Q 4 unit ACHS [facility] Administration Protocol Insulin Human Lispro 5 unit 06/22/18 11:30 06/22/18 16:37 Humalog SUB-Q 5 unit AC [facility] Administration Levofloxacin 750 mg 06/22/18 22:00 06/22/18 23:47 Levaquin PO 750 mg QHS [facility] Administration Lorazepam 0.5 mg 06/17/18 20:23 06/18/18 17:32 Ativan IV 0.5 mg Q4H PRN Administration Agitation Methylprednisolone Sodium Succinate 40 mg 06/18/18 17:00 06/22/18 16:37 Solu-Medrol IV 40 mg Q12H [facility] Administration Metoprolol Tartrate 25 mg 06/17/18 22:00 06/22/18 09:02 Lopressor PO 25 mg DAILY [facility] Administration Morphine Sulfate 2 mg 06/17/18 21:30 06/20/18 10:40 Morphine IV 2 mg Q4H PRN Administration Pain, Moderate (4-6) Ondansetron HCl 4 mg 06/17/18 21:30 Zofran IV Q8H PRN Nausea And Vomiting Oxycodone/Acetaminophen 1 tab 06/17/18 21:30 06/20/18 18:25 Percocet 5/325 PO 1 tab Q6H PRN Administration Pain, Moderate (4-6) Rivaroxaban 20 mg 06/17/18 22:00 06/22/18 16:38 Xarelto PO 20 mg QDAY@1700 [facility] Administration Protocol Sodium Chloride 10 ml 06/17/18 22:00 06/23/18 04:11 Sodium Chloride Flush Syringe 10 Ml IV 10 ml BID [facility] Administration Sodium Chloride 10 ml 06/17/18 21:30 Sodium Chloride Flush Syringe 10 Ml IV PRN PRN LINE FLUSH Spironolactone 25 mg 06/18/18 10:00 06/20/18 10:43 Aldactone PO 25 mg QDAY [facility] Administration Trazodone HCl 200 mg 06/17/18 22:00 06/22/18 23:46 Desyrel PO 200 mg QHS [facility] Administration Venlafaxine HCl 75 mg 06/18/18 08:00 06/23/18 04:10 Effexor PO Not Given TID [facility]
[2018-06-23] MEDS: DUONEB *Not for PRN Use IH SCH ×2 (08:24→08:25)
[2018-06-23] MEDS: BROVANA NEBU IH SCH ×2 (08:25→20:29)
[2018-06-23] MEDS: PULMICORT IH SCH ×2 (08:26→20:29)
[2018-06-23] MEDS: SOLU-Medrol IV SCH ×2 (08:29→17:51)
[2018-06-23] MEDS: LOPRESSOR PO SCH ×2 (08:30→10:47)
[2018-06-23] MEDS: VITAMIN D2 PO SCH ×2 (08:32→10:47)
[2018-06-23] MEDS: PEPCID PO SCH ×3 (08:32→21:58)
[2018-06-23] MEDS: LANTUS SUB-Q SCH ×3 (08:34→22:00)
[2018-06-23] MEDS: LASIX PO SCH (10:46)
--- NOTE | 2018-06-23 11:44 | Progress Note ---
Assessment and Plan Assessment and plan: 68 years old female patient admitted through emergency room with worsening shortness of breath, noted to be in acute exacerbation of COPD, -workup revealed large lung mass with post-obstructive pneumonia, evaluated by pulmonary, hematology oncology, interventional radiologist, -Patient has history of DVT /atrial flutter on Xarelto. Uncontrolled diabetes secondary to noncompliance and steroid, s/p CT-guided lung biopsy CTH; neg CT A/P- nodular liver, adrenal lesion 06/22; prelim path; small cell vs lymphoma CTA chest neg for PE, positve for RUL mass LE doppler neg for DVT Assessment and plan: --Hyperkalemia; potassium 5.4, sp Kayexalate 45 g , improved --Right upper lobe mass; w LAD and pleural effusion sp Lung biopsy 06/21, prelim lymphoma vs small cell ca --Acute on chronic hypoxic respiratory failure; due to copd and systolic CHF EF 35% cont steroids, nebs, lasix --Hypertension; well controlled,on antihypertensives --Acute on chronic systolic congestive heart failure; Ejection fraction 35-40% in December/2017 , anti-failure medications, cont lasix --History of atrial flutter; continue beta blockers,Xeralto --History of DVT; [venous Doppler this admission negative for DVT] on Xarelto, hematology following --Type 2 diabetes mellitus; uncontrolled/noncompliance A1c 11.2,Accu-Chek SSC and ADA diet , diabetic education optimize insulins --Medical noncompliance: advised to comply with medications and diet and follow-up visits; Tobacco abuse --Dyslipidemia; on statin --History of depression; stable, on antidepression medications --Morbid obesity; BMI 38.7; advised weight reduction and medically stable --DVT prophylaxis; patient is already on Xeralto Disposition; home tomorrow with home oxygen and home health services History Interval history: c/o sob, and orthopnea - no le edema -no cough -no fever, -has been tachycardic -no vomiting Hospitalist Physical - Physical exam Narrative exam: - Constitutional Vitals: General appearance: Present: no acute distress, well-nourished, obese - EENT Eyes: Present: PERRL, EOM intact - Neck Neck: Present: supple, normal ROM - Respiratory Respiratory effort: normal Respiratory: bilateral: diminished, rhonchi, negative: rales, wheezing - Cardiovascular Rhythm: regular Heart Sounds: Present: S1 & S2 - Extremities Extremities: no ischemia, No edema - Abdominal General gastrointestinal: soft, non-tender, non-distended, normal bowel sounds - Integumentary Integumentary: Present: clear, warm - Psychiatric Psychiatric: appropriate mood/affect, cooperative - Neurologic Neurologic: CNII-XII intact, moves all extremities - Constitutional Vitals: Temp Pulse Resp BP Pulse Ox 97.8 F 120 H 20 131/69 96 06/23/18 07:18 06/23/18 08:35 06/23/18 08:35 06/23/18 08:30 06/23/18 08:28 General appearance: Present: no acute distress, well-nourished, obese Results - Labs CBC & Chem 7: 06/22/18 05:36 06/23/18 04:41 Labs: Laboratory Last Values WBC 7.3 K/mm3 (4.5-11.0) 06/22/18 05:36 RBC 3.88 M/mm3 (3.65-5.03) 06/22/18 05:36 Hgb 10.9 gm/dl (10.1-14.3) 06/22/18 05:36 Hct 34.5 % (30.3-42.9) 06/22/18 05:36 MCV 89 fl (79-97) 06/22/18 05:36 MCH 28 pg (28-32) 06/22/18 05:36 MCHC 32 % (30-34) 06/22/18 05:36 RDW 16.1 % (13.2-15.2) H 06/22/18 05:36 Plt Count 156 K/mm3 (140-440) 06/22/18 05:36 Lymph % (Auto) 5.2 % (13.4-35.0) L 06/22/18 05:36 [place] % (Auto) 10.3 % (0.0-7.3) H 06/22/18 05:36 Eos % (Auto) 0.0 % (0.0-4.3) 06/22/18 05:36 Baso % (Auto) 0.1 % (0.0-1.8) 06/22/18 05:36 Lymph # 0.4 K/mm3 (1.2-5.4) L 06/22/18 05:36 [place] # 0.8 K/mm3 (0.0-0.8) 06/22/18 05:36 Eos # 0.0 K/mm3 (0.0-0.4) 06/22/18 05:36 Baso # 0.0 K/mm3 (0.0-0.1) 06/22/18 05:36 Seg Neutrophils % 84.4 % (40.0-70.0) H 06/22/18 05:36 Seg Neutrophils # 6.2 K/mm3 (1.8-7.7) 06/22/18 05:36 PT 15.6 Sec. (12.2-14.9) H 06/18/18 16:32 INR 1.17 (0.87-1.13) H 06/18/18 16:32 508.49 ng/mlDDU (0-234) H 06/18/18 16:32 POC ABG pH 7.346 (7.35-7.45) L 06/21/18 14:44 POC ABG pCO2 56.3 (35-45) H 06/21/18 14:44 POC ABG HCO3 30.8 (22-26 mml/L) 06/21/18 14:44 POC ABG Total CO2 33 (23-27mmol/L) 06/21/18 14:44 POC ABG O2 Sat 79 06/21/18 14:44 POC ABG Base Excess 5 ((-2) - (+3)mmol/L) 06/21/18 14:44 21 % 06/21/18 14:44 Sodium 142 mmol/L (137-145) 06/23/18 04:41 Potassium 4.3 mmol/L (3.6-5.0) 06/23/18 04:41 Chloride 93.3 mmol/L (98-107) L 06/23/18 04:41 Carbon Dioxide 39 mmol/L (22-30) H 06/23/18 04:41 14 mmol/L 06/23/18 04:41 BUN 31 mg/dL (7-17) H 06/23/18 04:41 0.8 mg/dL (0.7-1.2) 06/23/18 04:41 Estimated GFR > 60 ml/min 06/23/18 04:41 39 % 06/23/18 04:41 Glucose 230 mg/dL (65-100) H 06/23/18 04:41 POC Glucose 299 (70-105) H 06/23/18 11:32 11.2 % (4-6) H 06/17/18 13:51 Calcium 9.1 mg/dL (8.4-10.2) 06/23/18 04:41 Magnesium 2.00 mg/dL (1.7-2.3) 06/19/18 05:46 0.40 mg/dL (0.1-1.2) 06/18/18 06:06 AST 27 units/L (5-40) 06/18/18 06:06 ALT 16 units/L (7-56) 06/18/18 06:06 111 units/L (35-129) 06/18/18 06:06 < 0.010 ng/mL (0.00-0.029) 06/17/18 14:33 NT-Pro-B Natriuret Pep 2038 pg/mL (0-900) H 06/17/18 13:41 7.4 g/dL (6.3-8.2) 06/18/18 06:06 4.0 g/dL (3.9-5) 06/18/18 06:06 1.2 % 06/18/18 06:06 Carcinoembryonic Ag See scanned result 06/19/18 05:46 18 U/mL (<34) 06/19/18 05:46 Active Medications - Current Medications Current Medications: Generic Name Dose Route Start Last Admin Trade Name Freq PRN Reason Stop Dose Admin Acetaminophen 650 mg 06/17/18 21:30 06/21/18 17:00 Tylenol PO 650 mg Q4H PRN Administration Pain MILD(1-3)/Fever >100.5/TORREZ Acetaminophen/Butalbital/Caffeine 1 tab 06/17/18 20:23 06/17/18 20:52 Fioricet PO 1 tab Q4H PRN Administration Headache Albuterol 2.5 mg 06/21/18 11:41 Proventil IH Q4HRT PRN Shortness Of Breath Albuterol/Ipratropium 1 ampul 06/21/18 14:00 05/16/19 08:25 Duoneb *Not For Prn Use* IH 1 ampul Q6HRT [facility]AN Administration Alprazolam 1 mg 06/20/18 20:00 06/23/18 08:33 Xanax PO 1 mg TID [facility]AN Administration Arformoterol Tartrate 15 mcg 06/21/18 20:00 06/23/18 08:25 Brovana Nebu IH Not Given Q12HRT [facility]AN Atorvastatin Calcium 40 mg 06/17/18 22:00 06/22/18 23:47 Lipitor PO 40 mg QHS [facility]AN Administration Budesonide 0.5 mg 06/21/18 20:00 06/23/18 08:26 Pulmicort IH Not Given Q12HRT [facility] Ergocalciferol 50,000 unit 06/23/18 10:00 06/23/18 10:47 Vitamin D2 PO Not Given Th [facility] Famotidine 20 mg 06/17/18 22:00 06/23/18 10:47 Pepcid PO Not Given BID [facility] Furosemide 20 mg 06/17/18 22:00 06/23/18 10:46 Lasix PO Not Given QDAY [facility] Furosemide 40 mg 06/22/18 14:00 06/23/18 04:06 Lasix IV 40 mg Q12H [facility] Administration Guaifenesin 10 ml 06/22/18 20:33 Guaifenesin Dm Syrup PO Q6HR PRN Cough Insulin Glargine 31 units 06/23/18 11:42 Lantus SUB-Q BID [facility] Insulin Human Lispro 0 unit 06/17/18 22:00 06/23/18 08:31 Humalog SUB-Q 2 unit ACHS [facility]AN Administration Protocol Insulin Human Lispro 7 unit 06/23/18 11:42 Humalog SUB-Q AC [facility] Levofloxacin 750 mg 06/22/18 22:00 06/22/18 23:47 Levaquin PO 750 mg QHS [facility] Administration Lorazepam 0.5 mg 06/17/18 20:23 06/18/18 17:32 Ativan IV 0.5 mg Q4H PRN Administration Agitation Methylprednisolone Sodium Succinate 40 mg 06/18/18 17:00 06/23/18 08:29 Solu-Medrol IV 40 mg Q12H [facility] Administration Metoprolol Tartrate 25 mg 06/17/18 22:00 06/23/18 10:47 Lopressor PO Not Given DAILY [facility] Ondansetron HCl 4 mg 06/17/18 21:30 Zofran IV Q8H PRN Nausea And Vomiting Oxycodone/Acetaminophen 1 tab 06/17/18 21:30 06/20/18 18:25 Percocet 5/325 PO 1 tab Q6H PRN Administration Pain, Moderate (4-6) Oxycodone/Acetaminophen 2 tab 06/23/18 11:40 Percocet 5/325 PO Q6H PRN Pain , Severe (7-10) Rivaroxaban 20 mg 06/17/18 22:00 06/22/18 16:38 Xarelto PO 20 mg QDAY@1700 [facility] Administration Protocol Sodium Chloride 10 ml 06/17/18 22:00 06/23/18 10:47 Sodium Chloride Flush Syringe 10 Ml IV Not Given BID [facility] Sodium Chloride 10 ml 06/17/18 21:30 Sodium Chloride Flush Syringe 10 Ml IV PRN PRN LINE FLUSH Spironolactone 25 mg 06/18/18 10:00 06/20/18 10:43 Aldactone PO 25 mg QDAY [facility] Administration Trazodone HCl 200 mg 06/17/18 22:00 06/22/18 23:46 Desyrel PO 200 mg QHS [facility] Administration Venlafaxine HCl 75 mg 06/18/18 08:00 06/23/18 08:33 Effexor PO 75 mg TID [facility]AN Administration
[2018-06-23] MEDS ORDERED: MORPHINE IV ONE ×2 (11:54→13:00)
[2018-06-23] MEDS ORDERED: ATROVENT IH PRN (11:55)
--- NOTE | 2018-06-23 14:01 | Consultation ---
History of Present Illness Consult date: 06/23/18 Reason for consult: other (port placement) Requesting physician: NAOMI GIL Chief complaint: SOB - History of present illness History of present illness: 68yo F with a recent discovery of a right lung mass. Suspicion is for lung cancer. We are asked to evaluate her for possible port placement. She originally presented to the hospital for shortness of breath. At this time, the patient and team are waiting for the final results of the biopsy pathology. Patient is unsure whether she wants to undergo chemotherapy or not. Past History Past Medical History: atrial fib, COPD, diabetes, heart failure, hypertension Past Surgical History: hysterectomy, Other (pacer placement) Social history: smoking (80pk yr smoking history. stopped 3 years ago). denies: alcohol abuse, prescription drug abuse, IV drug use Family history: cancer (mother with small cell lung cancer) Medications and Allergies Allergies Allergy/AdvReac Type Severity Reaction Status Date / Time No Known Allergies Allergy Verified 06/17/18 13:24 Home Medications Medication Instructions Recorded Confirmed Last Taken Type traZODone [Desyrel] 200 mg PO QHS 12/12/12 06/17/18 12/20/17 22:00 History Atorvastatin [Lipitor] 40 mg PO QHS #30 tab 01/07/17 06/17/18 12/20/17 Rx ALPRAZolam [Xanax TAB] 1 mg PO BID 06/17/18 06/17/18 Unknown History Albuterol Sulfate 1 neb IH BID 06/17/18 06/17/18 Unknown History Ergocalciferol (Vitamin D2) 50,000 unit PO QWEEK 06/17/18 06/17/18 Unknown History [Drisdol] Furosemide [Lasix] 20 mg PO QDAY 06/17/18 06/17/18 Unknown History Metoprolol [Lopressor TAB] 25 mg PO DAILY 06/17/18 06/17/18 Unknown History Rivaroxaban [Xarelto] 20 mg PO QDAY 06/17/18 06/17/18 Unknown History Spironolactone [Aldactone] 25 mg PO QDAY 06/17/18 06/17/18 Unknown History Venlafaxine [Effexor] 75 mg PO TID 06/17/18 06/17/18 Unknown History Active Meds: Active Medications Acetaminophen (Tylenol) 650 mg PO Q4H PRN PRN Reason: Pain MILD(1-3)/Fever >100.5/TORREZ Last Admin: 06/21/18 17:00 Dose: 650 mg Documented by: Acetaminophen/Butalbital/Caffeine (Fioricet) 1 tab PO Q4H PRN PRN Reason: Headache Last Admin: 06/17/18 20:52 Dose: 1 tab Documented by: Alprazolam (Xanax) 1 mg PO TID [facility] Last Admin: 06/23/18 13:03 Dose: 1 mg Documented by: Arformoterol Tartrate (Brovana Nebu) 15 mcg IH Q12HRT [facility] Last Admin: 06/23/18 08:25 Dose: Not Given Documented by: Atorvastatin Calcium (Lipitor) 40 mg PO QHS [facility] Last Admin: 06/22/18 23:47 Dose: 40 mg Documented by: Budesonide (Pulmicort) 0.5 mg IH Q12HRT [facility] Last Admin: 06/23/18 08:26 Dose: Not Given Documented by: Ergocalciferol (Vitamin D2) 50,000 unit PO Th [facility] Last Admin: 06/23/18 10:47 Dose: Not Given Documented by: Famotidine (Pepcid) 20 mg PO BID [facility] Last Admin: 06/23/18 10:47 Dose: Not Given Documented by: Furosemide (Lasix) 20 mg PO QDAY [facility] Last Admin: 06/23/18 10:46 Dose: Not Given Documented by: Furosemide (Lasix) 40 mg IV Q12H [facility] Last Admin: 06/23/18 04:06 Dose: 40 mg Documented by: Guaifenesin (Guaifenesin Dm Syrup) 10 ml PO Q6HR PRN PRN Reason: Cough Insulin Glargine (Lantus) 31 units SUB-Q BID [facility] Insulin Human Lispro (Humalog) 0 unit SUB-Q ACHS [facility]; Protocol Last Admin: 06/23/18 13:03 Dose: 4 unit Documented by: Insulin Human Lispro (Humalog) 7 unit SUB-Q AC [facility] Ipratropium [place] (Atrovent) 0.5 mg IH Q4HRT PRN PRN Reason: Shortness Of Breath Levofloxacin (Levaquin) 750 mg PO QHS [facility] Last Admin: 06/22/18 23:47 Dose: 750 mg Documented by: Lorazepam (Ativan) 0.5 mg IV Q4H PRN PRN Reason: Agitation Last Admin: 06/18/18 17:32 Dose: 0.5 mg Documented by: Methylprednisolone Sodium Succinate (Solu-Medrol) 40 mg IV Q12H [facility] Last Admin: 06/23/18 08:29 Dose: 40 mg Documented by: Metoprolol Tartrate (Lopressor) 25 mg PO DAILY [facility] Last Admin: 06/23/18 10:47 Dose: Not Given Documented by: Ondansetron HCl (Zofran) 4 mg IV Q8H PRN PRN Reason: Nausea And Vomiting Oxycodone/Acetaminophen (Percocet 5/325) 1 tab PO Q6H PRN PRN Reason: Pain, Moderate (4-6) Last Admin: 06/20/18 18:25 Dose: 1 tab Documented by: Oxycodone/Acetaminophen (Percocet 5/325) 2 tab PO Q6H PRN PRN Reason: Pain , Severe (7-10) Rivaroxaban (Xarelto) 20 mg PO QDAY@1700 [facility]; Protocol Last Admin: 06/22/18 16:38 Dose: 20 mg Documented by: Sodium Chloride (Sodium Chloride Flush Syringe 10 Ml) 10 ml IV BID [facility] Last Admin: 06/23/18 10:47 Dose: Not Given Documented by: Sodium Chloride (Sodium Chloride Flush Syringe 10 Ml) 10 ml IV PRN PRN PRN Reason: LINE FLUSH Spironolactone (Aldactone) 25 mg PO QDAY [facility] Last Admin: 06/20/18 10:43 Dose: 25 mg Documented by: Trazodone HCl (Desyrel) 200 mg PO QHS [facility] Last Admin: 06/22/18 23:46 Dose: 200 mg Documented by: Venlafaxine HCl (Effexor) 75 mg PO TID [facility] Last Admin: 06/23/18 13:03 Dose: 75 mg Documented by: Review of Systems - Constitutional weakness, no fever, no chills - Cardiovascular shortness of breath, no chest pain - Respiratory cough, dyspnea on exertion - Gastrointestinal no abdominal pain, no nausea, no vomiting Exam Vital Signs Temp Pulse Resp BP Pulse Ox 98 F 121 H 24 119/69 94 06/17/18 13:30 06/17/18 13:30 06/17/18 13:30 06/17/18 13:30 06/17/18 13:30 - General physical appearance Positive: no distress, no pain, obese, other (pleasant, elderly female) - Eyes Positive: normal occular movement - Neck Positive: no masses, no bruits, trachea midline, no venous distension, other (no surgical scars. No deformity.) - Respiratory Positive: normal expansion, normal respiratory effort, other (no trauma to the upper chest. No signs of infection. Pacemaker is located deep on the left side of the chest wall.) - Integumentary no rash, no growths, no abnormal pigmentation - Neurologic Neurologic: alert and oriented to time, place and person, motor strength and sensation are grossly intact - Psychiatric Psychiatric: appropriate mood/affect, intact judgment & insight Results - Labs 06/22/18 05:36 06/23/18 04:41 Abnormal lab results 06/22/18 06/22/18 06/23/18 Range/Units 16:23 21:58 04:41 Chloride 93.3 L (98-107) mmol/L Carbon Dioxide 39 H (22-30) mmol/L BUN 31 H (7-17) mg/dL Glucose 230 H (65-100) mg/dL POC Glucose 354 H 282 H (70-105) 06/23/18 06/23/18 Range/Units 07:23 11:32 Chloride (98-107) mmol/L Carbon Dioxide (22-30) mmol/L BUN (7-17) mg/dL Glucose (65-100) mg/dL POC Glucose 177 H 299 H (70-105) Diabetes panel 06/23/18 Range/Units 04:41 Sodium 142 (137-145) mmol/L Potassium 4.3 (3.6-5.0) mmol/L Chloride 93.3 L (98-107) mmol/L Carbon Dioxide 39 H (22-30) mmol/L BUN 31 H (7-17) mg/dL Creatinine 0.8 (0.7-1.2) mg/dL Glucose 230 H (65-100) mg/dL Calcium 9.1 (8.4-10.2) mg/dL Calcium panel 06/23/18 Range/Units 04:41 Calcium 9.1 (8.4-10.2) mg/dL Pituitary panel 06/23/18 Range/Units 04:41 Sodium 142 (137-145) mmol/L Potassium 4.3 (3.6-5.0) mmol/L Chloride 93.3 L (98-107) mmol/L Carbon Dioxide 39 H (22-30) mmol/L BUN 31 H (7-17) mg/dL Creatinine 0.8 (0.7-1.2) mg/dL Glucose 230 H (65-100) mg/dL Calcium 9.1 (8.4-10.2) mg/dL Adrenal panel 06/23/18 Range/Units 04:41 Sodium 142 (137-145) mmol/L Potassium 4.3 (3.6-5.0) mmol/L Chloride 93.3 L (98-107) mmol/L Carbon Dioxide 39 H (22-30) mmol/L BUN 31 H (7-17) mg/dL Creatinine 0.8 (0.7-1.2) mg/dL Glucose 230 H (65-100) mg/dL Calcium 9.1 (8.4-10.2) mg/dL - Imaging Chest x-ray: report reviewed, image reviewed Assessment and Plan - Patient Problems (1) Mass of upper lobe of right lung Current Visit: Yes Status: Acute Plan to address problem: Pt stable. At this point, patient has not made a decision on treatment plan. It is understandable as the final pathology is not available yet. Even if the pathology confirms the suspicion of cancer, she is not sure if she will do chemotherapy. She would like to discuss this with her family once the final pathology is known. Therefore, we will be available to see her in the office if she decides to have chemotherapy. We can arrange for an outpatient port placement. We briefly discussed port placement and some risks. Patient was very appreciative of the time and the care. Please call if there are any questions. time=30min
--- NOTE | 2018-06-23 14:17 | Progress Note ---
Assessment and Plan Acute hypoxemic respiratory failure. Lung mass that appears to have been present in December of last year. Postobstructive pneumonia component. History of congestive heart failure. Diabetes type 2. Hypertension. History of depression. Acute chronic obstructive pulmonary disease exacerbation. History of tobacco abuse. Possible obstructive sleep apnea. - continue supplemental oxygen and wean for sat's > 90% - continue bronchodilators with pulmonary hygiene per RT - continue systemic steroids with quick taper as tolerated - continue xarelto for A-fib (hold for procedure) - follow path report and treatment per oncology - continue BIPAP scheduled qhs with prn daytime use - continue GI & VTE prophylaxis - dopplers negative for VTE - continue accuchecks with glycemic control per SSI for target BG < 180 mg/dl - continue other care per attending / other consultants ... re-evaluate in am & prn Subjective Date of service: 06/23/18 Principal diagnosis: Ac hypoxemic resp failure; Lung mass; pneumonia; CHF; DM II; HTN Interval history: Patient is seen today for: Acute hypoxemic respiratory failure; Lung mass; Postobstructive pneumonia; History of congestive heart failure; Diabetes type 2; Hypertension. Seen and examined at bedside; 24-hour events reviewed; nursing and respiratory care staff consulted; no adverse overnight events reported to me; resting peacefully in bed; remains on supplemental oxygen; oncology evaluation ongoing; still SOB; No N/V/F/C Objective Vital Signs - 12hr 06/23/18 06/23/18 06/23/18 07:18 08:26 08:28 Temperature 97.8 F Pulse Rate 79 Pulse Rate [ 119 H Anterior Bilateral Throughout] Respiratory 20 Rate Respiratory 20 Rate [Anterior Bilateral Throughout] Blood Pressure 131/69 O2 Sat by Pulse 96 96 Oximetry 06/23/18 06/23/18 06/23/18 08:30 08:35 13:03 Temperature 98.1 F Pulse Rate 79 124 H Pulse Rate [ 120 H Anterior Bilateral Throughout] Respiratory 20 Rate Respiratory 20 Rate [Anterior Bilateral Throughout] Blood Pressure 131/69 146/81 O2 Sat by Pulse 91 Oximetry Constitutional: no acute distress, alert, other (elderly looking obese CF, normocephalic and atraumatic with increased respiratory effort at rest) Eyes: non-icteric ENT: oropharynx moist, other (mallampati 3) Neck: supple, no lymphadenopathy, no JVD, other (large neck circumference) Effort: mildly labored Ascultation: Right: diminished breath sounds, Bilateral: rhonchi Percussion: Bilateral: not dull Cardiovascular: regular rate and rhythm Gastrointestinal: normoactive bowel sounds, soft, non-tender, non-distended Integumentary: normal Extremities: no cyanosis, no edema, pink and warm, pulses normal, no ischemia or petechiae Neurologic: normal mental status, non-focal exam, pupils equal and round, motor strength normal and Psychiatric: anxious CBC and BMP: 06/22/18 05:36 06/24/18 04:41 ABG, PT/INR, D-dimer: ABG POC ABG pH 7.346 (7.35-7.45) L 06/21/18 14:44 POC ABG pCO2 56.3 (35-45) H 06/21/18 14:44 POC ABG HCO3 30.8 (22-26 mml/L) 06/21/18 14:44 POC ABG Total CO2 33 (23-27mmol/L) 06/21/18 14:44 POC ABG O2 Sat 79 06/21/18 14:44 PT/INR, D-dimer PT 15.6 Sec. (12.2-14.9) H 06/18/18 16:32 INR 1.17 (0.87-1.13) H 06/18/18 16:32 508.49 ng/mlDDU (0-234) H 06/18/18 16:32 Abnormal lab findings: Abnormal Labs 06/17/18 06/17/18 06/17/18 13:41 13:41 13:51 RDW 16.0 H Lymph % (Auto) Pender % (Auto) 8.7 H Lymph # 1.1 L Seg Neutrophils % 71.3 H Seg Neutrophils # PT INR D-Dimer POC ABG pH POC ABG pCO2 Sodium 132 L Potassium Chloride 90.6 L Carbon Dioxide BUN 19 H Glucose 217 H POC Glucose Hemoglobin A1c 11.2 H NT-Pro-B Natriuret Pep 2038 H Albumin 3.7 L 06/17/18 06/18/18 06/18/18 22:03 06:06 06:06 RDW 16.6 H Lymph % (Auto) 12.4 L Pender % (Auto) Lymph # 0.7 L Seg Neutrophils % 83.9 H Seg Neutrophils # PT INR D-Dimer POC ABG pH POC ABG pCO2 Sodium 135 L Potassium Chloride 94.1 L Carbon Dioxide BUN 21 H Glucose 332 H POC Glucose 225 H Hemoglobin A1c NT-Pro-B Natriuret Pep Albumin 06/18/18 06/18/18 06/18/18 07:24 12:06 16:32 RDW Lymph % (Auto) Pender % (Auto) Lymph # Seg Neutrophils % Seg Neutrophils # PT 15.6 H INR 1.17 H D-Dimer 508.49 H POC ABG pH POC ABG pCO2 Sodium Potassium Chloride Carbon Dioxide BUN Glucose POC Glucose 282 H 350 H Hemoglobin A1c NT-Pro-B Natriuret Pep Albumin 06/18/18 06/18/18 06/19/18 16:46 22:08 05:46 RDW 16.1 H Lymph % (Auto) 4.8 L Pender % (Auto) Lymph # 0.5 L Seg Neutrophils % 87.7 H Seg Neutrophils # 8.8 H PT INR D-Dimer POC ABG pH POC ABG pCO2 Sodium Potassium Chloride Carbon Dioxide BUN Glucose POC Glucose 268 H 308 H Hemoglobin A1c NT-Pro-B Natriuret Pep Albumin 06/19/18 06/19/18 06/19/18 05:46 07:55 11:32 RDW Lymph % (Auto) Pender % (Auto) Lymph # Seg Neutrophils % Seg Neutrophils # PT INR D-Dimer POC ABG pH POC ABG pCO2 Sodium 135 L Potassium Chloride 94.4 L Carbon Dioxide BUN 25 H Glucose 375 H POC Glucose 335 H 403 H Hemoglobin A1c NT-Pro-B Natriuret Pep Albumin 06/19/18 06/19/18 06/20/18 16:48 22:37 07:40 RDW Lymph % (Auto) Pender % (Auto) Lymph # Seg Neutrophils % Seg Neutrophils # PT INR D-Dimer POC ABG pH POC ABG pCO2 Sodium Potassium Chloride Carbon Dioxide BUN Glucose POC Glucose 233 H 247 H 224 H Hemoglobin A1c NT-Pro-B Natriuret Pep Albumin 06/20/18 06/20/18 06/20/18 11:31 16:40 21:59 RDW Lymph % (Auto) Pender % (Auto) Lymph # Seg Neutrophils % Seg Neutrophils # PT INR D-Dimer POC ABG pH POC ABG pCO2 Sodium Potassium Chloride Carbon Dioxide BUN Glucose POC Glucose 288 H 328 H 321 H Hemoglobin A1c NT-Pro-B Natriuret Pep Albumin 06/21/18 06/21/18 06/21/18 05:23 05:23 07:01 RDW 16.0 H Lymph % (Auto) 3.4 L Pender % (Auto) 8.2 H Lymph # 0.3 L Seg Neutrophils % 88.3 H Seg Neutrophils # 8.2 H PT INR D-Dimer POC ABG pH POC ABG pCO2 Sodium Potassium 5.4 H Chloride 93.8 L Carbon Dioxide 33 H BUN 33 H Glucose 267 H POC Glucose 229 H Hemoglobin A1c NT-Pro-B Natriuret Pep Albumin 06/21/18 06/21/18 06/21/18 11:48 14:44 16:32 RDW Lymph % (Auto) Pender % (Auto) Lymph # Seg Neutrophils % Seg Neutrophils # PT INR D-Dimer POC ABG pH 7.346 L POC ABG pCO2 56.3 H Sodium Potassium Chloride Carbon Dioxide BUN Glucose POC Glucose 272 H 441 H Hemoglobin A1c NT-Pro-B Natriuret Pep Albumin 06/21/18 06/21/18 06/22/18 22:02 23:51 01:58 RDW Lymph % (Auto) Pender % (Auto) Lymph # Seg Neutrophils % Seg Neutrophils # PT INR D-Dimer POC ABG pH POC ABG pCO2 Sodium Potassium Chloride Carbon Dioxide BUN Glucose POC Glucose 344 H 365 H 334 H Hemoglobin A1c NT-Pro-B Natriuret Pep Albumin 06/22/18 06/22/18 06/22/18 05:36 05:36 07:07 RDW 16.1 H Lymph % (Auto) 5.2 L Pender % (Auto) 10.3 H Lymph # 0.4 L Seg Neutrophils % 84.4 H Seg Neutrophils # PT INR D-Dimer POC ABG pH POC ABG pCO2 Sodium Potassium 6.3 H* Chloride 92.8 L Carbon Dioxide 39 H BUN 33 H Glucose 349 H POC Glucose 281 H Hemoglobin A1c NT-Pro-B Natriuret Pep Albumin 06/22/18 06/22/18 06/22/18 11:18 16:23 21:58 RDW Lymph % (Auto) Pender % (Auto) Lymph # Seg Neutrophils % Seg Neutrophils # PT INR D-Dimer POC ABG pH POC ABG pCO2 Sodium Potassium Chloride Carbon Dioxide BUN Glucose POC Glucose 434 H 354 H 282 H Hemoglobin A1c NT-Pro-B Natriuret Pep Albumin 06/23/18 06/23/18 06/23/18 04:41 07:23 11:32 RDW Lymph % (Auto) Pender % (Auto) Lymph # Seg Neutrophils % Seg Neutrophils # PT INR D-Dimer POC ABG pH POC ABG pCO2 Sodium Potassium Chloride 93.3 L Carbon Dioxide 39 H BUN 31 H Glucose 230 H POC Glucose 177 H 299 H Hemoglobin A1c NT-Pro-B Natriuret Pep Albumin Allied health notes reviewed: nursing
[2018-06-23] MEDS: XARELTO PO SCH (17:52)
[2018-06-23] MEDS: LEVAQUIN PO SCH (21:57)
[2018-06-23] MEDS: DESYREL PO SCH (21:58)
[2018-06-23] MEDS: PERCOCET 5/325 PO PRN (22:39)
[2018-06-24] MEDS: LASIX IV SCH (04:28)
[2018-06-24] MEDS: SOLU-Medrol IV SCH (04:28)
[2018-06-24 05:45] LABS: BUN/Creatinine Ratio 44; Blood Urea Nitrogen 40 mg/dL (7-17); Calcium 9.3 mg/dL (8.4-10.2); Hemolysis Index 7
[2018-06-24 07:17] VITALS: BP 126/71
[2018-06-24] MEDS: PULMICORT IH SCH (07:24)
[2018-06-24] MEDS: BROVANA NEBU IH SCH (07:24)
--- NOTE | 2018-06-24 07:25 | Discharge Summary ---
Providers - Providers Date of Admission: 06/17/18 17:42 Attending physician: MICHELLE BAL MD 06/17/18 21:30 Consult to Physician [CONS] Routine Comment: Consulting Provider: ANUSHKA VELEZ Physician Instructions: Reason For Exam: acute respiratory failure 06/17/18 21:33 Consult to Physician [CONS] Routine Comment: Consulting Provider: NAOMI GIL Physician Instructions: Reason For Exam: right lung mass 06/18/18 15:25 Consult to Physician [CONS] Routine Comment: Consulting Provider: LUCIO HARDWICK Physician Instructions: Reason For Exam: lung mass - ? bx 06/20/18 12:28 Physical Therapy Evaluation and Treat [CONS] Routine Comment: Reason For Exam: Weakness 06/21/18 15:07 Occupational Therapy Evaluate and Treat [CONS] Urgent Comment: Reason For Exam: issues of energy conservation given lung status. 06/23/18 08:07 Consult to Physician [CONS] Routine Comment: called office/[place] Consulting Provider: KIM MENDEZ Physician Instructions: Reason For Exam: port placement eval -in pt vs OP Primary care physician: JESSICA DONOHUE Hospitalization Condition: Fair Hospital course: 68 years old female patient admitted through emergency room with worsening shortness of breath, noted to be in acute exacerbation of COPD, -workup revealed large lung mass with post-obstructive pneumonia, evaluated by pulmonary, hematology oncology, interventional radiologist, -Patient has history of DVT /atrial flutter on Xarelto. Uncontrolled diabetes secondary to noncompliance and steroid, s/p CT-guided lung biopsy CTH; neg CT A/P- nodular liver, adrenal lesion 06/22; prelim path; small cell vs lymphoma CTA chest neg for PE, positve for RUL mass LE doppler neg for DVT Assessment and plan: --Hyperkalemia; potassium 5.4, sp Kayexalate 45 g , improved --Right upper lobe mass; w LAD and pleural effusion sp Lung biopsy 06/21, prelim lymphoma vs small cell ca, will fup with oncology for final result and rx plan --Acute on chronic hypoxic respiratory failure; due to copd and systolic CHF EF 35% received steroids, nebs, lasix --Hypertension; well controlled,on antihypertensives --Acute on chronic systolic congestive heart failure; Ejection fraction 35-40% in December/2017 ,she received diuresis and meds were optimized --History of atrial flutter; continued beta blockers,Xeralto --History of DVT; venous Doppler this admission negative for DVT on Xarelto, hematology following --Type 2 diabetes mellitus; uncontrolled/noncompliance with persistent hyperglycemia A1c 11.2,Accu-Chek SSC and ADA diet , diabetic education optimized insulins --Medical noncompliance: advised to comply with medications and diet and follow-up visits; Hx of Tobacco abuse --Dyslipidemia; on statin --History of depression; stable, on antidepression medications --Morbid obesity; BMI 38.7; advised weight reduction and medically stable --DVT prophylaxis; patient is already on Xeralto Disposition; she was set up with home oxygen and pior to dc Disposition: [id number] HOME UNDER HOME [facility] Time spent for discharge: 33 mins Core Measure Documentation - Palliative Care Palliative Care/ Comfort Measures: Not Applicable - Core Measures Any of the following diagnoses?: none Exam - Physical Exam Narrative exam: - Constitutional Vitals: General appearance: Present: no acute distress, well-nourished, obese - EENT Eyes: Present: PERRL, EOM intact - Neck Neck: Present: supple, normal ROM - Respiratory Respiratory effort: normal Respiratory: bilateral: diminished, rhonchi, negative: rales, wheezing - Cardiovascular Rhythm: regular Heart Sounds: Present: S1 & S2 - Extremities Extremities: no ischemia, No edema - Abdominal General gastrointestinal: soft, non-tender, non-distended, normal bowel sounds - Integumentary Integumentary: Present: clear, warm - Psychiatric Psychiatric: appropriate mood/affect, cooperative - Neurologic Neurologic: CNII-XII intact, moves all extremities - Constitutional Vitals: Temp Pulse Resp BP Pulse Ox 98.6 F 112 H 18 111/73 96 06/24/18 01:02 06/24/18 01:30 06/24/18 01:30 06/24/18 01:02 06/24/18 01:30 Plan Follow up with: JESSICA DONOHUE MD [Primary Care Provider] - 3-5 Days Prescriptions: levoFLOXacin [Levaquin TAB] 750 mg PO QHS #3 tablet Albuterol Sulfate 1 neb IH QID PRN #180 vial.neb PRN Reason: Shortness Of Breath Losartan [Cozaar] 25 mg PO QDAY #30 tablet Butalb/Acetamin/Caff 50-325-40 [Fioricet 50-325-40] 1 tab PO Q4H PRN #20 tablet PRN Reason: Headache Lispro Insulin [HumaLOG] 7 unit SUB-Q AC #1 vial Insulin Glargine [Lantus VIAL] 32 units SUB-Q BID #1 vial Furosemide [Lasix TAB] 40 mg PO QDAY #30 tablet Metoprolol [Lopressor TAB] 25 mg PO BID #60 tablet oxyCODONE /ACETAMINOPHEN [Percocet 5/325 mg] 1 tab PO Q6H PRN #30 tablet PRN Reason: Pain, Moderate (4-6) Prednisone [predniSONE 10 mg (6-Day Pack, 21 Tabs)] 10 mg PO .TAPER #1 tab.ds.pk ALBUTEROL Inhaler (OR & NICU) [ProAir HFA Inhaler] 2 puff IH QID PRN #1 inhalation PRN Reason: Shortness Of Breath Tiotropium [place] [Spiriva Respimat] 1 puff IH DAILY #1 mist.inhal Budesonide/Formoterol Fumarate [Symbicort 160-4.5 Mcg Inhaler] 1 puff IH BID #1 hfa.aer.ad ALPRAZolam [Xanax TAB] 1 mg PO BID #60 tablet
--- NOTE | 2018-06-24 07:43 | Hem/Onc Progress Note ---
Assessment and Plan 1. Large lung mass with lymphadenopathy and pleural effusion. 2. History of shortness of breath. 3. History of chest pain. 4. History of hypertension. 5. History of congestive heart failure. 6. In the past, the patient had deep venous thrombosis and was on Xarelto. 7. History of diabetes. 8. History of hyperlipidemia. 9. History of vitamin D deficiency. I had discussed with the patient regarding high suspicion for neoplasm. I had discussed about small cell versus non-small cell. The patient's mother had sm all cell cancer. The patient quit smoking a few years ago. IR consultation done and pulmonary team had seen the patient. CT head - neg CT A/p - nodular liver - adrenal lesion bx delayed due to xarelto 06/24 - pathologist called to say small cell lung ca OP follow up an option seen by Dr Sequeira - pt wants to think clinically this may be stage IV - due to adrenal lesion or limited to chest PEt may help as OP her COPD - CHF and other co morbidity may complicate treatments Immunotherapy optiosn available pt will think and decide - Patient Problems (1) Mass of upper lobe of right lung Current Visit: Yes Status: Acute Subjective Date of service: 06/24/18 Principal diagnosis: small cell lung ca Interval history: path report seen by Dr Sequeira Objective - Constitutional Vitals: Last Vital Signs Temp 97.7 F 06/24/18 07:09 Pulse 121 H 06/24/18 07:38 Resp 18 06/24/18 07:38 BP 126/71 06/24/18 07:09 Pulse Ox 93 06/24/18 07:23 Pain Intensity (0-10): denies any pain General appearance: no acute distress Performance status: 3-limited selfcare - EENT Eyes: EOM intact ENT: hearing intact, clear oral mucosa Lymph node exam: negative cervical - Neck Neck: normal ROM - Respiratory Respiratory effort: Positive: normal Respiratory: bilateral: diminished - Cardiovascular Heart Sounds: Present: S1 & S2 Extremities: normal temperature - Gastrointestinal General gastrointestinal: Present: soft, non-tender Rectal Exam: deferred - Genitourinary Female genitourinary: Present: deferred - Integumentary Integumentary: warm - Musculoskeletal Musculoskeletal: strength equal bilaterally - Neurologic Neurologic: moves all extremities - Psychiatric Psychiatric: appropriate mood/affect - Labs Lab Results: Laboratory Results - last 24 hr 06/19/18 06/23/18 06/23/18 05:46 07:23 11:32 Sodium Potassium Chloride Carbon Dioxide Anion Gap BUN Creatinine Estimated GFR BUN/Creatinine Ratio Glucose POC Glucose 177 H 299 H Calcium Carcinoembryonic Ag See scanned result 06/23/18 06/23/18 06/24/18 16:39 21:08 04:41 Sodium 138 Potassium 4.3 Chloride 89.5 L Carbon Dioxide 38 H Anion Gap 15 BUN 40 H Creatinine 0.9 Estimated GFR > 60 BUN/Creatinine Ratio 44 Glucose 294 H POC Glucose 241 H 235 H Calcium 9.3 Carcinoembryonic Ag 06/24/18 07:12 Sodium Potassium Chloride Carbon Dioxide Anion Gap BUN Creatinine Estimated GFR BUN/Creatinine Ratio Glucose POC Glucose 300 H Calcium Carcinoembryonic Ag Medications & Allergies - Medications Allergies/Adverse Reactions: Allergies No Known Allergies Allergy (Verified 06/17/18 13:24) Home Medications: Home Medications Medication Instructions Recorded Confirmed Last Taken Type traZODone [Desyrel] 200 mg PO QHS 12/12/12 06/17/18 12/20/17 22:00 History Atorvastatin [Lipitor] 40 mg PO QHS #30 tab 01/07/17 06/17/18 12/20/17 Rx Ergocalciferol (Vitamin D2) 50,000 unit PO QWEEK 06/17/18 06/17/18 Unknown History [Drisdol] Rivaroxaban [Xarelto] 20 mg PO QDAY 06/17/18 06/17/18 Unknown History Spironolactone [Aldactone] 25 mg PO QDAY 06/17/18 06/17/18 Unknown History Venlafaxine [Effexor] 75 mg PO TID 06/17/18 06/17/18 Unknown History ALBUTEROL Inhaler (OR & NICU) 2 puff IH QID PRN #1 inhalation 06/24/18 Unknown Rx [ProAir HFA Inhaler] ALPRAZolam [Xanax TAB] 1 mg PO BID #60 tablet 06/24/18 Unknown Rx Albuterol Sulfate 1 neb IH QID PRN #180 vial.neb 06/24/18 Unknown Rx Budesonide/Formoterol Fumarate 1 puff IH BID #1 hfa.aer.ad 06/24/18 Unknown Rx [Symbicort 160-4.5 Mcg Inhaler] Butalb/Acetamin/Caff 50-325-40 1 tab PO Q4H PRN #20 tablet 06/24/18 Unknown Rx [Fioricet 50-325-40] Furosemide [Lasix TAB] 40 mg PO QDAY #30 tablet 06/24/18 Unknown Rx Insulin Glargine [Lantus VIAL] 32 units SUB-Q BID #1 vial 06/24/18 Unknown Rx Lispro Insulin [HumaLOG] 7 unit SUB-Q AC #1 vial 06/24/18 Unknown Rx Losartan [Cozaar] 25 mg PO QDAY #30 tablet 06/24/18 Unknown Rx Metoprolol [Lopressor TAB] 25 mg PO BID #60 tablet 06/24/18 Unknown Rx Prednisone [predniSONE 10 mg 10 mg PO .TAPER #1 tab.ds.pk 06/24/18 Unknown Rx (6-Day Pack, 21 Tabs)] Tiotropium Meherrin [Spiriva 1 puff IH DAILY #1 mist.inhal 06/24/18 Unknown Rx Respimat] levoFLOXacin [Levaquin TAB] 750 mg PO QHS #3 tablet 06/24/18 Unknown Rx oxyCODONE /ACETAMINOPHEN [Percocet 1 tab PO Q6H PRN #30 tablet 06/24/18 Unknown Rx 5/325 mg] Active Medications: Generic Name Dose Route Start Last Admin Trade Name Freq PRN Reason Stop Dose Admin Acetaminophen 650 mg 06/17/18 21:30 06/21/18 17:00 Tylenol PO 650 mg Q4H PRN Administration Pain MILD(1-3)/Fever >100.5/TORREZ Acetaminophen/Butalbital/Caffeine 1 tab 06/17/18 20:23 06/17/18 20:52 Fioricet PO 1 tab Q4H PRN Administration Headache Alprazolam 1 mg 06/20/18 20:00 06/23/18 21:57 Xanax PO 1 mg TID HARLAN Administration Arformoterol Tartrate 15 mcg 06/21/18 20:00 06/24/18 07:24 Brovana Nebu IH 15 mcg Q12HRT HARLAN Administration Atorvastatin Calcium 40 mg 06/17/18 22:00 06/23/18 21:57 Lipitor PO 40 mg QHS HARLAN Administration Budesonide 0.5 mg 06/21/18 20:00 06/24/18 07:24 Pulmicort IH 0.5 mg Q12HRT HARLAN Administration Ergocalciferol 50,000 unit 06/23/18 10:00 06/23/18 10:47 Vitamin D2 PO Not Given Th [facility] Famotidine 20 mg 06/17/18 22:00 06/23/18 21:58 Pepcid PO 20 mg BID HARLAN Administration Furosemide 20 mg 06/17/18 22:00 06/23/18 10:46 Lasix PO Not Given QDAY [facility] Furosemide 40 mg 06/22/18 14:00 06/24/18 04:28 Lasix IV 40 mg Q12H HARLAN Administration Guaifenesin 10 ml 06/22/18 20:33 Guaifenesin Dm Syrup PO Q6HR PRN Cough Insulin Glargine 31 units 06/23/18 11:42 06/23/18 22:00 Lantus SUB-Q 31 units BID HARLAN Administration Insulin Human Lispro 0 unit 06/17/18 22:00 06/23/18 22:31 Humalog SUB-Q 3 unit ACHS HARLAN Administration Protocol Insulin Human Lispro 7 unit 06/23/18 11:42 06/23/18 17:52 Humalog SUB-Q 7 unit AC HARLAN Administration Ipratropium Meherrin 0.5 mg 06/23/18 11:55 Atrovent IH Q4HRT PRN Shortness Of Breath Levofloxacin 750 mg 06/22/18 22:00 06/23/18 21:57 Levaquin PO 750 mg QHS HARLAN Administration Lorazepam 0.5 mg 06/17/18 20:23 06/18/18 17:32 Ativan IV 0.5 mg Q4H PRN Administration Agitation Methylprednisolone Sodium Succinate 40 mg 06/18/18 17:00 06/24/18 04:28 Solu-Medrol IV 40 mg Q12H HARLAN Administration Metoprolol Tartrate 25 mg 06/24/18 10:00 Lopressor PO BID [facility] Ondansetron HCl 4 mg 06/17/18 21:30 Zofran IV Q8H PRN Nausea And Vomiting Oxycodone/Acetaminophen 1 tab 06/17/18 21:30 06/20/18 18:25 Percocet 5/325 PO 1 tab Q6H PRN Administration Pain, Moderate (4-6) Oxycodone/Acetaminophen 2 tab 06/23/18 11:40 06/23/18 22:39 Percocet 5/325 PO 2 tab Q6H PRN Administration Pain , Severe (7-10) Rivaroxaban 20 mg 06/17/18 22:00 06/23/18 17:52 Xarelto PO 20 mg QDAY@1700 HARLAN Administration Protocol Sodium Chloride 10 ml 06/17/18 22:00 06/23/18 21:59 Sodium Chloride Flush Syringe 10 Ml IV 10 ml BID HARLAN Administration Sodium Chloride 10 ml 06/17/18 21:30 Sodium Chloride Flush Syringe 10 Ml IV PRN PRN LINE FLUSH Spironolactone 25 mg 06/18/18 10:00 06/20/18 10:43 Aldactone PO 25 mg QDAY HARLAN Administration Trazodone HCl 200 mg 06/17/18 22:00 06/23/18 21:58 Desyrel PO 200 mg QHS HARLAN Administration Venlafaxine HCl 75 mg 06/18/18 08:00 06/23/18 21:56 Effexor PO 75 mg TID HARLAN Administration
[2018-06-24] MEDS: HumaLOG SUB-Q SCH ×4 (08:58→12:02)
[2018-06-24] MEDS: PEPCID PO SCH (08:59)
[2018-06-24] MEDS: EFFEXOR PO SCH (08:59)
[2018-06-24] MEDS: LANTUS SUB-Q SCH (08:59)
[2018-06-24] MEDS: XANAX PO SCH (08:59)
[2018-06-24] MEDS: LASIX PO SCH (08:59)
[2018-06-24] MEDS: SODIUM CHLORIDE FLUSH SYRINGE 10 ML IV SCH (09:00)
[2018-06-24] MEDS ORDERED: LOPRESSOR PO SCH (10:00)
[2018-06-24] MEDS: PERCOCET 5/325 PO PRN (11:26)
== END 2018-06-24 13:48 | disposition home health service (06) | DRG 180 ==
LOC: ED 13:21 → 2B-ACE 17:42
PROVIDERS: ADMIT Internal Medicine; ATTEND Internal Medicine
PROC: 0BBC3ZX Excision of Right Upper Lung Lobe, Percutaneous Approach, Diagnostic (ICD-10-PCS; principal; 2018-06-21)
PROC: 4A033R1 Measurement of Arterial Saturation, Peripheral, Percutaneous Approach (ICD-10-PCS; 2018-06-21)
PROC: 5A09357 Assistance with Respiratory Ventilation, Less than 24 Consecutive Hours, Continuous Positive Airway Pressure (ICD-10-PCS; 2018-06-21)
PROC: 5A09357 Assistance with Respiratory Ventilation, Less than 24 Consecutive Hours, Continuous Positive Airway Pressure (ICD-10-PCS; 2018-06-22)
PROC: 5A09357 Assistance with Respiratory Ventilation, Less than 24 Consecutive Hours, Continuous Positive Airway Pressure (ICD-10-PCS; 2018-06-23)
PROC: 5A09357 Assistance with Respiratory Ventilation, Less than 24 Consecutive Hours, Continuous Positive Airway Pressure (ICD-10-PCS; 2018-06-24)
DX: C34.11 Malignant neoplasm of upper lobe, right bronchus or lung (principal); I50.23 Acute on chronic systolic (congestive) heart failure; J96.21 Acute and chronic respiratory failure with hypoxia; J18.9 Pneumonia, unspecified organism; J44.1 Chronic obstructive pulmonary disease with (acute) exacerbation; J44.0 Chronic obstructive pulmonary disease with (acute) lower respiratory infection; J98.11 Atelectasis; I24.9 Acute ischemic heart disease, unspecified; I11.0 Hypertensive heart disease with heart failure; F32.9 Major depressive disorder, single episode, unspecified; E55.9 Vitamin D deficiency, unspecified; E78.5 Hyperlipidemia, unspecified; E66.01 Morbid (severe) obesity due to excess calories; E87.5 Hyperkalemia; T38.0X5A Adverse effect of glucocorticoids and synthetic analogues, initial encounter; Y92.89 Other specified places as the place of occurrence of the external cause; E27.9 Disorder of adrenal gland, unspecified; I48.91 Unspecified atrial fibrillation; E11.65 Type 2 diabetes mellitus with hyperglycemia; Z90.710 Acquired absence of both cervix and uterus; Z95.0 Presence of cardiac pacemaker; Z87.891 Personal history of nicotine dependence; Z68.38 Body mass index [BMI] 38.0-38.9, adult; Z86.718 Personal history of other venous thrombosis and embolism; Z79.01 Long term (current) use of anticoagulants; Z91.14 Patient's other noncompliance with medication regimen; Z79.4 Long term (current) use of insulin
CPT/HCPCS: 36415; 36600; 70470; 71045; 71046; 71275; 74177; 77012; 80048; 80053; 82378; 82803; 82962; 83036; 83735; 83880; 84132; 84484; 85025; 85379; 85610; 86301; 88173; 88305; 88312; 88333; 88341; 88342; 93005; 93010; 93306; 93970; 94640; 94644; 94660; 94760; G0378; A9270-GY; J1815; J1940; J1956; J2060; J2250; J2270; J2930; J3010; J7040; Q9967